=== PATIENT | female | born 1945 | race Caucasian/White ===

== ENCOUNTER 2016-04-21 12:55 | Emergency (ER) | payer MEDICARE, OTHER ==
[~2016-04-21] VITALS: Wt 78.0 kg
[~2016-04-21 12:55] MED LIST: ACET-2158 PO; AMIT25TA9 PO; ASPI-664 PO; ATEN50TA PO; CLON0.2T5 PO; DIPH1TAB25 PO; HYDR-3671 PO; INSU100I15 SC; LOSA50TA6 PO; NOVO3I SC
[2016-04-21] MEDS ORDERED: SODIUM CHLORIDE 0.9% 500 ML BAG IV* STA (13:30)
[2016-04-21] MEDS ORDERED: LANT3I SC (13:48)
[2016-04-21] MEDS ORDERED: CLON0.2T5 PO (13:50)
[2016-04-21] MEDS ORDERED: APR50 PO (13:53)
[2016-04-21 14:28] LABS: BASOPHILS % 0.3 % (0.0-2.0); EOSINOPHILS # 0.1 10^3/ul (0.0-0.5); EOSINOPHILS % 0.7 % (0.0-7.0); HEMATOCRIT 41.6 % (37.0-47.0); HEMOGLOBIN 13.9 g/dl (12.0-16.0); LYMPHOCYTES # 1.3 10^3/ul (0.8-2.9); LYMPHOCYTES % 16.9 % (15.0-51.0); MEAN CORPUSCULAR HGB CONC 33.5 g/dl (32.0-37.0); MEAN CORPUSCULAR VOLUME 101.4 fl (82.0-101.0); MEAN PLATELET VOLUME 9.3 fl (7.4-10.4); MONOCYTE # 0.7 10^3/ul (0.3-0.9); MONOCYTES % 8.8 % (0.0-11.0); NEUTROPHIL # 5.7 10^3/ul (1.6-7.5); NEUTROPHILS % 73.3 % (39.0-77.0); PLATELET COUNT 85 10^3/UL (140-440); RED CELL DISTRIBUTION WIDTH 14.1 % (11.5-14.5); UNCORRECTED WBC 7.8 10^3/ul (4.8-10.8); WHITE BLOOD COUNT 7.8 10^3/ul (4.8-10.8)
[2016-04-21 14:39] LABS: INR 1.11; PROTIME 14.3 Sec (12.2-14.2); PT RATIO 1.1
[2016-04-21 14:40] LABS: PARTIAL THROMBOPLASTIN TIME 31.3 Sec (25.0-35.0)
--- NOTE | 2016-04-21 14:40 | RADRPT ---
PROCEDURE: XR Chest. CLINICAL INDICATION: Chest pain. TECHNIQUE: Single frontal view. COMPARISON: 08/30/2015. FINDINGS: The lungs are clear. The heart size is normal. There is calcification in the aorta consistent with atherosclerosis. There is no pleural effusion or pneumothorax There are old healed right rib fractures. IMPRESSION: 1. Atherosclerosis. 2. Old healed right rib fractures. 3. Otherwise normal chest x-ray. RPTAT: QQ .Angel Cheng MD, MD Date Time Electronically viewed and signed by .Angel Cheng MD, MD on 04/21/2016 14:40 .R/
[2016-04-21 14:44] LABS: CONDITION 1; LH ANALYZER COMMENTS 1
[2016-04-21 14:47] LABS: POTASSIUM 4.1 mmol/L (3.5-5.1)
[2016-04-21 14:49] LABS: CREATININE 6.44 mg/dl (0.44-1.00)
[2016-04-21 14:51] LABS: CALCIUM 8.9 mg/dl (8.4-10.2)
--- NOTE | 2016-04-21 14:56 | RADRPT ---
PROCEDURE: CT head CLINICAL INDICATION: Fall with headache TECHNIQUE: Contiguous 2.5 mm axial images were obtained from the vertex to the skull base. No int ravenous contrast was administered. The calculated dose length product (DLP) = 720.23 mGy-cm. CTDl vol = 44.03 mGy. One or more of the following dose reduction techniques were used: Automated exposu re control, adjustment of the mA and or KV according to patient size, or use of iterative reconstruc tion technique. COMPARISON: 08/24/2015 FINDINGS: There is no evidence of acute intracranial hemorrhage or acute territorial infarct. No mass or mass effect is seen on this noncontrast study. There is age appropriate cortical and central atrophy. The ventricles and cisterns are normal in size and configuration for the degree of atrophy. Low att enuation areas in the periventricular white matter is consistent with minimal small-vessel ischemic change. There is mild chronic left sphenoid sinus mucosal thickening. Remaining paranasal sinuses a re clear. There is air within the left orbit bony calvarium is unremarkable. Mild to moderate bila teral carotid and left vertebral artery calcification is seen. IMPRESSION: 1. No acute intracranial hemorrhage or acute territorial infarct. 2. Age related atrophy and minimal involutional changes as described . 3. Minimal left sphenoid sinus mucosal thickening. 4. Stable cerebral arterial sclerosis 5. Air within the left globe RPTAT: HH .Saji Anne MD, MD Date Time Electronically viewed and signed by .Saji Anne MD, MD on 04/21/2016 14:56 .W/
[2016-04-21 14:59] LABS: TROPONIN-I 0.026 ng/ml (0.00-0.12)
--- NOTE | 2016-04-21 15:23 | ERD ---
ER Documentation Chief Complaint Date/Time DATE: 04/21/16 TIME: 15:19 Chief Complaint LOW BLOOD SUGAR IN DIALYSIS TODAY. BS IN TRIAGE IS 63, DIZZY AND FELL AT AM HPI This is a 70-year-old female presents to the emergency room for evaluation of dizziness and a ground-level fall this morning. According to the patient's caregiver this patient has had diarrhea over the past 4 days. She was rushing to get to the bathroom and she fell forward. She did hit her head. No loss of consciousness. The patient came to the ER for evaluation after going to dialysis center where she was sent to the emergency room because she had a low blood sugar. This patient did recently have surgery on her eye for a hemorrhage. The patient denies being on any blood thinners at this time. She also states that she fell on her left hip. Denies any pain in the hip and came to the ER ROS All systems reviewed and are negative except as per history of present illness. Medications Home Meds Reported Medications Hydralazine Hcl* (Hydralazine Hcl*) 50 Mg Tab, 50 MG PO TID Y for ELEVATED BLOOD PRESSURE, #120 TAB PT CLAIMS IT GIVES HER DIARRHEA AND MAKE HER DIZZY 04/21/16 Clonidine Hcl* (Clonidine Hcl*) 0.2 Mg Tablet, 0.2 MG PO TID Y for ELEVATED BLOOD PRESSURE, TAB PT STARTED ON 04-17-16 CLAIMS IT GAVE HER DIARRHEA AND MADE HER DIZZY 04/21/16 Insulin Glargine* (Lantus*) 100 Unit/Ml Soln, 10 UNIT SC QHS, #1 VIAL 04/21/16 Amitriptyline Hcl* (Amitriptyline Hcl*) 25 Mg Tablet, 25 MG PO QHS, #30 TAB 08/19/15 Aspirin* (Aspirin* (EC)) 81 Mg Tablet.dr, 81 MG PO DAILY, TAB 11/17/14 Clonidine Hcl* (Clonidine Hcl*) 0.2 Mg Tablet, 0.2 MG PO BID, TAB 11/17/14 Diphenoxylate Hcl-Atropine* (Lomotil*) 1 Tab Tab, 2 TAB PO DAILY Y for DIARRHEA , TAB 11/17/14 Insulin Aspart* (Novolog Insulin Pen*) 100 Unit/Ml Soln, 7 UNIT SC BID, EA 11/17/14 Losartan Potassium* (Losartan Potassium*) 50 Mg Tablet, 50 MG PO DAILY, TAB 2/6/15 Atenolol* (Atenolol*) 50 Mg Tablet, 50 MG PO BID 09/24/12 Acetaminophen (TYLENOL 325 MG TAB) 325 Mg Tab, 325 MG PO Y for PAIN 09/24/12 Discontinued Reported Medications Insulin Glargine,Hum.rec.anlog (Lantus Solostar) 100 Units/Ml Pen, 20 SC HS 11/17/14 Hydralazine Hcl* (Hydralazine Hcl*) 25 Mg Tab, 25 MG PO BID, TAB 09/16/13 Allergies Allergies: Coded Allergies: No Known Allergy (Unverified , 04/21/16) PMhx/Soc History of Surgery: Yes (CSECTION;GALL BLADDER, CYST TO BACK REMOVAL) Anesthesia Reaction: No Hx Neurological Disorder: Yes (NEUROPATHY) Hx Respiratory Disorders: No Hx Cardiac Disorders: Yes (HIGH BLOOD PRESSURE) Hx Psychiatric Problems: Yes (HX OF ANXIETY) Hx Miscellaneous Medical Probl: No Hx Alcohol Use: No Hx Substance Use: No Hx Tobacco Use: No Smoking Status: Never smoker Physical Exam Vitals Vital Signs Date Time Temp Pulse Resp B/P Pulse Ox O2 Delivery O2 Flow Rate FiO2 04/21/16 13:02 98.8 77 20 150/69 98 Physical Exam INITIAL VITAL SIGNS: Reviewed by me GENERAL: The patient is well developed and appropriate for usual state of health in no apparent distress HEENT: Ecchymosis over left eye, pupils equal, round, and reactive to light. EOMI. There is no scleral icterus. NECK: C-spine is soft and supple, there is no meningismus. There is no cervical lymphadenopathy. LUNGS: Clear to auscultation bilaterally. There are no rales, wheezes or rhonchi. HEART: Regular rate and rhythm, no murmurs, clicks, rubs or gallops. ABDOMEN: Soft, non-tender, non-distended. There are bowel sounds in all four quadrants. No rebound or guarding. EXTREMITIES: There is no peripheral cyanosis or edema. No focal swelling or erythema. NEUROLOGICAL: The patient moves all four extremities with 5/5 strength. Cranial nerves II - XII are intact. Normal gait. Alert and oriented SKIN: Superficial abrasion over the left hip, there is no apparent rash or petechiae. HEME/LYMPHATIC: There is no evidence of excessive bruising or lymphedema. PSYCHIATRIC: The patient does not appear anxious or depressed. Result Diagram: 04/21/16 1355 04/21/16 1355 Results 24 hrs Laboratory Tests Test 04/21/16 13:01 04/21/16 13:55 04/21/16 13:57 Bedside Glucose 65mg/dL 79mg/dL Activated Partial Thromboplast Time 31.3Sec Anion Gap 24 Basophils # Pending Basophils % Pending Blood Morphology Comment Blood Urea Nitrogen 75mg/dl Calcium Level 8.9mg/dl Carbon Dioxide Level 24mmol/L Chloride Level 97mmol/L Creatinine 6.44mg/dl Eosinophils # Pending Eosinophils % Pending Glucose Level 85mg/dl Hematocrit 41.6% Hemoglobin 13.9g/dl INR International Normalized Ratio 1.11 Lymphocytes # Pending Lymphocytes % Pending Mean Corpuscular Hemoglobin 34.0pg Mean Corpuscular Hemoglobin Concent 33.5g/dl Mean Corpuscular Volume 101.4fl Mean Platelet Volume 9.3fl Monocytes # Pending Monocytes % Pending Neutrophils # Pending Neutrophils % Pending Nucleated Red Blood Cells # Pending Nucleated Red Blood Cells % Pending Platelet Count 8510^3/UL Potassium Level 4.1mmol/L Prothrombin Time 14.3Sec Prothrombin Time Ratio 1.1 Red Blood Count 4.1010^6/ul Red Cell Distribution Width 14.1% Sodium Level 141mmol/L Troponin I 0.026ng/ml White Blood Count 7.810^3/ul Current Medications Medications (Trade) Dose Ordered Sig/Divina Route PRN Reason Start Time Stop Time Status Last Admin Dose Admin Sodium Chloride (NS) 250 ml ONCE STAT IV* 04/21/16 13:30 04/21/16 13:32 DC 04/21/16 13:59 Procedures/MDM Chest X-ray 1V Interpreted by me: Soft Tissue: No acute abnormalities Bones: Old healed rib fractures Mediastinum/Cardiac Silhouette/Lungs: [No acute abnormalities] CT head without: 1. No acute intracranial hemorrhage or acute territorial infarct. 2. Age related atrophy and minimal involutional changes as described . 3. Minimal left sphenoid sinus mucosal thickening. 4. Stable cerebral arterial sclerosis 5. Air within the left globe EKG: Rate/Rhythm: [Sinus bradycardia] QRS, ST, T-waves: [No changes consistent w/ acute ischemia] Impression: Sinus bradycardia with left bundle branch block This 70-year-old female presents to the emergency room for evaluation of a ground-level fall. This patient was supposed to go to dialysis today however she had a low blood sugar and came to the ER for evaluation. According to family members this patient has had diarrhea at home and fell today and hit her head. No loss of consciousness. This patient is alert and oriented to person place and time. I did obtain lab work including a troponin which is normal except for chronic renal insufficiency. Her EKG does show sinus bradycardia with a left bundle branch block. Troponin is normal. Chest x-ray does not reveal any fluid overload. She is hemodynamically stable and CT of the head does not reveal any intracranial hemorrhage. This patient has had 3. acute blood sugars with the last blood sugar being 100. She will be discharged at this time with instructions to follow-up with dialysis. Departure Diagnosis: Primary Impression: Fall from ground level Additional Impressions: Contusion of left hip Thrombocytopenia Chronic renal failure Condition: Stable KALINA GIBSON DO Apr 21, 2016 15:23
[2016-04-21 15:30] VITALS: BP 150/66; PULSE 78; RESP 20; TEMP 98.8
== END 2016-04-21 15:50 | disposition home or self-care (01) ==
LOC: E/R 12:55
DX: S70.02XA Contusion of left hip, initial encounter (principal); D69.6 Thrombocytopenia, unspecified; N18.9 Chronic kidney disease, unspecified; E11.9 Type 2 diabetes mellitus without complications; R07.9 Chest pain, unspecified; W18.39XA Other fall on same level, initial encounter; Y92.9 Unspecified place or not applicable; Z79.4 Long term (current) use of insulin; Z79.82 Long term (current) use of aspirin
CPT/HCPCS: 36415; 70450; 71010; 80048; 82962; 84484; 85025; 85610; 85730; 99285; J7040

== ENCOUNTER 2016-06-20 17:50 | Inpatient (IN) | payer MEDICARE, BC, OTHER ==
[~2016-06-20] VITALS: Ht 157.5 cm; Wt 69.0 kg
[~2016-06-20 17:50] MED LIST changes: -HYDR-3671 PO; +HYDR-3672 PO; -INSU100I15 SC; +LANT3I SC
[2016-06-20] MEDS ORDERED: SODIUM CHLORIDE 0.9% 1L BAG IV* STA (19:09)
[2016-06-20] MEDS ORDERED: CEFEPIME 2GM/50 ML (PMX) 50 ML IVPB STA (19:09)
[2016-06-20] MEDS ORDERED: ACETAMINOPHEN 325 MG TAB PO STA (19:09)
--- NOTE | 2016-06-20 19:29 | ERA ---
ER Documentation Chief Complaint Date/Time DATE: 06/20/16 TIME: 19:27 Chief Complaint WEAKNESS,COUGH,GEN BODY PAIN.POOR APPETITE.DIALYSIS Pt MWF HPI 71-year-old dialysis patient, Sunday, who presents emergency room with fever, generalized body aches, cough. The patient describes approximately 48 hours of symptoms. Last dialysis yesterday. The patient describes poor appetite. She also describes nonbloody nonbilious emesis. No abdominal pain. Fever noted prior to arrival. ROS All systems reviewed and are negative except as per history of present illness. Medications Home Meds Reported Medications Hydrocodone/Acetaminophen ([place] 5-325 Tablet) 1 Each Tablet, 1 EACH PO Q8H, TAB 06/20/16 Loratadine* (Loratadine*) 10 Mg Tablet, 10 MG PO DAILY, #30 TAB 06/20/16 Insulin Aspart (Novolog FlexPen) 100 Unit/1 Ml Insuln.pen, 0 SC SLIDING SCALE AC , EA 06/20/16 Insulin Glargine* (Lantus*) 100 Unit/Ml Soln, 12 UNIT SC QHS, #1 VIAL 04/21/16 Aspirin* (Aspirin* (EC)) 81 Mg Tablet.dr, 81 MG PO DAILY, TAB 11/17/14 Diphenoxylate Hcl-Atropine* (Lomotil*) 1 Tab Tab, 1 TAB PO Q6H Y for DIARRHEA, TAB 11/17/14 Losartan Potassium* (Losartan Potassium*) 50 Mg Tablet, 50 MG PO DAILY, TAB 04/10/14 Atenolol* (Atenolol*) 50 Mg Tablet, 50 MG PO BID 09/24/12 Discontinued Reported Medications Hydralazine Hcl* (Hydralazine Hcl*) 50 Mg Tab, 50 MG PO TID Y for ELEVATED BLOOD PRESSURE, #120 TAB PT CLAIMS IT GIVES HER DIARRHEA AND MAKE HER DIZZY 04/21/16 Clonidine Hcl* (Clonidine Hcl*) 0.2 Mg Tablet, 0.2 MG PO TID Y for ELEVATED BLOOD PRESSURE, TAB PT STARTED ON 04-17-16 CLAIMS IT GAVE HER DIARRHEA AND MADE HER DIZZY 04/21/16 Amitriptyline Hcl* (Amitriptyline Hcl*) 25 Mg Tablet, 25 MG PO QHS, #30 TAB 08/19/15 Clonidine Hcl* (Clonidine Hcl*) 0.2 Mg Tablet, 0.2 MG PO BID, TAB 11/17/14 Insulin Aspart* (Novolog Insulin Pen*) 100 Unit/Ml Soln, 7 UNIT SC BID, EA 11/17/14 Acetaminophen (TYLENOL 325 MG TAB) 325 Mg Tab, 325 MG PO Y for PAIN 09/24/12 Allergies Allergies: Coded Allergies: No Known Allergy (Unverified , 06/20/16) PMhx/Soc History of Surgery: Yes (CSECTION;GALL BLADDER, CYST TO BACK REMOVAL) Anesthesia Reaction: No Hx Neurological Disorder: Yes (NEUROPATHY) Hx Respiratory Disorders: No Hx Cardiac Disorders: Yes (HIGH BLOOD PRESSURE) Hx Psychiatric Problems: Yes (HX OF ANXIETY) Hx Miscellaneous Medical Probl: Yes (ESRD ON HD MWF) Hx Alcohol Use: No Hx Substance Use: No Hx Tobacco Use: No Smoking Status: Never smoker FmHx Family History: No diabetes Physical Exam Vitals Vital Signs Date Time Temp Pulse Resp B/P Pulse Ox O2 Delivery O2 Flow Rate FiO2 06/20/16 20:30 99.1 77 18 152/54 100 Room Air 06/20/16 19:15 Nasal Cannula 06/20/16 19:12 101.0 77 20 171/59 100 Room Air 06/20/16 17:58 100.5 80 20 192/74 98 Physical Exam General: Well developed, well nourished, no acute distress, pallor Head: Normocephalic, atraumatic. Eyes: Pupils equally reactive, EOM intact ENT: dry mucous membranes Neck: Supple, no lymphadenopathy Respiratory: Lungs clear bilaterally, no distress Cardiovascular: Slight tachycardia, no murmurs, rubs, or gallops Abdominal: Soft, non-tender, non-distended, no peritoneal signs : Deferred MSK: No edema, no unilateral swelling, 5/5 strength, left upper extremity AV fistula with good bruit and thrill Neurologic: Alert and oriented, moving all extremities, normal speech, no focal weakness, no cerebellar signs, no meningismus Skin: No rash Psych: Normal mood Result Diagram: 06/20/16193706/20/161937 Results 24 hrs Laboratory Tests Test 06/20/16 19:35 06/20/16 19:38 06/20/16 21:20 Lactic Acid Level 1.6mmol/L 1.0mmol/L White Blood Count 7.210^3/ul Red Blood Count 2.5110^6/ul Hemoglobin 8.2g/dl Hematocrit 26.0% Mean Corpuscular Volume 103.6fl Mean Corpuscular Hemoglobin 32.7pg Mean Corpuscular Hemoglobin Concent 31.5g/dl Red Cell Distribution Width 13.1% Platelet Count 8410^3/UL Mean Platelet Volume 10.6fl Neutrophils % 84.0% Band Neutrophils % 2.0% Lymphocytes % 8.0% Monocytes % 5.0% Eosinophils % 1.0% Neutrophils # 6.010^3/ul Lymphocytes # 0.610^3/ul Monocytes # 0.410^3/ul Eosinophils # 0.110^3/ul Platelet Estimate PLT APPEAR DECREASED Stomatocytes FEW Prothrombin Time 14.3Sec Prothrombin Time Ratio 1.1 INR International Normalized Ratio 1.11 Activated Partial Thromboplast Time 33.7Sec Sodium Level 140mmol/L Potassium Level 3.9mmol/L Chloride Level 97mmol/L Carbon Dioxide Level 29mmol/L Anion Gap 18 Blood Urea Nitrogen 41mg/dl Creatinine 5.52mg/dl Glucose Level 173mg/dl Calcium Level 8.7mg/dl Total Bilirubin 0.2mg/dl Direct Bilirubin 0.00mg/dl Indirect Bilirubin 0.2mg/dl Aspartate Amino Transf (AST/SGOT) 38IU/L Alanine Aminotransferase (ALT/SGPT) 31IU/L Alkaline Phosphatase 179IU/L Troponin I 0.018ng/ml Total Protein 7.8g/dl Albumin 3.9g/dl Globulin 3.90g/dl Albumin/Globulin Ratio 1.00 Current Medications Medications (Trade) Dose Ordered Sig/Divina Route PRN Reason Start Time Stop Time Status Last Admin Dose Admin Sodium Chloride (NS) 2,420 ml BOLUS OVER 2 HOURS STAT IV* 06/20/16 19:09 06/20/16 19:11 DC 06/20/16 19:43 Acetaminophen 650 mg 650 mg ONCE STAT PO 06/20/16 19:09 06/20/16 19:11 DC 06/20/16 19:42 Cefepime HCl 50 ml @ 100 mls/hr ONCE STAT IVPB 06/20/16 19:09 06/20/16 19:38 DC 06/20/16 19:43 Vancomycin HCl (Vancocin) 250 ml @ 125 mls/hr ONCE ONCE IVPB 06/20/16 19:30 06/20/16 21:29 DC 06/20/16 20:22 Oseltamivir Phosphate (Tamiflu) 75 mg ONCE ONCE PO 06/20/16 21:00 06/20/16 21:01 DC Ondansetron HCl (Zofran Inj) 4 mg BRIDGE ORDER PRN IV NAUSEA AND/OR VOMITING 06/20/16 22:30 06/21/16 22:29 Acetaminophen (Tylenol Tab) 650 mg ER BRIDGE PRN PO MILD PAIN/FEVER 06/20/16 22:30 06/21/16 22:29 Procedures/MDM EKG, MONITORS, & DIAGNOSTIC IMAGING: EKG: I reviewed and interpreted a 12-lead EKG. Rhythm: Normal sinus rhythm Ectopy: None Intervals: Left bundle branch block ST segments: No elevations or depressions T waves: No contiguous inversions Chest x-ray: I reviewed and interpreted a 1 view of the chest Mediastinum: No enlargement Cardiac silhouette: No cardiomegaly Airspace: Clear lung banks bilaterally without evidence of pneumothorax Bones: No evidence of fracture CT abdomen and pelvis: No acute process LAB INTERPRETATION: Influenza positive, no leukocytosis, normal lactic acid, chronic renal insufficiency MEDICAL DECISION MAKING: The patient presents with fever, cough, weakness. The patient is a dialysis patient. Broad differential including pneumonia, access sepsis, influenza, acute intra-abdominal process. The patient is high risk for sepsis therefore empiric antibiotics would be appropriate. ER COURSE: Initial gentle fluid bolus given given dialysis patient. The patient had blood cultures, empiric vancomycin and cefepime ordered. Influenza swab sent. Positive for influenza. Patient given Tamiflu. Inpatient hospitalization given high risk patient. I kept the patient and/or family informed of laboratory and diagnostic imaging results throughout the emergency room course. DISPOSITION PLAN: Medical surgical admission given no hyperkalemia CONSULTATION: Accepting care team and consultations: I discussed the current laboratory data, diagnostic imaging and emergency care provided. Admitting team: Dr. Patiño Admitting team indication: Insurance directed Departure Diagnosis: Primary Impression: Influenza Additional Impressions: End stage renal disease on dialysis Thrombocytopenia Condition: Stable DAYDAY UMANA MD Jun 20, 2016 19:29
[2016-06-20] MEDS ORDERED: VANCOMYCIN 1 GM (PMX) 250 ML IVPB ONE (19:30)
[2016-06-20] MEDS ORDERED: INSU100I22 SC (19:40)
[2016-06-20] MEDS ORDERED: LORA10TA3 PO (19:41)
[2016-06-20] MEDS ORDERED: HYDR-906 PO (19:41)
[2016-06-20 19:55] LABS: ADD SCAN DIFF NO
[2016-06-20 19:56] LABS: ABNORMAL IP MESSAGE 1; HEMOGLOBIN 8.2 g/dl (12.0-16.0); MEAN CORPUSCULAR HEMOGLOBIN 32.7 pg (29.0-33.0); MEAN CORPUSCULAR HGB CONC 31.5 g/dl (32.0-37.0); MEAN CORPUSCULAR VOLUME 103.6 fl (82.0-101.0); MEAN PLATELET VOLUME 10.6 fl (7.4-10.4); PLATELET COUNT 84 10^3/UL (140-415); RED BLOOD COUNT 2.51 10^6/ul (4.20-5.40); RED CELL DISTRIBUTION WIDTH 13.1 % (11.5-14.5); WHITE BLOOD COUNT 7.2 10^3/ul (4.8-10.8)
--- NOTE | 2016-06-20 20:04 | RADRPT ---
PROCEDURE: XR Chest. CLINICAL INDICATION: Possible sepsis. TECHNIQUE: Single frontal view of the chest. COMPARISON: 04/21/2016. FINDINGS: Cardiomegaly and atherosclerotic calcifications in the thoracic aorta. Mild pulmonary vascular conge stion. The lungs are otherwise clear. No signs of pleural fluid or pneumothorax are seen. The osseo us structures and soft tissues are unremarkable. IMPRESSION: Mild pulmonary vascular congestion. RPTAT: [facility] Physician Kourtney Date Time Electronically viewed and signed by Jim Brown Physician on 06/20/2016 20:03 RS/
[2016-06-20 20:06] LABS: ALBUMIN 3.9 g/dl (3.3-4.9)
[2016-06-20 20:07] LABS: INR 1.11; POTASSIUM 3.9 mmol/L (3.5-5.1); PROTIME 14.3 Sec (12.2-14.2); PT RATIO 1.1
[2016-06-20 20:08] LABS: PARTIAL THROMBOPLASTIN TIME 33.7 Sec (25.0-35.0)
[2016-06-20 20:09] LABS: BILIRUBIN,INDIRECT 0.2 mg/dl (0-1.1); BILIRUBIN,TOTAL 0.2 mg/dl (0.2-1.3); CREATININE 5.52 mg/dl (0.44-1.00); TOTAL PROTEIN 7.8 g/dl (6.1-8.1)
[2016-06-20 20:10] LABS: CALCIUM 8.7 mg/dl (8.4-10.2)
[2016-06-20 20:21] LABS: TROPONIN-I 0.018 ng/ml (0.00-0.12)
[2016-06-20] MEDS ORDERED: OSELTAMIVIR 75 MG CAP PO ONE (21:00)
[2016-06-20 21:15] LABS: EOSINOPHILS # 0.1 10^3/ul (0.0-0.5); LYMPHOCYTES # 0.6 10^3/ul (0.8-2.9); MONOCYTE # 0.4 10^3/ul (0.3-0.9)
[2016-06-20 21:16] LABS: STOMATOCYTES FEW
[2016-06-20 21:17] LABS: PLATELET ESTIMATE PLT APPEAR DECREASED
--- NOTE | 2016-06-20 21:55 | RADRPT ---
PROCEDURE: CT Abdomen and Pelvis without contrast. CLINICAL INDICATION: Possible sepsis TECHNIQUE: CT scan of the abdomen and pelvis without contrast was performed on a multidetector hig h-resolution CT scanner. The patient was scanned without intravenous contrast. Coronal and sagittal reformatted images were obtained from the axial source images. Images were reviewed on a high-resol [employer] PACS workstation. The total exam CTDI equals 11.25 mGy and the total exam DLP equals 591.97 mG y-cm. One or more the following dose reduction techniques were utilized: Automated exposure control, adjus tment of the mA/ or kV according to patient's size, or use of iterative reconstruction technique. COMPARISON: None. FINDINGS: CT abdomen: Appearance of the right diaphragmatic pleural calcifications. Linear atelectasis/fibrosis at lung b ases. The heart size is normal, without pericardial thickening or effusion. The liver is normal in size and density without focal mass or intrahepatic biliary dilatation. Vascular calcifications in t he spleen. The stomach is partially collapsed, but is grossly unremarkable. Pancreatic atrophy. N o gallbladder is seen. The adrenal glands are symmetric and normal. Vascular calcifications in the kidneys. The aorta is of normal caliber. Aortic vascular calcifications are present. Calcification in all b ranches of the abdominal aorta including iliac arteries. There is no retroperitoneal lymphadenopath y. The wai hepatis region is clear. Diverticula in sigmoid and ascending colon. There is no spe cific evidence of acute diverticulitis seen. CT pelvis: The small bowel loops situated within the pelvis are unremarkable. Vascular calcifications in uterus . The bladder is nearly empty. The pelvic sidewalls and inguinal regions are clear. The sigmoid c olon and rectum are remarkable for sigmoid diverticulosis. No mass, lymphadenopathy, or free fluid is seen. No acute inflammation is seen. There is an unremarkable appendix. The surrounding osseous structures are remarkable for degenerative spondylosis of the spine. Spinal stenosis in lumbar spine. There is diffuse osteopenia. Mild to moderate osteoarthrosis at hips. De generative changes at sacroiliac joints. IMPRESSION: Diffuse vascular atherosclerotic calcification. Pancreatic atrophy. Diverticula in sigmoid and asce nding colon. No specific evidence of acute diverticulitis seen. Please see above. RPTAT: HJES .David Espinoza MD, MD Date Time Electronically viewed and signed by .David Espinoza MD, on 06/20/2016 21:54 .S/
[2016-06-20] MEDS ORDERED: ONDANSETRON 4 MG INJ IV PRN (22:30)
[2016-06-20] MEDS ORDERED: ACETAMINOPHEN 325 MG TAB PO PRN (22:30)
[2016-06-21] VITALS (11 sets, daily range): BP systolic 133–187; BP diastolic 55–79; PULSE 60–76; RESP 16–20; TEMP 99.2; Ht 157.5 cm; Wt 69.0 kg
[2016-06-21] MEDS ORDERED: ONDANSETRON 4 MG INJ IV PRN (13:30)
[2016-06-21] MEDS ORDERED: DOCUSATE SODIUM 100 MG CAP PO PRN (13:30)
[2016-06-21] MEDS ORDERED: morphine 2 MG INJ IV PRN (13:30)
--- NOTE | 2016-06-21 14:23 | HP ---
DATE OF ADMISSION: 06/20/2016 CHIEF COMPLAINT: Generalized weakness, cough, and general body pain. HISTORY OF PRESENT ILLNESS: The patient is a 71-year-old female known to me from previous admission . The patient with history of end-stage renal disease on hemodialysis on Sunday, Sunday, and Sun, follows up with Dr. Rios. The patient with diabetes mellitus, hypertension. The patient presen cherelle to the emergency room with complaints of fever, generalized body ache, and cough. The patient a lso complains of poor appetite and nonbloody, nonbilious emesis. The patient had a fever of 101.0 o n admission. The patient underwent a chest x-ray which revealed mild pulmonary vascular congestion. The patient did have dialysis on Sunday. The patient also underwent a CT of the abdomen and pelvi s with impression of diffuse vascular atherosclerotic calcification, pancreatic atrophy, diverticula in sigmoid and ascending colon, no specific evidence of acute diverticulitis seen. Rapid influenza swab was positive for influenza B. The patient was started on Tamiflu and was given supplemental o xygen. Also, she was given broad spectrum antibiotics for possible underlying bronchitis. The leticia ent was also given Tylenol, and the patient will be admitted for further evaluation and management t o medical/surgical floor. PAST MEDICAL HISTORY: Per HPI. PAST SURGICAL HISTORY: The patient is status post left upper extremity AV fistula creation and subs equent removal of fistula by Dr. Sanchez a couple of months ago. The patient also had a left upper ex tremity IV fistula creation. The patient recently underwent left eye surgery with certified orthotist/pedorthist. The patient is status post many years ago, status post cholecystectomy, status post incis ion and drainage of perirectal abscess. FAMILY HISTORY: Noncontributory to the patient's condition. SOCIAL HISTORY: The patient lives at home. The patient denies any tobacco use, denies any alcohol use, denies any illicit drug use. ALLERGIES: NO KNOWN ALLERGIES. HOME MEDICATIONS: Includes 1. Loratadine. 2. NovoLog. 3. Lantus. 4. Aspirin. 5. Lomotil. 6. Cozaar 7. Atenolol. REVIEW OF SYSTEMS: A 12-point review of systems is negative unless mentioned in the HPI. The patient denies any chest pain, denies any bilateral lower extremity swelling. PHYSICAL EXAMINATION: GENERAL: Well-developed, well-nourished female who currently is awake, alert. VITAL SIGNS: Temperature is 99.2, pulse is 76, blood pressure 169/56, respiratory rate 19, oxygen s aturation 95% on 3 liters nasal cannula. HEENT: Head is atraumatic, normocephalic. Pupils equal, round, and reactive to light and accommoda tion. Oral mucosa is pink and moist. NECK: Supple, no cervical lymphadenopathy, no thyromegaly. LUNGS: Clear bilaterally. Slightly diminished at the bases. CARDIOVASCULAR: Normal S1, S2. No murmurs, gallops, clicks, or rubs noted. ABDOMEN: Round, soft, nondistended, nontender. Bowel sounds present. There is no guarding, no dhruv ound tenderness. EXTREMITIES: There is no edema, clubbing, cyanosis. Pulses equal bilaterally 2+. Left upper extre mity with AV fistula with palpable thrill and audible bruit. SKIN: There is no rash, petechiae. NEUROLOGIC: The patient is awake, alert, and oriented x4. No focal deficits noted. Motor strength 5/5 in all extremities. LABORATORY DATA: On admission, CBC shows white blood cells 7.2, hemoglobin 8.2, hematocrit 26.0, pl atelets 84. Chemistry: Sodium is 140, potassium 3.9, chloride 97, carbon dioxide 29, anion gap 18, BUN 41, creatinine 5.52, AST 38, ALT 31, alkaline phosphate is 179. PT is 14.3, INR is 1.1, PTT is 33.7. ASSESSMENT AND PLAN: 1. Influenza B. Continue patient on renally dosed Tamiflu. Continue broad spectrum antibiotics to cover for possible bacterial bronchitis. We will ask Dr. Salgado to see the patient in infectious d isease consultation. 2. End-stage renal disease. The patient is due for hemodialysis today. Dr. Rios will be following the patient in nephrology consultation. 3. Diabetes mellitus type 2. We will continue Lantus and NovoLog. 4. Hypertension. Continue atenolol and Cozaar. 5. We will continue heparin for deep venous thrombosis prophylaxis and Pepcid for peptic ulcer dise ase prophylaxis. Further recommendations based on clinical course. Plan of care discussed with Dr. Campbell. Dictated By: JOCELYN SWAIN HEAD SCORER for MICHAEL CAMPBELL MD SR/NTS Conf#: [id number] [facility]#: [id number]
[2016-06-21] MEDS ORDERED: GLUCAGON 1 MG INJ IM PRN (14:30)
[2016-06-21] MEDS ORDERED: GLUCOSE GEL 15 GRAM TUBE BUCCAL PRN (14:30)
[2016-06-21] MEDS ORDERED: GLUCOSE GEL 15 GRAM TUBE PO PRN ×2 (14:30)
[2016-06-21] MEDS ORDERED: DEXTROSE 50% 50 ML SYRINGE IV PRN ×2 (14:30)
--- NOTE | 2016-06-21 17:04 | CONS ---
DATE OF ADMISSION: 06/20/2016 DATE OF CONSULTATION: 06/21/2016 REASON FOR CONSULTATION: Antibiotic management. HISTORY OF PRESENT ILLNESS: Vani Pruett is a 71-year-old female who comes in with generalized weak ness, cough and generalized body pain. Her past problems include: 1. End-stage renal disease on hemodialysis on Sunday, Sunday and Sunday. Her mobile application architect is Dr Michael Rios. 2. Adult-onset diabetes mellitus. 3. Hypertension. 4. Fevers and generalized body ache and cough. The patient comes in complaining of poor appetite and nausea and vomiting. She had a fever of 101 o n admission. She underwent a chest x-ray which showed pulmonary vascular congestion. She did have dialysis on Sunday. The patient also underwent the CT scan of the abdomen and pelvis with impressio n of diffuse vascular atherosclerotic calcifications, pancreatic atrophy, diverticula in the sigmoid and ascending colon. No specific evidence of acute diverticulitis seen. Rapid influenza swab was positive for influenza B. The patient was started on Tamiflu, was given supplemental oxygen. The p atient was given broad spectrum antibiotics for underlying bronchitis. She was admitted for further evaluation and management to medical/surgical floor. PAST SURGICAL HISTORY: 1. Positive for left upper extremity AV fistula and subsequent removal by Dr. Sanchez a couple of mon s ago. 2. She has left upper extremity IV fistula creation. 3. Recent left eye surgery with government property inspector. 4. Status post many years ago. 5. Status post cholecystectomy. 6. Status post incision and drainage of a perirectal abscess. PAST MEDICAL HISTORY: Operations as outlined. FAMILY HISTORY: Noncontributory. SOCIAL HISTORY: She does not smoke, drink or abuse drugs. She lives at home. ALLERGIES: NONE TO PENICILLIN, SULFA OR FOODS. MEDICATIONS: Per chart. REVIEW OF SYSTEMS: Noncontributory. PHYSICAL EXAMINATION: GENERAL: The patient is a well-developed, well-nourished female who is alert, responsive, in no acu te distress. VITAL SIGNS: Stable. She is afebrile. SKIN: Without generalized rash. HEENT: Within normal limits. NECK: Supple. LYMPH NODES: None palpable. CHEST: Decreased breath sounds at the bases. HEART: Without murmur or gallop. ABDOMEN: Soft, nontender, without organosplenomegaly or masses. EXTREMITIES: Without cyanosis, clubbing or edema. Left upper extremity AV fistula with palpable th rill, audible bruit. RECTAL AND GENITAL: Deferred. NEUROLOGIC: No focal neurological abnormalities. ANCILLARY LABORATORY DATA: White count on admission was 7.2, H and H of 8.2 and 26, platelet count of 84,000. BUN and creatinine 41/5.52, AST 38, ALT 31, alkaline phosphatase 179. IMPRESSION AND PLAN: The patient comes in with bronchitis, fever, influenza B currently on Tamiflu. She also received vancomycin and cefepime, which we should continue. I will dictate my findings t o the hospitalists. Dictated By: AUDREY DELACRUZ MD, JD/BOBBI Conf#: [id number] DID#: [id number]
[2016-06-21] MEDS ORDERED: OSELTAMIVIR 30 MG CAP PO SCH (17:30)
--- NOTE | 2016-06-21 17:50 | CONS ---
Date/Time of Note Date/Time of Note DATE: 06/21/16 TIME: 17:50 Assessment/Plan Assessment/Plan Additional Assessment/Plan 1. Influenza B. 2. End-stage renal disease. 3. Diabetes mellitus type 2. 4. Hypertension. 5. 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 Nephrology consulted for management of ESRD On HD Constitutional: No requiring O2 Past Medical History Medical History: renal disease (ESRD) Past Surgical History Past Surgical Hx: cholecystectomy, other Family History Significant Family History: no pertinent family hx Social History Alcohol Use: none Smoking Status: Never smoker Drug Use: none Exam/Review of Systems Vital Signs Vitals Vital Signs Date Time Temp Pulse Resp B/P Pulse Ox O2 Delivery O2 Flow Rate FiO2 06/21/16 16:43 74 06/21/16 15:15 20 06/21/16 14:10 99.1 187/79 95 06/21/16 11:00 Nasal Cannula 3.0 Intake and Output 06/20/16 06/20/16 06/21/16 15:00 23:00 07:00 Intake Total 1300 ml Balance 1300 ml Exam Constitutional: alert, No distress Neck: No jvd Respiratory: No diminished breath sounds, No labored breathing Cardiovascular: edema, regular rate and rhythm Gastrointestinal: non-tender, soft Extremities: edema Neurological: RED LEADER II-XII intact, nl mental status, No confused, No lethargic Skin: No diaphoresis Results Result Diagram: 06/20/16193706/20/161937 Results 24 hrs Laboratory Tests Test 06/20/16 19:35 06/20/16 19:38 06/20/16 21:20 06/20/16 23:00 Lactic Acid Level 1.6 1.0 0.9 White Blood Count 7.2 Red Blood Count 2.51 #L Hemoglobin 8.2 #L Hematocrit 26.0 #L Mean Corpuscular Volume 103.6 H Mean Corpuscular Hemoglobin 32.7 Mean Corpuscular Hemoglobin Concent 31.5 L Red Cell Distribution Width 13.1 Platelet Count 84 L Mean Platelet Volume 10.6 H Neutrophils % 84.0 H Band Neutrophils % 2.0 Lymphocytes % 8.0 L Monocytes % 5.0 Eosinophils % 1.0 Neutrophils # 6.0 Lymphocytes # 0.6 L Monocytes # 0.4 Eosinophils # 0.1 Platelet Estimate PLT APPEAR DECREASED Stomatocytes FEW Prothrombin Time 14.3 H Prothrombin Time Ratio 1.1 INR International Normalized Ratio 1.11 Activated Partial Thromboplast Time 33.7 Sodium Level 140 Potassium Level 3.9 Chloride Level 97 Carbon Dioxide Level 29 Anion Gap 18 H Blood Urea Nitrogen 41 H Creatinine 5.52 H Glucose Level 173 Calcium Level 8.7 Total Bilirubin 0.2 Direct Bilirubin 0.00 Indirect Bilirubin 0.2 Aspartate Amino Transf (AST/SGOT) 38 Alanine Aminotransferase (ALT/SGPT) 31 Alkaline Phosphatase 179 H Troponin I 0.018 Total Protein 7.8 Albumin 3.9 Globulin 3.90 H Albumin/Globulin Ratio 1.00 Test 06/21/16 17:22 Bedside Glucose 185 Medications Medications Current Medications Ondansetron HCl (Zofran Inj) 4 mg Q6H PRN IV NAUSEA AND/OR VOMITING; Start at 13:30 Acetaminophen (Tylenol Tab) 650 mg Q6H PRN PO PAIN LEVEL 1-3 OR FEVER; Start at 13:30 Morphine Sulfate (morphine) 2 mg Q4H PRN IV SEVERE PAIN LEVEL 7-10; Start 06/21 at 13:30 Docusate Sodium (Colace) 100 mg Q12H PRN PO CONSTIPATION; Start 06/21/16 at 13: 30 Famotidine (Pepcid) 20 mg Q24H PO ; Start 06/21/16 at 21:00 Heparin Sodium (Porcine) (Heparin (5000 Units/0.5 ml)) 5,000 unit Q12 SC ; Start 06/21/16 at 21:00 Aspirin (Halfprin) 81 mg DAILY PO ; Start 06/22/16 at 09:00 Atenolol (Tenormin) 50 mg BID PO ; Start 06/21/16 at 21:00 Losartan Potassium (Cozaar) 50 mg DAILY PO ; Start 06/22/16 at 09:00 Insulin Glargine (Lantus) 12 unit DAILY@20 SC ; Start 06/21/16 at 20:00 Miscellaneous Information 1 ea NOTE XX ; Start 06/21/16 at 14:30 Glucose (Glutose) 15 gm Q15M PRN PO DECREASED GLUCOSE; Start 06/21/16 at 14:30 Glucose (Glutose) 22.5 gm Q15M PRN PO DECREASED GLUCOSE; Start 06/21/16 at 14: 30 Dextrose (D50w Syringe) 25 ml Q15M PRN IV DECREASED GLUCOSE; Start 06/21/16 at 14:30 Dextrose (D50w Syringe) 50 ml Q15M PRN IV DECREASED GLUCOSE; Start 06/21/16 at 14:30 Glucagon (Glucagen) 1 mg Q15M PRN IM DECREASED GLUCOSE; Start 06/21/16 at 14:30 Glucose (Glutose) 15 gm Q15M PRN BUCCAL DECREASED GLUCOSE; Start 06/21/16 at 14 :30 Procedures Procedures PROCEDURE: XR Chest. CLINICAL INDICATION: Possible sepsis. TECHNIQUE: Single frontal view of the chest. COMPARISON: 04/21/2016. FINDINGS: Cardiomegaly and atherosclerotic calcifications in the thoracic aorta. Mild pulmonary vascular congestion. The lungs are otherwise clear. No signs of pleural fluid or pneumothorax are seen. The osseous structures and soft tissues are unremarkable. IMPRESSION: Mild pulmonary vascular congestion. RPTAT: [facility] Physician Kourtney Date Time Electronically viewed and signed by Jim Brown Physician on 06/20/2016 20:03 IMPRESSION: Diffuse vascular atherosclerotic calcification. Pancreatic atrophy. Diverticula in sigmoid and ascending colon. No specific evidence of acute diverticulitis seen. Please see above. WARD WILSON MD Jun 21, 2016 17:50
[2016-06-21] MEDS ORDERED: INSULIN ASPART [NOVOLOG] 3 ML PEN SC SCH (18:00)
[2016-06-21] MEDS: FAMOTIDINE 20 MG TAB PO SCH (20:20)
[2016-06-21] MEDS: ATENOLOL 50 MG TAB PO SCH (20:21)
[2016-06-21] MEDS: HEPARIN 5,000 UNIT/0.5 ML VIAL SC SCH (20:31)
[2016-06-21] MEDS: INSULIN GLARGINE [LANtus] 3 ML PEN SC SCH (20:32)
[2016-06-21] MEDS: INSULIN ASPART [NOVOLOG] 3 ML PEN SC SCH (20:33)
[2016-06-22] MEDS: ACCU-CHEK XX SCH (02:00)
[2016-06-22 05:55] LABS: ADD SCAN DIFF NO
[2016-06-22 06:18] LABS: ABNORMAL IP MESSAGE 1; BASOPHILS % 0.2 % (0.0-2.0); EOSINOPHILS % 0.2 % (0.0-7.0); HEMATOCRIT 24.8 % (37.0-47.0); HEMOGLOBIN 7.7 g/dl (12.0-16.0); LYMPHOCYTES # 1.1 10^3/ul (0.8-2.9); LYMPHOCYTES % 17.5 % (15.0-51.0); MEAN CORPUSCULAR HEMOGLOBIN 32.4 pg (29.0-33.0); MEAN CORPUSCULAR VOLUME 104.2 fl (82.0-101.0); MEAN PLATELET VOLUME 11.1 fl (7.4-10.4); MONOCYTE # 0.8 10^3/ul (0.3-0.9); MONOCYTES % 13.1 % (0.0-11.0); NEUTROPHIL # 4.2 10^3/ul (1.6-7.5); NEUTROPHILS % 68.4 % (39.0-77.0); PLATELET COUNT 71 10^3/UL (140-415); RED BLOOD COUNT 2.38 10^6/ul (4.20-5.40); RED CELL DISTRIBUTION WIDTH 13.3 % (11.5-14.5); WHITE BLOOD COUNT 6.2 10^3/ul (4.8-10.8)
[2016-06-22 06:43] LABS: POTASSIUM 4.2 mmol/L (3.5-5.1)
[2016-06-22 06:46] LABS: CREATININE 4.39 mg/dl (0.44-1.00)
[2016-06-22] MEDS ORDERED: EPOETIN 10000 UNITS/1 ML INJ (ESRD) SC ONE (07:00)
[2016-06-22 08:08] VITALS: BP 145/63; RESP 16
[2016-06-22] MEDS: INSULIN ASPART [NOVOLOG] 3 ML PEN SC SCH ×4 (08:44→20:37)
[2016-06-22] MEDS: HEPARIN 5,000 UNIT/0.5 ML VIAL SC SCH ×2 (08:45→20:43)
[2016-06-22] MEDS: DIPHENOXYLATE/ATROPINE TAB PO PRN (08:58)
[2016-06-22] MEDS: LOSARTAN 50 MG TAB PO SCH (09:00)
[2016-06-22] MEDS: ATENOLOL 50 MG TAB PO SCH ×2 (09:00→20:39)
--- NOTE | 2016-06-22 12:00 | RADRPT ---
PROCEDURE: XR Chest. CLINICAL INDICATION: r/o PNA TECHNIQUE: PA and lateral views of the chest were obtained. COMPARISON: Chest x-ray from 06/20/2016. FINDINGS: There is stable mild cardiomegaly and mild pulmonary vascular congestion. The aortic arch is calcified. The lungs are clear. There is no significant pleural effusion or pneumothorax. Osseous and soft tissue structures are unremarkable. IMPRESSION: Stable mild cardiomegaly and pulmonary vascular congestion. Aortic atherosclerosis. No focal infiltrates or effusions. RPTAT: EE Physician Tip Date Time Electronically viewed and signed by Physician Tip on 06/22/2016 12:00 RA/
[2016-06-22] MEDS: ASPIRIN (EC) 81 MG TAB PO SCH (12:02)
--- NOTE | 2016-06-22 13:54 | PN ---
Date/Time of Note Date/Time of Note DATE: 06/22/16 TIME: 13:46 Assessment/Plan VTE Prophylaxis VTE Prophylaxis Intervention: other Lines/Catheters [facility] Saline Lock Assessment/Plan Assessment/Plan 1. Influenza B. - per Dr. Salgado in infectious disease consultation. - renally dosed Tamiflu. - broad spectrum antibiotics to cover for possible bacterial bronchitis. We will ask 2. Anemia- Epogen - To transfuse blood during hemodialysis per nephrology. Staff to call the entertainment production professional and check. 2. End-stage renal disease- hemodialysis dependent. - per Dr. Rios in nephrology consultation. 3. Diabetes mellitus type 2. We will continue Lantus and NovoLog. 4. Hypertension. Continue atenolol and Cozaar. 5. Heparin for deep venous thrombosis prophylaxis and Pepcid for peptic ulcer disease prophylaxis. Further recommendations based on clinical course. Plan of care discussed with Dr. Patiño /staff Subjective 24 Hr Interval Summary Free Text/Dictation . H&H is low today-. To check with [facility] for a blood transfusion during hemodialysis. Constitutional: requiring O2 Eyes: no complaints ENT: no complaints Respiratory: no complaints Cardiovascular: no complaints Gastrointestinal: no complaints Genitourinary: no complaints Musculoskeletal: no complaints Skin: no complaints Neurologic: no complaints Exam/Review of Systems Vital Signs Vitals Vital Signs Date Time Temp Pulse Resp B/P Pulse Ox O2 Delivery O2 Flow Rate FiO2 06/22/16 08:08 98.7 60 16 145/63 98 06/21/16 11:00 Nasal Cannula 3.0 Intake and Output 06/21/16 06/21/16 06/22/16 15:00 23:00 07:00 Intake Total 500 ml 680 ml Output Total 2500 ml Balance -2000 ml 680 ml Exam Constitutional: alert, oriented, well developed Psych: nl mood/affect Eyes: EOMI, nl sclera ENMT: nl external ears & nose Respiratory: clear to auscultation Cardiovascular: nl pulses Gastrointestinal: non-tender, soft Extremities: normal pulses Neurological: nl mental status, nl speech Results Result Diagram: 06/22/16 0510 06/22/16 0510 Results 24 hrs Laboratory Tests Test 06/21/16 17:22 06/21/16 20:14 06/22/16 02:15 06/22/16 05:10 Bedside Glucose 185 209 195 White Blood Count 6.2 Red Blood Count 2.38 L Hemoglobin 7.7 L Hematocrit 24.8 L Mean Corpuscular Volume 104.2 H Mean Corpuscular Hemoglobin 32.4 Mean Corpuscular Hemoglobin Concent 31.0 L Red Cell Distribution Width 13.3 Platelet Count 71 L Mean Platelet Volume 11.1 H Neutrophils % 68.4 Lymphocytes % 17.5 Monocytes % 13.1 H Eosinophils % 0.2 Basophils % 0.2 Nucleated Red Blood Cells % 0.0 Neutrophils # 4.2 Lymphocytes # 1.1 Monocytes # 0.8 Eosinophils # 0.0 Basophils # 0.0 Nucleated Red Blood Cells # 0.0 Sodium Level 135 Potassium Level 4.2 Chloride Level 95 L Carbon Dioxide Level 27 Anion Gap 17 H Blood Urea Nitrogen 39 H Creatinine 4.39 #H Glucose Level 246 H Calcium Level 8.0 L Test 06/22/16 08:07 06/22/16 12:00 Bedside Glucose 267 H 115 Medications Medications Current Medications Ondansetron HCl (Zofran Inj) 4 mg Q6H PRN IV NAUSEA AND/OR VOMITING; Start at 13:30 Acetaminophen (Tylenol Tab) 650 mg Q6H PRN PO PAIN LEVEL 1-3 OR FEVER; Start at 13:30 Morphine Sulfate (morphine) 2 mg Q4H PRN IV SEVERE PAIN LEVEL 7-10; Start 06/21 at 13:30 Docusate Sodium (Colace) 100 mg Q12H PRN PO CONSTIPATION; Start 06/21/16 at 13: 30 Famotidine (Pepcid) 20 mg Q24H PO Last administered on 06/21/16 20:20; Admin Dose 20 MG; Start 06/21/16 at 21:00 Heparin Sodium (Porcine) (Heparin (5000 Units/0.5 ml)) 5,000 unit Q12 SC Last administered on 06/22/16 08:45; Admin Dose 5,000 UNIT; Start 06/21/16 at 21:00 Aspirin (Halfprin) 81 mg DAILY PO Last administered on 06/22/16 12:02; Admin Dose 81 MG; Start 06/22/16 at 09:00 Atenolol (Tenormin) 50 mg BID PO Last administered on 06/21/16 20:21; Admin Dose 50 MG; Start 06/21/16 at 21:00 Losartan Potassium (Cozaar) 50 mg DAILY PO ; Start 06/22/16 at 09:00 Insulin Glargine (Lantus) 12 unit DAILY@20 SC Last administered on 06/21/16 20 :32; Admin Dose 12 UNIT; Start 06/21/16 at 20:00 Miscellaneous Information 1 ea NOTE XX ; Start 06/21/16 at 14:30 Glucose (Glutose) 15 gm Q15M PRN PO DECREASED GLUCOSE; Start 06/21/16 at 14:30 Glucose (Glutose) 22.5 gm Q15M PRN PO DECREASED GLUCOSE; Start 06/21/16 at 14: 30 Dextrose (D50w Syringe) 25 ml Q15M PRN IV DECREASED GLUCOSE; Start 06/21/16 at 14:30 Dextrose (D50w Syringe) 50 ml Q15M PRN IV DECREASED GLUCOSE; Start 06/21/16 at 14:30 Glucagon (Glucagen) 1 mg Q15M PRN IM DECREASED GLUCOSE; Start 06/21/16 at 14:30 Glucose (Glutose) 15 gm Q15M PRN BUCCAL DECREASED GLUCOSE; Start 06/21/16 at 14 :30 Diagnostic Test (Pha) (Accu-Chek) 1 ea 02 XX ; Start 06/22/16 at 02:00 Miscellaneous Information (* Miscellaneous Pharmacy Order) tamiflu per pharm... ONCE XX ; Start 06/21/16 at 19:30 Diphenoxylate HCl/ Atropine (Lomotil) 1 tab Q6H PRN PO DIARRHEA Last administered on 06/22/16 08:58; Admin Dose 1 TAB; Start 06/22/16 at 07:00 Epoetin Ishan (Epogen (Esrd)) 6,000 units MoWeFr@17 SC ; Start 06/23/16 at 17:00 KODAK YANG Jun 22, 2016 13:54
--- NOTE | 2016-06-22 15:06 | PN ---
DATE: 06/22/2016 SUBJECTIVE: Patient is alert, complaining of cough, looks comfortable, no fevers. WBC 6.2 with kelly trophils 68, no bands. INDWELLINGS: Left upper extremity AV fistula. ANTIMICROBIALS: The patient is on Tamiflu. DIAGNOSTICS: Chest x-ray this morning revealed stable cardiomegaly and pulmonary vascular congestio n. PHYSICAL EXAMINATION: GENERAL: Well-developed, elderly woman who is alert, in no distress. HEENT: Head atraumatic, normocephalic. Sclerae anicteric. Buccal mucosa dry. NECK: Supple. CHEST: Rise symmetrical. Breath sounds diminished. HEART: S1, S2. ABDOMEN: Soft. Bowel tones present. EXTREMITIES: Without cyanosis. ASSESSMENT: 1. Febrile illness secondary to influenza B virus, remains on Tamiflu. 2. Congestive heart failure. 3. End-stage renal disease on hemodialysis. 4. Diabetes. 5. Hypertension. PLAN: The patient remains stable. We will continue her on Tamiflu. Continue hemodialysis as per luna givens and sandy p.r.n. Dictated By: [place] KRAFT NUC[employer] WEAPONS MECHANICAL SPECIALIST for AUDREY ZURITA/NTS Conf#: [id number] DID#: [id number]
[2016-06-22 16:01] VITALS: BP 142/66; PULSE 61
[2016-06-22 20:27] VITALS: BP 158/67; RESP 17
[2016-06-22] MEDS: INSULIN GLARGINE [LANtus] 3 ML PEN SC SCH (20:36)
[2016-06-22] MEDS: FAMOTIDINE 20 MG TAB PO SCH (20:39)
[2016-06-23] VITALS (11 sets, daily range): BP systolic 140–180; BP diastolic 60–75; PULSE 60–66; RESP 18
[2016-06-23] MEDS: ACCU-CHEK XX SCH (02:46)
[2016-06-23 06:06] LABS: ADD SCAN DIFF NO
[2016-06-23 06:57] LABS: ABNORMAL IP MESSAGE 1; HEMATOCRIT 22.5 % (37.0-47.0); HEMOGLOBIN 7.2 g/dl (12.0-16.0); MEAN CORPUSCULAR HEMOGLOBIN 32.9 pg (29.0-33.0); MEAN CORPUSCULAR VOLUME 102.7 fl (82.0-101.0); MEAN PLATELET VOLUME 11.4 fl (7.4-10.4); PLATELET COUNT 70 10^3/UL (140-415); RED BLOOD COUNT 2.19 10^6/ul (4.20-5.40); RED CELL DISTRIBUTION WIDTH 13.2 % (11.5-14.5); WHITE BLOOD COUNT 4.1 10^3/ul (4.8-10.8)
--- NOTE | 2016-06-23 07:00 | CONS ---
Date/Time of Note Date/Time of Note DATE: 06/23/16 TIME: 07:00 Assessment/Plan Assessment/Plan Additional Assessment/Plan 1. Influenza B. 2. End-stage renal disease. 3. Diabetes mellitus type 2. 4. Hypertension. 5. Anemia, Chronic Disease HD today PRBC transfusion with HD Repeat H/HCt Cont current treatment and plan. Consultation Date/Type/Reason Admit Date/Time Jun 20, 2016 at 22:24 Initial Consult Date 06/21/16 Type of Consultation: Renal Referring Provider: MICHAEL CAMPBELL MD 24 HR Interval Summary Constitutional: No requiring O2 Exam/Review of Systems Vital Signs Vitals Vital Signs Date Time Temp Pulse Resp B/P Pulse Ox O2 Delivery O2 Flow Rate FiO2 06/22/16 20:27 98.7 61 17 158/67 97 06/21/16 11:00 Nasal Cannula 3.0 Intake and Output 06/22/16 06/22/16 06/23/16 15:00 23:00 07:00 Intake Total 1920 ml Balance 1920 ml Exam Constitutional: No distress ENMT: mucosa pink and moist Neck: No jvd Respiratory: wheezing, No diminished breath sounds, No labored breathing Cardiovascular: edema, regular rate and rhythm Results Result Diagram: 06/22/16 0510 06/22/16 0510 Results 24 hrs Laboratory Tests Test 06/22/16 08:07 06/22/16 12:00 06/22/16 16:46 06/22/16 20:33 Bedside Glucose 267 H 115 201 244 H Test 06/23/16 02:40 Bedside Glucose 193 Medications Medications Current Medications Ondansetron HCl (Zofran Inj) 4 mg Q6H PRN IV NAUSEA AND/OR VOMITING; Start at 13:30 Acetaminophen (Tylenol Tab) 650 mg Q6H PRN PO PAIN LEVEL 1-3 OR FEVER; Start at 13:30 Morphine Sulfate (morphine) 2 mg Q4H PRN IV SEVERE PAIN LEVEL 7-10; Start 06/21 at 13:30 Docusate Sodium (Colace) 100 mg Q12H PRN PO CONSTIPATION; Start 06/21/16 at 13: 30 Famotidine (Pepcid) 20 mg Q24H PO Last administered on 06/22/16t 20:39; Admin Dose 20 MG; Start 06/21/16 at 21:00 Heparin Sodium (Porcine) (Heparin (5000 Units/0.5 ml)) 5,000 unit Q12 SC Last administered on 06/22/16 20:43; Admin Dose 5,000 UNIT; Start 06/21/16 at 21:00 Aspirin (Halfprin) 81 mg DAILY PO Last administered on 06/22/16 12:02; Admin Dose 81 MG; Start 06/22/16 at 09:00 Atenolol (Tenormin) 50 mg BID PO Last administered on 06/22/16 20:39; Admin Dose 50 MG; Start 06/21/16 at 21:00 Losartan Potassium (Cozaar) 50 mg DAILY PO ; Start 06/22/16 at 09:00 Insulin Glargine (Lantus) 12 unit DAILY@20 SC Last administered on 06/22/16 20 :36; Admin Dose 12 UNIT; Start 06/21/16 at 20:00 Miscellaneous Information 1 ea NOTE XX ; Start 06/21/16 at 14:30 Glucose (Glutose) 15 gm Q15M PRN PO DECREASED GLUCOSE; Start 06/21/16 at 14:30 Glucose (Glutose) 22.5 gm Q15M PRN PO DECREASED GLUCOSE; Start 06/21/16 at 14: 30 Dextrose (D50w Syringe) 25 ml Q15M PRN IV DECREASED GLUCOSE; Start 06/21/16 at 14:30 Dextrose (D50w Syringe) 50 ml Q15M PRN IV DECREASED GLUCOSE; Start 06/21/16 at 14:30 Glucagon (Glucagen) 1 mg Q15M PRN IM DECREASED GLUCOSE; Start 06/21/16 at 14:30 Glucose (Glutose) 15 gm Q15M PRN BUCCAL DECREASED GLUCOSE; Start 06/21/16 at 14 :30 Diagnostic Test (Pha) (Accu-Chek) 1 ea 02 XX Last administered on 06/23/16 02: 46; Admin Dose 1 EA; Start 06/22/16 at 02:00 Miscellaneous Information (* Miscellaneous Pharmacy Order) tamiflu per pharm... ONCE XX ; Start 06/21/16 at 19:30 Diphenoxylate HCl/ Atropine (Lomotil) 1 tab Q6H PRN PO DIARRHEA Last administered on 06/22/16 08:58; Admin Dose 1 TAB; Start 06/22/16 at 07:00 Epoetin Ishan (Epogen (Esrd)) 6,000 units MoWeFr@17 SC ; Start 06/23/16 at 17:00 WARD WILSON MD Jun 23, 2016 07:00
[2016-06-23 07:01] LABS: CALCIUM 7.9 mg/dl (8.4-10.2); CREATININE 6.48 mg/dl (0.44-1.00)
[2016-06-23] MEDS: INSULIN ASPART [NOVOLOG] 3 ML PEN SC SCH ×3 (08:05→20:45)
[2016-06-23] MEDS: DIPHENOXYLATE/ATROPINE TAB PO PRN ×2 (08:10→15:59)
[2016-06-23 10:46] LABS: EOSINOPHILS # 0.1 10^3/ul (0.0-0.5); LYMPHOCYTES # 0.8 10^3/ul (0.8-2.9); MONOCYTE # 0.3 10^3/ul (0.3-0.9); NEUTROPHIL # 2.8 10^3/ul (1.6-7.5); PLATELET ESTIMATE PLT APPEAR DECREASED
[2016-06-23 10:47] LABS: ANISOCYTOSIS 1+; HYPOCHROMASIA 1+
--- NOTE | 2016-06-23 15:32 | CONS ---
Date/Time of Note Date/Time of Note DATE: 06/23/16 TIME: 15:31 Assessment/Plan Assessment/Plan Chief Complaint/Hosp Course SUBJECTIVE: Patient is alert, in HD, looks comfortable, no fevers. INDWELLINGS: Left upper extremity AV fistula. ANTIMICROBIALS: The patient is on Tamiflu. DIAGNOSTICS: Chest x-ray this morning revealed stable cardiomegaly and pulmonary vascular congestion. PHYSICAL EXAMINATION: GENERAL: Well-developed, elderly woman who is alert, in no distress. HEENT: Head atraumatic, normocephalic. Sclerae anicteric. Buccal mucosa dry. NECK: Supple. CHEST: Rise symmetrical. Breath sounds diminished. HEART: S1, S2. ABDOMEN: Soft. Bowel tones present. EXTREMITIES: Without cyanosis. ASSESSMENT: 1. Febrile illness secondary to influenza B virus, remains on Tamiflu. 2. Congestive heart failure. 3. End-stage renal disease on hemodialysis. 4. Diabetes. 5. Hypertension. PLAN: The patient remains stable. We will continue her on Tamiflu. Continue hemodialysis as per renal, [facility] staff Problems: Consultation Date/Type/Reason Admit Date/Time Jun 20, 2016 at 22:24 Initial Consult Date 06/21/16 Type of Consultation: ID Referring Provider: MICHAEL CAMPBELL MD Exam/Review of Systems Vital Signs Vitals Vital Signs Date Time Temp Pulse Resp B/P Pulse Ox O2 Delivery O2 Flow Rate FiO2 06/23/16 15:00 66 06/23/16 15:00 19 06/23/16 13:02 98.1 167/72 99 06/21/16 11:00 Nasal Cannula 3.0 Intake and Output 06/22/16 06/22/16 06/23/16 15:00 23:00 07:00 Intake Total 1920 ml Balance 1920 ml Results Result Diagram: 06/23/16 0455 06/23/16 0500 Results 24 hrs Laboratory Tests Test 06/22/16 16:46 06/22/16 20:33 06/23/16 02:40 06/23/16 04:55 Bedside Glucose 201 244 H 193 White Blood Count 4.1 #L Red Blood Count 2.19 L Hemoglobin 7.2 L Hematocrit 22.5 L Mean Corpuscular Volume 102.7 H Mean Corpuscular Hemoglobin 32.9 Mean Corpuscular Hemoglobin Concent 32.0 Red Cell Distribution Width 13.2 Platelet Count 70 L Mean Platelet Volume 11.4 H Neutrophils % 69.0 Lymphocytes % 20.0 Monocytes % 8.0 Eosinophils % 3.0 Neutrophils # 2.8 Lymphocytes # 0.8 Monocytes # 0.3 Eosinophils # 0.1 Differential Comment MANUAL DIFF Platelet Estimate PLT APPEAR DECREASED Large Platelets RARE Hypochromasia 1+ Anisocytosis 1+ Macrocytosis 1+ Test 06/23/16 05:00 06/23/16 08:00 Sodium Level 133 L Potassium Level 4.0 Chloride Level 97 Carbon Dioxide Level 26 Anion Gap 14 Blood Urea Nitrogen 61 H Creatinine 6.48 #H Glucose Level 187 Calcium Level 7.9 L Bedside Glucose 156 Medications Medications Current Medications Ondansetron HCl (Zofran Inj) 4 mg Q6H PRN IV NAUSEA AND/OR VOMITING; Start at 13:30 Acetaminophen (Tylenol Tab) 650 mg Q6H PRN PO PAIN LEVEL 1-3 OR FEVER; Start at 13:30 Morphine Sulfate (morphine) 2 mg Q4H PRN IV SEVERE PAIN LEVEL 7-10; Start 06/21 at 13:30 Docusate Sodium (Colace) 100 mg Q12H PRN PO CONSTIPATION; Start 06/21/16 at 13: 30 Famotidine (Pepcid) 20 mg Q24H PO Last administered on 06/22/16 20:39; Admin Dose 20 MG; Start 06/21/16 at 21:00 Heparin Sodium (Porcine) (Heparin (5000 Units/0.5 ml)) 5,000 unit Q12 SC Last administered on 06/22/16 20:43; Admin Dose 5,000 UNIT; Start 06/21/16 at 21:00 Aspirin (Halfprin) 81 mg DAILY PO Last administered on 06/22/16 12:02; Admin Dose 81 MG; Start 06/22/16 at 09:00 Atenolol (Tenormin) 50 mg BID PO Last administered on 06/22/16 20:39; Admin Dose 50 MG; Start 06/21/16 at 21:00 Losartan Potassium (Cozaar) 50 mg DAILY PO ; Start 06/22/16 at 09:00 Insulin Glargine (Lantus) 12 unit DAILY@20 SC Last administered on 06/22/16 20 :36; Admin Dose 12 UNIT; Start 06/21/16 at 20:00 Miscellaneous Information 1 ea NOTE XX ; Start 06/21/16 at 14:30 Glucose (Glutose) 15 gm Q15M PRN PO DECREASED GLUCOSE; Start 06/21/16 at 14:30 Glucose (Glutose) 22.5 gm Q15M PRN PO DECREASED GLUCOSE; Start 06/21/16 at 14: 30 Dextrose (D50w Syringe) 25 ml Q15M PRN IV DECREASED GLUCOSE; Start 06/21/16 at 14:30 Dextrose (D50w Syringe) 50 ml Q15M PRN IV DECREASED GLUCOSE; Start 06/21/16 at 14:30 Glucagon (Glucagen) 1 mg Q15M PRN IM DECREASED GLUCOSE; Start 06/21/16 at 14:30 Glucose (Glutose) 15 gm Q15M PRN BUCCAL DECREASED GLUCOSE; Start 06/21/16 at 14 :30 Diagnostic Test (Pha) (Accu-Chek) 1 ea 02 XX Last administered on 06/23/16 02: 46; Admin Dose 1 EA; Start 06/22/16 at 02:00 Miscellaneous Information (* Miscellaneous Pharmacy Order) tamiflu per pharm... ONCE XX ; Start 06/21/16 at 19:30 Diphenoxylate HCl/ Atropine (Lomotil) 1 tab Q6H PRN PO DIARRHEA Last administered on 06/23/16 08:10; Admin Dose 1 TAB; Start 06/22/16 at 07:00 Epoetin Ishan (Epogen (Esrd)) 6,000 units MoWeFr@17 SC ; Start 06/23/16 at 17:00 WELLINGTON KRAFT NP Jun 23, 2016 15:32
[2016-06-23] MEDS: ASPIRIN (EC) 81 MG TAB PO SCH (15:59)
[2016-06-23] MEDS: LOSARTAN 50 MG TAB PO SCH (15:59)
[2016-06-23] MEDS: ATENOLOL 50 MG TAB PO SCH ×2 (15:59→20:49)
[2016-06-23] MEDS: HEPARIN 5,000 UNIT/0.5 ML VIAL SC SCH ×2 (16:22→20:52)
--- NOTE | 2016-06-23 17:50 | PN ---
Date/Time of Note Date/Time of Note DATE: 06/23/16 TIME: 17:47 Assessment/Plan VTE Prophylaxis VTE Prophylaxis Intervention: SCD's Lines/Catheters [facility] Saline Lock Assessment/Plan Chief Complaint/Hosp Course ASSESSMENT AND PLAN: 1. Influenza B. Continue patient on renally dosed Tamiflu. Continue broad spectrum antibiotics to cover for possible bacterial bronchitis. Dr. Salgado is following in infectious disease consultation. 2. End-stage renal disease hemodialysis dependent. Continue hemodialysis per nephrology. Dr. Rios is following the patient in nephrology consultation. 3. Diabetes mellitus type 2. Continue Lantus and NovoLog. 4. Hypertension. Continue atenolol and Cozaar. Continue heparin for deep venous thrombosis prophylaxis and Pepcid for peptic ulcer disease prophylaxis. Further recommendations based on clinical course. Plan of care discussed with Dr. Patiño. Problems: Subjective 24 Hr Interval Summary Free Text/Dictation Patient continues to complaints of productive cough, or stated it decreased to compare to the day before yesterday, patient's complains of sore throat, denies nausea vomiting denies chest pain. Exam/Review of Systems Vital Signs Vitals Vital Signs Date Time Temp Pulse Resp B/P Pulse Ox O2 Delivery O2 Flow Rate FiO2 06/23/16 15:00 66 06/23/16 15:00 19 06/23/16 13:02 98.1 167/72 99 06/21/16 11:00 Nasal Cannula 3.0 Intake and Output 06/22/16 06/22/16 06/23/16 15:00 23:00 07:00 Intake Total 1920 ml Balance 1920 ml Exam PHYSICAL EXAMINATION: GENERAL: Well-developed, well-nourished female who currently is awake, alert. HEENT: Head is atraumatic, normocephalic. Pupils equal, round, and reactive to light and accommodation. Oral mucosa is pink and moist. NECK: Supple, no cervical lymphadenopathy, no thyromegaly. LUNGS: Clear bilaterally. Slightly diminished at the bases. CARDIOVASCULAR: Normal S1, S2. No murmurs, gallops, clicks, or rubs noted. ABDOMEN: Round, soft, nondistended, nontender. Bowel sounds present. There is no guarding, no rebound tenderness. EXTREMITIES: There is no edema, clubbing, cyanosis. Pulses equal bilaterally 2 +. Left upper extremity with AV fistula with palpable thrill and audible bruit. SKIN: There is no rash, petechiae. NEUROLOGIC: The patient is awake, alert, and oriented x4 Results Result Diagram: 06/23/16 0455 06/23/16 0500 Results 24 hrs Laboratory Tests Test 06/22/16 20:33 06/23/16 02:40 06/23/16 04:55 06/23/16 05:00 Bedside Glucose 244 H 193 White Blood Count 4.1 #L Red Blood Count 2.19 L Hemoglobin 7.2 L Hematocrit 22.5 L Mean Corpuscular Volume 102.7 H Mean Corpuscular Hemoglobin 32.9 Mean Corpuscular Hemoglobin Concent 32.0 Red Cell Distribution Width 13.2 Platelet Count 70 L Mean Platelet Volume 11.4 H Neutrophils % 69.0 Lymphocytes % 20.0 Monocytes % 8.0 Eosinophils % 3.0 Neutrophils # 2.8 Lymphocytes # 0.8 Monocytes # 0.3 Eosinophils # 0.1 Differential Comment MANUAL DIFF Platelet Estimate PLT APPEAR DECREASED Large Platelets RARE Hypochromasia 1+ Anisocytosis 1+ Macrocytosis 1+ Sodium Level 133 L Potassium Level 4.0 Chloride Level 97 Carbon Dioxide Level 26 Anion Gap 14 Blood Urea Nitrogen 61 H Creatinine 6.48 #H Glucose Level 187 Calcium Level 7.9 L Test 06/23/16 08:00 06/23/16 15:58 Bedside Glucose 156 150 Medications Medications Current Medications Ondansetron HCl (Zofran Inj) 4 mg Q6H PRN IV NAUSEA AND/OR VOMITING; Start at 13:30 Acetaminophen (Tylenol Tab) 650 mg Q6H PRN PO PAIN LEVEL 1-3 OR FEVER; Start at 13:30 Morphine Sulfate (morphine) 2 mg Q4H PRN IV SEVERE PAIN LEVEL 7-10; Start 06/21 at 13:30 Docusate Sodium (Colace) 100 mg Q12H PRN PO CONSTIPATION; Start 06/21/16 at 13: 30 Famotidine (Pepcid) 20 mg Q24H PO Last administered on 06/22/16 20:39; Admin Dose 20 MG; Start 06/21/16 at 21:00 Heparin Sodium (Porcine) (Heparin (5000 Units/0.5 ml)) 5,000 unit Q12 SC Last administered on 06/23/16 16:22; Admin Dose 5,000 UNIT; Start 06/21/16 at 21:00 Aspirin (Halfprin) 81 mg DAILY PO Last administered on 06/23/16 15:59; Admin Dose 81 MG; Start 06/22/16 at 09:00 Atenolol (Tenormin) 50 mg BID PO Last administered on 06/23/16 15:59; Admin Dose 50 MG; Start 06/21/16 at 21:00 Losartan Potassium (Cozaar) 50 mg DAILY PO Last administered on 06/23/16 15:59 ; Admin Dose 50 MG; Start 06/22/16 at 09:00 Insulin Glargine (Lantus) 12 unit DAILY@20 SC Last administered on 06/22/16 20 :36; Admin Dose 12 UNIT; Start 06/21/16 at 20:00 Miscellaneous Information 1 ea NOTE XX ; Start 06/21/16 at 14:30 Glucose (Glutose) 15 gm Q15M PRN PO DECREASED GLUCOSE; Start 06/21/16 at 14:30 Glucose (Glutose) 22.5 gm Q15M PRN PO DECREASED GLUCOSE; Start 06/21/16 at 14: 30 Dextrose (D50w Syringe) 25 ml Q15M PRN IV DECREASED GLUCOSE; Start 06/21/16 at 14:30 Dextrose (D50w Syringe) 50 ml Q15M PRN IV DECREASED GLUCOSE; Start 06/21/16 at 14:30 Glucagon (Glucagen) 1 mg Q15M PRN IM DECREASED GLUCOSE; Start 06/21/16 at 14:30 Glucose (Glutose) 15 gm Q15M PRN BUCCAL DECREASED GLUCOSE; Start 06/21/16 at 14 :30 Diagnostic Test (Pha) (Accu-Chek) 1 ea 02 XX Last administered on 06/23/16 02: 46; Admin Dose 1 EA; Start 06/22/16 at 02:00 Miscellaneous Information (* Miscellaneous Pharmacy Order) tamiflu per pharm... ONCE XX ; Start 06/21/16 at 19:30 Diphenoxylate HCl/ Atropine (Lomotil) 1 tab Q6H PRN PO DIARRHEA Last administered on 06/23/16 15:59; Admin Dose 1 TAB; Start 06/22/16 at 07:00 Epoetin Ishan (Epogen (Esrd)) 6,000 units MoWeFr@17 SC ; Start 06/23/16 at 17:00 JOCELYN SWAIN Jun 23, 2016 17:50
[2016-06-23] MEDS ORDERED: CEPASTAT LOZENGE MT PRN (18:00)
[2016-06-23] MEDS: EPOETIN 3000 UNITS/1 ML INJ (ESRD) SC SCH (18:51)
[2016-06-23] MEDS: FAMOTIDINE 20 MG TAB PO SCH (20:45)
[2016-06-23] MEDS: INSULIN GLARGINE [LANtus] 3 ML PEN SC SCH (20:50)
[2016-06-23] MEDS ORDERED: hydrALAzine 20 MG INJ IV PRN (23:16)
[2016-06-24 01:15] VITALS: BP 150/66; RESP 19
[2016-06-24] MEDS: ACCU-CHEK XX SCH (02:00)
[2016-06-24 06:27] LABS: ADD SCAN DIFF NO
[2016-06-24 06:34] LABS: ABNORMAL IP MESSAGE 1; HEMATOCRIT 30.2 % (37.0-47.0); HEMOGLOBIN 9.8 g/dl (12.0-16.0); MEAN CORPUSCULAR HEMOGLOBIN 31.9 pg (29.0-33.0); MEAN CORPUSCULAR HGB CONC 32.5 g/dl (32.0-37.0); MEAN CORPUSCULAR VOLUME 98.4 fl (82.0-101.0); MEAN PLATELET VOLUME 10.7 fl (7.4-10.4); PLATELET COUNT 69 10^3/UL (140-415); RED BLOOD COUNT 3.07 10^6/ul (4.20-5.40); RED CELL DISTRIBUTION WIDTH 14.6 % (11.5-14.5); WHITE BLOOD COUNT 3.7 10^3/ul (4.8-10.8)
[2016-06-24 06:59] LABS: CALCIUM 7.7 mg/dl (8.4-10.2); CREATININE 4.63 mg/dl (0.44-1.00); POTASSIUM 3.3 mmol/L (3.5-5.1)
[2016-06-24 07:25] VITALS: BP 168/70; RESP 18
[2016-06-24] MEDS: INSULIN ASPART [NOVOLOG] 3 ML PEN SC SCH ×4 (08:14→20:37)
[2016-06-24] MEDS: ASPIRIN (EC) 81 MG TAB PO SCH (08:17)
[2016-06-24] MEDS: LOSARTAN 50 MG TAB PO SCH (08:18)
[2016-06-24] MEDS: HEPARIN 5,000 UNIT/0.5 ML VIAL SC SCH ×2 (08:40→20:29)
[2016-06-24] MEDS: ATENOLOL 50 MG TAB PO SCH ×2 (08:40→20:27)
[2016-06-24 10:35] LABS: EOSINOPHILS # 0.1 10^3/ul (0.0-0.5); LYMPHOCYTES # 1.3 10^3/ul (0.8-2.9); MONOCYTE # 0.4 10^3/ul (0.3-0.9); NEUTROPHIL # 1.7 10^3/ul (1.6-7.5)
[2016-06-24 10:36] LABS: PLATELET ESTIMATE PLT APPEAR DECREASED
[2016-06-24] MEDS ORDERED: POTASSIUM CHLORIDE (SR) 20 MEQ TAB PO STA (13:40)
--- NOTE | 2016-06-24 13:43 | PN ---
Date/Time of Note Date/Time of Note DATE: 06/24/16 TIME: 12:08 Assessment/Plan VTE Prophylaxis VTE Prophylaxis Intervention: heparin Lines/Catheters [facility] Saline Lock Assessment/Plan Assessment/Plan - Electrolyte imbalance- Hypokalemia, hypocalcemia - replet K - am BMP - Influenza B. - per Dr. Salgado in infectious disease consultation. - on renally dosed Tamiflu. - broad spectrum antibiotics to cover for possible bacterial bronchitis. - End-stage renal disease hemodialysis dependent. Continue hemodialysis per nephrology. Dr. Rios is following the patient in nephrology consultation. - Diabetes mellitus type 2. Continue Lantus and NovoLog. - Hypertension. Continue atenolol and Cozaar. Continue heparin for deep venous thrombosis prophylaxis and Pepcid for peptic ulcer disease prophylaxis. Further recommendations based on clinical course. Plan of care discussed with Dr. Patiño. Exam/Review of Systems Vital Signs Vitals Vital Signs Date Time Temp Pulse Resp B/P Pulse Ox O2 Delivery O2 Flow Rate FiO2 06/24/16 07:25 98.8 55 18 168/70 94 06/23/16 23:20 Room Air 06/21/16 11:00 3.0 Intake and Output 06/23/16 06/23/16 06/24/16 15:00 23:00 07:00 Intake Total 1600 ml 360 ml Output Total 3000 ml Balance -1400 ml 360 ml Exam Constitutional: alert, well developed Psych: nl mood/affect Eyes: EOMI, nl sclera Neck: nuchal rigidity Results Result Diagram: 06/24/16 0610 06/24/16 0610 Results 24 hrs Laboratory Tests Test 06/23/16 15:58 06/23/16 20:40 06/24/16 06:10 06/24/16 07:53 Bedside Glucose 150 139 90 White Blood Count 3.7 L Red Blood Count 3.07 #L Hemoglobin 9.8 #L Hematocrit 30.2 #L Mean Corpuscular Volume 98.4 Mean Corpuscular Hemoglobin 31.9 Mean Corpuscular Hemoglobin Concent 32.5 Red Cell Distribution Width 14.6 H Platelet Count 69 L Mean Platelet Volume 10.7 H Neutrophils % 47.0 Band Neutrophils % 4.0 Lymphocytes % 34.0 Reactive Lymphocytes % 1.0 Monocytes % 12.0 H Eosinophils % 2.0 Neutrophils # 1.7 Lymphocytes # 1.3 Monocytes # 0.4 Eosinophils # 0.1 Platelet Estimate PLT APPEAR DECREASED Sodium Level 138 Potassium Level 3.3 L Chloride Level 98 Carbon Dioxide Level 32 H Anion Gap 11 Blood Urea Nitrogen 38 #H Creatinine 4.63 #H Glucose Level 94 # Calcium Level 7.7 L Medications Medications Current Medications Ondansetron HCl (Zofran Inj) 4 mg Q6H PRN IV NAUSEA AND/OR VOMITING; Start at 13:30 Acetaminophen (Tylenol Tab) 650 mg Q6H PRN PO PAIN LEVEL 1-3 OR FEVER; Start at 13:30 Morphine Sulfate (morphine) 2 mg Q4H PRN IV SEVERE PAIN LEVEL 7-10; Start 06/21 at 13:30 Docusate Sodium (Colace) 100 mg Q12H PRN PO CONSTIPATION; Start 06/21/16 at 13: 30 Famotidine (Pepcid) 20 mg Q24H PO Last administered on 06/23/16 20:45; Admin Dose 20 MG; Start 06/21/16 at 21:00 Heparin Sodium (Porcine) (Heparin (5000 Units/0.5 ml)) 5,000 unit Q12 SC Last administered on 06/24/16 08:40; Admin Dose 5,000 UNIT; Start 06/21/16 at 21:00 Aspirin (Halfprin) 81 mg DAILY PO Last administered on 06/24/16 08:17; Admin Dose 81 MG; Start 06/22/16 at 09:00 Atenolol (Tenormin) 50 mg BID PO Last administered on 06/23/16 20:49; Admin Dose 50 MG; Start 06/21/16 at 21:00 Losartan Potassium (Cozaar) 50 mg DAILY PO Last administered on 06/24/16 08:18 ; Admin Dose 50 MG; Start 06/22/16 at 09:00 Insulin Glargine (Lantus) 12 unit DAILY@20 SC Last administered on 06/23/16 20 :50; Admin Dose 12 UNIT; Start 06/21/16 at 20:00 Miscellaneous Information 1 ea NOTE XX ; Start 06/21/16 at 14:30 Glucose (Glutose) 15 gm Q15M PRN PO DECREASED GLUCOSE; Start 06/21/16 at 14:30 Glucose (Glutose) 22.5 gm Q15M PRN PO DECREASED GLUCOSE; Start 06/21/16 at 14: 30 Dextrose (D50w Syringe) 25 ml Q15M PRN IV DECREASED GLUCOSE; Start 06/21/16 at 14:30 Dextrose (D50w Syringe) 50 ml Q15M PRN IV DECREASED GLUCOSE; Start 06/21/16 at 14:30 Glucagon (Glucagen) 1 mg Q15M PRN IM DECREASED GLUCOSE; Start 06/21/16 at 14:30 Glucose (Glutose) 15 gm Q15M PRN BUCCAL DECREASED GLUCOSE; Start 06/21/16 at 14 :30 Diagnostic Test (Pha) (Accu-Chek) 1 ea 02 XX Last administered on 06/23/16 02: 46; Admin Dose 1 EA; Start 06/22/16 at 02:00 Miscellaneous Information (* Miscellaneous Pharmacy Order) tamiflu per pharm... ONCE XX ; Start 06/21/16 at 19:30 Diphenoxylate HCl/ Atropine (Lomotil) 1 tab Q6H PRN PO DIARRHEA Last administered on 06/23/16 15:59; Admin Dose 1 TAB; Start 06/22/16 at 07:00 Epoetin Ishan (Epogen (Esrd)) 6,000 units MoWeFr@17 SC Last administered on 06/23 18:51; Admin Dose 6,000 UNITS; Start 06/23/16 at 17:00 Phenol (Cepastat Lozenge) 1 lozenge Q1H PRN MT SORE THROAT; Start 06/23/16 at 18:00 Hydralazine HCl (Apresoline) 25 mg Q6H PRN PO ELEVATED BLOOD PRESSURE Last administered on 06/24/16 00:17; Admin Dose 25 MG; Start 06/24/16 at 00:30 Hydralazine HCl (Apresoline) 25 mg TID GTB ; Start 06/24/16 at 13:00 KODAK YANG Jun 24, 2016 12:22
[2016-06-24] MEDS ORDERED: CEPASTAT LOZENGE MT PRN (14:00)
[2016-06-24] MEDS ORDERED: GUAIFENESIN/DM 5ML CUP PO PRN (14:00)
[2016-06-24 15:00] VITALS: BP 154/70; PULSE 60
--- NOTE | 2016-06-24 16:35 | CONS ---
Date/Time of Note Date/Time of Note DATE: 06/24/16 TIME: 16:35 Assessment/Plan Assessment/Plan Additional Assessment/Plan 1. Influenza B. 2. End-stage renal disease. 3. Diabetes mellitus type 2. 4. Hypertension. 5. Anemia, Chronic Disease S/p HD Cont Maintenance HD 3x week HD MWF DC planning as per Primary Consultation Date/Type/Reason Admit Date/Time Jun 20, 2016 at 22:24 Initial Consult Date 06/21/16 Type of Consultation: renal Referring Provider: MICHAEL CAMPBELL MD 24 HR Interval Summary Constitutional: requiring O2 Exam/Review of Systems Vital Signs Vitals Vital Signs Date Time Temp Pulse Resp B/P Pulse Ox O2 Delivery O2 Flow Rate FiO2 06/24/16 15:00 60 154/70 06/24/16 07:25 98.8 18 94 06/23/16 23:20 Room Air 06/21/16 11:00 3.0 Intake and Output 06/23/16 06/23/16 06/24/16 15:00 23:00 07:00 Intake Total 1600 ml 360 ml Output Total 3000 ml Balance -1400 ml 360 ml Exam Constitutional: No distress ENMT: mucosa pink and moist Respiratory: crackles/rales, No diminished breath sounds, No labored breathing Cardiovascular: edema Gastrointestinal: non-tender, soft Results Result Diagram: 06/24/16 0610 06/24/16 0610 Results 24 hrs Laboratory Tests Test 06/23/16 20:40 06/24/16 06:10 06/24/16 07:53 06/24/16 12:18 Bedside Glucose 139 90 128 White Blood Count 3.7 L Red Blood Count 3.07 #L Hemoglobin 9.8 #L Hematocrit 30.2 #L Mean Corpuscular Volume 98.4 Mean Corpuscular Hemoglobin 31.9 Mean Corpuscular Hemoglobin Concent 32.5 Red Cell Distribution Width 14.6 H Platelet Count 69 L Mean Platelet Volume 10.7 H Neutrophils % 47.0 Band Neutrophils % 4.0 Lymphocytes % 34.0 Reactive Lymphocytes % 1.0 Monocytes % 12.0 H Eosinophils % 2.0 Neutrophils # 1.7 Lymphocytes # 1.3 Monocytes # 0.4 Eosinophils # 0.1 Platelet Estimate PLT APPEAR DECREASED Sodium Level 138 Potassium Level 3.3 L Chloride Level 98 Carbon Dioxide Level 32 H Anion Gap 11 Blood Urea Nitrogen 38 #H Creatinine 4.63 #H Glucose Level 94 # Calcium Level 7.7 L Medications Medications Current Medications Ondansetron HCl (Zofran Inj) 4 mg Q6H PRN IV NAUSEA AND/OR VOMITING; Start at 13:30 Acetaminophen (Tylenol Tab) 650 mg Q6H PRN PO PAIN LEVEL 1-3 OR FEVER; Start at 13:30 Morphine Sulfate (morphine) 2 mg Q4H PRN IV SEVERE PAIN LEVEL 7-10; Start 06/21 at 13:30 Docusate Sodium (Colace) 100 mg Q12H PRN PO CONSTIPATION; Start 06/21/16 at 13: 30 Famotidine (Pepcid) 20 mg Q24H PO Last administered on 06/23/16 20:45; Admin Dose 20 MG; Start 06/21/16 at 21:00 Heparin Sodium (Porcine) (Heparin (5000 Units/0.5 ml)) 5,000 unit Q12 SC Last administered on 06/24/16 08:40; Admin Dose 5,000 UNIT; Start 06/21/16 at 21:00 Aspirin (Halfprin) 81 mg DAILY PO Last administered on 06/24/16 08:17; Admin Dose 81 MG; Start 06/22/16 at 09:00 Atenolol (Tenormin) 50 mg BID PO Last administered on 06/23/16 20:49; Admin Dose 50 MG; Start 06/21/16 at 21:00 Losartan Potassium (Cozaar) 50 mg DAILY PO Last administered on 06/24/16 08:18 ; Admin Dose 50 MG; Start 06/22/16 at 09:00 Insulin Glargine (Lantus) 12 unit DAILY@20 SC Last administered on 06/23/16 20 :50; Admin Dose 12 UNIT; Start 06/21/16 at 20:00 Miscellaneous Information 1 ea NOTE XX ; Start 06/21/16 at 14:30 Glucose (Glutose) 15 gm Q15M PRN PO DECREASED GLUCOSE; Start 06/21/16 at 14:30 Glucose (Glutose) 22.5 gm Q15M PRN PO DECREASED GLUCOSE; Start 06/21/16 at 14: 30 Dextrose (D50w Syringe) 25 ml Q15M PRN IV DECREASED GLUCOSE; Start 06/21/16 at 14:30 Dextrose (D50w Syringe) 50 ml Q15M PRN IV DECREASED GLUCOSE; Start 06/21/16 at 14:30 Glucagon (Glucagen) 1 mg Q15M PRN IM DECREASED GLUCOSE; Start 06/21/16 at 14:30 Glucose (Glutose) 15 gm Q15M PRN BUCCAL DECREASED GLUCOSE; Start 06/21/16 at 14 :30 Diagnostic Test (Pha) (Accu-Chek) 1 ea 02 XX Last administered on 06/23/16 02: 46; Admin Dose 1 EA; Start 06/22/16 at 02:00 Miscellaneous Information (* Miscellaneous Pharmacy Order) tamiflu per pharm... ONCE XX ; Start 06/21/16 at 19:30 Diphenoxylate HCl/ Atropine (Lomotil) 1 tab Q6H PRN PO DIARRHEA Last administered on 06/23/16 15:59; Admin Dose 1 TAB; Start 06/22/16 at 07:00 Epoetin Ishan (Epogen (Esrd)) 6,000 units MoWeFr@17 SC Last administered on 06/23 18:51; Admin Dose 6,000 UNITS; Start 06/23/16 at 17:00 Phenol (Cepastat Lozenge) 1 lozenge Q1H PRN MT SORE THROAT; Start 06/23/16 at 18:00 Hydralazine HCl (Apresoline) 25 mg Q6H PRN PO ELEVATED BLOOD PRESSURE Last administered on 06/24/16 00:17; Admin Dose 25 MG; Start 06/24/16 at 00:30 Hydralazine HCl (Apresoline) 25 mg TID GTB Last administered on 06/24/16 12:23 ; Admin Dose 25 MG; Start 06/24/16 at 13:00 Phenol (Cepastat Lozenge) 1 lozenge Q3 PRN MT COUGH; Start 06/24/16 at 14:00 Guaifenesin/ Dextromethorphan (Robitussin Dm Liquid Cup) 5 ml Q4H PRN PO COUGH ; Start 06/24/16 at 14:00 WARD WILSON MD Jun 24, 2016 16:35
--- NOTE | 2016-06-24 16:49 | CONS ---
Date/Time of Note Date/Time of Note DATE: 06/24/16 TIME: 16:48 Assessment/Plan Assessment/Plan Chief Complaint/Hosp Course ID PROGRESS NOTE TOTAL ABX DAY # => Tamiflu 24H INTERVAL SUMMARY * Lethargic today, s/p HD yesterday, Afebrile today TMAx yesterday 99.7 * Chart reviewed -> BCx (-) PHYSICAL EXAMINATION: GENERAL: VSS,NAD, no fevers HEENT: Unremarkable NECK: Supple, trach-> midline CHEST: Equal chest rise bilaterally, without dyspnea on observation HEART: Pulse RRR ABDOMEN: Soft, benign EXTREMITIES: Warm, SKIN: Warm, dry ID ASSESSMENT: 71 yo F w/PMHx ESRD-HD via AFV admitted with: 1. Febrile illness secondary to influenza B virus, remains on Tamiflu. 2. Congestive heart failure. 3. End-stage renal disease on hemodialysis. 4. Diabetes. 5. Hypertension. ()MRSA NARES INVASIVES: * PIV,LUEXT AVF ABX ALLERGIES: KNDA CURRENT ABX: DAY # Tamiflu ID RECOMMENDATIONS: 1. Continue current plan of care, may DC when afebrile 48H when cleared by primary Problems: Consultation Date/Type/Reason Admit Date/Time Jun 20, 2016 at 22:24 Initial Consult Date 06/21/16 Type of Consultation: ID Referring Provider: MICHAEL CAMPBELL MD Exam/Review of Systems Vital Signs Vitals Vital Signs Date Time Temp Pulse Resp B/P Pulse Ox O2 Delivery O2 Flow Rate FiO2 06/24/16 15:00 60 154/70 06/24/16 07:25 98.8 18 94 06/23/16 23:20 Room Air 06/21/16 11:00 3.0 Intake and Output 06/23/16 06/23/16 06/24/16 15:00 23:00 07:00 Intake Total 1600 ml 360 ml Output Total 3000 ml Balance -1400 ml 360 ml Results Result Diagram: 06/24/16 0610 06/24/16 0610 Results 24 hrs Laboratory Tests Test 06/23/16 20:40 06/24/16 06:10 06/24/16 07:53 06/24/16 12:18 Bedside Glucose 139 90 128 White Blood Count 3.7 L Red Blood Count 3.07 #L Hemoglobin 9.8 #L Hematocrit 30.2 #L Mean Corpuscular Volume 98.4 Mean Corpuscular Hemoglobin 31.9 Mean Corpuscular Hemoglobin Concent 32.5 Red Cell Distribution Width 14.6 H Platelet Count 69 L Mean Platelet Volume 10.7 H Neutrophils % 47.0 Band Neutrophils % 4.0 Lymphocytes % 34.0 Reactive Lymphocytes % 1.0 Monocytes % 12.0 H Eosinophils % 2.0 Neutrophils # 1.7 Lymphocytes # 1.3 Monocytes # 0.4 Eosinophils # 0.1 Platelet Estimate PLT APPEAR DECREASED Sodium Level 138 Potassium Level 3.3 L Chloride Level 98 Carbon Dioxide Level 32 H Anion Gap 11 Blood Urea Nitrogen 38 #H Creatinine 4.63 #H Glucose Level 94 # Calcium Level 7.7 L Medications Medications Current Medications Ondansetron HCl (Zofran Inj) 4 mg Q6H PRN IV NAUSEA AND/OR VOMITING; Start at 13:30 Acetaminophen (Tylenol Tab) 650 mg Q6H PRN PO PAIN LEVEL 1-3 OR FEVER; Start at 13:30 Morphine Sulfate (morphine) 2 mg Q4H PRN IV SEVERE PAIN LEVEL 7-10; Start 06/21 at 13:30 Docusate Sodium (Colace) 100 mg Q12H PRN PO CONSTIPATION; Start 06/21/16 at 13: 30 Famotidine (Pepcid) 20 mg Q24H PO Last administered on 06/23/16 20:45; Admin Dose 20 MG; Start 06/21/16 at 21:00 Heparin Sodium (Porcine) (Heparin (5000 Units/0.5 ml)) 5,000 unit Q12 SC Last administered on 06/24/16 08:40; Admin Dose 5,000 UNIT; Start 06/21/16 at 21:00 Aspirin (Halfprin) 81 mg DAILY PO Last administered on 06/24/16 08:17; Admin Dose 81 MG; Start 06/22/16 at 09:00 Atenolol (Tenormin) 50 mg BID PO Last administered on 06/23/16 20:49; Admin Dose 50 MG; Start 06/21/16 at 21:00 Losartan Potassium (Cozaar) 50 mg DAILY PO Last administered on 06/24/16 08:18 ; Admin Dose 50 MG; Start 06/22/16 at 09:00 Insulin Glargine (Lantus) 12 unit DAILY@20 SC Last administered on 06/23/16 20 :50; Admin Dose 12 UNIT; Start 06/21/16 at 20:00 Miscellaneous Information 1 ea NOTE XX ; Start 06/21/16 at 14:30 Glucose (Glutose) 15 gm Q15M PRN PO DECREASED GLUCOSE; Start 06/21/16 at 14:30 Glucose (Glutose) 22.5 gm Q15M PRN PO DECREASED GLUCOSE; Start 06/21/16 at 14: 30 Dextrose (D50w Syringe) 25 ml Q15M PRN IV DECREASED GLUCOSE; Start 06/21/16 at 14:30 Dextrose (D50w Syringe) 50 ml Q15M PRN IV DECREASED GLUCOSE; Start 06/21/16 at 14:30 Glucagon (Glucagen) 1 mg Q15M PRN IM DECREASED GLUCOSE; Start 06/21/16 at 14:30 Glucose (Glutose) 15 gm Q15M PRN BUCCAL DECREASED GLUCOSE; Start 06/21/16 at 14 :30 Diagnostic Test (Pha) (Accu-Chek) 1 ea 02 XX Last administered on 06/23/16 02: 46; Admin Dose 1 EA; Start 06/22/16 at 02:00 Miscellaneous Information (* Miscellaneous Pharmacy Order) tamiflu per pharm... ONCE XX ; Start 06/21/16 at 19:30 Diphenoxylate HCl/ Atropine (Lomotil) 1 tab Q6H PRN PO DIARRHEA Last administered on 06/23/16 15:59; Admin Dose 1 TAB; Start 06/22/16 at 07:00 Epoetin Ishan (Epogen (Esrd)) 6,000 units MoWeFr@17 SC Last administered on 06/23 18:51; Admin Dose 6,000 UNITS; Start 06/23/16 at 17:00 Phenol (Cepastat Lozenge) 1 lozenge Q1H PRN MT SORE THROAT; Start 06/23/16 at 18:00 Hydralazine HCl (Apresoline) 25 mg Q6H PRN PO ELEVATED BLOOD PRESSURE Last administered on 06/24/16 00:17; Admin Dose 25 MG; Start 06/24/16 at 00:30 Hydralazine HCl (Apresoline) 25 mg TID GTB Last administered on 06/24/16 12:23 ; Admin Dose 25 MG; Start 06/24/16 at 13:00 Phenol (Cepastat Lozenge) 1 lozenge Q3 PRN MT COUGH; Start 06/24/16 at 14:00 Guaifenesin/ Dextromethorphan (Robitussin Dm Liquid Cup) 5 ml Q4H PRN PO COUGH ; Start 06/24/16 at 14:00 ALMAS NIXON NP Jun 24, 2016 16:48
[2016-06-24 20:00] VITALS: BP 176/74; RESP 20
[2016-06-24] MEDS: DIPHENOXYLATE/ATROPINE TAB PO PRN (20:26)
[2016-06-24] MEDS: FAMOTIDINE 20 MG TAB PO SCH (20:26)
[2016-06-24] MEDS: INSULIN GLARGINE [LANtus] 3 ML PEN SC SCH (20:37)
[2016-06-25] MEDS: ACCU-CHEK XX SCH (02:00)
[2016-06-25 06:38] LABS: ADD SCAN DIFF NO
[2016-06-25 06:40] LABS: CALCIUM 7.5 mg/dl (8.4-10.2); CREATININE 6.31 mg/dl (0.44-1.00); POTASSIUM 3.5 mmol/L (3.5-5.1)
[2016-06-25 07:16] LABS: ABNORMAL IP MESSAGE 1; HEMATOCRIT 28.2 % (37.0-47.0); MEAN CORPUSCULAR HEMOGLOBIN 31.7 pg (29.0-33.0); MEAN CORPUSCULAR HGB CONC 31.9 g/dl (32.0-37.0); MEAN CORPUSCULAR VOLUME 99.3 fl (82.0-101.0); MEAN PLATELET VOLUME 11.1 fl (7.4-10.4); PLATELET COUNT 65 10^3/UL (140-415); RED BLOOD COUNT 2.84 10^6/ul (4.20-5.40); RED CELL DISTRIBUTION WIDTH 14.4 % (11.5-14.5); WHITE BLOOD COUNT 3.5 10^3/ul (4.8-10.8)
[2016-06-25 07:35] VITALS: BP 164/68; RESP 18
[2016-06-25] MEDS: INSULIN ASPART [NOVOLOG] 3 ML PEN SC SCH ×4 (07:59→21:14)
[2016-06-25] MEDS: DIPHENOXYLATE/ATROPINE TAB PO PRN (08:05)
[2016-06-25] MEDS: LOSARTAN 50 MG TAB PO SCH (08:05)
[2016-06-25] MEDS: ASPIRIN (EC) 81 MG TAB PO SCH (08:06)
[2016-06-25] MEDS: HEPARIN 5,000 UNIT/0.5 ML VIAL SC SCH ×2 (08:11→21:14)
[2016-06-25] MEDS: ATENOLOL 50 MG TAB PO SCH ×2 (09:00→21:08)
--- NOTE | 2016-06-25 09:36 | CONS ---
Date/Time of Note Date/Time of Note DATE: 06/25/16 TIME: 09:36 Assessment/Plan Assessment/Plan Additional Assessment/Plan 1. Influenza B. 2. End-stage renal disease. 3. Diabetes mellitus type 2. 4. Hypertension. 5. Anemia, Chronic Disease Stable cont current Rx and plan. Consultation Date/Type/Reason Admit Date/Time Jun 20, 2016 at 22:24 Initial Consult Date 06/21/16 Type of Consultation: Renal Referring Provider: MICHAEL CAMPBELL MD 24 HR Interval Summary Constitutional: requiring O2 Exam/Review of Systems Vital Signs Vitals Vital Signs Date Time Temp Pulse Resp B/P Pulse Ox O2 Delivery O2 Flow Rate FiO2 06/25/16 07:35 97.9 54 18 164/68 97 06/23/16 23:20 Room Air 06/21/16 11:00 3.0 Intake and Output 06/24/16 06/24/16 06/25/16 15:00 23:00 07:00 Intake Total 400 ml Balance 400 ml Exam Constitutional: No distress ENMT: mucosa pink and moist Neck: No jvd Respiratory: crackles/rales, No diminished breath sounds, No labored breathing Cardiovascular: edema Gastrointestinal: non-tender, soft Results Result Diagram: 06/25/1651606/25/16 0517 Results 24 hrs Laboratory Tests Test 06/24/16 12:18 06/24/16 17:20 06/24/16 20:30 06/25/16 02:10 Bedside Glucose 128 229 H 214 193 Test 06/25/16 05:17 06/25/16 07:57 White Blood Count 3.5 L Red Blood Count 2.84 L Hemoglobin 9.0 L Hematocrit 28.2 L Mean Corpuscular Volume 99.3 Mean Corpuscular Hemoglobin 31.7 Mean Corpuscular Hemoglobin Concent 31.9 L Red Cell Distribution Width 14.4 Platelet Count 65 L Mean Platelet Volume 11.1 H Neutrophils % Lymphocytes % Monocytes % Neutrophils # Lymphocytes # Monocytes # Sodium Level 136 Potassium Level 3.5 Chloride Level 98 Carbon Dioxide Level 28 Anion Gap 14 Blood Urea Nitrogen 53 H Creatinine 6.31 H Glucose Level 159 Calcium Level 7.5 L Bedside Glucose 130 Medications Medications Current Medications Ondansetron HCl (Zofran Inj) 4 mg Q6H PRN IV NAUSEA AND/OR VOMITING; Start at 13:30 Acetaminophen (Tylenol Tab) 650 mg Q6H PRN PO PAIN LEVEL 1-3 OR FEVER; Start at 13:30 Morphine Sulfate (morphine) 2 mg Q4H PRN IV SEVERE PAIN LEVEL 7-10; Start 06/21 at 13:30 Docusate Sodium (Colace) 100 mg Q12H PRN PO CONSTIPATION; Start 06/21/16 at 13: 30 Famotidine (Pepcid) 20 mg Q24H PO Last administered on 06/24/16 20:26; Admin Dose 20 MG; Start 06/21/16 at 21:00 Heparin Sodium (Porcine) (Heparin (5000 Units/0.5 ml)) 5,000 unit Q12 SC Last administered on 06/25/16 08:11; Admin Dose 5,000 UNIT; Start 06/21/16 at 21:00 Aspirin (Halfprin) 81 mg DAILY PO Last administered on 06/25/16 08:06; Admin Dose 81 MG; Start 06/22/16 at 09:00 Atenolol (Tenormin) 50 mg BID PO Last administered on 06/24/16 20:27; Admin Dose 50 MG; Start 06/21/16 at 21:00 Losartan Potassium (Cozaar) 50 mg DAILY PO Last administered on 06/25/16 08:05 ; Admin Dose 50 MG; Start 06/22/16 at 09:00 Insulin Glargine (Lantus) 12 unit DAILY@20 SC Last administered on 06/24/16 20 :37; Admin Dose 12 UNIT; Start 06/21/16 at 20:00 Miscellaneous Information 1 ea NOTE XX ; Start 06/21/16 at 14:30 Glucose (Glutose) 15 gm Q15M PRN PO DECREASED GLUCOSE; Start 06/21/16 at 14:30 Glucose (Glutose) 22.5 gm Q15M PRN PO DECREASED GLUCOSE; Start 06/21/16 at 14: 30 Dextrose (D50w Syringe) 25 ml Q15M PRN IV DECREASED GLUCOSE; Start 06/21/16 at 14:30 Dextrose (D50w Syringe) 50 ml Q15M PRN IV DECREASED GLUCOSE; Start 06/21/16 at 14:30 Glucagon (Glucagen) 1 mg Q15M PRN IM DECREASED GLUCOSE; Start 06/21/16 at 14:30 Glucose (Glutose) 15 gm Q15M PRN BUCCAL DECREASED GLUCOSE; Start 06/21/16 at 14 :30 Diagnostic Test (Pha) (Accu-Chek) 1 ea 02 XX Last administered on 06/25/16 02: 00; Admin Dose 1 EA; Start 06/22/16 at 02:00 Miscellaneous Information (* Miscellaneous Pharmacy Order) tamiflu per pharm... ONCE XX ; Start 06/21/16 at 19:30 Diphenoxylate HCl/ Atropine (Lomotil) 1 tab Q6H PRN PO DIARRHEA Last administered on 06/25/16 08:05; Admin Dose 1 TAB; Start 06/22/16 at 07:00 Epoetin Ishan (Epogen (Esrd)) 6,000 units MoWeFr@17 SC Last administered on 06/23 18:51; Admin Dose 6,000 UNITS; Start 06/23/16 at 17:00 Phenol (Cepastat Lozenge) 1 lozenge Q1H PRN MT SORE THROAT; Start 06/23/16 at 18:00 Hydralazine HCl (Apresoline) 25 mg Q6H PRN PO ELEVATED BLOOD PRESSURE Last administered on 06/24/16 00:17; Admin Dose 25 MG; Start 06/24/16 at 00:30 Hydralazine HCl (Apresoline) 25 mg TID GTB Last administered on 06/25/16 08:06 ; Admin Dose 25 MG; Start 06/24/16 at 13:00 Phenol (Cepastat Lozenge) 1 lozenge Q3 PRN MT COUGH; Start 06/24/16 at 14:00 Guaifenesin/ Dextromethorphan (Robitussin Dm Liquid Cup) 5 ml Q4H PRN PO COUGH ; Start 06/24/16 at 14:00 WARD WILSON MD Jun 25, 2016 09:36
[2016-06-25 11:31] LABS: EOSINOPHILS # 0.1 10^3/ul (0.0-0.5); LYMPHOCYTES # 1.1 10^3/ul (0.8-2.9); MONOCYTE # 0.2 10^3/ul (0.3-0.9); NEUTROPHIL # 1.6 10^3/ul (1.6-7.5)
[2016-06-25 11:34] LABS: PLATELET ESTIMATE PLT APPEAR DECREASED
--- NOTE | 2016-06-25 13:13 | PN ---
Date/Time of Note Date/Time of Note DATE: 06/25/16 TIME: 13:10 Assessment/Plan VTE Prophylaxis VTE Prophylaxis Intervention: other Lines/Catheters IV [facility] Assessment/Plan Assessment/Plan - Electrolyte imbalance- Hypokalemia-resolved --hypocalcemia - Influenza B. - per Dr. Salgado in infectious disease consultation. - on renally dosed Tamiflu. - broad spectrum antibiotics to cover for possible bacterial bronchitis. - End-stage renal disease hemodialysis dependent. Continue hemodialysis per nephrology. Dr. Rios is following the patient in nephrology consultation. - Diabetes mellitus type 2. Continue Lantus and NovoLog. - Hypertension. Continue atenolol and Cozaar. Continue heparin for deep venous thrombosis prophylaxis and Pepcid for peptic ulcer disease prophylaxis. Further recommendations based on clinical course. Plan of care discussed with Dr. Patiño. Subjective 24 Hr Interval Summary Free Text/Dictation No acute distress, resting in bed states feels better cough is much improved than yesterday, afebrile. Discussed with the staff no new issues reported Constitutional: improved Eyes: no complaints ENT: no complaints Respiratory: no complaints Cardiovascular: no complaints Gastrointestinal: no complaints Exam/Review of Systems Vital Signs Vitals Vital Signs Date Time Temp Pulse Resp B/P Pulse Ox O2 Delivery O2 Flow Rate FiO2 06/25/16 07:35 97.9 54 18 164/68 97 06/23/16 23:20 Room Air 06/21/16 11:00 3.0 Intake and Output 06/24/16 06/24/16 06/25/16 15:00 23:00 07:00 Intake Total 400 ml Balance 400 ml Results Result Diagram: 06/25/16 0506/25/1617 Results 24 hrs Laboratory Tests Test 06/24/16 17:20 06/24/16 20:30 06/25/16 02:10 06/25/16 05:17 Bedside Glucose 229 H 214 193 White Blood Count 3.5 L Red Blood Count 2.84 L Hemoglobin 9.0 L Hematocrit 28.2 L Mean Corpuscular Volume 99.3 Mean Corpuscular Hemoglobin 31.7 Mean Corpuscular Hemoglobin Concent 31.9 L Red Cell Distribution Width 14.4 Platelet Count 65 L Mean Platelet Volume 11.1 H Neutrophils % 46.0 Band Neutrophils % 4.0 Lymphocytes % 32.0 Reactive Lymphocytes % 8.0 Monocytes % 6.0 Eosinophils % 4.0 Neutrophils # 1.6 Lymphocytes # 1.1 Monocytes # 0.2 L Eosinophils # 0.1 Platelet Estimate PLT APPEAR DECREASED Sodium Level 136 Potassium Level 3.5 Chloride Level 98 Carbon Dioxide Level 28 Anion Gap 14 Blood Urea Nitrogen 53 H Creatinine 6.31 H Glucose Level 159 Calcium Level 7.5 L Test 06/25/16 07:57 06/25/16 11:49 Bedside Glucose 130 167 Medications Medications Current Medications Ondansetron HCl (Zofran Inj) 4 mg Q6H PRN IV NAUSEA AND/OR VOMITING; Start at 13:30 Acetaminophen (Tylenol Tab) 650 mg Q6H PRN PO PAIN LEVEL 1-3 OR FEVER; Start at 13:30 Morphine Sulfate (morphine) 2 mg Q4H PRN IV SEVERE PAIN LEVEL 7-10; Start 06/21 at 13:30 Docusate Sodium (Colace) 100 mg Q12H PRN PO CONSTIPATION; Start 06/21/16 at 13: 30 Famotidine (Pepcid) 20 mg Q24H PO Last administered on 06/24/16 20:26; Admin Dose 20 MG; Start 06/21/16 at 21:00 Heparin Sodium (Porcine) (Heparin (5000 Units/0.5 ml)) 5,000 unit Q12 SC Last administered on 06/25/16 08:11; Admin Dose 5,000 UNIT; Start 06/21/16 at 21:00 Aspirin (Halfprin) 81 mg DAILY PO Last administered on 06/25/16 08:06; Admin Dose 81 MG; Start 06/22/16 at 09:00 Atenolol (Tenormin) 50 mg BID PO Last administered on 06/24/16 20:27; Admin Dose 50 MG; Start 06/21/16 at 21:00 Losartan Potassium (Cozaar) 50 mg DAILY PO Last administered on 06/25/16 08:05 ; Admin Dose 50 MG; Start 06/22/16 at 09:00 Insulin Glargine (Lantus) 12 unit DAILY@20 SC Last administered on 06/24/16 20 :37; Admin Dose 12 UNIT; Start 06/21/16 at 20:00 Miscellaneous Information 1 ea NOTE XX ; Start 06/21/16 at 14:30 Glucose (Glutose) 15 gm Q15M PRN PO DECREASED GLUCOSE; Start 06/21/16 at 14:30 Glucose (Glutose) 22.5 gm Q15M PRN PO DECREASED GLUCOSE; Start 06/21/16 at 14: 30 Dextrose (D50w Syringe) 25 ml Q15M PRN IV DECREASED GLUCOSE; Start 06/21/16 at 14:30 Dextrose (D50w Syringe) 50 ml Q15M PRN IV DECREASED GLUCOSE; Start 06/21/16 at 14:30 Glucagon (Glucagen) 1 mg Q15M PRN IM DECREASED GLUCOSE; Start 06/21/16 at 14:30 Glucose (Glutose) 15 gm Q15M PRN BUCCAL DECREASED GLUCOSE; Start 06/21/16 at 14 :30 Diagnostic Test (Pha) (Accu-Chek) 1 ea 02 XX Last administered on 06/25/16 02: 00; Admin Dose 1 EA; Start 06/22/16 at 02:00 Miscellaneous Information (* Miscellaneous Pharmacy Order) tamiflu per pharm... ONCE XX ; Start 06/21/16 at 19:30 Diphenoxylate HCl/ Atropine (Lomotil) 1 tab Q6H PRN PO DIARRHEA Last administered on 06/25/16 08:05; Admin Dose 1 TAB; Start 06/22/16 at 07:00 Epoetin Ishan (Epogen (Esrd)) 6,000 units MoWeFr@17 SC Last administered on 06/23 18:51; Admin Dose 6,000 UNITS; Start 06/23/16 at 17:00 Phenol (Cepastat Lozenge) 1 lozenge Q1H PRN MT SORE THROAT; Start 06/23/16 at 18:00 Hydralazine HCl (Apresoline) 25 mg Q6H PRN PO ELEVATED BLOOD PRESSURE Last administered on 06/24/16 00:17; Admin Dose 25 MG; Start 06/24/16 at 00:30 Hydralazine HCl (Apresoline) 25 mg TID GTB Last administered on 06/25/16 12:01 ; Admin Dose 25 MG; Start 06/24/16 at 13:00 Phenol (Cepastat Lozenge) 1 lozenge Q3 PRN MT COUGH; Start 06/24/16 at 14:00 Guaifenesin/ Dextromethorphan (Robitussin Dm Liquid Cup) 5 ml Q4H PRN PO COUGH ; Start 06/24/16 at 14:00 KODAK YANG Jun 25, 2016 13:13
[2016-06-25 20:25] VITALS: BP 167/69; RESP 18
[2016-06-25] MEDS: FAMOTIDINE 20 MG TAB PO SCH (21:07)
[2016-06-25] MEDS: INSULIN GLARGINE [LANtus] 3 ML PEN SC SCH (21:13)
--- NOTE | 2016-06-25 21:30 | CONS ---
Date/Time of Note Date/Time of Note DATE: 06/25/16 TIME: 21:27 Assessment/Plan Assessment/Plan Chief Complaint/Hosp Course ID PROGRESS NOTE TOTAL ABX DAY # => Tamiflu 06/21 - 06/27 24H INTERVAL SUMMARY * Resting comfortably with eyes closed, rounding late pm pt not disturbed * Per notes pt reported improvement, still w/cough, no fevers, BCx (-) PHYSICAL EXAMINATION: GENERAL: VSS,NAD, no fevers HEENT: Unremarkable NECK: Supple, trach-> midline CHEST: Equal chest rise bilaterally, without dyspnea on observation EXTREMITIES: Moves all extremities ID ASSESSMENT: 71 yo F w/PMHx ESRD-HD via AFV admitted with: 1. Febrile illness secondary to influenza B virus, remains on Tamiflu. 2. Congestive heart failure. 3. End-stage renal disease on hemodialysis. 4. Diabetes. 5. Hypertension. ()MRSA NARES INVASIVES: * PIV,LUEXT AVF ABX ALLERGIES: KNDA CURRENT ABX: => Tamiflu 06/21 - 06/27 ID RECOMMENDATIONS: 1. Continue current plan of care, may DC when afebrile 48H when cleared by primary 2. May continue => Tamiflu 06/21 - 06/27 Problems: Consultation Date/Type/Reason Admit Date/Time Jun 20, 2016 at 22:24 Initial Consult Date 06/21/16 Referring Provider: MICHAEL CAMPBELL MD Exam/Review of Systems Vital Signs Vitals Vital Signs Date Time Temp Pulse Resp B/P Pulse Ox O2 Delivery O2 Flow Rate FiO2 06/25/16 20:25 98.4 58 18 167/69 98 06/23/16 23:20 Room Air 06/21/16 11:00 3.0 Intake and Output 06/24/16 06/24/16 06/25/16 15:00 23:00 07:00 Intake Total 400 ml Balance 400 ml Results Result Diagram: 06/25/1651606/25/16516 Results 24 hrs Laboratory Tests Test 06/25/16 02:10 06/25/16 05:17 06/25/16 07:57 06/25/16 11:49 Bedside Glucose 193 130 167 White Blood Count 3.5 L Red Blood Count 2.84 L Hemoglobin 9.0 L Hematocrit 28.2 L Mean Corpuscular Volume 99.3 Mean Corpuscular Hemoglobin 31.7 Mean Corpuscular Hemoglobin Concent 31.9 L Red Cell Distribution Width 14.4 Platelet Count 65 L Mean Platelet Volume 11.1 H Neutrophils % 46.0 Band Neutrophils % 4.0 Lymphocytes % 32.0 Reactive Lymphocytes % 8.0 Monocytes % 6.0 Eosinophils % 4.0 Neutrophils # 1.6 Lymphocytes # 1.1 Monocytes # 0.2 L Eosinophils # 0.1 Platelet Estimate PLT APPEAR DECREASED Sodium Level 136 Potassium Level 3.5 Chloride Level 98 Carbon Dioxide Level 28 Anion Gap 14 Blood Urea Nitrogen 53 H Creatinine 6.31 H Glucose Level 159 Calcium Level 7.5 L Test 06/25/16 17:08 06/25/16 21:05 Bedside Glucose 197 239 H Medications Medications Current Medications Ondansetron HCl (Zofran Inj) 4 mg Q6H PRN IV NAUSEA AND/OR VOMITING; Start at 13:30 Acetaminophen (Tylenol Tab) 650 mg Q6H PRN PO PAIN LEVEL 1-3 OR FEVER; Start at 13:30 Morphine Sulfate (morphine) 2 mg Q4H PRN IV SEVERE PAIN LEVEL 7-10; Start 06/21 at 13:30 Docusate Sodium (Colace) 100 mg Q12H PRN PO CONSTIPATION; Start 06/21/16 at 13: 30 Famotidine (Pepcid) 20 mg Q24H PO Last administered on 06/25/16 21:07; Admin Dose 20 MG; Start 06/21/16 at 21:00 Heparin Sodium (Porcine) (Heparin (5000 Units/0.5 ml)) 5,000 unit Q12 SC Last administered on 06/25/16 21:14; Admin Dose 5,000 UNIT; Start 06/21/16 at 21:00 Aspirin (Halfprin) 81 mg DAILY PO Last administered on 06/25/16 08:06; Admin Dose 81 MG; Start 06/22/16 at 09:00 Atenolol (Tenormin) 50 mg BID PO Last administered on 06/25/16 21:08; Admin Dose 50 MG; Start 06/21/16 at 21:00 Losartan Potassium (Cozaar) 50 mg DAILY PO Last administered on 06/25/16 08:05 ; Admin Dose 50 MG; Start 06/22/16 at 09:00 Insulin Glargine (Lantus) 12 unit DAILY@20 SC Last administered on 06/25/16 21 :13; Admin Dose 12 UNIT; Start 06/21/16 at 20:00 Miscellaneous Information 1 ea NOTE XX ; Start 06/21/16 at 14:30 Glucose (Glutose) 15 gm Q15M PRN PO DECREASED GLUCOSE; Start 06/21/16 at 14:30 Glucose (Glutose) 22.5 gm Q15M PRN PO DECREASED GLUCOSE; Start 06/21/16 at 14: 30 Dextrose (D50w Syringe) 25 ml Q15M PRN IV DECREASED GLUCOSE; Start 06/21/16 at 14:30 Dextrose (D50w Syringe) 50 ml Q15M PRN IV DECREASED GLUCOSE; Start 06/21/16 at 14:30 Glucagon (Glucagen) 1 mg Q15M PRN IM DECREASED GLUCOSE; Start 06/21/16 at 14:30 Glucose (Glutose) 15 gm Q15M PRN BUCCAL DECREASED GLUCOSE; Start 06/21/16 at 14 :30 Diagnostic Test (Pha) (Accu-Chek) 1 ea 02 XX Last administered on 06/25/16 02: 00; Admin Dose 1 EA; Start 06/22/16 at 02:00 Miscellaneous Information (* Miscellaneous Pharmacy Order) tamiflu per pharm... ONCE XX ; Start 06/21/16 at 19:30 Diphenoxylate HCl/ Atropine (Lomotil) 1 tab Q6H PRN PO DIARRHEA Last administered on 06/25/16 08:05; Admin Dose 1 TAB; Start 06/22/16 at 07:00 Epoetin Ishan (Epogen (Esrd)) 6,000 units MoWeFr@17 SC Last administered on 06/23 18:51; Admin Dose 6,000 UNITS; Start 06/23/16 at 17:00 Phenol (Cepastat Lozenge) 1 lozenge Q1H PRN MT SORE THROAT; Start 06/23/16 at 18:00 Hydralazine HCl (Apresoline) 25 mg Q6H PRN PO ELEVATED BLOOD PRESSURE Last administered on 06/24/16 00:17; Admin Dose 25 MG; Start 06/24/16 at 00:30 Hydralazine HCl (Apresoline) 25 mg TID GTB Last administered on 06/25/16 21:08 ; Admin Dose 25 MG; Start 06/24/16 at 13:00 Phenol (Cepastat Lozenge) 1 lozenge Q3 PRN MT COUGH; Start 06/24/16 at 14:00 Guaifenesin/ Dextromethorphan (Robitussin Dm Liquid Cup) 5 ml Q4H PRN PO COUGH ; Start 06/24/16 at 14:00 ALMAS NIXON NP Jun 25, 2016 21:30
[2016-06-26] VITALS (11 sets, daily range): BP systolic 112–173; BP diastolic 53–74; PULSE 50–57; RESP 18–20
[2016-06-26] MEDS: ACCU-CHEK XX SCH (02:00)
[2016-06-26] MEDS: INSULIN ASPART [NOVOLOG] 3 ML PEN SC SCH ×4 (08:25→20:43)
[2016-06-26] MEDS: LOSARTAN 50 MG TAB PO SCH (08:34)
[2016-06-26] MEDS: NIFEdipine (XL) 30 MG TAB PO SCH ×2 (08:34→20:41)
[2016-06-26] MEDS: ASPIRIN (EC) 81 MG TAB PO SCH (08:34)
[2016-06-26] MEDS: DIPHENOXYLATE/ATROPINE TAB PO PRN (08:34)
[2016-06-26] MEDS: ATENOLOL 50 MG TAB PO SCH ×2 (08:35→20:40)
[2016-06-26] MEDS: HEPARIN 5,000 UNIT/0.5 ML VIAL SC SCH ×2 (08:42→20:44)
[2016-06-26] MEDS: EPOETIN 3000 UNITS/1 ML INJ (ESRD) SC SCH (17:20)
--- NOTE | 2016-06-26 18:54 | PN ---
Date/Time of Note Date/Time of Note DATE: 06/26/16 TIME: 18:52 Assessment/Plan VTE Prophylaxis VTE Prophylaxis Intervention: SCD's Lines/Catheters IV [facility]from [facility] Saline [facility] Assessment/Plan Chief Complaint/Hosp Course ASSESSMENT AND PLAN: 1. Influenza B. Continue patient on renally dosed Tamiflu. Continue broad spectrum antibiotics to cover for possible bacterial bronchitis. Dr. Salgado is following in infectious disease consultation. 2. End-stage renal disease hemodialysis dependent. Continue hemodialysis per nephrology. Dr. Rios is following the patient in nephrology consultation. 3. Diabetes mellitus type 2. Continue Lantus and NovoLog. 4. Hypertension. Continue atenolol and Cozaar. Continue heparin for deep venous thrombosis prophylaxis and Pepcid for peptic ulcer disease prophylaxis. Further recommendations based on clinical course. Plan of care discussed with Dr. Patiño. Problems: Subjective 24 Hr Interval Summary Free Text/Dictation Patient stated that she feels better, breathing comfortably on room air, complains of cough. Exam/Review of Systems Vital Signs Vitals Vital Signs Date Time Temp Pulse Resp B/P Pulse Ox O2 Delivery O2 Flow Rate FiO2 06/26/16 12:32 56 149/55 06/26/16 11:30 20 06/26/16 08:03 98.6 100 06/23/16 23:20 Room Air Intake and Output 06/25/16 06/25/16 06/26/16 15:00 23:00 07:00 Intake Total 480 ml Balance 480 ml Exam PHYSICAL EXAMINATION: GENERAL: Well-developed, well-nourished female who currently is awake, alert. HEENT: Head is atraumatic, normocephalic. Pupils equal, round, and reactive to light and accommodation. Oral mucosa is pink and moist. NECK: Supple, no cervical lymphadenopathy, no thyromegaly. LUNGS: Clear bilaterally. Slightly diminished at the bases. CARDIOVASCULAR: Normal S1, S2. No murmurs, gallops, clicks, or rubs noted. ABDOMEN: Round, soft, nondistended, nontender. Bowel sounds present. There is no guarding, no rebound tenderness. EXTREMITIES: There is no edema, clubbing, cyanosis. Pulses equal bilaterally 2 +. Left upper extremity with AV fistula with palpable thrill and audible bruit. SKIN: There is no rash, petechiae. NEUROLOGIC: The patient is awake, alert, and oriented x4 Results Result Diagram: 06/25/16 0517 06/25/16 0517 Results 24 hrs Laboratory Tests Test 06/25/16 21:05 06/26/16 02:09 06/26/16 07:54 06/26/16 12:09 Bedside Glucose 239 H 217 187 166 Test 06/26/16 17:18 Bedside Glucose 214 Medications Medications Current Medications Ondansetron HCl (Zofran Inj) 4 mg Q6H PRN IV NAUSEA AND/OR VOMITING; Start at 13:30 Acetaminophen (Tylenol Tab) 650 mg Q6H PRN PO PAIN LEVEL 1-3 OR FEVER; Start at 13:30 Morphine Sulfate (morphine) 2 mg Q4H PRN IV SEVERE PAIN LEVEL 7-10; Start 06/21 at 13:30 Docusate Sodium (Colace) 100 mg Q12H PRN PO CONSTIPATION; Start 06/21/16 at 13: 30 Famotidine (Pepcid) 20 mg Q24H PO Last administered on 06/25/16 21:07; Admin Dose 20 MG; Start 06/21/16 at 21:00 Heparin Sodium (Porcine) (Heparin (5000 Units/0.5 ml)) 5,000 unit Q12 SC Last administered on 06/26/16 08:42; Admin Dose 5,000 UNIT; Start 06/21/16 at 21:00 Aspirin (Halfprin) 81 mg DAILY PO Last administered on 06/26/16 08:34; Admin Dose 81 MG; Start 06/22/16 at 09:00 Atenolol (Tenormin) 50 mg BID PO Last administered on 06/25/16 21:08; Admin Dose 50 MG; Start 06/21/16 at 21:00 Losartan Potassium (Cozaar) 50 mg DAILY PO Last administered on 06/25/16 08:05 ; Admin Dose 50 MG; Start 06/22/16 at 09:00 Insulin Glargine (Lantus) 12 unit DAILY@20 SC Last administered on 06/25/16 21 :13; Admin Dose 12 UNIT; Start 06/21/16 at 20:00 Miscellaneous Information 1 ea NOTE XX ; Start 06/21/16 at 14:30 Glucose (Glutose) 15 gm Q15M PRN PO DECREASED GLUCOSE; Start 06/21/16 at 14:30 Glucose (Glutose) 22.5 gm Q15M PRN PO DECREASED GLUCOSE; Start 06/21/16 at 14: 30 Dextrose (D50w Syringe) 25 ml Q15M PRN IV DECREASED GLUCOSE; Start 06/21/16 at 14:30 Dextrose (D50w Syringe) 50 ml Q15M PRN IV DECREASED GLUCOSE; Start 06/21/16 at 14:30 Glucagon (Glucagen) 1 mg Q15M PRN IM DECREASED GLUCOSE; Start 06/21/16 at 14:30 Glucose (Glutose) 15 gm Q15M PRN BUCCAL DECREASED GLUCOSE; Start 06/21/16 at 14 :30 Diagnostic Test (Pha) (Accu-Chek) 1 ea 02 XX Last administered on 06/25/16 02: 00; Admin Dose 1 EA; Start 06/22/16 at 02:00 Miscellaneous Information (* Miscellaneous Pharmacy Order) tamiflu per pharm... ONCE XX ; Start 06/21/16 at 19:30 Diphenoxylate HCl/ Atropine (Lomotil) 1 tab Q6H PRN PO DIARRHEA Last administered on 06/26/16 08:34; Admin Dose 1 TAB; Start 06/22/16 at 07:00 Epoetin Ishan (Epogen (Esrd)) 6,000 units MoWeFr@17 SC Last administered on 06/26 17:20; Admin Dose 6,000 UNITS; Start 06/23/16 at 17:00 Phenol (Cepastat Lozenge) 1 lozenge Q1H PRN MT SORE THROAT; Start 06/23/16 at 18:00 Hydralazine HCl (Apresoline) 25 mg Q6H PRN PO ELEVATED BLOOD PRESSURE Last administered on 06/24/16 00:17; Admin Dose 25 MG; Start 06/24/16 at 00:30 Hydralazine HCl (Apresoline) 25 mg TID GTB Last administered on 06/26/16 12:30 ; Admin Dose 25 MG; Start 06/24/16 at 13:00 Phenol (Cepastat Lozenge) 1 lozenge Q3 PRN MT COUGH; Start 06/24/16 at 14:00 Guaifenesin/ Dextromethorphan (Robitussin Dm Liquid Cup) 5 ml Q4H PRN PO COUGH ; Start 06/24/16 at 14:00 Nifedipine (Procardia Xl) 30 mg BID PO Last administered on 06/26/16 08:34; Admin Dose 30 MG; Start 06/26/16 at 09:00 JOCELYN SWAIN Jun 26, 2016 18:54
--- NOTE | 2016-06-26 19:21 | CONS ---
Date/Time of Note Date/Time of Note DATE: 06/26/16 TIME: 19:16 Assessment/Plan Assessment/Plan Chief Complaint/Hosp Course ID PROGRESS NOTE TOTAL ABX DAY # => Tamiflu 06/21 - 06/27 s/p Vanco IV + Cefepime 06/20 x1 day 24H INTERVAL SUMMARY * Much improved, no F/C/N/V -- resolving cough * Afebrile x >72H, repeat CXR NO INFILTRATES PHYSICAL EXAMINATION: GENERAL: VSS,NAD, no fevers HEENT: Unremarkable NECK: Supple, trach-> midline CHEST: Equal chest rise bilaterally, without dyspnea on observation EXTREMITIES: Moves all extremities ID ASSESSMENT: 71 yo F w/PMHx ESRD-HD via AFV admitted with: 1. Febrile illness secondary to influenza B virus, remains on Tamiflu =. RESOLVED * CXR 06/22/16 revealed NO infiltrates 2. Congestive heart failure. 3. End-stage renal disease on hemodialysis. 4. Diabetes. 5. Hypertension. ()MRSA NARES INVASIVES: * PIV,LUEXT AVF ABX ALLERGIES: KNDA CURRENT ABX: => Tamiflu 06/21 - 06/27 s/p Vanco IV + Cefepime 06/20 x1 day ID RECOMMENDATIONS: 1. Complete course of Tamiflu == last day tomorrow 2. May DC home when cleared by primary - she is afebrile > 72H Problems: Consultation Date/Type/Reason Admit Date/Time Jun 20, 2016 at 22:24 Initial Consult Date 06/21/16 Referring Provider: MICHAEL CAMPBELL MD Exam/Review of Systems Vital Signs Vitals Vital Signs Date Time Temp Pulse Resp B/P Pulse Ox O2 Delivery O2 Flow Rate FiO2 06/26/16 12:32 56 149/55 06/26/16 11:30 20 06/26/16 08:03 98.6 100 06/23/16 23:20 Room Air Intake and Output 06/25/16 06/25/16 06/26/16 15:00 23:00 07:00 Intake Total 480 ml Balance 480 ml Results Result Diagram: 06/25/16 0517 06/25/16 0517 Results 24 hrs Laboratory Tests Test 06/25/16 21:05 06/26/16 02:09 06/26/16 07:54 06/26/16 12:09 Bedside Glucose 239 H 217 187 166 Test 06/26/16 17:18 Bedside Glucose 214 Medications Medications Current Medications Ondansetron HCl (Zofran Inj) 4 mg Q6H PRN IV NAUSEA AND/OR VOMITING; Start at 13:30 Acetaminophen (Tylenol Tab) 650 mg Q6H PRN PO PAIN LEVEL 1-3 OR FEVER; Start at 13:30 Morphine Sulfate (morphine) 2 mg Q4H PRN IV SEVERE PAIN LEVEL 7-10; Start 06/21 at 13:30 Docusate Sodium (Colace) 100 mg Q12H PRN PO CONSTIPATION; Start 06/21/16 at 13: 30 Famotidine (Pepcid) 20 mg Q24H PO Last administered on 06/25/16 21:07; Admin Dose 20 MG; Start 06/21/16 at 21:00 Heparin Sodium (Porcine) (Heparin (5000 Units/0.5 ml)) 5,000 unit Q12 SC Last administered on 06/26/16 08:42; Admin Dose 5,000 UNIT; Start 06/21/16 at 21:00 Aspirin (Halfprin) 81 mg DAILY PO Last administered on 06/26/16 08:34; Admin Dose 81 MG; Start 06/22/16 at 09:00 Atenolol (Tenormin) 50 mg BID PO Last administered on 06/25/16 21:08; Admin Dose 50 MG; Start 06/21/16 at 21:00 Losartan Potassium (Cozaar) 50 mg DAILY PO Last administered on 06/25/16 08:05 ; Admin Dose 50 MG; Start 06/22/16 at 09:00 Insulin Glargine (Lantus) 12 unit DAILY@20 SC Last administered on 06/25/16 21 :13; Admin Dose 12 UNIT; Start 06/21/16 at 20:00 Miscellaneous Information 1 ea NOTE XX ; Start 06/21/16 at 14:30 Glucose (Glutose) 15 gm Q15M PRN PO DECREASED GLUCOSE; Start 06/21/16 at 14:30 Glucose (Glutose) 22.5 gm Q15M PRN PO DECREASED GLUCOSE; Start 06/21/16 at 14: 30 Dextrose (D50w Syringe) 25 ml Q15M PRN IV DECREASED GLUCOSE; Start 06/21/16 at 14:30 Dextrose (D50w Syringe) 50 ml Q15M PRN IV DECREASED GLUCOSE; Start 06/21/16 at 14:30 Glucagon (Glucagen) 1 mg Q15M PRN IM DECREASED GLUCOSE; Start 06/21/16 at 14:30 Glucose (Glutose) 15 gm Q15M PRN BUCCAL DECREASED GLUCOSE; Start 06/21/16 at 14 :30 Diagnostic Test (Pha) (Accu-Chek) 1 ea 02 XX Last administered on 06/25/16 02: 00; Admin Dose 1 EA; Start 06/22/16 at 02:00 Miscellaneous Information (* Miscellaneous Pharmacy Order) tamiflu per pharm... ONCE XX ; Start 06/21/16 at 19:30 Diphenoxylate HCl/ Atropine (Lomotil) 1 tab Q6H PRN PO DIARRHEA Last administered on 06/26/16 08:34; Admin Dose 1 TAB; Start 06/22/16 at 07:00 Epoetin Ishan (Epogen (Esrd)) 6,000 units MoWeFr@17 SC Last administered on 06/26 17:20; Admin Dose 6,000 UNITS; Start 06/23/16 at 17:00 Phenol (Cepastat Lozenge) 1 lozenge Q1H PRN MT SORE THROAT; Start 06/23/16 at 18:00 Hydralazine HCl (Apresoline) 25 mg Q6H PRN PO ELEVATED BLOOD PRESSURE Last administered on 06/24/16 00:17; Admin Dose 25 MG; Start 06/24/16 at 00:30 Hydralazine HCl (Apresoline) 25 mg TID GTB Last administered on 06/26/16 12:30 ; Admin Dose 25 MG; Start 06/24/16 at 13:00 Phenol (Cepastat Lozenge) 1 lozenge Q3 PRN MT COUGH; Start 06/24/16 at 14:00 Guaifenesin/ Dextromethorphan (Robitussin Dm Liquid Cup) 5 ml Q4H PRN PO COUGH ; Start 06/24/16 at 14:00 Nifedipine (Procardia Xl) 30 mg BID PO Last administered on 06/26/16 08:34; Admin Dose 30 MG; Start 06/26/16 at 09:00 ALMAS NIXON NP Jun 26, 2016 19:21
[2016-06-26] MEDS: FAMOTIDINE 20 MG TAB PO SCH (20:41)
[2016-06-26] MEDS: INSULIN GLARGINE [LANtus] 3 ML PEN SC SCH (20:43)
[2016-06-26] MEDS: ACETAMINOPHEN 325 MG TAB PO PRN (20:44)
--- NOTE | 2016-06-26 22:11 | CONS ---
Date/Time of Note Date/Time of Note DATE: 06/26/16 TIME: 22:07 Assessment/Plan Assessment/Plan Chief Complaint/Hosp Course BP under control Pt dialyzed today without problem Further plans per PMD Problems: Consultation Date/Type/Reason Admit Date/Time Jun 20, 2016 at 22:24 Initial Consult Date 06/21/16 Type of Consultation: renal Referring Provider: MICHAEL CAMPBELL MD 24 HR Interval Summary Free Text/Dictation still c/o chest congestion Constitutional: improved Exam/Review of Systems Vital Signs Vitals Vital Signs Date Time Temp Pulse Resp B/P Pulse Ox O2 Delivery O2 Flow Rate FiO2 06/26/16 19:00 98.1 55 20 148/67 96 06/23/16 23:20 Room Air Intake and Output 06/25/16 06/25/16 06/26/16 15:00 23:00 07:00 Intake Total 480 ml Balance 480 ml Exam Constitutional: alert, oriented, well developed Psych: nl mood/affect, no complaints Head: atraumatic, normocephalic Eyes: EOMI, PERRL, nl conjunctiva, nl lids, nl sclera ENMT: nl external ears & nose, nl lips & teeth, nl nasal mucosa & septum Neck: non-tender, supple Respiratory: clear to auscultation, normal air movement Cardiovascular: nl pulses, regular rate and rhythm Gastrointestinal: nl liver, spleen, non-tender, soft Musculoskeletal: nl extremities to inspection, nl gait and stance Extremities: normal pulses, other (avf in place) Neurological: MICE RAISER II-XII intact, nl mental status, nl speech, nl strength Skin: nl turgor, No rash or lesions Lymph: nl lymph nodes Results Result Diagram: 06/25/1651606/25/16 0517 Results 24 hrs Laboratory Tests Test 06/26/16 02:09 06/26/16 07:54 06/26/16 12:09 06/26/16 17:18 Bedside Glucose 217 187 166 214 Test 06/26/16 20:36 Bedside Glucose 188 Medications Medications Current Medications Ondansetron HCl (Zofran Inj) 4 mg Q6H PRN IV NAUSEA AND/OR VOMITING; Start at 13:30 Acetaminophen (Tylenol Tab) 650 mg Q6H PRN PO PAIN LEVEL 1-3 OR FEVER Last administered on 06/26/16 20:44; Admin Dose 650 MG; Start 06/21/16 at 13:30 Morphine Sulfate (morphine) 2 mg Q4H PRN IV SEVERE PAIN LEVEL 7-10; Start 06/21 at 13:30 Docusate Sodium (Colace) 100 mg Q12H PRN PO CONSTIPATION; Start 06/21/16 at 13: 30 Famotidine (Pepcid) 20 mg Q24H PO Last administered on 06/26/16 20:41; Admin Dose 20 MG; Start 06/21/16 at 21:00 Heparin Sodium (Porcine) (Heparin (5000 Units/0.5 ml)) 5,000 unit Q12 SC Last administered on 06/26/16 20:44; Admin Dose 5,000 UNIT; Start 06/21/16 at 21:00 Aspirin (Halfprin) 81 mg DAILY PO Last administered on 06/26/16 08:34; Admin Dose 81 MG; Start 06/22/16 at 09:00 Atenolol (Tenormin) 50 mg BID PO Last administered on 06/26/16 20:40; Admin Dose 50 MG; Start 06/21/16 at 21:00 Losartan Potassium (Cozaar) 50 mg DAILY PO Last administered on 06/25/16 08:05 ; Admin Dose 50 MG; Start 06/22/16 at 09:00 Insulin Glargine (Lantus) 12 unit DAILY@20 SC Last administered on 06/26/16 20 :43; Admin Dose 12 UNIT; Start 06/21/16 at 20:00 Miscellaneous Information 1 ea NOTE XX ; Start 06/21/16 at 14:30 Glucose (Glutose) 15 gm Q15M PRN PO DECREASED GLUCOSE; Start 06/21/16 at 14:30 Glucose (Glutose) 22.5 gm Q15M PRN PO DECREASED GLUCOSE; Start 06/21/16 at 14: 30 Dextrose (D50w Syringe) 25 ml Q15M PRN IV DECREASED GLUCOSE; Start 06/21/16 at 14:30 Dextrose (D50w Syringe) 50 ml Q15M PRN IV DECREASED GLUCOSE; Start 06/21/16 at 14:30 Glucagon (Glucagen) 1 mg Q15M PRN IM DECREASED GLUCOSE; Start 06/21/16 at 14:30 Glucose (Glutose) 15 gm Q15M PRN BUCCAL DECREASED GLUCOSE; Start 06/21/16 at 14 :30 Diagnostic Test (Pha) (Accu-Chek) 1 ea 02 XX Last administered on 06/25/16 02: 00; Admin Dose 1 EA; Start 06/22/16 at 02:00 Miscellaneous Information (* Miscellaneous Pharmacy Order) tamiflu per pharm... ONCE XX ; Start 06/21/16 at 19:30 Diphenoxylate HCl/ Atropine (Lomotil) 1 tab Q6H PRN PO DIARRHEA Last administered on 06/26/16 08:34; Admin Dose 1 TAB; Start 06/22/16 at 07:00 Epoetin Ishan (Epogen (Esrd)) 6,000 units MoWeFr@17 SC Last administered on 06/26 17:20; Admin Dose 6,000 UNITS; Start 06/23/16 at 17:00 Phenol (Cepastat Lozenge) 1 lozenge Q1H PRN MT SORE THROAT; Start 06/23/16 at 18:00 Hydralazine HCl (Apresoline) 25 mg Q6H PRN PO ELEVATED BLOOD PRESSURE Last administered on 06/24/16 00:17; Admin Dose 25 MG; Start 06/24/16 at 00:30 Hydralazine HCl (Apresoline) 25 mg TID GTB Last administered on 06/26/16 20:41 ; Admin Dose 25 MG; Start 06/24/16 at 13:00 Phenol (Cepastat Lozenge) 1 lozenge Q3 PRN MT COUGH; Start 06/24/16 at 14:00 Guaifenesin/ Dextromethorphan (Robitussin Dm Liquid Cup) 5 ml Q4H PRN PO COUGH ; Start 06/24/16 at 14:00 Nifedipine (Procardia Xl) 30 mg BID PO Last administered on 06/26/16 20:41; Admin Dose 30 MG; Start 06/26/16 at 09:00 QUYNH DELGADILLO MD Jun 26, 2016 22:11
[2016-06-27] VITALS (10 sets, daily range): BP systolic 103–114; BP diastolic 49–55; PULSE 52–58; RESP 17–20
[2016-06-27] MEDS: ACCU-CHEK XX SCH (02:00)
[2016-06-27 05:46] LABS: ADD SCAN DIFF NO
[2016-06-27 06:18] LABS: POTASSIUM 3.6 mmol/L (3.5-5.1)
[2016-06-27 06:27] LABS: ABNORMAL IP MESSAGE 1; BASOPHILS % 0.2 % (0.0-2.0); EOSINOPHILS # 0.1 10^3/ul (0.0-0.5); EOSINOPHILS % 2.3 % (0.0-7.0); HEMATOCRIT 29.7 % (37.0-47.0); HEMOGLOBIN 9.6 g/dl (12.0-16.0); LYMPHOCYTES # 1.4 10^3/ul (0.8-2.9); LYMPHOCYTES % 29.6 % (15.0-51.0); MEAN CORPUSCULAR HEMOGLOBIN 32.1 pg (29.0-33.0); MEAN CORPUSCULAR HGB CONC 32.3 g/dl (32.0-37.0); MEAN CORPUSCULAR VOLUME 99.3 fl (82.0-101.0); MEAN PLATELET VOLUME 10.6 fl (7.4-10.4); MONOCYTE # 0.2 10^3/ul (0.3-0.9); MONOCYTES % 4.6 % (0.0-11.0); NEUTROPHILS % 62.2 % (39.0-77.0); PLATELET COUNT 72 10^3/UL (140-415); RED BLOOD COUNT 2.99 10^6/ul (4.20-5.40); RED CELL DISTRIBUTION WIDTH 14.2 % (11.5-14.5); WHITE BLOOD COUNT 4.8 10^3/ul (4.8-10.8)
[2016-06-27] MEDS: LOSARTAN 50 MG TAB PO SCH (07:53)
[2016-06-27] MEDS: INSULIN ASPART [NOVOLOG] 3 ML PEN SC SCH ×4 (07:53→20:36)
[2016-06-27] MEDS: ATENOLOL 50 MG TAB PO SCH (07:54)
[2016-06-27] MEDS: NIFEdipine (XL) 30 MG TAB PO SCH (07:54)
--- NOTE | 2016-06-27 08:19 | RADRPT ---
PROCEDURE: XR Chest 1 view. CLINICAL INDICATION: Shortness of breath, congestive heart failure. TECHNIQUE: AP views of the chest were obtained. COMPARISON: June 22, 2016 FINDINGS: The heart is large. Calcified atherosclerosis is noted in the aorta. Elevation right hemidiaphragm is noted. Scarring is noted at the lung apices. No consolidations are identified. No pneumothorax is seen. Osseous structures are intact. IMPRESSION: Cardiomegaly with calcified atherosclerosis in the aorta. Scarring at the lung apices. RPTAT: AA .Yoavni Costello MD, Date Time Electronically viewed and signed by .Yovani Costello MD, on 06/27/2016 08:19 .P/
[2016-06-27] MEDS ORDERED: DIPHENOXYLATE/ATROPINE TAB PO PRN (08:51)
[2016-06-27] MEDS: ASPIRIN (EC) 81 MG TAB PO SCH (08:57)
[2016-06-27] MEDS: HEPARIN 5,000 UNIT/0.5 ML VIAL SC SCH ×2 (09:04→20:36)
--- NOTE | 2016-06-27 11:27 | CONS ---
Date/Time of Note Date/Time of Note DATE: 06/27/16 TIME: 11:24 Assessment/Plan Assessment/Plan Chief Complaint/Hosp Course BP under control Pt dialyzed today without problem Further plans per PMD Problems: Additional Assessment/Plan Lab reviewed, Hct stable on epo Next HD in AM Renal alexandre stable Consultation Date/Type/Reason Admit Date/Time Jun 20, 2016 at 22:24 Initial Consult Date 06/21/16 Type of Consultation: renal Referring Provider: MICHAEL CAMPBELL MD 24 HR Interval Summary Free Text/Dictation incontinent of stools Constitutional: improved Exam/Review of Systems Vital Signs Vitals Vital Signs Date Time Temp Pulse Resp B/P Pulse Ox O2 Delivery O2 Flow Rate FiO2 06/27/16 09:48 53 06/27/16 09:47 97.7 18 105/51 94 Room Air Intake and Output 06/26/16 06/26/16 06/27/16 14:59 22:59 06:59 Intake Total 500 ml 720 ml 350 ml Output Total 2000 ml 0 ml Balance -1500 ml 720 ml 350 ml Exam Constitutional: alert, other (anxious) Psych: nl mood/affect, no complaints Head: atraumatic, normocephalic Eyes: EOMI, PERRL, nl conjunctiva, nl lids, nl sclera ENMT: nl external ears & nose, nl lips & teeth, nl nasal mucosa & septum Neck: non-tender, supple Respiratory: clear to auscultation, normal air movement Cardiovascular: nl pulses, regular rate and rhythm Gastrointestinal: nl liver, spleen, non-tender, soft Musculoskeletal: nl extremities to inspection, nl gait and stance Extremities: normal pulses, other (avf lt arm) Neurological: RECYCLE DRIVER II-XII intact, nl mental status, nl speech, nl strength Skin: nl turgor, No rash or lesions Lymph: nl lymph nodes Results Result Diagram: 06/27/16 0508 06/27/16 0508 Results 24 hrs Laboratory Tests Test 06/26/16 12:09 06/26/16 17:18 06/26/16 20:36 06/27/16 02:18 Bedside Glucose 166 214 188 197 Test 06/27/16 05:08 06/27/16 07:51 White Blood Count 4.8 # Red Blood Count 2.99 L Hemoglobin 9.6 L Hematocrit 29.7 L Mean Corpuscular Volume 99.3 Mean Corpuscular Hemoglobin 32.1 Mean Corpuscular Hemoglobin Concent 32.3 Red Cell Distribution Width 14.2 Platelet Count 72 L Mean Platelet Volume 10.6 H Neutrophils % 62.2 Lymphocytes % 29.6 Monocytes % 4.6 Eosinophils % 2.3 Basophils % 0.2 Nucleated Red Blood Cells % 0.0 Neutrophils # 3.0 Lymphocytes # 1.4 Monocytes # 0.2 L Eosinophils # 0.1 Basophils # 0.0 Nucleated Red Blood Cells # 0.0 Sodium Level 134 L Potassium Level 3.6 Chloride Level 96 L Carbon Dioxide Level 27 Anion Gap 15 Blood Urea Nitrogen 46 H Creatinine 6.00 H Glucose Level 226 H Calcium Level 8.0 L Bedside Glucose 98 Medications Medications Current Medications Ondansetron HCl (Zofran Inj) 4 mg Q6H PRN IV NAUSEA AND/OR VOMITING; Start at 13:30 Acetaminophen (Tylenol Tab) 650 mg Q6H PRN PO PAIN LEVEL 1-3 OR FEVER Last administered on 06/26/16 20:44; Admin Dose 650 MG; Start 06/21/16 at 13:30 Morphine Sulfate (morphine) 2 mg Q4H PRN IV SEVERE PAIN LEVEL 7-10; Start 06/21 at 13:30 Docusate Sodium (Colace) 100 mg Q12H PRN PO CONSTIPATION; Start 06/21/16 at 13: 30 Famotidine (Pepcid) 20 mg Q24H PO Last administered on 06/26/16 20:41; Admin Dose 20 MG; Start 06/21/16 at 21:00 Heparin Sodium (Porcine) (Heparin (5000 Units/0.5 ml)) 5,000 unit Q12 SC Last administered on 06/27/16 09:04; Admin Dose 5,000 UNIT; Start 06/21/16 at 21:00 Aspirin (Halfprin) 81 mg DAILY PO Last administered on 06/27/16 08:57; Admin Dose 81 MG; Start 06/22/16 at 09:00 Losartan Potassium (Cozaar) 50 mg DAILY PO Last administered on 06/25/16 08:05 ; Admin Dose 50 MG; Start 06/22/16 at 09:00 Insulin Glargine (Lantus) 12 unit DAILY@20 SC Last administered on 4/24/17at 20 :43; Admin Dose 12 UNIT; Start 06/21/16 at 20:00 Miscellaneous Information 1 ea NOTE XX ; Start 06/21/16 at 14:30 Glucose (Glutose) 15 gm Q15M PRN PO DECREASED GLUCOSE; Start 06/21/16 at 14:30 Glucose (Glutose) 22.5 gm Q15M PRN PO DECREASED GLUCOSE; Start 06/21/16 at 14: 30 Dextrose (D50w Syringe) 25 ml Q15M PRN IV DECREASED GLUCOSE; Start 06/21/16 at 14:30 Dextrose (D50w Syringe) 50 ml Q15M PRN IV DECREASED GLUCOSE; Start 06/21/16 at 14:30 Glucagon (Glucagen) 1 mg Q15M PRN IM DECREASED GLUCOSE; Start 06/21/16 at 14:30 Glucose (Glutose) 15 gm Q15M PRN BUCCAL DECREASED GLUCOSE; Start 06/21/16 at 14 :30 Diagnostic Test (Pha) (Accu-Chek) 1 ea 02 XX Last administered on 06/25/16 02: 00; Admin Dose 1 EA; Start 06/22/16 at 02:00 Miscellaneous Information (* Miscellaneous Pharmacy Order) tamiflu per pharm... ONCE XX ; Start 06/21/16 at 19:30 Epoetin Ishan (Epogen (Esrd)) 6,000 units MoWeFr@17 SC Last administered on 06/26 17:20; Admin Dose 6,000 UNITS; Start 06/23/16 at 17:00 Phenol (Cepastat Lozenge) 1 lozenge Q1H PRN MT SORE THROAT; Start 06/23/16 at 18:00 Hydralazine HCl (Apresoline) 25 mg TID GTB Last administered on 06/26/16 20:41 ; Admin Dose 25 MG; Start 06/24/16 at 13:00 Phenol (Cepastat Lozenge) 1 lozenge Q3 PRN MT COUGH; Start 06/24/16 at 14:00 Guaifenesin/ Dextromethorphan (Robitussin Dm Liquid Cup) 5 ml Q4H PRN PO COUGH Last administered on 06/27/16 02:21; Admin Dose 5 ML; Start 06/24/16 at 14:00 Diphenoxylate HCl/ Atropine (Lomotil) 2 tab Q6H PRN PO DIARRHEA Last administered on 06/27/16 08:57; Admin Dose 2 TAB; Start 06/27/16 at 08:51 Hydralazine HCl (Apresoline) 2 mg Q6H PRN PO ELEVATED BLOOD PRESSURE; Start at 12:30; Status UNV Nifedipine (Procardia Xl) 30 mg DAILY PO ; Start 06/28/16 at 09:00 QUYNH DELGADILLO MD Jun 27, 2016 11:27
--- NOTE | 2016-06-27 14:59 | CONS ---
Date/Time of Note Date/Time of Note DATE: 06/27/16 TIME: 14:56 Assessment/Plan Assessment/Plan Chief Complaint/Hosp Course ID PROGRESS NOTE TOTAL ABX DAY # => Tamiflu 06/21 - 06/27 = last day + Vanco PO s/p Vanco IV + Cefepime 06/20 x1 day 24H INTERVAL SUMMARY * Sleeping s/p HD today * Stool (+)C.Diff -> started on Vanco PO * Respiratory infection resolved == NO chest congestion, no cough, no fevers, * Afebrile x >96H, repeat CXR NO INFILTRATES PHYSICAL EXAMINATION: GENERAL: VSS,NAD, no fevers HEENT: Unremarkable NECK: Supple, trach-> midline CHEST: Equal chest rise bilaterally, without dyspnea on observation EXTREMITIES: Moves all extremities ID ASSESSMENT: 71 yo F w/PMHx ESRD-HD via AFV admitted with: 1. Febrile illness secondary to influenza B virus, remains on Tamiflu =. RESOLVED * CXR 06/22/16 revealed NO infiltrates 2. Congestive heart failure. 3. End-stage renal disease on hemodialysis. 4. Diabetes. 5. Hypertension. 6. Diarrhea=> (+)C.Diff ()MRSA NARES INVASIVES: * PIV,LUEXT AVF ABX ALLERGIES: KNDA CURRENT ABX: => Tamiflu 06/21 - 06/27 s/p Vanco IV + Cefepime 06/20 x1 day ID RECOMMENDATIONS: 1. Complete course of Tamiflu == last day TODAY 2. Vanco PO started for (+)C.Diff 2. May DC home when cleared by primary on ABX for C.Diff - she is afebrile > 96H . Problems: Consultation Date/Type/Reason Admit Date/Time Jun 20, 2016 at 22:24 Initial Consult Date 06/21/16 Type of Consultation: ID Referring Provider: MICHAEL CAMPBELL MD Exam/Review of Systems Vital Signs Vitals Vital Signs Date Time Temp Pulse Resp B/P Pulse Ox O2 Delivery O2 Flow Rate FiO2 06/27/16 12:14 52 06/27/16 12:09 98.1 20 109/51 95 06/27/16 09:47 Room Air Intake and Output 06/26/16 06/26/16 06/27/16 15:00 23:00 07:00 Intake Total 500 ml 720 ml 350 ml Output Total 2000 ml 0 ml Balance -1500 ml 720 ml 350 ml Results Result Diagram: 06/27/16 0508 06/27/16 0508 Results 24 hrs Laboratory Tests Test 06/26/16 17:18 06/26/16 20:36 06/27/16 02:18 06/27/16 05:08 Bedside Glucose 214 188 197 White Blood Count 4.8 # Red Blood Count 2.99 L Hemoglobin 9.6 L Hematocrit 29.7 L Mean Corpuscular Volume 99.3 Mean Corpuscular Hemoglobin 32.1 Mean Corpuscular Hemoglobin Concent 32.3 Red Cell Distribution Width 14.2 Platelet Count 72 L Mean Platelet Volume 10.6 H Neutrophils % 62.2 Lymphocytes % 29.6 Monocytes % 4.6 Eosinophils % 2.3 Basophils % 0.2 Nucleated Red Blood Cells % 0.0 Neutrophils # 3.0 Lymphocytes # 1.4 Monocytes # 0.2 L Eosinophils # 0.1 Basophils # 0.0 Nucleated Red Blood Cells # 0.0 Sodium Level 134 L Potassium Level 3.6 Chloride Level 96 L Carbon Dioxide Level 27 Anion Gap 15 Blood Urea Nitrogen 46 H Creatinine 6.00 H Glucose Level 226 H Calcium Level 8.0 L Test 06/27/16 07:51 06/27/16 11:45 Bedside Glucose 98 86 Medications Medications Current Medications Ondansetron HCl (Zofran Inj) 4 mg Q6H PRN IV NAUSEA AND/OR VOMITING; Start at 13:30 Acetaminophen (Tylenol Tab) 650 mg Q6H PRN PO PAIN LEVEL 1-3 OR FEVER Last administered on 06/26/16 20:44; Admin Dose 650 MG; Start 06/21/16 at 13:30 Morphine Sulfate (morphine) 2 mg Q4H PRN IV SEVERE PAIN LEVEL 7-10; Start 06/21 at 13:30 Docusate Sodium (Colace) 100 mg Q12H PRN PO CONSTIPATION; Start 06/21/16 at 13: 30 Famotidine (Pepcid) 20 mg Q24H PO Last administered on 06/26/16 20:41; Admin Dose 20 MG; Start 06/21/16 at 21:00 Heparin Sodium (Porcine) (Heparin (5000 Units/0.5 ml)) 5,000 unit Q12 SC Last administered on 4/25/17at 09:04; Admin Dose 5,000 UNIT; Start 06/21/16 at 21:00 Aspirin (Halfprin) 81 mg DAILY PO Last administered on 06/27/16 08:57; Admin Dose 81 MG; Start 06/22/16 at 09:00 Losartan Potassium (Cozaar) 50 mg DAILY PO Last administered on 06/25/16 08:05 ; Admin Dose 50 MG; Start 06/22/16 at 09:00 Insulin Glargine (Lantus) 12 unit DAILY@20 SC Last administered on 06/26/16 20 :43; Admin Dose 12 UNIT; Start 06/21/16 at 20:00 Miscellaneous Information 1 ea NOTE XX ; Start 06/21/16 at 14:30 Glucose (Glutose) 15 gm Q15M PRN PO DECREASED GLUCOSE; Start 06/21/16 at 14:30 Glucose (Glutose) 22.5 gm Q15M PRN PO DECREASED GLUCOSE; Start 06/21/16 at 14: 30 Dextrose (D50w Syringe) 25 ml Q15M PRN IV DECREASED GLUCOSE; Start 06/21/16 at 14:30 Dextrose (D50w Syringe) 50 ml Q15M PRN IV DECREASED GLUCOSE; Start 06/21/16 at 14:30 Glucagon (Glucagen) 1 mg Q15M PRN IM DECREASED GLUCOSE; Start 06/21/16 at 14:30 Glucose (Glutose) 15 gm Q15M PRN BUCCAL DECREASED GLUCOSE; Start 06/21/16 at 14 :30 Diagnostic Test (Pha) (Accu-Chek) 1 ea 02 XX Last administered on 06/25/16 02: 00; Admin Dose 1 EA; Start 06/22/16 at 02:00 Miscellaneous Information (* Miscellaneous Pharmacy Order) tamiflu per pharm... ONCE XX ; Start 06/21/16 at 19:30 Epoetin Ishan (Epogen (Esrd)) 6,000 units MoWeFr@17 SC Last administered on 06/26 17:20; Admin Dose 6,000 UNITS; Start 06/23/16 at 17:00 Phenol (Cepastat Lozenge) 1 lozenge Q1H PRN MT SORE THROAT; Start 06/23/16 at 18:00 Hydralazine HCl (Apresoline) 25 mg TID GTB Last administered on 06/26/16 20:41 ; Admin Dose 25 MG; Start 06/24/16 at 13:00 Phenol (Cepastat Lozenge) 1 lozenge Q3 PRN MT COUGH; Start 06/24/16 at 14:00 Guaifenesin/ Dextromethorphan (Robitussin Dm Liquid Cup) 5 ml Q4H PRN PO COUGH Last administered on 06/27/16 02:21; Admin Dose 5 ML; Start 06/24/16 at 14:00 Diphenoxylate HCl/ Atropine (Lomotil) 2 tab Q6H PRN PO DIARRHEA Last administered on 06/27/16 08:57; Admin Dose 2 TAB; Start 06/27/16 at 08:51 Hydralazine HCl (Apresoline) 2 mg Q6H PRN PO ELEVATED BLOOD PRESSURE; Start at 12:30; Status UNV Nifedipine (Procardia Xl) 30 mg DAILY PO ; Start 06/28/16 at 09:00 Vancomycin HCl (Vancomycin Oral Syringe) 250 mg Q6 PO ; Start 06/27/16 at 18:00 ALMAS NIXON NP Jun 27, 2016 14:59
--- NOTE | 2016-06-27 16:30 | PN ---
Date/Time of Note Date/Time of Note DATE: 06/27/16 TIME: 16:25 Assessment/Plan VTE Prophylaxis VTE Prophylaxis Intervention: SCD's Lines/Catheters [facility] Assessment/Plan Chief Complaint/Hosp Course ASSESSMENT AND PLAN: - Influenza B. Continue patient on renally dosed Tamiflu. Continue broad spectrum antibiotics to cover for possible bacterial bronchitis. Dr. Salgado is following in infectious disease consultation. - C. difficile colitis, continue p.o. Vanco. Contact isolation. - End-stage renal disease hemodialysis dependent. Continue hemodialysis per nephrology. Dr. Rios is following the patient in nephrology consultation. - Diabetes mellitus type 2. Continue Lantus and NovoLog. - Hypertension. Continue atenolol and Cozaar. - Anemia of chronic disease, continue on Epogen. Continue heparin for deep venous thrombosis prophylaxis and Pepcid for peptic ulcer disease prophylaxis. Further recommendations based on clinical course. Plan of care discussed with Dr. Patiño. Problems: Subjective 24 Hr Interval Summary Free Text/Dictation Patient's complains of generalized weakness and diarrhea, denies shortness of breath at rest. Exam/Review of Systems Vital Signs Vitals Vital Signs Date Time Temp Pulse Resp B/P Pulse Ox O2 Delivery O2 Flow Rate FiO2 06/27/16 16:21 55 06/27/16 15:49 98.0 20 103/50 96 06/27/16 09:47 Room Air Intake and Output 06/26/16 06/26/16 06/27/16 15:00 23:00 07:00 Intake Total 500 ml 720 ml 350 ml Output Total 2000 ml 0 ml Balance -1500 ml 720 ml 350 ml Exam PHYSICAL EXAMINATION: GENERAL: Well-developed, well-nourished female who currently is awake, alert. HEENT: Head is atraumatic, normocephalic. Pupils equal, round, and reactive to light and accommodation. Oral mucosa is pink and moist. NECK: Supple, no cervical lymphadenopathy, no thyromegaly. LUNGS: Clear bilaterally. Slightly diminished at the bases. CARDIOVASCULAR: Normal S1, S2. No murmurs, gallops, clicks, or rubs noted. ABDOMEN: Round, soft, nondistended, nontender. Bowel sounds present. There is no guarding, no rebound tenderness. EXTREMITIES: There is no edema, clubbing, cyanosis. Pulses equal bilaterally 2 +. Left upper extremity with AV fistula with palpable thrill and audible bruit. SKIN: There is no rash, petechiae. NEUROLOGIC: The patient is awake, alert, and oriented x4 Results Result Diagram: 06/27/16 0508 06/27/16 0508 Results 24 hrs Laboratory Tests Test 06/26/16 17:18 06/26/16 20:36 06/27/16 02:18 06/27/16 05:08 Bedside Glucose 214 188 197 White Blood Count 4.8 # Red Blood Count 2.99 L Hemoglobin 9.6 L Hematocrit 29.7 L Mean Corpuscular Volume 99.3 Mean Corpuscular Hemoglobin 32.1 Mean Corpuscular Hemoglobin Concent 32.3 Red Cell Distribution Width 14.2 Platelet Count 72 L Mean Platelet Volume 10.6 H Neutrophils % 62.2 Lymphocytes % 29.6 Monocytes % 4.6 Eosinophils % 2.3 Basophils % 0.2 Nucleated Red Blood Cells % 0.0 Neutrophils # 3.0 Lymphocytes # 1.4 Monocytes # 0.2 L Eosinophils # 0.1 Basophils # 0.0 Nucleated Red Blood Cells # 0.0 Sodium Level 134 L Potassium Level 3.6 Chloride Level 96 L Carbon Dioxide Level 27 Anion Gap 15 Blood Urea Nitrogen 46 H Creatinine 6.00 H Glucose Level 226 H Calcium Level 8.0 L Test 06/27/16 07:51 06/27/16 11:45 Bedside Glucose 98 86 Medications Medications Current Medications Ondansetron HCl (Zofran Inj) 4 mg Q6H PRN IV NAUSEA AND/OR VOMITING; Start at 13:30 Acetaminophen (Tylenol Tab) 650 mg Q6H PRN PO PAIN LEVEL 1-3 OR FEVER Last administered on 06/26/16 20:44; Admin Dose 650 MG; Start 06/21/16 at 13:30 Morphine Sulfate (morphine) 2 mg Q4H PRN IV SEVERE PAIN LEVEL 7-10; Start 06/21 at 13:30 Docusate Sodium (Colace) 100 mg Q12H PRN PO CONSTIPATION; Start 06/21/16 at 13: 30 Famotidine (Pepcid) 20 mg Q24H PO Last administered on 06/26/16 20:41; Admin Dose 20 MG; Start 06/21/16 at 21:00 Heparin Sodium (Porcine) (Heparin (5000 Units/0.5 ml)) 5,000 unit Q12 SC Last administered on 06/27/16 09:04; Admin Dose 5,000 UNIT; Start 06/21/16 at 21:00 Aspirin (Halfprin) 81 mg DAILY PO Last administered on 06/27/16 08:57; Admin Dose 81 MG; Start 06/22/16 at 09:00 Losartan Potassium (Cozaar) 50 mg DAILY PO Last administered on 06/25/16 08:05 ; Admin Dose 50 MG; Start 06/22/16 at 09:00 Insulin Glargine (Lantus) 12 unit DAILY@20 SC Last administered on 06/26/16 20 :43; Admin Dose 12 UNIT; Start 06/21/16 at 20:00 Miscellaneous Information 1 ea NOTE XX ; Start 06/21/16 at 14:30 Glucose (Glutose) 15 gm Q15M PRN PO DECREASED GLUCOSE; Start 06/21/16 at 14:30 Glucose (Glutose) 22.5 gm Q15M PRN PO DECREASED GLUCOSE; Start 06/21/16 at 14: 30 Dextrose (D50w Syringe) 25 ml Q15M PRN IV DECREASED GLUCOSE; Start 06/21/16 at 14:30 Dextrose (D50w Syringe) 50 ml Q15M PRN IV DECREASED GLUCOSE; Start 06/21/16 at 14:30 Glucagon (Glucagen) 1 mg Q15M PRN IM DECREASED GLUCOSE; Start 06/21/16 at 14:30 Glucose (Glutose) 15 gm Q15M PRN BUCCAL DECREASED GLUCOSE; Start 06/21/16 at 14 :30 Diagnostic Test (Pha) (Accu-Chek) 1 ea 02 XX Last administered on 06/25/16 02: 00; Admin Dose 1 EA; Start 06/22/16 at 02:00 Miscellaneous Information (* Miscellaneous Pharmacy Order) tamiflu per pharm... ONCE XX ; Start 06/21/16 at 19:30 Epoetin Ishan (Epogen (Esrd)) 6,000 units MoWeFr@17 SC Last administered on 06/26 17:20; Admin Dose 6,000 UNITS; Start 06/23/16 at 17:00 Phenol (Cepastat Lozenge) 1 lozenge Q1H PRN MT SORE THROAT; Start 06/23/16 at 18:00 Hydralazine HCl (Apresoline) 25 mg TID GTB Last administered on 06/26/16 20:41 ; Admin Dose 25 MG; Start 06/24/16 at 13:00 Phenol (Cepastat Lozenge) 1 lozenge Q3 PRN MT COUGH; Start 06/24/16 at 14:00 Guaifenesin/ Dextromethorphan (Robitussin Dm Liquid Cup) 5 ml Q4H PRN PO COUGH Last administered on 06/27/16 02:21; Admin Dose 5 ML; Start 06/24/16 at 14:00 Diphenoxylate HCl/ Atropine (Lomotil) 2 tab Q6H PRN PO DIARRHEA Last administered on 06/27/16 08:57; Admin Dose 2 TAB; Start 06/27/16 at 08:51 Hydralazine HCl (Apresoline) 2 mg Q6H PRN PO ELEVATED BLOOD PRESSURE; Start at 12:30; Status UNV Nifedipine (Procardia Xl) 30 mg DAILY PO ; Start 06/28/16 at 09:00 Vancomycin HCl (Vancomycin Oral Syringe) 250 mg Q6 PO ; Start 06/27/16 at 18:00 JOCELYN SWAIN Jun 27, 2016 16:30
[2016-06-27] MEDS: VANCOMYCIN HCL 250 MG/5ML POSYG PO SCH ×2 (17:23→23:19)
[2016-06-27] MEDS: INSULIN GLARGINE [LANtus] 3 ML PEN SC SCH (20:34)
[2016-06-27] MEDS: FAMOTIDINE 20 MG TAB PO SCH (20:35)
[2016-06-28] VITALS (19 sets, daily range): BP systolic 90–143; BP diastolic 41–63; PULSE 57–67; RESP 16–18
[2016-06-28] MEDS: ACCU-CHEK XX SCH (02:00)
[2016-06-28] MEDS: VANCOMYCIN HCL 250 MG/5ML POSYG PO SCH ×3 (05:30→17:30)
[2016-06-28 07:56] LABS: ADD SCAN DIFF NO
[2016-06-28] MEDS: INSULIN ASPART [NOVOLOG] 3 ML PEN SC SCH ×4 (08:00→21:00)
[2016-06-28 08:02] LABS: ABNORMAL IP MESSAGE 1; HEMATOCRIT 29.3 % (37.0-47.0); HEMOGLOBIN 9.3 g/dl (12.0-16.0); MEAN CORPUSCULAR HEMOGLOBIN 31.4 pg (29.0-33.0); MEAN CORPUSCULAR HGB CONC 31.7 g/dl (32.0-37.0); MEAN PLATELET VOLUME 10.5 fl (7.4-10.4); RED BLOOD COUNT 2.96 10^6/ul (4.20-5.40); RED CELL DISTRIBUTION WIDTH 14.5 % (11.5-14.5); WHITE BLOOD COUNT 7.5 10^3/ul (4.8-10.8)
[2016-06-28 08:27] LABS: CREATININE 7.68 mg/dl (0.44-1.00)
[2016-06-28 08:28] LABS: CALCIUM 8.1 mg/dl (8.4-10.2)
[2016-06-28] MEDS: LOSARTAN 50 MG TAB PO SCH (08:30)
[2016-06-28] MEDS: NIFEdipine (XL) 30 MG TAB PO SCH (08:30)
[2016-06-28] MEDS: ASPIRIN (EC) 81 MG TAB PO SCH (08:31)
[2016-06-28] MEDS: HEPARIN 5,000 UNIT/0.5 ML VIAL SC SCH ×2 (08:42→22:06)
[2016-06-28 10:53] LABS: BASOPHIL # 0.1 10^3/ul (0.0-0.1); BURR CELLS FEW; EOSINOPHILS # 0.1 10^3/ul (0.0-0.5); LYMPHOCYTES # 1.4 10^3/ul (0.8-2.9); MONOCYTE # 0.6 10^3/ul (0.3-0.9); NEUTROPHIL # 4.7 10^3/ul (1.6-7.5)
[2016-06-28 10:54] LABS: PLATELET COUNT 88 10^3/UL (140-415)
[2016-06-28] MEDS: EPOETIN 3000 UNITS/1 ML INJ (ESRD) SC SCH (17:35)
--- NOTE | 2016-06-28 18:04 | PN ---
Date/Time of Note Date/Time of Note DATE: 06/28/16 TIME: 18:01 Assessment/Plan VTE Prophylaxis VTE Prophylaxis Intervention: SCD's Lines/Catheters IV C[facility]ter Type (from [facility]): Saline Lock Urinary Cath still in place: No Assessment/Plan Chief Complaint/Hosp Course ASSESSMENT AND PLAN: - Influenza B. Completed Tamiflu. Dr. Salgado is following in infectious disease consultation. - C. difficile colitis, continue p.o. Vanco. Contact isolation. - End-stage renal disease hemodialysis dependent. Continue hemodialysis per nephrology. Dr. Rios is following the patient in nephrology consultation. - Diabetes mellitus type 2. Continue Lantus and NovoLog. - Hypertension. Continue atenolol and Cozaar. - Anemia of chronic disease, continue on Epogen. Continue heparin for deep venous thrombosis prophylaxis and Pepcid for peptic ulcer disease prophylaxis. Further recommendations based on clinical course. Plan of care discussed with Dr. Patiño. Problems: Subjective 24 Hr Interval Summary Free Text/Dictation Patient's complains of cough, continues to have diarrhea, denies shortness of breath at rest. Exam/Review of Systems Vital Signs Vitals Vital Signs Date Time Temp Pulse Resp B/P Pulse Ox O2 Delivery O2 Flow Rate FiO2 06/28/16 16:30 65 06/28/16 16:22 98.8 16 117/58 92 06/27/16 09:47 Room Air Intake and Output 06/27/16 06/27/16 06/28/16 15:00 23:00 07:00 Intake Total 850 ml 400 ml Balance 850 ml 400 ml Exam GENERAL: Well-developed, well-nourished female who currently is awake, alert. HEENT: Head is atraumatic, normocephalic. Pupils equal, round, and reactive to light and accommodation. Oral mucosa is pink and moist. NECK: Supple, no cervical lymphadenopathy, no thyromegaly. LUNGS: Clear bilaterally. Slightly diminished at the bases. CARDIOVASCULAR: Normal S1, S2. No murmurs, gallops, clicks, or rubs noted. ABDOMEN: Round, soft, nondistended, nontender. Bowel sounds present. There is no guarding, no rebound tenderness. EXTREMITIES: There is no edema, clubbing, cyanosis. Pulses equal bilaterally 2 +. Left upper extremity with AV fistula with palpable thrill and audible bruit. SKIN: There is no rash, petechiae. NEUROLOGIC: The patient is awake, alert, and oriented x4 Results Result Diagram: 06/28/16 0700 06/28/16 0700 Results 24 hrs Laboratory Tests Test 06/27/16 20:32 06/28/16 02:01 06/28/16 07:00 06/28/16 07:59 Bedside Glucose 115 135 84 White Blood Count 7.5 # Red Blood Count 2.96 L Hemoglobin 9.3 L Hematocrit 29.3 L Mean Corpuscular Volume 99.0 Mean Corpuscular Hemoglobin 31.4 Mean Corpuscular Hemoglobin Concent 31.7 L Red Cell Distribution Width 14.5 Platelet Count 88 #L Mean Platelet Volume 10.5 H Neutrophils % 62.0 Band Neutrophils % 10.0 H Lymphocytes % 18.0 Monocytes % 8.0 Eosinophils % 1.0 Basophils % 1.0 Nucleated Red Blood Cells % Neutrophils # 4.7 Lymphocytes # 1.4 Monocytes # 0.6 Eosinophils # 0.1 Basophils # 0.1 Nucleated Red Blood Cells # Differential Comment MANUAL DIFF Sodium Level 134 L Potassium Level 4.0 Chloride Level 95 L Carbon Dioxide Level 25 Anion Gap 18 H Blood Urea Nitrogen 57 H Creatinine 7.68 H Glucose Level 88 # Calcium Level 8.1 L Test 06/28/16 12:30 06/28/16 17:29 Bedside Glucose 121 117 Medications Medications Current Medications Ondansetron HCl (Zofran Inj) 4 mg Q6H PRN IV NAUSEA AND/OR VOMITING; Start at 13:30 Acetaminophen (Tylenol Tab) 650 mg Q6H PRN PO PAIN LEVEL 1-3 OR FEVER Last administered on 06/26/16 20:44; Admin Dose 650 MG; Start 06/21/16 at 13:30 Morphine Sulfate (morphine) 2 mg Q4H PRN IV SEVERE PAIN LEVEL 7-10; Start 06/21 at 13:30 Docusate Sodium (Colace) 100 mg Q12H PRN PO CONSTIPATION; Start 06/21/16 at 13: 30 Famotidine (Pepcid) 20 mg Q24H PO Last administered on 06/27/16 20:35; Admin Dose 20 MG; Start 06/21/16 at 21:00 Heparin Sodium (Porcine) (Heparin (5000 Units/0.5 ml)) 5,000 unit Q12 SC Last administered on 06/28/16 08:42; Admin Dose 5,000 UNIT; Start 06/21/16 at 21:00 Aspirin (Halfprin) 81 mg DAILY PO Last administered on 06/28/16 08:31; Admin Dose 81 MG; Start 06/22/16 at 09:00 Losartan Potassium (Cozaar) 50 mg DAILY PO Last administered on 06/25/16 08:05 ; Admin Dose 50 MG; Start 06/22/16 at 09:00 Insulin Glargine (Lantus) 12 unit DAILY@20 SC Last administered on 06/27/16 20 :34; Admin Dose 12 UNIT; Start 06/21/16 at 20:00 Miscellaneous Information 1 ea NOTE XX ; Start 06/21/16 at 14:30 Glucose (Glutose) 15 gm Q15M PRN PO DECREASED GLUCOSE; Start 06/21/16 at 14:30 Glucose (Glutose) 22.5 gm Q15M PRN PO DECREASED GLUCOSE; Start 06/21/16 at 14: 30 Dextrose (D50w Syringe) 25 ml Q15M PRN IV DECREASED GLUCOSE; Start 06/21/16 at 14:30 Dextrose (D50w Syringe) 50 ml Q15M PRN IV DECREASED GLUCOSE; Start 06/21/16 at 14:30 Glucagon (Glucagen) 1 mg Q15M PRN IM DECREASED GLUCOSE; Start 06/21/16 at 14:30 Glucose (Glutose) 15 gm Q15M PRN BUCCAL DECREASED GLUCOSE; Start 06/21/16 at 14 :30 Diagnostic Test (Pha) (Accu-Chek) 1 ea 02 XX Last administered on 06/25/16 02: 00; Admin Dose 1 EA; Start 06/22/16 at 02:00 Miscellaneous Information (* Miscellaneous Pharmacy Order) tamiflu per pharm... ONCE XX ; Start 06/21/16 at 19:30 Epoetin Ishan (Epogen (Esrd)) 6,000 units MoWeFr@17 SC Last administered on 06/28 17:35; Admin Dose 6,000 UNITS; Start 06/23/16 at 17:00 Hydralazine HCl (Apresoline) 25 mg TID GTB Last administered on 06/26/16 20:41 ; Admin Dose 25 MG; Start 06/24/16 at 13:00 Phenol (Cepastat Lozenge) 1 lozenge Q3 PRN MT COUGH; Start 06/24/16 at 14:00 Guaifenesin/ Dextromethorphan (Robitussin Dm Liquid Cup) 5 ml Q4H PRN PO COUGH Last administered on 06/27/16 02:21; Admin Dose 5 ML; Start 06/24/16 at 14:00 Diphenoxylate HCl/ Atropine (Lomotil) 2 tab Q6H PRN PO DIARRHEA Last administered on 06/27/16 08:57; Admin Dose 2 TAB; Start 06/27/16 at 08:51 Hydralazine HCl (Apresoline) 25 mg Q6H PRN PO SBP ABOVE 160; Start 06/27/16 at 12:30 Nifedipine (Procardia Xl) 30 mg DAILY PO ; Start 06/28/16 at 09:00 Vancomycin HCl (Vancomycin Oral Syringe) 250 mg Q6 PO Last administered on 06/28 17:30; Admin Dose 250 MG; Start 06/27/16 at 18:00 JOCELYN SWAIN Jun 28, 2016 18:04
--- NOTE | 2016-06-28 19:10 | CONS ---
Date/Time of Note Date/Time of Note DATE: 06/28/16 TIME: 19:07 Assessment/Plan Assessment/Plan Chief Complaint/Hosp Course ID PROGRESS NOTE TOTAL ABX DAY # Vanco PO #2 =>s/p Tamiflu 06/21 - 06/27 = last day s/p Vanco IV + Cefepime 06/20 x1 day 24H INTERVAL SUMMARY * 71 yo F overweight, resting comfortably in bed, mumbling and talking to herself, she tells me she is doing better, no fevers. (+)C.Diff colitis started on Vanco PO, appears weak, s/p HD yesterday PHYSICAL EXAMINATION: GENERAL: VSS,NAD, no fevers HEENT: Unremarkable NECK: Supple, trach-> midline CHEST: Equal chest rise bilaterally, without dyspnea on observation EXTREMITIES: Moves all extremities ID ASSESSMENT: 71 yo F w/PMHx ESRD-HD via AFV admitted with: 1. Febrile illness secondary to influenza B virus, remains on Tamiflu =. RESOLVED * CXR 06/22/16 revealed NO infiltrates 2. Congestive heart failure. 3. End-stage renal disease on hemodialysis. 4. Diabetes. 5. Hypertension. 6. Diarrhea=> (+)C.Diff ()MRSA NARES INVASIVES: * PIV,LUEXT AVF ABX ALLERGIES: KNDA CURRENT ABX: # Vanco PO #2 =>s/p Tamiflu 06/21 - 06/27 = last day s/p Vanco IV + Cefepime 06/20 x1 day ID RECOMMENDATIONS: 1. Started on Vanco PO for C.Diff colitis 2. VSS -> May DC on course of Vanco PO vs Flagyl for C.Diff when cleared by primary . 2. Vanco PO started for (+)C.Diff 2. May DC home when cleared by primary on ABX for C.Diff - she is afebrile > 96H . Problems: Consultation Date/Type/Reason Admit Date/Time Jun 20, 2016 at 22:24 Initial Consult Date 06/21/16 Type of Consultation: ID Referring Provider: MICHAEL CAMPBELL MD Exam/Review of Systems Vital Signs Vitals Vital Signs Date Time Temp Pulse Resp B/P Pulse Ox O2 Delivery O2 Flow Rate FiO2 06/28/16 16:30 65 06/28/16 16:22 98.8 16 117/58 92 06/27/16 09:47 Room Air Intake and Output 06/27/16 06/27/16 06/28/16 15:00 23:00 07:00 Intake Total 850 ml 400 ml Balance 850 ml 400 ml Results Result Diagram: 06/28/16 0700 06/28/16 0700 Results 24 hrs Laboratory Tests Test 06/27/16 20:32 06/28/16 02:01 06/28/16 07:00 06/28/16 07:59 Bedside Glucose 115 135 84 White Blood Count 7.5 # Red Blood Count 2.96 L Hemoglobin 9.3 L Hematocrit 29.3 L Mean Corpuscular Volume 99.0 Mean Corpuscular Hemoglobin 31.4 Mean Corpuscular Hemoglobin Concent 31.7 L Red Cell Distribution Width 14.5 Platelet Count 88 #L Mean Platelet Volume 10.5 H Neutrophils % 62.0 Band Neutrophils % 10.0 H Lymphocytes % 18.0 Monocytes % 8.0 Eosinophils % 1.0 Basophils % 1.0 Nucleated Red Blood Cells % Neutrophils # 4.7 Lymphocytes # 1.4 Monocytes # 0.6 Eosinophils # 0.1 Basophils # 0.1 Nucleated Red Blood Cells # Differential Comment MANUAL DIFF Sodium Level 134 L Potassium Level 4.0 Chloride Level 95 L Carbon Dioxide Level 25 Anion Gap 18 H Blood Urea Nitrogen 57 H Creatinine 7.68 H Glucose Level 88 # Calcium Level 8.1 L Test 06/28/16 12:30 06/28/16 17:29 Bedside Glucose 121 117 Medications Medications Current Medications Ondansetron HCl (Zofran Inj) 4 mg Q6H PRN IV NAUSEA AND/OR VOMITING; Start at 13:30 Acetaminophen (Tylenol Tab) 650 mg Q6H PRN PO PAIN LEVEL 1-3 OR FEVER Last administered on 06/26/16 20:44; Admin Dose 650 MG; Start 06/21/16 at 13:30 Morphine Sulfate (morphine) 2 mg Q4H PRN IV SEVERE PAIN LEVEL 7-10; Start 06/21 at 13:30 Docusate Sodium (Colace) 100 mg Q12H PRN PO CONSTIPATION; Start 06/21/16 at 13: 30 Famotidine (Pepcid) 20 mg Q24H PO Last administered on 06/27/16 20:35; Admin Dose 20 MG; Start 06/21/16 at 21:00 Heparin Sodium (Porcine) (Heparin (5000 Units/0.5 ml)) 5,000 unit Q12 SC Last administered on 06/28/16 08:42; Admin Dose 5,000 UNIT; Start 06/21/16 at 21:00 Aspirin (Halfprin) 81 mg DAILY PO Last administered on 06/28/16 08:31; Admin Dose 81 MG; Start 06/22/16 at 09:00 Losartan Potassium (Cozaar) 50 mg DAILY PO Last administered on 06/25/16 08:05 ; Admin Dose 50 MG; Start 06/22/16 at 09:00 Insulin Glargine (Lantus) 12 unit DAILY@20 SC Last administered on 06/27/16 20 :34; Admin Dose 12 UNIT; Start 06/21/16 at 20:00 Miscellaneous Information 1 ea NOTE XX ; Start 06/21/16 at 14:30 Glucose (Glutose) 15 gm Q15M PRN PO DECREASED GLUCOSE; Start 06/21/16 at 14:30 Glucose (Glutose) 22.5 gm Q15M PRN PO DECREASED GLUCOSE; Start 06/21/16 at 14: 30 Dextrose (D50w Syringe) 25 ml Q15M PRN IV DECREASED GLUCOSE; Start 06/21/16 at 14:30 Dextrose (D50w Syringe) 50 ml Q15M PRN IV DECREASED GLUCOSE; Start 06/21/16 at 14:30 Glucagon (Glucagen) 1 mg Q15M PRN IM DECREASED GLUCOSE; Start 06/21/16 at 14:30 Glucose (Glutose) 15 gm Q15M PRN BUCCAL DECREASED GLUCOSE; Start 06/21/16 at 14 :30 Diagnostic Test (Pha) (Accu-Chek) 1 ea 02 XX Last administered on 06/25/16 02: 00; Admin Dose 1 EA; Start 06/22/16 at 02:00 Miscellaneous Information (* Miscellaneous Pharmacy Order) tamiflu per pharm... ONCE XX ; Start 06/21/16 at 19:30 Epoetin Ishan (Epogen (Esrd)) 6,000 units MoWeFr@17 SC Last administered on 06/28 17:35; Admin Dose 6,000 UNITS; Start 06/23/16 at 17:00 Hydralazine HCl (Apresoline) 25 mg TID GTB Last administered on 06/26/16 20:41 ; Admin Dose 25 MG; Start 06/24/16 at 13:00 Phenol (Cepastat Lozenge) 1 lozenge Q3 PRN MT COUGH; Start 06/24/16 at 14:00 Guaifenesin/ Dextromethorphan (Robitussin Dm Liquid Cup) 5 ml Q4H PRN PO COUGH Last administered on 06/27/16 02:21; Admin Dose 5 ML; Start 06/24/16 at 14:00 Diphenoxylate HCl/ Atropine (Lomotil) 2 tab Q6H PRN PO DIARRHEA Last administered on 06/27/16 08:57; Admin Dose 2 TAB; Start 06/27/16 at 08:51 Hydralazine HCl (Apresoline) 25 mg Q6H PRN PO SBP ABOVE 160; Start 06/27/16 at 12:30 Nifedipine (Procardia Xl) 30 mg DAILY PO ; Start 06/28/16 at 09:00 Vancomycin HCl (Vancomycin Oral Syringe) 250 mg Q6 PO Last administered on 06/28 17:30; Admin Dose 250 MG; Start 06/27/16 at 18:00 ALMAS NIXON NP Jun 28, 2016 19:10
--- NOTE | 2016-06-28 21:40 | CONS ---
Date/Time of Note Date/Time of Note DATE: 06/28/16 TIME: 21:33 Assessment/Plan Assessment/Plan Chief Complaint/Hosp Course BP under control Pt dialyzed today without problem Further plans per PMD Problems: Additional Assessment/Plan change Hydralazine prn only while pt has diarrhoea Add Ambien Consultation Date/Type/Reason Admit Date/Time Jun 20, 2016 at 22:24 Initial Consult Date 06/21/16 Type of Consultation: renal Referring Provider: MICHAEL CAMPBELL MD 24 HR Interval Summary Free Text/Dictation c /olose stool Unable to sleep Constitutional: improved Exam/Review of Systems Vital Signs Vitals Vital Signs Date Time Temp Pulse Resp B/P Pulse Ox O2 Delivery O2 Flow Rate FiO2 06/28/16 20:00 98.6 70 17 143/63 92 06/27/16 09:47 Room Air Intake and Output 06/27/16 06/27/16 06/28/16 15:00 23:00 07:00 Intake Total 850 ml 400 ml Balance 850 ml 400 ml Exam anxious Constitutional: alert, oriented, well developed Psych: nl mood/affect, no complaints Head: atraumatic, normocephalic Eyes: EOMI, PERRL, nl conjunctiva, nl lids, nl sclera ENMT: nl external ears & nose, nl lips & teeth, nl nasal mucosa & septum Neck: non-tender, supple Respiratory: clear to auscultation, normal air movement Cardiovascular: nl pulses, regular rate and rhythm Gastrointestinal: nl liver, spleen, non-tender, soft Musculoskeletal: nl extremities to inspection, nl gait and stance Extremities: normal pulses Neurological: WIRE SAWYER II-XII intact, nl mental status, nl speech, nl strength Skin: nl turgor, No rash or lesions Lymph: nl lymph nodes Results WBC normal, Hct stable on EPO Pt had HD without problem Result Diagram: 06/28/16 0700 06/28/16 0700 Results 24 hrs Laboratory Tests Test 06/28/16 02:01 06/28/16 07:00 06/28/16 07:59 06/28/16 12:30 Bedside Glucose 135 84 121 White Blood Count 7.5 # Red Blood Count 2.96 L Hemoglobin 9.3 L Hematocrit 29.3 L Mean Corpuscular Volume 99.0 Mean Corpuscular Hemoglobin 31.4 Mean Corpuscular Hemoglobin Concent 31.7 L Red Cell Distribution Width 14.5 Platelet Count 88 #L Mean Platelet Volume 10.5 H Neutrophils % 62.0 Band Neutrophils % 10.0 H Lymphocytes % 18.0 Monocytes % 8.0 Eosinophils % 1.0 Basophils % 1.0 Nucleated Red Blood Cells % Neutrophils # 4.7 Lymphocytes # 1.4 Monocytes # 0.6 Eosinophils # 0.1 Basophils # 0.1 Nucleated Red Blood Cells # Differential Comment MANUAL DIFF Sodium Level 134 L Potassium Level 4.0 Chloride Level 95 L Carbon Dioxide Level 25 Anion Gap 18 H Blood Urea Nitrogen 57 H Creatinine 7.68 H Glucose Level 88 # Calcium Level 8.1 L Test 06/28/16 17:29 Bedside Glucose 117 Medications Medications Current Medications Ondansetron HCl (Zofran Inj) 4 mg Q6H PRN IV NAUSEA AND/OR VOMITING; Start at 13:30 Acetaminophen (Tylenol Tab) 650 mg Q6H PRN PO PAIN LEVEL 1-3 OR FEVER Last administered on 06/26/16 20:44; Admin Dose 650 MG; Start 06/21/16 at 13:30 Morphine Sulfate (morphine) 2 mg Q4H PRN IV SEVERE PAIN LEVEL 7-10; Start 06/21 at 13:30 Docusate Sodium (Colace) 100 mg Q12H PRN PO CONSTIPATION; Start 06/21/16 at 13: 30 Famotidine (Pepcid) 20 mg Q24H PO Last administered on 06/27/16 20:35; Admin Dose 20 MG; Start 06/21/16 at 21:00 Heparin Sodium (Porcine) (Heparin (5000 Units/0.5 ml)) 5,000 unit Q12 SC Last administered on 06/28/16 08:42; Admin Dose 5,000 UNIT; Start 06/21/16 at 21:00 Aspirin (Halfprin) 81 mg DAILY PO Last administered on 06/28/16 08:31; Admin Dose 81 MG; Start 06/22/16 at 09:00 Losartan Potassium (Cozaar) 50 mg DAILY PO Last administered on 06/25/16 08:05 ; Admin Dose 50 MG; Start 06/22/16 at 09:00 Insulin Glargine (Lantus) 12 unit DAILY@20 SC Last administered on 06/27/16 20 :34; Admin Dose 12 UNIT; Start 06/21/16 at 20:00 Miscellaneous Information 1 ea NOTE XX ; Start 06/21/16 at 14:30 Glucose (Glutose) 15 gm Q15M PRN PO DECREASED GLUCOSE; Start 06/21/16 at 14:30 Glucose (Glutose) 22.5 gm Q15M PRN PO DECREASED GLUCOSE; Start 06/21/16 at 14: 30 Dextrose (D50w Syringe) 25 ml Q15M PRN IV DECREASED GLUCOSE; Start 06/21/16 at 14:30 Dextrose (D50w Syringe) 50 ml Q15M PRN IV DECREASED GLUCOSE; Start 06/21/16 at 14:30 Glucagon (Glucagen) 1 mg Q15M PRN IM DECREASED GLUCOSE; Start 06/21/16 at 14:30 Glucose (Glutose) 15 gm Q15M PRN BUCCAL DECREASED GLUCOSE; Start 06/21/16 at 14 :30 Diagnostic Test (Pha) (Accu-Chek) 1 ea 02 XX Last administered on 06/25/16 02: 00; Admin Dose 1 EA; Start 06/22/16 at 02:00 Miscellaneous Information (* Miscellaneous Pharmacy Order) tamiflu per pharm... ONCE XX ; Start 06/21/16 at 19:30 Epoetin Ishan (Epogen (Esrd)) 6,000 units MoWeFr@17 SC Last administered on 06/28 17:35; Admin Dose 6,000 UNITS; Start 06/23/16 at 17:00 Hydralazine HCl (Apresoline) 25 mg TID GTB Last administered on 06/26/16 20:41 ; Admin Dose 25 MG; Start 06/24/16 at 13:00 Phenol (Cepastat Lozenge) 1 lozenge Q3 PRN MT COUGH; Start 06/24/16 at 14:00 Guaifenesin/ Dextromethorphan (Robitussin Dm Liquid Cup) 5 ml Q4H PRN PO COUGH Last administered on 06/27/16 02:21; Admin Dose 5 ML; Start 06/24/16 at 14:00 Diphenoxylate HCl/ Atropine (Lomotil) 2 tab Q6H PRN PO DIARRHEA Last administered on 06/27/16 08:57; Admin Dose 2 TAB; Start 06/27/16 at 08:51 Hydralazine HCl (Apresoline) 25 mg Q6H PRN PO SBP ABOVE 160; Start 06/27/16 at 12:30 Nifedipine (Procardia Xl) 30 mg DAILY PO ; Start 06/28/16 at 09:00 Vancomycin HCl (Vancomycin Oral Syringe) 250 mg Q6 PO Last administered on 06/28t 17:30; Admin Dose 250 MG; Start 06/27/16 at 18:00 QUYNH DELGADILLO MD Jun 28, 2016 21:40
[2016-06-28] MEDS: FAMOTIDINE 20 MG TAB PO SCH (21:51)
[2016-06-28] MEDS ORDERED: ZOLPIDEM 5 MG TAB PO SCH (21:55)
[2016-06-28] MEDS: INSULIN GLARGINE [LANtus] 3 ML PEN SC SCH (22:07)
[2016-06-29] VITALS (12 sets, daily range): BP systolic 98–135; BP diastolic 48–64; PULSE 58–66; RESP 16–18
[2016-06-29] MEDS: VANCOMYCIN HCL 250 MG/5ML POSYG PO SCH ×4 (01:23→17:30)
[2016-06-29] MEDS: ACCU-CHEK XX SCH (02:00)
[2016-06-29 07:58] LABS: ADD SCAN DIFF NO
[2016-06-29] MEDS: INSULIN ASPART [NOVOLOG] 3 ML PEN SC SCH ×4 (08:00→20:52)
[2016-06-29 08:05] LABS: ABNORMAL IP MESSAGE 1; HEMATOCRIT 30.1 % (37.0-47.0); HEMOGLOBIN 9.5 g/dl (12.0-16.0); MEAN CORPUSCULAR HEMOGLOBIN 31.6 pg (29.0-33.0); MEAN CORPUSCULAR HGB CONC 31.6 g/dl (32.0-37.0); MEAN PLATELET VOLUME 10.2 fl (7.4-10.4); PLATELET COUNT 99 10^3/UL (140-415); RED BLOOD COUNT 3.01 10^6/ul (4.20-5.40); RED CELL DISTRIBUTION WIDTH 14.6 % (11.5-14.5)
[2016-06-29] MEDS: ASPIRIN (EC) 81 MG TAB PO SCH (08:22)
[2016-06-29] MEDS: NIFEdipine (XL) 30 MG TAB PO SCH (08:22)
[2016-06-29] MEDS: LOSARTAN 50 MG TAB PO SCH (08:22)
[2016-06-29] MEDS: HEPARIN 5,000 UNIT/0.5 ML VIAL SC SCH ×2 (08:28→20:56)
[2016-06-29 08:33] LABS: POTASSIUM 3.9 mmol/L (3.5-5.1)
[2016-06-29 08:35] LABS: CREATININE 6.32 mg/dl (0.44-1.00)
[2016-06-29 08:36] LABS: CALCIUM 8.2 mg/dl (8.4-10.2)
[2016-06-29 12:20] LABS: EOSINOPHILS # 0.1 10^3/ul (0.0-0.5); LYMPHOCYTES # 1.5 10^3/ul (0.8-2.9); MONOCYTE # 0.2 10^3/ul (0.3-0.9); NEUTROPHIL # 2.2 10^3/ul (1.6-7.5)
[2016-06-29 12:21] LABS: POLYCHROMASIA 1+
--- NOTE | 2016-06-29 13:10 | CONS ---
Date/Time of Note Date/Time of Note DATE: 06/29/16 TIME: 13:09 Assessment/Plan Assessment/Plan Additional Assessment/Plan 1. Influenza B. 2. End-stage renal disease. 3. Diabetes mellitus type 2. 4. Hypertension. 5. Anemia, Chronic Disease 6. Cdiff S/p HD Cont Maintenance HD 3x week HD MWF DC planning as per Primary Consultation Date/Type/Reason Admit Date/Time Jun 20, 2016 at 22:24 Initial Consult Date 06/21/16 Type of Consultation: renal Referring Provider: MICHAEL CAMPBELL MD Exam/Review of Systems Vital Signs Vitals Vital Signs Date Time Temp Pulse Resp B/P Pulse Ox O2 Delivery O2 Flow Rate FiO2 06/29/16 12:15 62 06/29/16 11:59 98.6 18 135/62 94 06/27/16 09:47 Room Air Intake and Output 06/28/16 06/28/16 06/29/16 15:00 23:00 07:00 Intake Total 500 ml 500 ml 450 ml Output Total 1000 ml Balance -500 ml 500 ml 450 ml Exam Constitutional: No distress ENMT: mucosa pink and moist Neck: No jvd Respiratory: No crackles/rales, No diminished breath sounds, No labored breathing Cardiovascular: edema, regular rate and rhythm Gastrointestinal: non-tender, soft Results Result Diagram: 06/29/16 0715 06/29/16 0715 Results 24 hrs Laboratory Tests Test 06/28/16 17:29 06/28/16 21:50 06/29/16 07:15 06/29/16 08:20 Bedside Glucose 117 148 108 White Blood Count 6.0 Red Blood Count 3.01 L Hemoglobin 9.5 L Hematocrit 30.1 L Mean Corpuscular Volume 100.0 Mean Corpuscular Hemoglobin 31.6 Mean Corpuscular Hemoglobin Concent 31.6 L Red Cell Distribution Width 14.6 H Platelet Count 99 L Mean Platelet Volume 10.2 Neutrophils % 36.0 L Band Neutrophils % 25.0 H Lymphocytes % 25.0 Reactive Lymphocytes % 7.0 Monocytes % 3.0 Eosinophils % 2.0 Metamyelocytes % 1.0 H Promyelocytes % 1.0 H Neutrophils # 2.2 Lymphocytes # 1.5 Monocytes # 0.2 L Eosinophils # 0.1 Metamyelocytes # 0.1 Promyelocytes # 0.1 Large Platelets FEW Polychromasia 1+ Sodium Level 134 L Potassium Level 3.9 Chloride Level 96 L Carbon Dioxide Level 24 Anion Gap 18 H Blood Urea Nitrogen 39 #H Creatinine 6.32 H Glucose Level 105 Calcium Level 8.2 L Test 06/29/16 12:35 Bedside Glucose 92 Medications Medications Current Medications Ondansetron HCl (Zofran Inj) 4 mg Q6H PRN IV NAUSEA AND/OR VOMITING; Start at 13:30 Acetaminophen (Tylenol Tab) 650 mg Q6H PRN PO PAIN LEVEL 1-3 OR FEVER Last administered on 06/26/16 20:44; Admin Dose 650 MG; Start 06/21/16 at 13:30 Morphine Sulfate (morphine) 2 mg Q4H PRN IV SEVERE PAIN LEVEL 7-10 Last administered on 06/29/16 01:23; Admin Dose 2 MG; Start 06/21/16 at 13:30 Docusate Sodium (Colace) 100 mg Q12H PRN PO CONSTIPATION; Start 06/21/16 at 13: 30 Famotidine (Pepcid) 20 mg Q24H PO Last administered on 06/28/16 21:51; Admin Dose 20 MG; Start 06/21/16 at 21:00 Heparin Sodium (Porcine) (Heparin (5000 Units/0.5 ml)) 5,000 unit Q12 SC Last administered on 06/29/16 08:28; Admin Dose 5,000 UNIT; Start 06/21/16 at 21:00 Aspirin (Halfprin) 81 mg DAILY PO Last administered on 06/29/16 08:22; Admin Dose 81 MG; Start 06/22/16 at 09:00 Losartan Potassium (Cozaar) 50 mg DAILY PO Last administered on 06/29/16 08:22 ; Admin Dose 50 MG; Start 06/22/16 at 09:00 Insulin Glargine (Lantus) 12 unit DAILY@20 SC Last administered on 06/28/16 22 :07; Admin Dose 12 UNIT; Start 06/21/16 at 20:00 Miscellaneous Information 1 ea NOTE XX ; Start 06/21/16 at 14:30 Glucose (Glutose) 15 gm Q15M PRN PO DECREASED GLUCOSE; Start 06/21/16 at 14:30 Glucose (Glutose) 22.5 gm Q15M PRN PO DECREASED GLUCOSE; Start 06/21/16 at 14: 30 Dextrose (D50w Syringe) 25 ml Q15M PRN IV DECREASED GLUCOSE; Start 06/21/16 at 14:30 Dextrose (D50w Syringe) 50 ml Q15M PRN IV DECREASED GLUCOSE; Start 06/21/16 at 14:30 Glucagon (Glucagen) 1 mg Q15M PRN IM DECREASED GLUCOSE; Start 06/21/16 at 14:30 Glucose (Glutose) 15 gm Q15M PRN BUCCAL DECREASED GLUCOSE; Start 06/21/16 at 14 :30 Diagnostic Test (Pha) (Accu-Chek) 1 ea 02 XX Last administered on 06/25/16 02: 00; Admin Dose 1 EA; Start 06/22/16 at 02:00 Miscellaneous Information (* Miscellaneous Pharmacy Order) tamiflu per pharm... ONCE XX ; Start 06/21/16 at 19:30 Epoetin Ishan (Epogen (Esrd)) 6,000 units MoWeFr@17 SC Last administered on 06/28 17:35; Admin Dose 6,000 UNITS; Start 06/23/16 at 17:00 Phenol (Cepastat Lozenge) 1 lozenge Q3 PRN MT COUGH; Start 06/24/16 at 14:00 Guaifenesin/ Dextromethorphan (Robitussin Dm Liquid Cup) 5 ml Q4H PRN PO COUGH Last administered on 06/27/16 02:21; Admin Dose 5 ML; Start 06/24/16 at 14:00 Diphenoxylate HCl/ Atropine (Lomotil) 2 tab Q6H PRN PO DIARRHEA Last administered on 06/27/16 08:57; Admin Dose 2 TAB; Start 06/27/16 at 08:51 Hydralazine HCl (Apresoline) 25 mg Q6H PRN PO SBP ABOVE 160; Start 06/27/16 at 12:30 Nifedipine (Procardia Xl) 30 mg DAILY PO Last administered on 06/29/16 08:22; Admin Dose 30 MG; Start 06/28/16 at 09:00 Vancomycin HCl (Vancomycin Oral Syringe) 250 mg Q6 PO Last administered on 06/29 12:32; Admin Dose 250 MG; Start 06/27/16 at 18:00 WARD WILSON MD Jun 29, 2016 13:10
--- NOTE | 2016-06-29 16:34 | PN ---
Date/Time of Note Date/Time of Note DATE: 06/29/16 TIME: 16:33 Assessment/Plan VTE Prophylaxis VTE Prophylaxis Intervention: other Lines/Catheters IV [facility]ter Type [facility]from [facility] Saline Lock Urinary Cath still in place: No Assessment/Plan Assessment/Plan - Influenza B. Completed Tamiflu. - Dr. Salgado is following in infectious disease consultation. - C. difficile colitis, continue p.o. Vanco. Contact isolation. - End-stage renal disease hemodialysis dependent. Continue hemodialysis per nephrology. - Dr. Rios is following the patient in nephrology consultation. - Diabetes mellitus type 2. Continue Lantus and NovoLog. - Hypertension. Continue atenolol and Cozaar. - Anemia of chronic disease, continue on Epogen. Continue heparin for deep venous thrombosis prophylaxis and Pepcid for peptic ulcer disease prophylaxis. Further recommendations based on clinical course. Plan of care discussed with Dr. Patiño. Subjective 24 Hr Interval Summary Free Text/Dictation No acute distress, resting in bed, seems comfortable. States feels better. Afebrile denies any chest pain shortness of breath nausea vomiting discussed with staff Eyes: no complaints ENT: no complaints Respiratory: cough Cardiovascular: no complaints Gastrointestinal: no complaints Exam/Review of Systems Vital Signs Vitals Vital Signs Date Time Temp Pulse Resp B/P Pulse Ox O2 Delivery O2 Flow Rate FiO2 06/29/16 16:18 98.5 61 16 98/48 94 06/27/16 09:47 Room Air Intake and Output 06/28/16 06/28/16 06/29/16 14:59 22:59 06:59 Intake Total 500 ml 500 ml 450 ml Output Total 1000 ml Balance -500 ml 500 ml 450 ml Exam Constitutional: alert, well developed Psych: nl mood/affect Eyes: nl sclera ENMT: nl external ears & nose Neck: supple Respiratory: clear to auscultation Cardiovascular: nl pulses Gastrointestinal: non-tender, soft Musculoskeletal: nl extremities to inspection Neurological: nl speech, other Skin: other Lymph: nontender Results Result Diagram: 06/29/16 0715 06/29/16 0715 Results 24 hrs Laboratory Tests Test 06/28/16 17:29 06/28/16 21:50 06/29/16 07:15 06/29/16 08:20 Bedside Glucose 117 148 108 White Blood Count 6.0 Red Blood Count 3.01 L Hemoglobin 9.5 L Hematocrit 30.1 L Mean Corpuscular Volume 100.0 Mean Corpuscular Hemoglobin 31.6 Mean Corpuscular Hemoglobin Concent 31.6 L Red Cell Distribution Width 14.6 H Platelet Count 99 L Mean Platelet Volume 10.2 Neutrophils % 36.0 L Band Neutrophils % 25.0 H Lymphocytes % 25.0 Reactive Lymphocytes % 7.0 Monocytes % 3.0 Eosinophils % 2.0 Metamyelocytes % 1.0 H Promyelocytes % 1.0 H Neutrophils # 2.2 Lymphocytes # 1.5 Monocytes # 0.2 L Eosinophils # 0.1 Metamyelocytes # 0.1 Promyelocytes # 0.1 Large Platelets FEW Polychromasia 1+ Sodium Level 134 L Potassium Level 3.9 Chloride Level 96 L Carbon Dioxide Level 24 Anion Gap 18 H Blood Urea Nitrogen 39 #H Creatinine 6.32 H Glucose Level 105 Calcium Level 8.2 L Test 06/29/16 12:35 Bedside Glucose 92 Medications Medications Current Medications Ondansetron HCl (Zofran Inj) 4 mg Q6H PRN IV NAUSEA AND/OR VOMITING; Start at 13:30 Acetaminophen (Tylenol Tab) 650 mg Q6H PRN PO PAIN LEVEL 1-3 OR FEVER Last administered on 06/26/16 20:44; Admin Dose 650 MG; Start 06/21/16 at 13:30 Morphine Sulfate (morphine) 2 mg Q4H PRN IV SEVERE PAIN LEVEL 7-10 Last administered on 06/29/16 01:23; Admin Dose 2 MG; Start 06/21/16 at 13:30 Docusate Sodium (Colace) 100 mg Q12H PRN PO CONSTIPATION; Start 06/21/16 at 13: 30 Famotidine (Pepcid) 20 mg Q24H PO Last administered on 06/28/16 21:51; Admin Dose 20 MG; Start 06/21/16 at 21:00 Heparin Sodium (Porcine) (Heparin (5000 Units/0.5 ml)) 5,000 unit Q12 SC Last administered on 06/29/16 08:28; Admin Dose 5,000 UNIT; Start 06/21/16 at 21:00 Aspirin (Halfprin) 81 mg DAILY PO Last administered on 06/29/16 08:22; Admin Dose 81 MG; Start 06/22/16 at 09:00 Losartan Potassium (Cozaar) 50 mg DAILY PO Last administered on 06/29/16 08:22 ; Admin Dose 50 MG; Start 06/22/16 at 09:00 Insulin Glargine (Lantus) 12 unit DAILY@20 SC Last administered on 06/28/16 22 :07; Admin Dose 12 UNIT; Start 06/21/16 at 20:00 Miscellaneous Information 1 ea NOTE XX ; Start 06/21/16 at 14:30 Glucose (Glutose) 15 gm Q15M PRN PO DECREASED GLUCOSE; Start 06/21/16 at 14:30 Glucose (Glutose) 22.5 gm Q15M PRN PO DECREASED GLUCOSE; Start 06/21/16 at 14: 30 Dextrose (D50w Syringe) 25 ml Q15M PRN IV DECREASED GLUCOSE; Start 06/21/16 at 14:30 Dextrose (D50w Syringe) 50 ml Q15M PRN IV DECREASED GLUCOSE; Start 06/21/16 at 14:30 Glucagon (Glucagen) 1 mg Q15M PRN IM DECREASED GLUCOSE; Start 06/21/16 at 14:30 Glucose (Glutose) 15 gm Q15M PRN BUCCAL DECREASED GLUCOSE; Start 06/21/16 at 14 :30 Diagnostic Test (Pha) (Accu-Chek) 1 ea 02 XX Last administered on 06/25/16 02: 00; Admin Dose 1 EA; Start 06/22/16 at 02:00 Miscellaneous Information (* Miscellaneous Pharmacy Order) tamiflu per pharm... ONCE XX ; Start 06/21/16 at 19:30 Epoetin Ishan (Epogen (Esrd)) 6,000 units MoWeFr@17 SC Last administered on 06/28 17:35; Admin Dose 6,000 UNITS; Start 06/23/16 at 17:00 Phenol (Cepastat Lozenge) 1 lozenge Q3 PRN MT COUGH; Start 06/24/16 at 14:00 Guaifenesin/ Dextromethorphan (Robitussin Dm Liquid Cup) 5 ml Q4H PRN PO COUGH Last administered on 06/27/16 02:21; Admin Dose 5 ML; Start 06/24/16 at 14:00 Diphenoxylate HCl/ Atropine (Lomotil) 2 tab Q6H PRN PO DIARRHEA Last administered on 06/27/16 08:57; Admin Dose 2 TAB; Start 06/27/16 at 08:51 Hydralazine HCl (Apresoline) 25 mg Q6H PRN PO SBP ABOVE 160; Start 06/27/16 at 12:30 Nifedipine (Procardia Xl) 30 mg DAILY PO Last administered on 06/29/16 08:22; Admin Dose 30 MG; Start 06/28/16 at 09:00 Vancomycin HCl (Vancomycin Oral Syringe) 250 mg Q6 PO Last administered on 06/29 12:32; Admin Dose 250 MG; Start 06/27/16 at 18:00 KODAK YANG Jun 29, 2016 16:34
--- NOTE | 2016-06-29 20:26 | CONS ---
Date/Time of Note Date/Time of Note DATE: 06/29/16 TIME: 20:22 Assessment/Plan Assessment/Plan Chief Complaint/Hosp Course ID PROGRESS NOTE TOTAL ABX DAY # Vanco PO #3 =>s/p Tamiflu 06/21 - 06/27 = last day s/p Vanco IV + Cefepime 06/20 x1 day 24H INTERVAL SUMMARY * 11 BMs yesterday and so far 8 BMs today -- respiratory alexandre she has improved - DC plan held up per diarrhea PHYSICAL EXAMINATION: GENERAL: VSS,NAD, no fevers HEENT: Unremarkable NECK: Supple, trach-> midline CHEST: Equal chest rise bilaterally, without dyspnea on observation EXTREMITIES: Moves all extremities ID ASSESSMENT: 71 yo F w/PMHx ESRD-HD via AFV admitted with: 1. Febrile illness secondary to influenza B virus, remains on Tamiflu =. RESOLVED * CXR 06/22/16 revealed NO infiltrates 2. Congestive heart failure. 3. End-stage renal disease on hemodialysis. 4. Diabetes. 5. Hypertension. 6. Diarrhea=> (+)C.Diff ()MRSA NARES INVASIVES: * PIV,LUEXT AVF ABX ALLERGIES: KNDA CURRENT ABX: # Vanco PO #3 =>s/p Tamiflu 06/21 - 06/27 = last day s/p Vanco IV + Cefepime 06/20 x1 day ID RECOMMENDATIONS: 1. Started on Vanco PO for C.Diff colitis == 11 BMs yesterday and so far 8 BMs today -- respiratory alexandre she has improved - DC plan held up per diarrhea * Start 3-ABX Rx for severe diarrhea with addition Flagyl IV + RIfaximin po TID x # days 2. VSS -> May DC on course of Vanco PO vs Flagyl for C.Diff when cleared by primary . Problems: Consultation Date/Type/Reason Admit Date/Time Jun 20, 2016 at 22:24 Initial Consult Date 06/21/16 Type of Consultation: ID Referring Provider: MICHAEL CAMPBELL MD Exam/Review of Systems Vital Signs Vitals Vital Signs Date Time Temp Pulse Resp B/P Pulse Ox O2 Delivery O2 Flow Rate FiO2 06/29/16 20:09 98.6 63 18 104/49 91 06/27/16 09:47 Room Air Intake and Output 06/28/16 06/28/16 06/29/16 15:00 23:00 07:00 Intake Total 500 ml 500 ml 450 ml Output Total 1000 ml Balance -500 ml 500 ml 450 ml Results Result Diagram: 06/29/16 0715 06/29/16 0715 Results 24 hrs Laboratory Tests Test 06/28/16 21:50 06/29/16 07:15 06/29/16 08:20 06/29/16 12:35 Bedside Glucose 148 108 92 White Blood Count 6.0 Red Blood Count 3.01 L Hemoglobin 9.5 L Hematocrit 30.1 L Mean Corpuscular Volume 100.0 Mean Corpuscular Hemoglobin 31.6 Mean Corpuscular Hemoglobin Concent 31.6 L Red Cell Distribution Width 14.6 H Platelet Count 99 L Mean Platelet Volume 10.2 Neutrophils % 36.0 L Band Neutrophils % 25.0 H Lymphocytes % 25.0 Reactive Lymphocytes % 7.0 Monocytes % 3.0 Eosinophils % 2.0 Metamyelocytes % 1.0 H Promyelocytes % 1.0 H Neutrophils # 2.2 Lymphocytes # 1.5 Monocytes # 0.2 L Eosinophils # 0.1 Metamyelocytes # 0.1 Promyelocytes # 0.1 Large Platelets FEW Polychromasia 1+ Sodium Level 134 L Potassium Level 3.9 Chloride Level 96 L Carbon Dioxide Level 24 Anion Gap 18 H Blood Urea Nitrogen 39 #H Creatinine 6.32 H Glucose Level 105 Calcium Level 8.2 L Test 06/29/16 17:31 Bedside Glucose 148 Medications Medications Current Medications Ondansetron HCl (Zofran Inj) 4 mg Q6H PRN IV NAUSEA AND/OR VOMITING; Start at 13:30 Acetaminophen (Tylenol Tab) 650 mg Q6H PRN PO PAIN LEVEL 1-3 OR FEVER Last administered on 06/26/16 20:44; Admin Dose 650 MG; Start 06/21/16 at 13:30 Morphine Sulfate (morphine) 2 mg Q4H PRN IV SEVERE PAIN LEVEL 7-10 Last administered on 06/29/16 01:23; Admin Dose 2 MG; Start 06/21/16 at 13:30 Docusate Sodium (Colace) 100 mg Q12H PRN PO CONSTIPATION; Start 06/21/16 at 13: 30 Famotidine (Pepcid) 20 mg Q24H PO Last administered on 4/26/17at 21:51; Admin Dose 20 MG; Start 06/21/16 at 21:00 Heparin Sodium (Porcine) (Heparin (5000 Units/0.5 ml)) 5,000 unit Q12 SC Last administered on 06/29/16 08:28; Admin Dose 5,000 UNIT; Start 06/21/16 at 21:00 Aspirin (Halfprin) 81 mg DAILY PO Last administered on 06/29/16 08:22; Admin Dose 81 MG; Start 06/22/16 at 09:00 Losartan Potassium (Cozaar) 50 mg DAILY PO Last administered on 06/29/16 08:22 ; Admin Dose 50 MG; Start 06/22/16 at 09:00 Insulin Glargine (Lantus) 12 unit DAILY@20 SC Last administered on 06/28/16 22 :07; Admin Dose 12 UNIT; Start 06/21/16 at 20:00 Miscellaneous Information 1 ea NOTE XX ; Start 06/21/16 at 14:30 Glucose (Glutose) 15 gm Q15M PRN PO DECREASED GLUCOSE; Start 06/21/16 at 14:30 Glucose (Glutose) 22.5 gm Q15M PRN PO DECREASED GLUCOSE; Start 06/21/16 at 14: 30 Dextrose (D50w Syringe) 25 ml Q15M PRN IV DECREASED GLUCOSE; Start 06/21/16 at 14:30 Dextrose (D50w Syringe) 50 ml Q15M PRN IV DECREASED GLUCOSE; Start 06/21/16 at 14:30 Glucagon (Glucagen) 1 mg Q15M PRN IM DECREASED GLUCOSE; Start 06/21/16 at 14:30 Glucose (Glutose) 15 gm Q15M PRN BUCCAL DECREASED GLUCOSE; Start 06/21/16 at 14 :30 Diagnostic Test (Pha) (Accu-Chek) 1 ea 02 XX Last administered on 06/25/16 02: 00; Admin Dose 1 EA; Start 06/22/16 at 02:00 Miscellaneous Information (* Miscellaneous Pharmacy Order) tamiflu per pharm... ONCE XX ; Start 06/21/16 at 19:30 Epoetin Ishan (Epogen (Esrd)) 6,000 units MoWeFr@17 SC Last administered on 06/28 17:35; Admin Dose 6,000 UNITS; Start 06/23/16 at 17:00 Phenol (Cepastat Lozenge) 1 lozenge Q3 PRN MT COUGH; Start 06/24/16 at 14:00 Guaifenesin/ Dextromethorphan (Robitussin Dm Liquid Cup) 5 ml Q4H PRN PO COUGH Last administered on 06/27/16 02:21; Admin Dose 5 ML; Start 06/24/16 at 14:00 Diphenoxylate HCl/ Atropine (Lomotil) 2 tab Q6H PRN PO DIARRHEA Last administered on 06/27/16 08:57; Admin Dose 2 TAB; Start 06/27/16 at 08:51 Hydralazine HCl (Apresoline) 25 mg Q6H PRN PO SBP ABOVE 160; Start 06/27/16 at 12:30 Nifedipine (Procardia Xl) 30 mg DAILY PO Last administered on 06/29/16 08:22; Admin Dose 30 MG; Start 06/28/16 at 09:00 Vancomycin HCl (Vancomycin Oral Syringe) 250 mg Q6 PO Last administered on 06/29 17:30; Admin Dose 250 MG; Start 06/27/16 at 18:00 ALMAS NIXON NP Jun 29, 2016 20:26
[2016-06-29] MEDS: INSULIN GLARGINE [LANtus] 3 ML PEN SC SCH (20:55)
[2016-06-29] MEDS: FAMOTIDINE 20 MG TAB PO SCH (20:56)
[2016-06-29] MEDS: metroNIDAZOLE 500 MG/NS (PMX) 100 ML IVPB SCH (22:37)
[2016-06-29] MEDS: RIFAXIMIN 200 MG TAB PO SCH (22:37)
[2016-06-29] MEDS: ZOLPIDEM 5 MG TAB PO PRN (22:52)
[2016-06-30] VITALS (19 sets, daily range): BP systolic 100–142; BP diastolic 46–66; PULSE 55–66; RESP 16–20
[2016-06-30] MEDS: ACCU-CHEK XX SCH (02:00)
[2016-06-30] MEDS: VANCOMYCIN HCL 250 MG/5ML POSYG PO SCH ×5 (02:15→23:46)
[2016-06-30] MEDS: metroNIDAZOLE 500 MG/NS (PMX) 100 ML IVPB SCH ×5 (02:15→23:47)
[2016-06-30] MEDS: INSULIN ASPART [NOVOLOG] 3 ML PEN SC SCH ×4 (07:55→20:57)
--- NOTE | 2016-06-30 11:26 | CONS ---
Date/Time of Note Date/Time of Note DATE: 06/30/16 TIME: 11:23 Assessment/Plan Assessment/Plan Additional Assessment/Plan 1. Influenza B. 2. End-stage renal disease. 3. Diabetes mellitus type 2. 4. Hypertension. 5. Anemia, Chronic Disease 6. Cdiff ON HD Stable, Cont current Rx. Cont Maintenance HD 3x week HD MWF DC planning as per Primary Consultation Date/Type/Reason Admit Date/Time Jun 20, 2016 at 22:24 Initial Consult Date 06/21/16 Type of Consultation: Renal Referring Provider: MICHAEL CAMPBELL MD 24 HR Interval Summary Free Text/Dictation Seen and examined on HD, No new complaints Constitutional: requiring O2 Exam/Review of Systems Vital Signs Vitals Vital Signs Date Time Temp Pulse Resp B/P Pulse Ox O2 Delivery O2 Flow Rate FiO2 06/30/16 10:45 58 06/30/16 10:45 18 06/30/16 07:43 98.3 123/56 92 06/27/16 09:47 Room Air Intake and Output 06/29/16 06/29/16 06/30/16 15:00 23:00 07:00 Intake Total 300 ml 400 ml Balance 300 ml 400 ml Exam Constitutional: No distress ENMT: mucosa pink and moist Respiratory: crackles/rales, No labored breathing Cardiovascular: edema, regular rate and rhythm Gastrointestinal: non-tender, soft Neurological: COMPLIANCE PROFESSIONAL II-XII intact, No confused, No lethargic Results Result Diagram: 06/29/16 0715 06/29/16 0715 Results 24 hrs Laboratory Tests Test 06/29/16 12:35 06/29/16 17:31 06/29/16 20:50 06/30/16 07:54 Bedside Glucose 92 148 111 113 Medications Medications Current Medications Ondansetron HCl (Zofran Inj) 4 mg Q6H PRN IV NAUSEA AND/OR VOMITING; Start at 13:30 Acetaminophen (Tylenol Tab) 650 mg Q6H PRN PO PAIN LEVEL 1-3 OR FEVER Last administered on 06/26/16 20:44; Admin Dose 650 MG; Start 06/21/16 at 13:30 Morphine Sulfate (morphine) 2 mg Q4H PRN IV SEVERE PAIN LEVEL 7-10 Last administered on 06/29/16 01:23; Admin Dose 2 MG; Start 06/21/16 at 13:30 Docusate Sodium (Colace) 100 mg Q12H PRN PO CONSTIPATION; Start 06/21/16 at 13: 30 Famotidine (Pepcid) 20 mg Q24H PO Last administered on 06/29/16 20:56; Admin Dose 20 MG; Start 06/21/16 at 21:00 Heparin Sodium (Porcine) (Heparin (5000 Units/0.5 ml)) 5,000 unit Q12 SC Last administered on 06/29/16 20:56; Admin Dose 5,000 UNIT; Start 06/21/16 at 21:00 Aspirin (Halfprin) 81 mg DAILY PO Last administered on 06/29/16 08:22; Admin Dose 81 MG; Start 06/22/16 at 09:00 Losartan Potassium (Cozaar) 50 mg DAILY PO Last administered on 06/29/16 08:22 ; Admin Dose 50 MG; Start 06/22/16 at 09:00 Insulin Glargine (Lantus) 12 unit DAILY@20 SC Last administered on 06/29/16 20 :55; Admin Dose 12 UNIT; Start 06/21/16 at 20:00 Miscellaneous Information 1 ea NOTE XX ; Start 06/21/16 at 14:30 Glucose (Glutose) 15 gm Q15M PRN PO DECREASED GLUCOSE; Start 06/21/16 at 14:30 Glucose (Glutose) 22.5 gm Q15M PRN PO DECREASED GLUCOSE; Start 06/21/16 at 14: 30 Dextrose (D50w Syringe) 25 ml Q15M PRN IV DECREASED GLUCOSE; Start 06/21/16 at 14:30 Dextrose (D50w Syringe) 50 ml Q15M PRN IV DECREASED GLUCOSE; Start 06/21/16 at 14:30 Glucagon (Glucagen) 1 mg Q15M PRN IM DECREASED GLUCOSE; Start 06/21/16 at 14:30 Glucose (Glutose) 15 gm Q15M PRN BUCCAL DECREASED GLUCOSE; Start 06/21/16 at 14 :30 Diagnostic Test (Pha) (Accu-Chek) 1 ea 02 XX Last administered on 06/25/16 02: 00; Admin Dose 1 EA; Start 06/22/16 at 02:00 Epoetin Ishan (Epogen (Esrd)) 6,000 units MoWeFr@17 SC Last administered on 06/28 17:35; Admin Dose 6,000 UNITS; Start 06/23/16 at 17:00 Phenol (Cepastat Lozenge) 1 lozenge Q3 PRN MT COUGH; Start 06/24/16 at 14:00 Guaifenesin/ Dextromethorphan (Robitussin Dm Liquid Cup) 5 ml Q4H PRN PO COUGH Last administered on 06/27/16 02:21; Admin Dose 5 ML; Start 06/24/16 at 14:00 Diphenoxylate HCl/ Atropine (Lomotil) 2 tab Q6H PRN PO DIARRHEA Last administered on 06/27/16 08:57; Admin Dose 2 TAB; Start 06/27/16 at 08:51 Hydralazine HCl (Apresoline) 25 mg Q6H PRN PO SBP ABOVE 160; Start 06/27/16 at 12:30 Nifedipine (Procardia Xl) 30 mg DAILY PO Last administered on 06/29/16 08:22; Admin Dose 30 MG; Start 06/28/16 at 09:00 Vancomycin HCl 250 mg 250 mg Q6 PO Last administered on 06/30/16 05:36; Admin Dose 250 MG; Start 06/27/16 at 18:00 Metronidazole (Flagyl 500 Mg (Pmx)) 100 ml @ 100 mls/hr Q6 IVPB Last administered on 06/30/16 05:36; Admin Dose 100 MLS/HR; Start 06/29/16 at 21:30 Rifaximin (Xifaxan) 200 mg TID PO Last administered on 06/29/16 22:37; Admin Dose 200 MG; Start 06/29/16 at 21:30; Stop 07/02/16 at 21:29 WARD WILSON MD Jun 30, 2016 11:26
[2016-06-30] MEDS: ASPIRIN (EC) 81 MG TAB PO SCH (12:17)
[2016-06-30] MEDS: RIFAXIMIN 200 MG TAB PO SCH ×3 (12:17→20:53)
[2016-06-30] MEDS: NIFEdipine (XL) 30 MG TAB PO SCH (12:18)
[2016-06-30] MEDS: LOSARTAN 50 MG TAB PO SCH (12:18)
[2016-06-30] MEDS: HEPARIN 5,000 UNIT/0.5 ML VIAL SC SCH ×2 (12:19→20:53)
[2016-06-30] MEDS: EPOETIN 3000 UNITS/1 ML INJ (ESRD) SC SCH (17:33)
--- NOTE | 2016-06-30 18:46 | PN ---
Date/Time of Note Date/Time of Note DATE: 06/30/16 TIME: 18:43 Assessment/Plan VTE Prophylaxis VTE Prophylaxis Intervention: SCD's Lines/Catheters [facility] Peripheral IV Urinary Cath still in place: No Assessment/Plan Chief Complaint/Hosp Course ASSESSMENT AND PLAN: - Influenza B. Completed Tamiflu. Dr. Salgado is following in infectious disease consultation. - C. difficile colitis, continue p.o. Vanco. Contact isolation. - End-stage renal disease hemodialysis dependent. Continue hemodialysis per nephrology. Dr. Rios is following the patient in nephrology consultation. - Diabetes mellitus type 2. Continue Lantus and NovoLog. - Hypertension. Continue atenolol and Cozaar. - Anemia of chronic disease, continue on Epogen. Continue heparin for deep venous thrombosis prophylaxis and Pepcid for peptic ulcer disease prophylaxis. Further recommendations based on clinical course. Plan of care discussed with Dr. Patiño. Problems: Subjective 24 Hr Interval Summary Free Text/Dictation Patient's complains of generalized weakness and cough, patient with multiple episodes of diarrhea yesterday, improved today. Exam/Review of Systems Vital Signs Vitals Vital Signs Date Time Temp Pulse Resp B/P Pulse Ox O2 Delivery O2 Flow Rate FiO2 06/30/16 17:09 97.4 67 20 139/61 98 06/27/16 09:47 Room Air Intake and Output 06/29/16 06/29/16 06/30/16 15:00 23:00 07:00 Intake Total 300 ml 400 ml Balance 300 ml 400 ml Exam GENERAL: Well-developed, well-nourished female who currently is awake, alert. HEENT: Head is atraumatic, normocephalic. PERRLA. NECK: Supple, no cervical lymphadenopathy, no thyromegaly. LUNGS: Clear bilaterally. Slightly diminished at the bases. CARDIOVASCULAR: Normal S1, S2. No murmurs, gallops, clicks, or rubs noted. ABDOMEN: Round, soft, nondistended, nontender. Bowel sounds present. There is no guarding, no rebound tenderness. EXTREMITIES: There is no edema, clubbing, cyanosis. Pulses equal bilaterally 2 +. Left upper extremity with AV fistula with palpable thrill and audible bruit. SKIN: There is no rash, petechiae. NEUROLOGIC: The patient is awake, alert, and oriented x4 Results Result Diagram: 06/29/16 0715 06/29/16 0715 Results 24 hrs Laboratory Tests Test 06/29/16 20:50 06/30/16 07:54 06/30/16 12:11 06/30/16 17:23 Bedside Glucose 111 113 124 202 Medications Medications Current Medications Ondansetron HCl (Zofran Inj) 4 mg Q6H PRN IV NAUSEA AND/OR VOMITING; Start at 13:30 Acetaminophen (Tylenol Tab) 650 mg Q6H PRN PO PAIN LEVEL 1-3 OR FEVER Last administered on 06/26/16 20:44; Admin Dose 650 MG; Start 06/21/16 at 13:30 Morphine Sulfate (morphine) 2 mg Q4H PRN IV SEVERE PAIN LEVEL 7-10 Last administered on 06/29/16 01:23; Admin Dose 2 MG; Start 06/21/16 at 13:30 Docusate Sodium (Colace) 100 mg Q12H PRN PO CONSTIPATION; Start 06/21/16 at 13: 30 Famotidine (Pepcid) 20 mg Q24H PO Last administered on 06/29/16 20:56; Admin Dose 20 MG; Start 06/21/16 at 21:00 Heparin Sodium (Porcine) (Heparin (5000 Units/0.5 ml)) 5,000 unit Q12 SC Last administered on 06/30/16 12:19; Admin Dose 5,000 UNIT; Start 06/21/16 at 21:00 Aspirin (Halfprin) 81 mg DAILY PO Last administered on 06/30/16 12:17; Admin Dose 81 MG; Start 06/22/16 at 09:00 Losartan Potassium (Cozaar) 50 mg DAILY PO Last administered on 06/30/16 12:18 ; Admin Dose 50 MG; Start 06/22/16 at 09:00 Insulin Glargine (Lantus) 12 unit DAILY@20 SC Last administered on 06/29/16 20 :55; Admin Dose 12 UNIT; Start 06/21/16 at 20:00 Miscellaneous Information 1 ea NOTE XX ; Start 06/21/16 at 14:30 Glucose (Glutose) 15 gm Q15M PRN PO DECREASED GLUCOSE; Start 06/21/16 at 14:30 Glucose (Glutose) 22.5 gm Q15M PRN PO DECREASED GLUCOSE; Start 06/21/16 at 14: 30 Dextrose (D50w Syringe) 25 ml Q15M PRN IV DECREASED GLUCOSE; Start 06/21/16 at 14:30 Dextrose (D50w Syringe) 50 ml Q15M PRN IV DECREASED GLUCOSE; Start 06/21/16 at 14:30 Glucagon (Glucagen) 1 mg Q15M PRN IM DECREASED GLUCOSE; Start 06/21/16 at 14:30 Glucose (Glutose) 15 gm Q15M PRN BUCCAL DECREASED GLUCOSE; Start 06/21/16 at 14 :30 Diagnostic Test (Pha) (Accu-Chek) 1 ea 02 XX Last administered on 06/25/16 02: 00; Admin Dose 1 EA; Start 06/22/16 at 02:00 Epoetin Ishan (Epogen (Esrd)) 6,000 units MoWeFr@17 SC Last administered on 06/30 17:33; Admin Dose 6,000 UNITS; Start 06/23/16 at 17:00 Phenol (Cepastat Lozenge) 1 lozenge Q3 PRN MT COUGH; Start 06/24/16 at 14:00 Guaifenesin/ Dextromethorphan (Robitussin Dm Liquid Cup) 5 ml Q4H PRN PO COUGH Last administered on 06/27/16 02:21; Admin Dose 5 ML; Start 06/24/16 at 14:00 Diphenoxylate HCl/ Atropine (Lomotil) 2 tab Q6H PRN PO DIARRHEA Last administered on 06/27/16 08:57; Admin Dose 2 TAB; Start 06/27/16 at 08:51 Hydralazine HCl (Apresoline) 25 mg Q6H PRN PO SBP ABOVE 160; Start 06/27/16 at 12:30 Nifedipine (Procardia Xl) 30 mg DAILY PO Last administered on 06/30/16 12:18; Admin Dose 30 MG; Start 06/28/16 at 09:00 Vancomycin HCl 250 mg 250 mg Q6 PO Last administered on 06/30/16 17:28; Admin Dose 250 MG; Start 06/27/16 at 18:00 Metronidazole (Flagyl 500 Mg (Pmx)) 100 ml @ 100 mls/hr Q6 IVPB Last administered on 06/30/16 17:28; Admin Dose 100 MLS/HR; Start 06/29/16 at 21:30 Rifaximin (Xifaxan) 200 mg TID PO Last administered on 06/30/16t 12:17; Admin Dose 200 MG; Start 06/29/16 at 21:30; Stop 07/02/16 at 21:29 JOCELYN SWAIN Jun 30, 2016 18:46
--- NOTE | 2016-06-30 20:06 | CONS ---
Date/Time of Note Date/Time of Note DATE: 06/30/16 TIME: 20:03 Assessment/Plan Assessment/Plan Chief Complaint/Hosp Course ID PROGRESS NOTE TOTAL ABX DAY # Vanco PO #$ + Flagyl IV #2 + Rifaximin #2 =>s/p Tamiflu 06/21 - 06/27 = last day s/p Vanco IV + Cefepime 06/20 x1 day 24H INTERVAL SUMMARY * Lethargic, stable -- 4 BMs today after "3-ABX" coverage for C.Diff diarrhea - - yesterday 8 BMs, day before that 11 BMs * Respiratory alexandre she has improved - DC plan held up per diarrhea PHYSICAL EXAMINATION: GENERAL: VSS,NAD, no fevers HEENT: Unremarkable NECK: Supple, trach-> midline CHEST: Equal chest rise bilaterally, without dyspnea on observation EXTREMITIES: Moves all extremities ID ASSESSMENT: 71 yo F w/PMHx ESRD-HD via AFV admitted with: 1. Febrile illness secondary to influenza B virus, remains on Tamiflu =. RESOLVED * CXR 06/22/16 revealed NO infiltrates 2. Congestive heart failure. 3. End-stage renal disease on hemodialysis. 4. Diabetes. 5. Hypertension. 6. Diarrhea=> (+)C.Diff ()MRSA NARES INVASIVES: * PIV,LUEXT AVF ABX ALLERGIES: KNDA CURRENT ABX: # Vanco PO # $ + Flagyl IV #2 + Rifaximin #2 =>s/p Tamiflu 06/21 - 06/27 = last day s/p Vanco IV + Cefepime 06/20 x1 day ID RECOMMENDATIONS: 1. Started on 3-ABX Rx for severe diarrhea C.Diff with Vanco PO + Flagyl IV + RIfaximin po TID x # days 2. VSS -> May DC on course of Vanco PO vs Flagyl for C.Diff when cleared by primary . Problems: Consultation Date/Type/Reason Admit Date/Time Jun 20, 2016 at 22:24 Initial Consult Date 06/21/16 Type of Consultation: ID Referring Provider: MICHAEL CAMPBELL MD Exam/Review of Systems Vital Signs Vitals Vital Signs Date Time Temp Pulse Resp B/P Pulse Ox O2 Delivery O2 Flow Rate FiO2 06/30/16 17:09 97.4 67 20 139/61 98 06/27/16 09:47 Room Air Intake and Output 06/29/16 06/29/16 06/30/16 15:00 23:00 07:00 Intake Total 300 ml 400 ml Balance 300 ml 400 ml Results Result Diagram: 06/29/16 0715 06/29/16 0715 Results 24 hrs Laboratory Tests Test 06/29/16 20:50 06/30/16 07:54 06/30/16 12:11 06/30/16 17:23 Bedside Glucose 111 113 124 202 Medications Medications Current Medications Ondansetron HCl (Zofran Inj) 4 mg Q6H PRN IV NAUSEA AND/OR VOMITING; Start at 13:30 Acetaminophen (Tylenol Tab) 650 mg Q6H PRN PO PAIN LEVEL 1-3 OR FEVER Last administered on 06/26/16 20:44; Admin Dose 650 MG; Start 06/21/16 at 13:30 Morphine Sulfate (morphine) 2 mg Q4H PRN IV SEVERE PAIN LEVEL 7-10 Last administered on 06/29/16 01:23; Admin Dose 2 MG; Start 06/21/16 at 13:30 Docusate Sodium (Colace) 100 mg Q12H PRN PO CONSTIPATION; Start 06/21/16 at 13: 30 Famotidine (Pepcid) 20 mg Q24H PO Last administered on 06/29/16 20:56; Admin Dose 20 MG; Start 06/21/16 at 21:00 Heparin Sodium (Porcine) (Heparin (5000 Units/0.5 ml)) 5,000 unit Q12 SC Last administered on 06/30/16 12:19; Admin Dose 5,000 UNIT; Start 06/21/16 at 21:00 Aspirin (Halfprin) 81 mg DAILY PO Last administered on 06/30/16 12:17; Admin Dose 81 MG; Start 06/22/16 at 09:00 Losartan Potassium (Cozaar) 50 mg DAILY PO Last administered on 06/30/16 12:18 ; Admin Dose 50 MG; Start 06/22/16 at 09:00 Insulin Glargine (Lantus) 12 unit DAILY@20 SC Last administered on 06/29/16 20 :55; Admin Dose 12 UNIT; Start 06/21/16 at 20:00 Miscellaneous Information 1 ea NOTE XX ; Start 06/21/16 at 14:30 Glucose (Glutose) 15 gm Q15M PRN PO DECREASED GLUCOSE; Start 06/21/16 at 14:30 Glucose (Glutose) 22.5 gm Q15M PRN PO DECREASED GLUCOSE; Start 06/21/16 at 14: 30 Dextrose (D50w Syringe) 25 ml Q15M PRN IV DECREASED GLUCOSE; Start 06/21/16 at 14:30 Dextrose (D50w Syringe) 50 ml Q15M PRN IV DECREASED GLUCOSE; Start 06/21/16 at 14:30 Glucagon (Glucagen) 1 mg Q15M PRN IM DECREASED GLUCOSE; Start 06/21/16 at 14:30 Glucose (Glutose) 15 gm Q15M PRN BUCCAL DECREASED GLUCOSE; Start 06/21/16 at 14 :30 Diagnostic Test (Pha) (Accu-Chek) 1 ea 02 XX Last administered on 06/25/16 02: 00; Admin Dose 1 EA; Start 06/22/16 at 02:00 Epoetin Ishan (Epogen (Esrd)) 6,000 units MoWeFr@17 SC Last administered on 06/30 17:33; Admin Dose 6,000 UNITS; Start 06/23/16 at 17:00 Phenol (Cepastat Lozenge) 1 lozenge Q3 PRN MT COUGH; Start 06/24/16 at 14:00 Guaifenesin/ Dextromethorphan (Robitussin Dm Liquid Cup) 5 ml Q4H PRN PO COUGH Last administered on 06/27/16 02:21; Admin Dose 5 ML; Start 06/24/16 at 14:00 Diphenoxylate HCl/ Atropine (Lomotil) 2 tab Q6H PRN PO DIARRHEA Last administered on 06/27/16 08:57; Admin Dose 2 TAB; Start 06/27/16 at 08:51 Hydralazine HCl (Apresoline) 25 mg Q6H PRN PO SBP ABOVE 160; Start 06/27/16 at 12:30 Nifedipine (Procardia Xl) 30 mg DAILY PO Last administered on 06/30/16 12:18; Admin Dose 30 MG; Start 06/28/16 at 09:00 Vancomycin HCl 250 mg 250 mg Q6 PO Last administered on 06/30/16 17:28; Admin Dose 250 MG; Start 4/25/17 at 18:00 Metronidazole (Flagyl 500 Mg (Pmx)) 100 ml @ 100 mls/hr Q6 IVPB Last administered on 06/30/16 17:28; Admin Dose 100 MLS/HR; Start 06/29/16 at 21:30 Rifaximin (Xifaxan) 200 mg TID PO Last administered on 06/30/16 12:17; Admin Dose 200 MG; Start 06/29/16 at 21:30; Stop 07/02/16 at 21:29 ALMAS NIXON NP Jun 30, 2016 20:06
[2016-06-30] MEDS: INSULIN GLARGINE [LANtus] 3 ML PEN SC SCH (20:51)
[2016-06-30] MEDS: ZOLPIDEM 5 MG TAB PO PRN (20:53)
[2016-06-30] MEDS: FAMOTIDINE 20 MG TAB PO SCH (20:53)
[2016-07-01] VITALS (12 sets, daily range): BP systolic 134–158; BP diastolic 62–79; PULSE 62–70; RESP 16–20
[2016-07-01] MEDS: ACCU-CHEK XX SCH (01:54)
[2016-07-01] MEDS: VANCOMYCIN HCL 250 MG/5ML POSYG PO SCH ×4 (05:21→23:11)
[2016-07-01] MEDS: metroNIDAZOLE 500 MG/NS (PMX) 100 ML IVPB SCH ×4 (05:21→23:11)
[2016-07-01] MEDS: INSULIN ASPART [NOVOLOG] 3 ML PEN SC SCH ×4 (08:02→20:44)
[2016-07-01 08:14] LABS: ADD SCAN DIFF NO; HEMATOCRIT 28.7 % (37.0-47.0); HEMOGLOBIN 9.2 g/dl (12.0-16.0); MEAN CORPUSCULAR HEMOGLOBIN 32.2 pg (29.0-33.0); MEAN CORPUSCULAR HGB CONC 32.1 g/dl (32.0-37.0); MEAN CORPUSCULAR VOLUME 100.3 fl (82.0-101.0); MEAN PLATELET VOLUME 9.8 fl (7.4-10.4); PLATELET COUNT 124 10^3/UL (140-415); RED BLOOD COUNT 2.86 10^6/ul (4.20-5.40); RED CELL DISTRIBUTION WIDTH 15.1 % (11.5-14.5); WHITE BLOOD COUNT 6.2 10^3/ul (4.8-10.8)
[2016-07-01 08:20] LABS: EOSINOPHILS # 0.1 10^3/ul (0.0-0.5)
[2016-07-01] MEDS: RIFAXIMIN 200 MG TAB PO SCH ×3 (08:41→20:44)
[2016-07-01] MEDS: NIFEdipine (XL) 30 MG TAB PO SCH (08:42)
[2016-07-01] MEDS: ASPIRIN (EC) 81 MG TAB PO SCH (08:42)
[2016-07-01] MEDS: LOSARTAN 50 MG TAB PO SCH (08:42)
[2016-07-01] MEDS: HEPARIN 5,000 UNIT/0.5 ML VIAL SC SCH ×2 (08:43→20:44)
[2016-07-01 08:48] LABS: POTASSIUM 3.6 mmol/L (3.5-5.1)
[2016-07-01 08:51] LABS: CALCIUM 8.5 mg/dl (8.4-10.2); CREATININE 5.31 mg/dl (0.44-1.00)
[2016-07-01 11:30] LABS: MONOCYTE # 0.7 10^3/ul (0.3-0.9); NEUTROPHIL # 4.3 10^3/ul (1.6-7.5); PLATELET ESTIMATE PLT APPEAR DECREASED
--- NOTE | 2016-07-01 11:52 | PN ---
Date/Time of Note Date/Time of Note DATE: 07/01/16 TIME: 11:51 Assessment/Plan VTE Prophylaxis VTE Prophylaxis Intervention: other Lines/Catheters [facility] Saline Lock Urinary Cath still in place: No Assessment/Plan Chief Complaint/Hosp Course - Influenza B. Completed Tamiflu. Dr. Salgado is following in infectious disease consultation. - C. difficile colitis, continue p.o. Vanco. Contact isolation. - End-stage renal disease hemodialysis dependent. Continue hemodialysis per nephrology. Dr. Rios is following the patient in nephrology consultation. - Diabetes mellitus type 2. Continue Lantus and NovoLog. - Hypertension. Continue atenolol and Cozaar. - Anemia of chronic disease, continue on Epogen. Problems: Subjective 24 Hr Interval Summary Free Text/Dictation Patient has no complaints Exam/Review of Systems Vital Signs Vitals Vital Signs Date Time Temp Pulse Resp B/P Pulse Ox O2 Delivery O2 Flow Rate FiO2 07/01/16 11:35 97.9 67 19 134/63 100 06/27/16 09:47 Room Air Intake and Output 06/30/16 06/30/16 07/01/16 15:00 23:00 07:00 Intake Total 500 ml 300 ml 450 ml Output Total 3000 ml 0 ml Balance -2500 ml 300 ml 450 ml Exam Constitutional: well developed Head: atraumatic, normocephalic Neck: supple Respiratory: diminished breath sounds Cardiovascular: regular rate and rhythm Gastrointestinal: non-tender, soft Extremities: normal pulses Results Result Diagram: 07/01/16 0712 07/01/16 0712 Results 24 hrs Laboratory Tests Test 06/30/16 12:11 06/30/16 17:23 06/30/16 20:49 07/01/16 07:12 Bedside Glucose 124 202 137 White Blood Count 6.2 Red Blood Count 2.86 L Hemoglobin 9.2 L Hematocrit 28.7 L Mean Corpuscular Volume 100.3 Mean Corpuscular Hemoglobin 32.2 Mean Corpuscular Hemoglobin Concent 32.1 Red Cell Distribution Width 15.1 H Platelet Count 124 #L Mean Platelet Volume 9.8 Neutrophils % 69.0 Lymphocytes % 16.0 Reactive Lymphocytes % 1.0 Monocytes % 12.0 H Eosinophils % 2.0 Basophils % Nucleated Red Blood Cells % 0.0 Neutrophils # 4.3 Lymphocytes # 1.0 Monocytes # 0.7 Eosinophils # 0.1 Basophils # Nucleated Red Blood Cells # 0.0 Platelet Estimate PLT APPEAR DECREASED Sodium Level 141 Potassium Level 3.6 Chloride Level 103 Carbon Dioxide Level 23 Anion Gap 19 H Blood Urea Nitrogen 27 #H Creatinine 5.31 H Glucose Level 190 Calcium Level 8.5 Test 07/01/16 07:59 07/01/16 11:34 Bedside Glucose 163 154 Medications Medications Current Medications Ondansetron HCl (Zofran Inj) 4 mg Q6H PRN IV NAUSEA AND/OR VOMITING; Start at 13:30 Acetaminophen (Tylenol Tab) 650 mg Q6H PRN PO PAIN LEVEL 1-3 OR FEVER Last administered on 06/26/16 20:44; Admin Dose 650 MG; Start 06/21/16 at 13:30 Morphine Sulfate (morphine) 2 mg Q4H PRN IV SEVERE PAIN LEVEL 7-10 Last administered on 06/29/16 01:23; Admin Dose 2 MG; Start 06/21/16 at 13:30 Docusate Sodium (Colace) 100 mg Q12H PRN PO CONSTIPATION; Start 06/21/16 at 13: 30 Famotidine (Pepcid) 20 mg Q24H PO Last administered on 06/30/16 20:53; Admin Dose 20 MG; Start 06/21/16 at 21:00 Heparin Sodium (Porcine) (Heparin (5000 Units/0.5 ml)) 5,000 unit Q12 SC Last administered on 07/01/16 08:43; Admin Dose 5,000 UNIT; Start 06/21/16 at 21:00 Aspirin (Halfprin) 81 mg DAILY PO Last administered on 07/01/16 08:42; Admin Dose 81 MG; Start 06/22/16 at 09:00 Losartan Potassium (Cozaar) 50 mg DAILY PO Last administered on 07/01/16 08:42 ; Admin Dose 50 MG; Start 06/22/16 at 09:00 Insulin Glargine (Lantus) 12 unit DAILY@20 SC Last administered on 06/30/16 20 :51; Admin Dose 12 UNIT; Start 06/21/16 at 20:00 Miscellaneous Information 1 ea NOTE XX ; Start 06/21/16 at 14:30 Glucose (Glutose) 15 gm Q15M PRN PO DECREASED GLUCOSE; Start 06/21/16 at 14:30 Glucose (Glutose) 22.5 gm Q15M PRN PO DECREASED GLUCOSE; Start 06/21/16 at 14: 30 Dextrose (D50w Syringe) 25 ml Q15M PRN IV DECREASED GLUCOSE; Start 06/21/16 at 14:30 Dextrose (D50w Syringe) 50 ml Q15M PRN IV DECREASED GLUCOSE; Start 06/21/16 at 14:30 Glucagon (Glucagen) 1 mg Q15M PRN IM DECREASED GLUCOSE; Start 06/21/16 at 14:30 Glucose (Glutose) 15 gm Q15M PRN BUCCAL DECREASED GLUCOSE; Start 06/21/16 at 14 :30 Diagnostic Test (Pha) (Accu-Chek) 1 ea 02 XX Last administered on 06/25/16 02: 00; Admin Dose 1 EA; Start 06/22/16 at 02:00 Epoetin Ishan (Epogen (Esrd)) 6,000 units MoWeFr@17 SC Last administered on 06/30 17:33; Admin Dose 6,000 UNITS; Start 06/23/16 at 17:00 Phenol (Cepastat Lozenge) 1 lozenge Q3 PRN MT COUGH; Start 06/24/16 at 14:00 Guaifenesin/ Dextromethorphan (Robitussin Dm Liquid Cup) 5 ml Q4H PRN PO COUGH Last administered on 06/27/16 02:21; Admin Dose 5 ML; Start 06/24/16 at 14:00 Diphenoxylate HCl/ Atropine (Lomotil) 2 tab Q6H PRN PO DIARRHEA Last administered on 06/27/16 08:57; Admin Dose 2 TAB; Start 06/27/16 at 08:51 Hydralazine HCl (Apresoline) 25 mg Q6H PRN PO SBP ABOVE 160; Start 06/27/16 at 12:30 Nifedipine (Procardia Xl) 30 mg DAILY PO Last administered on 07/01/16 08:42; Admin Dose 30 MG; Start 06/28/16 at 09:00 Vancomycin HCl 250 mg 250 mg Q6 PO Last administered on 07/01/16 11:35; Admin Dose 250 MG; Start 06/27/16 at 18:00 Metronidazole (Flagyl 500 Mg (Pmx)) 100 ml @ 100 mls/hr Q6 IVPB Last administered on 07/01/16 11:35; Admin Dose 100 MLS/HR; Start 06/29/16 at 21:30 Rifaximin (Xifaxan) 200 mg TID PO Last administered on 07/01/16 08:41; Admin Dose 200 MG; Start 06/29/16 at 21:30; Stop 07/02/16 at 21:29 DIANA GARCIA Jul 01, 2016 11:51
[2016-07-01] MEDS: INSULIN GLARGINE [LANtus] 3 ML PEN SC SCH (20:43)
[2016-07-01] MEDS: FAMOTIDINE 20 MG TAB PO SCH (20:45)
--- NOTE | 2016-07-01 21:42 | CONS ---
Date/Time of Note Date/Time of Note DATE: 07/01/16 TIME: 21:38 Assessment/Plan Assessment/Plan Chief Complaint/Hosp Course ID PROGRESS NOTE TOTAL ABX DAY # Vanco PO #5 + Flagyl IV #3 + Rifaximin #3 =>s/p Tamiflu 06/21 - 06/27 = last day s/p Vanco IV + Cefepime 06/20 x1 day 24H INTERVAL SUMMARY * 3-ABX worked VERY WELL to control C.Diff diarrhea 11 BMs/day -> 8BMs/Day -> 4BMs/day -> Today 1 BM -- she is comfortable, alert, awake, feels much better, sitting up for the first time since I have seen her. * Respiratory alexandre she has improved - DC plan held up per diarrhea PHYSICAL EXAMINATION: GENERAL: VSS,NAD, no fevers HEENT: Unremarkable NECK: Supple, trach-> midline CHEST: Equal chest rise bilaterally, without dyspnea on observation EXTREMITIES: Moves all extremities ID ASSESSMENT: 71 yo F w/PMHx ESRD-HD via AFV admitted with: 1. Febrile illness secondary to influenza B virus, remains on Tamiflu =. RESOLVED * CXR 06/22/16 revealed NO infiltrates 2. Congestive heart failure. 3. End-stage renal disease on hemodialysis. 4. Diabetes. 5. Hypertension. 6. Diarrhea=> (+)C.Diff = MUCH IMPROVED ON 3-ABX REGIMEN ()MRSA NARES INVASIVES: * PIV,LUEXT AVF ABX ALLERGIES: KNDA CURRENT ABX: # Vanco PO #5 + Flagyl IV #3 + Rifaximin #3 =>s/p Tamiflu 06/21 - 06/27 = last day s/p Vanco IV + Cefepime 06/20 x1 day ID RECOMMENDATIONS: 3-ABX worked VERY WELL to control C.Diff diarrhea 11 BMs/day -> 8BMs/Day -> 4BMs /day -> Today 1 BM -- she is comfortable, alert, awake, feels much better, sitting up for the first time since I have seen her. * Respiratory alexandre she has improved - DC plan held up per diarrhea 1. Started on 3-ABX Rx for severe diarrhea C.Diff with Vanco PO + Flagyl IV + RIfaximin po TID x # days 2. VSS -> May DC on course of Vanco 125mg PO TID vs Flagyl 250 po TID x 7 days for C.Diff when cleared by primary . . Problems: Consultation Date/Type/Reason Admit Date/Time Jun 20, 2016 at 22:24 Initial Consult Date 06/21/16 Type of Consultation: ID Referring Provider: MICHAEL CAMPBELL MD Exam/Review of Systems Vital Signs Vitals Vital Signs Date Time Temp Pulse Resp B/P Pulse Ox O2 Delivery O2 Flow Rate FiO2 07/01/16 20:53 98.1 66 20 134/62 98 06/27/16 09:47 Room Air Intake and Output 06/30/16 06/30/16 07/01/16 14:59 22:59 06:59 Intake Total 500 ml 300 ml 450 ml Output Total 3000 ml 0 ml Balance -2500 ml 300 ml 450 ml Results Result Diagram: 07/01/16 0712 07/01/16 0712 Results 24 hrs Laboratory Tests Test 07/01/16 07:12 07/01/16 07:59 07/01/16 11:34 07/01/16 17:11 White Blood Count 6.2 Red Blood Count 2.86 L Hemoglobin 9.2 L Hematocrit 28.7 L Mean Corpuscular Volume 100.3 Mean Corpuscular Hemoglobin 32.2 Mean Corpuscular Hemoglobin Concent 32.1 Red Cell Distribution Width 15.1 H Platelet Count 124 #L Mean Platelet Volume 9.8 Neutrophils % 69.0 Lymphocytes % 16.0 Reactive Lymphocytes % 1.0 Monocytes % 12.0 H Eosinophils % 2.0 Basophils % Nucleated Red Blood Cells % 0.0 Neutrophils # 4.3 Lymphocytes # 1.0 Monocytes # 0.7 Eosinophils # 0.1 Basophils # Nucleated Red Blood Cells # 0.0 Platelet Estimate PLT APPEAR DECREASED Sodium Level 141 Potassium Level 3.6 Chloride Level 103 Carbon Dioxide Level 23 Anion Gap 19 H Blood Urea Nitrogen 27 #H Creatinine 5.31 H Glucose Level 190 Calcium Level 8.5 Bedside Glucose 163 154 146 Test 07/01/16 20:36 Bedside Glucose 163 Medications Medications Current Medications Ondansetron HCl (Zofran Inj) 4 mg Q6H PRN IV NAUSEA AND/OR VOMITING; Start at 13:30 Acetaminophen (Tylenol Tab) 650 mg Q6H PRN PO PAIN LEVEL 1-3 OR FEVER Last administered on 06/26/16t 20:44; Admin Dose 650 MG; Start 06/21/16 at 13:30 Morphine Sulfate (morphine) 2 mg Q4H PRN IV SEVERE PAIN LEVEL 7-10 Last administered on 06/29/16 01:23; Admin Dose 2 MG; Start 06/21/16 at 13:30 Docusate Sodium (Colace) 100 mg Q12H PRN PO CONSTIPATION; Start 06/21/16 at 13: 30 Famotidine (Pepcid) 20 mg Q24H PO Last administered on 07/01/16 20:45; Admin Dose 20 MG; Start 06/21/16 at 21:00 Heparin Sodium (Porcine) (Heparin (5000 Units/0.5 ml)) 5,000 unit Q12 SC Last administered on 07/01/16 20:44; Admin Dose 5,000 UNIT; Start 06/21/16 at 21:00 Aspirin (Halfprin) 81 mg DAILY PO Last administered on 07/01/16 08:42; Admin Dose 81 MG; Start 06/22/16 at 09:00 Losartan Potassium (Cozaar) 50 mg DAILY PO Last administered on 07/01/16 08:42 ; Admin Dose 50 MG; Start 06/22/16 at 09:00 Insulin Glargine (Lantus) 12 unit DAILY@20 SC Last administered on 07/01/16 20 :43; Admin Dose 12 UNIT; Start 06/21/16 at 20:00 Miscellaneous Information 1 ea NOTE XX ; Start 06/21/16 at 14:30 Glucose (Glutose) 15 gm Q15M PRN PO DECREASED GLUCOSE; Start 06/21/16 at 14:30 Glucose (Glutose) 22.5 gm Q15M PRN PO DECREASED GLUCOSE; Start 06/21/16 at 14: 30 Dextrose (D50w Syringe) 25 ml Q15M PRN IV DECREASED GLUCOSE; Start 06/21/16 at 14:30 Dextrose (D50w Syringe) 50 ml Q15M PRN IV DECREASED GLUCOSE; Start 06/21/16 at 14:30 Glucagon (Glucagen) 1 mg Q15M PRN IM DECREASED GLUCOSE; Start 06/21/16 at 14:30 Glucose (Glutose) 15 gm Q15M PRN BUCCAL DECREASED GLUCOSE; Start 06/21/16 at 14 :30 Diagnostic Test (Pha) (Accu-Chek) 1 ea 02 XX Last administered on 06/25/16 02: 00; Admin Dose 1 EA; Start 06/22/16 at 02:00 Epoetin Ishan (Epogen (Esrd)) 6,000 units MoWeFr@17 SC Last administered on 06/30 17:33; Admin Dose 6,000 UNITS; Start 06/23/16 at 17:00 Phenol (Cepastat Lozenge) 1 lozenge Q3 PRN MT COUGH; Start 06/24/16 at 14:00 Guaifenesin/ Dextromethorphan (Robitussin Dm Liquid Cup) 5 ml Q4H PRN PO COUGH Last administered on 06/27/16 02:21; Admin Dose 5 ML; Start 06/24/16 at 14:00 Diphenoxylate HCl/ Atropine (Lomotil) 2 tab Q6H PRN PO DIARRHEA Last administered on 06/27/16 08:57; Admin Dose 2 TAB; Start 06/27/16 at 08:51 Hydralazine HCl (Apresoline) 25 mg Q6H PRN PO SBP ABOVE 160; Start 06/27/16 at 12:30 Nifedipine (Procardia Xl) 30 mg DAILY PO Last administered on 07/01/16 08:42; Admin Dose 30 MG; Start 06/28/16 at 09:00 Vancomycin HCl 250 mg 250 mg Q6 PO Last administered on 07/01/16 17:11; Admin Dose 250 MG; Start 06/27/16 at 18:00 Metronidazole (Flagyl 500 Mg (Pmx)) 100 ml @ 100 mls/hr Q6 IVPB Last administered on 07/01/16 17:11; Admin Dose 100 MLS/HR; Start 06/29/16 at 21:30 Rifaximin (Xifaxan) 200 mg TID PO Last administered on 07/01/16 20:44; Admin Dose 200 MG; Start 06/29/16 at 21:30; Stop 07/02/16 at 21:29 ALMAS NIXON PLUSH DRESSER Jul 01, 2016 21:42
--- NOTE | 2016-07-01 22:39 | CONS ---
Date/Time of Note Date/Time of Note DATE: 07/01/16 TIME: 22:36 Assessment/Plan Assessment/Plan Chief Complaint/Hosp Course BP under control Lab work noted Problems: Additional Assessment/Plan Next HD on Sunday Will continue close F/U Consultation Date/Type/Reason Admit Date/Time Jun 20, 2016 at 22:24 Initial Consult Date 06/21/16 Type of Consultation: renal Referring Provider: MICHAEL CAMPBELL MD 24 HR Interval Summary Free Text/Dictation Pt now has C Diff Colitis & is on Rx for that per ID Exam/Review of Systems Vital Signs Vitals Vital Signs Date Time Temp Pulse Resp B/P Pulse Ox O2 Delivery O2 Flow Rate FiO2 07/01/16 20:53 98.1 66 20 134/62 98 06/27/16 09:47 Room Air Intake and Output 06/30/16 06/30/16 07/01/16 15:00 23:00 07:00 Intake Total 500 ml 300 ml 450 ml Output Total 3000 ml 0 ml Balance -2500 ml 300 ml 450 ml Exam still anxious Constitutional: alert, oriented, well developed Psych: nl mood/affect, no complaints Head: atraumatic, normocephalic Eyes: EOMI, PERRL, nl conjunctiva, nl lids, nl sclera ENMT: nl external ears & nose, nl lips & teeth, nl nasal mucosa & septum Neck: non-tender, supple Respiratory: clear to auscultation, normal air movement Cardiovascular: nl pulses, regular rate and rhythm Gastrointestinal: nl liver, spleen, non-tender, soft Musculoskeletal: nl extremities to inspection, nl gait and stance, other (AVF bruit present) Extremities: normal pulses 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, nl mental status, nl speech, nl strength Skin: nl turgor, No rash or lesions Lymph: nl lymph nodes Results Result Diagram: 07/01/1671107/01/16711 Results 24 hrs Laboratory Tests Test 07/01/16 07:12 07/01/16 07:59 07/01/16 11:34 07/01/16 17:11 White Blood Count 6.2 Red Blood Count 2.86 L Hemoglobin 9.2 L Hematocrit 28.7 L Mean Corpuscular Volume 100.3 Mean Corpuscular Hemoglobin 32.2 Mean Corpuscular Hemoglobin Concent 32.1 Red Cell Distribution Width 15.1 H Platelet Count 124 #L Mean Platelet Volume 9.8 Neutrophils % 69.0 Lymphocytes % 16.0 Reactive Lymphocytes % 1.0 Monocytes % 12.0 H Eosinophils % 2.0 Basophils % Nucleated Red Blood Cells % 0.0 Neutrophils # 4.3 Lymphocytes # 1.0 Monocytes # 0.7 Eosinophils # 0.1 Basophils # Nucleated Red Blood Cells # 0.0 Platelet Estimate PLT APPEAR DECREASED Sodium Level 141 Potassium Level 3.6 Chloride Level 103 Carbon Dioxide Level 23 Anion Gap 19 H Blood Urea Nitrogen 27 #H Creatinine 5.31 H Glucose Level 190 Calcium Level 8.5 Bedside Glucose 163 154 146 Test 07/01/16 20:36 Bedside Glucose 163 Medications Medications Current Medications Ondansetron HCl (Zofran Inj) 4 mg Q6H PRN IV NAUSEA AND/OR VOMITING; Start at 13:30 Acetaminophen (Tylenol Tab) 650 mg Q6H PRN PO PAIN LEVEL 1-3 OR FEVER Last administered on 06/26/16 20:44; Admin Dose 650 MG; Start 06/21/16 at 13:30 Morphine Sulfate (morphine) 2 mg Q4H PRN IV SEVERE PAIN LEVEL 7-10 Last administered on 06/29/16 01:23; Admin Dose 2 MG; Start 06/21/16 at 13:30 Docusate Sodium (Colace) 100 mg Q12H PRN PO CONSTIPATION; Start 06/21/16 at 13: 30 Famotidine (Pepcid) 20 mg Q24H PO Last administered on 07/01/16 20:45; Admin Dose 20 MG; Start 06/21/16 at 21:00 Heparin Sodium (Porcine) (Heparin (5000 Units/0.5 ml)) 5,000 unit Q12 SC Last administered on 07/01/16 20:44; Admin Dose 5,000 UNIT; Start 06/21/16 at 21:00 Aspirin (Halfprin) 81 mg DAILY PO Last administered on 07/01/16 08:42; Admin Dose 81 MG; Start 06/22/16 at 09:00 Losartan Potassium (Cozaar) 50 mg DAILY PO Last administered on 07/01/16 08:42 ; Admin Dose 50 MG; Start 06/22/16 at 09:00 Insulin Glargine (Lantus) 12 unit DAILY@20 SC Last administered on 07/01/16 20 :43; Admin Dose 12 UNIT; Start 06/21/16 at 20:00 Miscellaneous Information 1 ea NOTE XX ; Start 06/21/16 at 14:30 Glucose (Glutose) 15 gm Q15M PRN PO DECREASED GLUCOSE; Start 06/21/16 at 14:30 Glucose (Glutose) 22.5 gm Q15M PRN PO DECREASED GLUCOSE; Start 06/21/16 at 14: 30 Dextrose (D50w Syringe) 25 ml Q15M PRN IV DECREASED GLUCOSE; Start 06/21/16 at 14:30 Dextrose (D50w Syringe) 50 ml Q15M PRN IV DECREASED GLUCOSE; Start 06/21/16 at 14:30 Glucagon (Glucagen) 1 mg Q15M PRN IM DECREASED GLUCOSE; Start 06/21/16 at 14:30 Glucose (Glutose) 15 gm Q15M PRN BUCCAL DECREASED GLUCOSE; Start 06/21/16 at 14 :30 Diagnostic Test (Pha) (Accu-Chek) 1 ea 02 XX Last administered on 06/25/16 02: 00; Admin Dose 1 EA; Start 06/22/16 at 02:00 Epoetin Ishan (Epogen (Esrd)) 6,000 units MoWeFr@17 SC Last administered on 06/30 17:33; Admin Dose 6,000 UNITS; Start 06/23/16 at 17:00 Phenol (Cepastat Lozenge) 1 lozenge Q3 PRN MT COUGH; Start 06/24/16 at 14:00 Guaifenesin/ Dextromethorphan (Robitussin Dm Liquid Cup) 5 ml Q4H PRN PO COUGH Last administered on 06/27/16 02:21; Admin Dose 5 ML; Start 06/24/16 at 14:00 Diphenoxylate HCl/ Atropine (Lomotil) 2 tab Q6H PRN PO DIARRHEA Last administered on 06/27/16 08:57; Admin Dose 2 TAB; Start 06/27/16 at 08:51 Hydralazine HCl (Apresoline) 25 mg Q6H PRN PO SBP ABOVE 160; Start 06/27/16 at 12:30 Nifedipine (Procardia Xl) 30 mg DAILY PO Last administered on 07/01/16 08:42; Admin Dose 30 MG; Start 06/28/16 at 09:00 Vancomycin HCl 250 mg 250 mg Q6 PO Last administered on 07/01/16 17:11; Admin Dose 250 MG; Start 06/27/16 at 18:00 Metronidazole (Flagyl 500 Mg (Pmx)) 100 ml @ 100 mls/hr Q6 IVPB Last administered on 07/01/16 17:11; Admin Dose 100 MLS/HR; Start 06/29/16 at 21:30 Rifaximin (Xifaxan) 200 mg TID PO Last administered on 07/01/16 20:44; Admin Dose 200 MG; Start 06/29/16 at 21:30; Stop 07/02/16 at 21:29 QUYNH DELGADILLO MD Jul 01, 2016 22:39
[2016-07-02] VITALS (12 sets, daily range): BP systolic 116–154; BP diastolic 55–71; PULSE 66–77; RESP 17–22
[2016-07-02] MEDS: ZOLPIDEM 5 MG TAB PO PRN (00:47)
[2016-07-02] MEDS: ACCU-CHEK XX SCH (01:44)
[2016-07-02] MEDS: metroNIDAZOLE 500 MG/NS (PMX) 100 ML IVPB SCH ×4 (05:07→23:22)
[2016-07-02] MEDS: VANCOMYCIN HCL 250 MG/5ML POSYG PO SCH ×4 (05:07→23:22)
[2016-07-02] MEDS: INSULIN ASPART [NOVOLOG] 3 ML PEN SC SCH ×4 (07:54→20:35)
[2016-07-02] MEDS: RIFAXIMIN 200 MG TAB PO SCH ×3 (08:50→20:34)
[2016-07-02] MEDS: ASPIRIN (EC) 81 MG TAB PO SCH (08:50)
[2016-07-02] MEDS: LOSARTAN 50 MG TAB PO SCH (08:50)
[2016-07-02] MEDS: NIFEdipine (XL) 30 MG TAB PO SCH (08:50)
[2016-07-02] MEDS: HEPARIN 5,000 UNIT/0.5 ML VIAL SC SCH ×2 (08:53→20:34)
--- NOTE | 2016-07-02 11:57 | PN ---
Date/Time of Note Date/Time of Note DATE: 07/02/16 TIME: 11:57 Assessment/Plan VTE Prophylaxis VTE Prophylaxis Intervention: other Lines/Catheters IV [facility] Type [facility] Urinary Cath still in place: No Assessment/Plan Chief Complaint/Hosp Course - Influenza B. Completed Tamiflu. Dr. Salgado is following in infectious disease consultation. - C. difficile colitis, continue p.o. Vanco. Contact isolation. - End-stage renal disease hemodialysis dependent. Continue hemodialysis per nephrology. Dr. Rios is following the patient in nephrology consultation. - Diabetes mellitus type 2. Continue Lantus and NovoLog. - Hypertension. Continue atenolol and Cozaar. - Anemia of chronic disease, continue on Epogen. Problems: Subjective 24 Hr Interval Summary Free Text/Dictation Patient is feeling better Exam/Review of Systems Vital Signs Vitals Vital Signs Date Time Temp Pulse Resp B/P Pulse Ox O2 Delivery O2 Flow Rate FiO2 07/02/16 11:32 98.9 70 18 116/55 95 Intake and Output 07/01/16 07/01/16 07/02/16 15:00 23:00 07:00 Intake Total 100 ml 1000 ml 450 ml Output Total 1 ml Balance 100 ml 1000 ml 449 ml Exam Constitutional: well developed Head: atraumatic, normocephalic Neck: supple Respiratory: clear to auscultation Cardiovascular: regular rate and rhythm Gastrointestinal: non-tender, soft Extremities: normal pulses Results Result Diagram: 07/02/16 0613 07/01/16 0712 Results 24 hrs Laboratory Tests Test 07/01/16 17:11 07/01/16 20:36 07/02/16 01:42 07/02/16 06:13 Bedside Glucose 146 163 221 H Hemoglobin 9.6 L Test 07/02/16 07:51 07/02/16 11:31 Bedside Glucose 177 123 Medications Medications Current Medications Ondansetron HCl (Zofran Inj) 4 mg Q6H PRN IV NAUSEA AND/OR VOMITING; Start at 13:30 Acetaminophen (Tylenol Tab) 650 mg Q6H PRN PO PAIN LEVEL 1-3 OR FEVER Last administered on 06/26/16t 20:44; Admin Dose 650 MG; Start 06/21/16 at 13:30 Morphine Sulfate (morphine) 2 mg Q4H PRN IV SEVERE PAIN LEVEL 7-10 Last administered on 06/29/16 01:23; Admin Dose 2 MG; Start 06/21/16 at 13:30 Docusate Sodium (Colace) 100 mg Q12H PRN PO CONSTIPATION; Start 06/21/16 at 13: 30 Famotidine (Pepcid) 20 mg Q24H PO Last administered on 07/01/16 20:45; Admin Dose 20 MG; Start 06/21/16 at 21:00 Heparin Sodium (Porcine) (Heparin (5000 Units/0.5 ml)) 5,000 unit Q12 SC Last administered on 07/02/16 08:53; Admin Dose 5,000 UNIT; Start 06/21/16 at 21:00 Aspirin (Halfprin) 81 mg DAILY PO Last administered on 07/02/16 08:50; Admin Dose 81 MG; Start 06/22/16 at 09:00 Losartan Potassium (Cozaar) 50 mg DAILY PO Last administered on 07/02/16 08:50 ; Admin Dose 50 MG; Start 06/22/16 at 09:00 Insulin Glargine (Lantus) 12 unit DAILY@20 SC Last administered on 07/01/16 20 :43; Admin Dose 12 UNIT; Start 06/21/16 at 20:00 Miscellaneous Information 1 ea NOTE XX ; Start 06/21/16 at 14:30 Glucose (Glutose) 15 gm Q15M PRN PO DECREASED GLUCOSE; Start 06/21/16 at 14:30 Glucose (Glutose) 22.5 gm Q15M PRN PO DECREASED GLUCOSE; Start 06/21/16 at 14: 30 Dextrose (D50w Syringe) 25 ml Q15M PRN IV DECREASED GLUCOSE; Start 06/21/16 at 14:30 Dextrose (D50w Syringe) 50 ml Q15M PRN IV DECREASED GLUCOSE; Start 06/21/16 at 14:30 Glucagon (Glucagen) 1 mg Q15M PRN IM DECREASED GLUCOSE; Start 06/21/16 at 14:30 Glucose (Glutose) 15 gm Q15M PRN BUCCAL DECREASED GLUCOSE; Start 06/21/16 at 14 :30 Diagnostic Test (Pha) (Accu-Chek) 1 ea 02 XX Last administered on 06/25/16 02: 00; Admin Dose 1 EA; Start 06/22/16 at 02:00 Epoetin Ishan (Epogen (Esrd)) 6,000 units MoWeFr@17 SC Last administered on 06/30 17:33; Admin Dose 6,000 UNITS; Start 06/23/16 at 17:00 Phenol (Cepastat Lozenge) 1 lozenge Q3 PRN MT COUGH; Start 06/24/16 at 14:00 Guaifenesin/ Dextromethorphan (Robitussin Dm Liquid Cup) 5 ml Q4H PRN PO COUGH Last administered on 06/27/16 02:21; Admin Dose 5 ML; Start 06/24/16 at 14:00 Diphenoxylate HCl/ Atropine (Lomotil) 2 tab Q6H PRN PO DIARRHEA Last administered on 06/27/16 08:57; Admin Dose 2 TAB; Start 06/27/16 at 08:51 Hydralazine HCl (Apresoline) 25 mg Q6H PRN PO SBP ABOVE 160; Start 06/27/16 at 12:30 Nifedipine (Procardia Xl) 30 mg DAILY PO Last administered on 07/02/16 08:50; Admin Dose 30 MG; Start 06/28/16 at 09:00 Vancomycin HCl 250 mg 250 mg Q6 PO Last administered on 07/02/16 11:32; Admin Dose 250 MG; Start 06/27/16 at 18:00 Metronidazole (Flagyl 500 Mg (Pmx)) 100 ml @ 100 mls/hr Q6 IVPB Last administered on 07/02/16 11:32; Admin Dose 100 MLS/HR; Start 06/29/16 at 21:30 Rifaximin (Xifaxan) 200 mg TID PO Last administered on 07/02/16 08:50; Admin Dose 200 MG; Start 06/29/16 at 21:30; Stop 07/02/16 at 21:29 DIANA GARCIA Jul 02, 2016 11:57
--- NOTE | 2016-07-02 17:58 | CONS ---
Date/Time of Note Date/Time of Note DATE: 07/02/16 TIME: 17:56 Assessment/Plan Assessment/Plan Chief Complaint/Hosp Course ID PROGRESS NOTE TOTAL ABX DAY # Vanco PO #6 + Flagyl IV #4 + Rifaximin #4 =>s/p Tamiflu 06/21 - 06/27 = last day s/p Vanco IV + Cefepime 06/20 x1 day 24H INTERVAL SUMMARY * A/A.O -- back to baseline, more alert, feels better == Diarrhea resolved on 3- ABX worked VERY WELL to control C.Diff diarrhea 11 BMs/day -> 8BMs/Day -> 4BMs/ day -> Today 1 BM -- s * Respiratory sxs resolved -> DC plan held up per diarrhea PHYSICAL EXAMINATION: GENERAL: VSS,NAD, no fevers HEENT: Unremarkable NECK: Supple, trach-> midline CHEST: Equal chest rise bilaterally, without dyspnea on observation EXTREMITIES: Moves all extremities ID ASSESSMENT: 71 yo F w/PMHx ESRD-HD via AFV admitted with: 1. Febrile illness secondary to influenza B virus, remains on Tamiflu =. RESOLVED * CXR 06/22/16 revealed NO infiltrates 2. Congestive heart failure. 3. End-stage renal disease on hemodialysis. 4. Diabetes. 5. Hypertension. 6. Diarrhea=> (+)C.Diff = MUCH IMPROVED ON 3-ABX REGIMEN ()MRSA NARES INVASIVES: * PIV,LUEXT AVF ABX ALLERGIES: KNDA CURRENT ABX: # Vanco PO #5 + Flagyl IV #3 + Rifaximin #3 =>s/p Tamiflu 06/21 - 06/27 = last day s/p Vanco IV + Cefepime 06/20 x1 day ID RECOMMENDATIONS: 1. Started on 3-ABX Rx for severe diarrhea C.Diff with Vanco PO + Flagyl IV + RIfaximin po TID x # days = TODAY IS LAST DAY RIFAXIMIN 2. VSS -> May DC on course of Vanco 125mg PO TID vs Flagyl 250 po TID x 7 days for C.Diff when cleared by primary per insurance formulary . . Problems: Consultation Date/Type/Reason Admit Date/Time Jun 20, 2016 at 22:24 Initial Consult Date 06/21/16 Type of Consultation: ID Referring Provider: MICHAEL CAMPBELL MD Exam/Review of Systems Vital Signs Vitals Vital Signs Date Time Temp Pulse Resp B/P Pulse Ox O2 Delivery O2 Flow Rate FiO2 07/02/16 16:07 77 07/02/16 15:59 97.7 19 143/63 96 Intake and Output 07/01/16 07/01/16 07/02/16 15:00 23:00 07:00 Intake Total 100 ml 1000 ml 450 ml Output Total 1 ml Balance 100 ml 1000 ml 449 ml Results Result Diagram: 07/02/16 0613 07/01/16 0712 Results 24 hrs Laboratory Tests Test 07/01/16 20:36 07/02/16 01:42 07/02/16 06:13 07/02/16 07:51 Bedside Glucose 163 221 H 177 Hemoglobin 9.6 L Test 07/02/16 11:31 07/02/16 17:13 Bedside Glucose 123 153 Medications Medications Current Medications Ondansetron HCl (Zofran Inj) 4 mg Q6H PRN IV NAUSEA AND/OR VOMITING; Start at 13:30 Acetaminophen (Tylenol Tab) 650 mg Q6H PRN PO PAIN LEVEL 1-3 OR FEVER Last administered on 06/26/16 20:44; Admin Dose 650 MG; Start 06/21/16 at 13:30 Morphine Sulfate (morphine) 2 mg Q4H PRN IV SEVERE PAIN LEVEL 7-10 Last administered on 06/29/16 01:23; Admin Dose 2 MG; Start 06/21/16 at 13:30 Docusate Sodium (Colace) 100 mg Q12H PRN PO CONSTIPATION; Start 06/21/16 at 13: 30 Famotidine (Pepcid) 20 mg Q24H PO Last administered on 07/01/16 20:45; Admin Dose 20 MG; Start 06/21/16 at 21:00 Heparin Sodium (Porcine) (Heparin (5000 Units/0.5 ml)) 5,000 unit Q12 SC Last administered on 07/02/16 08:53; Admin Dose 5,000 UNIT; Start 06/21/16 at 21:00 Aspirin (Halfprin) 81 mg DAILY PO Last administered on 07/02/16 08:50; Admin Dose 81 MG; Start 06/22/16 at 09:00 Losartan Potassium (Cozaar) 50 mg DAILY PO Last administered on 07/02/16 08:50 ; Admin Dose 50 MG; Start 06/22/16 at 09:00 Insulin Glargine (Lantus) 12 unit DAILY@20 SC Last administered on 07/01/16 20 :43; Admin Dose 12 UNIT; Start 06/21/16 at 20:00 Miscellaneous Information 1 ea NOTE XX ; Start 06/21/16 at 14:30 Glucose (Glutose) 15 gm Q15M PRN PO DECREASED GLUCOSE; Start 06/21/16 at 14:30 Glucose (Glutose) 22.5 gm Q15M PRN PO DECREASED GLUCOSE; Start 06/21/16 at 14: 30 Dextrose (D50w Syringe) 25 ml Q15M PRN IV DECREASED GLUCOSE; Start 06/21/16 at 14:30 Dextrose (D50w Syringe) 50 ml Q15M PRN IV DECREASED GLUCOSE; Start 06/21/16 at 14:30 Glucagon (Glucagen) 1 mg Q15M PRN IM DECREASED GLUCOSE; Start 06/21/16 at 14:30 Glucose (Glutose) 15 gm Q15M PRN BUCCAL DECREASED GLUCOSE; Start 06/21/16 at 14 :30 Diagnostic Test (Pha) (Accu-Chek) 1 ea 02 XX Last administered on 06/25/16 02: 00; Admin Dose 1 EA; Start 06/22/16 at 02:00 Epoetin Ishan (Epogen (Esrd)) 6,000 units MoWeFr@17 SC Last administered on 06/30 17:33; Admin Dose 6,000 UNITS; Start 06/23/16 at 17:00 Phenol (Cepastat Lozenge) 1 lozenge Q3 PRN MT COUGH; Start 06/24/16 at 14:00 Guaifenesin/ Dextromethorphan (Robitussin Dm Liquid Cup) 5 ml Q4H PRN PO COUGH Last administered on 06/27/16 02:21; Admin Dose 5 ML; Start 06/24/16 at 14:00 Diphenoxylate HCl/ Atropine (Lomotil) 2 tab Q6H PRN PO DIARRHEA Last administered on 06/27/16 08:57; Admin Dose 2 TAB; Start 06/27/16 at 08:51 Hydralazine HCl (Apresoline) 25 mg Q6H PRN PO SBP ABOVE 160; Start 06/27/16 at 12:30 Nifedipine (Procardia Xl) 30 mg DAILY PO Last administered on 07/02/16 08:50; Admin Dose 30 MG; Start 06/28/16 at 09:00 Vancomycin HCl 250 mg 250 mg Q6 PO Last administered on 07/02/16 17:13; Admin Dose 250 MG; Start 06/27/16 at 18:00 Metronidazole (Flagyl 500 Mg (Pmx)) 100 ml @ 100 mls/hr Q6 IVPB Last administered on 07/02/16 17:13; Admin Dose 100 MLS/HR; Start 06/29/16 at 21:30 Rifaximin (Xifaxan) 200 mg TID PO Last administered on 07/02/16 13:37; Admin Dose 200 MG; Start 06/29/16 at 21:30; Stop 07/02/16 at 21:29 ALMAS NIXON NP Jul 02, 2016 17:57
--- NOTE | 2016-07-02 18:46 | CONS ---
Date/Time of Note Date/Time of Note DATE: 07/02/16 TIME: 18:44 Assessment/Plan Assessment/Plan Chief Complaint/Hosp Course BP under control Lab work noted Problems: Additional Assessment/Plan HD tomorrow Further plans per Dr Patiño Consultation Date/Type/Reason Admit Date/Time Jun 20, 2016 at 22:24 Initial Consult Date 06/21/16 Type of Consultation: renal Referring Provider: MICHAEL PATIÑO MD 24 HR Interval Summary Free Text/Dictation anxious to go home Constitutional: improved Exam/Review of Systems Vital Signs Vitals Vital Signs Date Time Temp Pulse Resp B/P Pulse Ox O2 Delivery O2 Flow Rate FiO2 07/02/16 16:07 77 07/02/16 15:59 97.7 19 143/63 96 Intake and Output 07/01/16 07/01/16 07/02/16 15:00 23:00 07:00 Intake Total 100 ml 1000 ml 450 ml Output Total 1 ml Balance 100 ml 1000 ml 449 ml Exam Constitutional: alert, oriented, well developed Psych: nl mood/affect, no complaints Head: atraumatic, normocephalic Eyes: EOMI, PERRL, nl conjunctiva, nl lids, nl sclera ENMT: nl external ears & nose, nl lips & teeth, nl nasal mucosa & septum Neck: non-tender, supple Respiratory: clear to auscultation, normal air movement Cardiovascular: nl pulses, regular rate and rhythm Gastrointestinal: nl liver, spleen, non-tender, soft Musculoskeletal: nl extremities to inspection, nl gait and stance Extremities: normal pulses, other (avf in place) Neurological: OIL LEASE BROKER II-XII intact, nl mental status, nl speech, nl strength Skin: nl turgor, No rash or lesions Lymph: nl lymph nodes Results Result Diagram: 07/02/16 0613 07/01/16 0712 Results 24 hrs Laboratory Tests Test 07/01/16 20:36 07/02/16 01:42 07/02/16 06:13 07/02/16 07:51 Bedside Glucose 163 221 H 177 Hemoglobin 9.6 L Test 07/02/16 11:31 07/02/16 17:13 Bedside Glucose 123 153 Medications Medications Current Medications Ondansetron HCl (Zofran Inj) 4 mg Q6H PRN IV NAUSEA AND/OR VOMITING; Start at 13:30 Acetaminophen (Tylenol Tab) 650 mg Q6H PRN PO PAIN LEVEL 1-3 OR FEVER Last administered on 06/26/16 20:44; Admin Dose 650 MG; Start 06/21/16 at 13:30 Morphine Sulfate (morphine) 2 mg Q4H PRN IV SEVERE PAIN LEVEL 7-10 Last administered on 06/29/16 01:23; Admin Dose 2 MG; Start 06/21/16 at 13:30 Docusate Sodium (Colace) 100 mg Q12H PRN PO CONSTIPATION; Start 06/21/16 at 13: 30 Famotidine (Pepcid) 20 mg Q24H PO Last administered on 07/01/16 20:45; Admin Dose 20 MG; Start 06/21/16 at 21:00 Heparin Sodium (Porcine) (Heparin (5000 Units/0.5 ml)) 5,000 unit Q12 SC Last administered on 07/02/16 08:53; Admin Dose 5,000 UNIT; Start 06/21/16 at 21:00 Aspirin (Halfprin) 81 mg DAILY PO Last administered on 07/02/16 08:50; Admin Dose 81 MG; Start 06/22/16 at 09:00 Losartan Potassium (Cozaar) 50 mg DAILY PO Last administered on 07/02/16 08:50 ; Admin Dose 50 MG; Start 06/22/16 at 09:00 Insulin Glargine (Lantus) 12 unit DAILY@20 SC Last administered on 07/01/16 20 :43; Admin Dose 12 UNIT; Start 06/21/16 at 20:00 Miscellaneous Information 1 ea NOTE XX ; Start 06/21/16 at 14:30 Glucose (Glutose) 15 gm Q15M PRN PO DECREASED GLUCOSE; Start 06/21/16 at 14:30 Glucose (Glutose) 22.5 gm Q15M PRN PO DECREASED GLUCOSE; Start 06/21/16 at 14: 30 Dextrose (D50w Syringe) 25 ml Q15M PRN IV DECREASED GLUCOSE; Start 06/21/16 at 14:30 Dextrose (D50w Syringe) 50 ml Q15M PRN IV DECREASED GLUCOSE; Start 06/21/16 at 14:30 Glucagon (Glucagen) 1 mg Q15M PRN IM DECREASED GLUCOSE; Start 06/21/16 at 14:30 Glucose (Glutose) 15 gm Q15M PRN BUCCAL DECREASED GLUCOSE; Start 06/21/16 at 14 :30 Diagnostic Test (Pha) (Accu-Chek) 1 ea 02 XX Last administered on 06/25/16 02: 00; Admin Dose 1 EA; Start 06/22/16 at 02:00 Epoetin Ishan (Epogen (Esrd)) 6,000 units MoWeFr@17 SC Last administered on 06/30 17:33; Admin Dose 6,000 UNITS; Start 06/23/16 at 17:00 Phenol (Cepastat Lozenge) 1 lozenge Q3 PRN MT COUGH; Start 06/24/16 at 14:00 Guaifenesin/ Dextromethorphan (Robitussin Dm Liquid Cup) 5 ml Q4H PRN PO COUGH Last administered on 06/27/16 02:21; Admin Dose 5 ML; Start 06/24/16 at 14:00 Diphenoxylate HCl/ Atropine (Lomotil) 2 tab Q6H PRN PO DIARRHEA Last administered on 06/27/16 08:57; Admin Dose 2 TAB; Start 06/27/16 at 08:51 Hydralazine HCl (Apresoline) 25 mg Q6H PRN PO SBP ABOVE 160; Start 06/27/16 at 12:30 Nifedipine (Procardia Xl) 30 mg DAILY PO Last administered on 07/02/16 08:50; Admin Dose 30 MG; Start 06/28/16 at 09:00 Vancomycin HCl 250 mg 250 mg Q6 PO Last administered on 07/02/16 17:13; Admin Dose 250 MG; Start 06/27/16 at 18:00 Metronidazole (Flagyl 500 Mg (Pmx)) 100 ml @ 100 mls/hr Q6 IVPB Last administered on 07/02/16 17:13; Admin Dose 100 MLS/HR; Start 06/29/16 at 21:30 Rifaximin (Xifaxan) 200 mg TID PO Last administered on 07/02/16 13:37; Admin Dose 200 MG; Start 06/29/16 at 21:30; Stop 07/02/16 at 21:29 QUYNH DELGADILLO MD Jul 02, 2016 18:46
[2016-07-02] MEDS: INSULIN GLARGINE [LANtus] 3 ML PEN SC SCH (20:33)
[2016-07-02] MEDS: FAMOTIDINE 20 MG TAB PO SCH (20:34)
[2016-07-03] VITALS (20 sets, daily range): BP systolic 120–169; BP diastolic 56–77; PULSE 60–69; RESP 18–19
[2016-07-03] MEDS: ACCU-CHEK XX SCH (01:41)
[2016-07-03] MEDS: VANCOMYCIN HCL 250 MG/5ML POSYG PO SCH ×4 (05:41→23:42)
[2016-07-03] MEDS: metroNIDAZOLE 500 MG/NS (PMX) 100 ML IVPB SCH ×2 (05:42→13:04)
[2016-07-03 07:59] LABS: ADD SCAN DIFF NO
[2016-07-03] MEDS: INSULIN ASPART [NOVOLOG] 3 ML PEN SC SCH ×4 (08:00→21:17)
[2016-07-03 08:02] LABS: BASOPHILS % 0.1 % (0.0-2.0); EOSINOPHILS # 0.1 10^3/ul (0.0-0.5); EOSINOPHILS % 1.5 % (0.0-7.0); HEMATOCRIT 30.6 % (37.0-47.0); HEMOGLOBIN 9.6 g/dl (12.0-16.0); LYMPHOCYTES # 1.4 10^3/ul (0.8-2.9); LYMPHOCYTES % 19.9 % (15.0-51.0); MEAN CORPUSCULAR HEMOGLOBIN 31.7 pg (29.0-33.0); MEAN CORPUSCULAR HGB CONC 31.4 g/dl (32.0-37.0); MEAN PLATELET VOLUME 9.9 fl (7.4-10.4); MONOCYTE # 0.8 10^3/ul (0.3-0.9); MONOCYTES % 10.5 % (0.0-11.0); NEUTROPHIL # 4.8 10^3/ul (1.6-7.5); NEUTROPHILS % 66.6 % (39.0-77.0); PLATELET COUNT 145 10^3/UL (140-415); RED BLOOD COUNT 3.03 10^6/ul (4.20-5.40); RED CELL DISTRIBUTION WIDTH 16.2 % (11.5-14.5); WHITE BLOOD COUNT 7.2 10^3/ul (4.8-10.8)
[2016-07-03 08:17] LABS: CALCIUM 8.3 mg/dl (8.4-10.2); CREATININE 7.7 mg/dl (0.44-1.00); POTASSIUM 3.8 mmol/L (3.5-5.1)
[2016-07-03] MEDS: NIFEdipine (XL) 30 MG TAB PO SCH (09:00)
[2016-07-03] MEDS: LOSARTAN 50 MG TAB PO SCH (09:00)
[2016-07-03] MEDS: ASPIRIN (EC) 81 MG TAB PO SCH (09:01)
[2016-07-03] MEDS: HEPARIN 5,000 UNIT/0.5 ML VIAL SC SCH ×2 (09:02→21:16)
[2016-07-03] MEDS ORDERED: Vancomycin Oral Syringe PO (12:42)
--- NOTE | 2016-07-03 14:30 | PN ---
Date/Time of Note Date/Time of Note DATE: 07/03/16 TIME: 14:29 Assessment/Plan VTE Prophylaxis VTE Prophylaxis Intervention: SCD's Lines/Catheters IV Catheter Type (from [facility]): Saline Lock Urinary Cath still in place: No Assessment/Plan Chief Complaint/Hosp Course ASSESSMENT AND PLAN: - Influenza B. Completed Tamiflu. Dr. Salgado is following in infectious disease consultation. - C. difficile colitis, continue p.o. Vanco. Contact isolation. - End-stage renal disease hemodialysis dependent. Continue hemodialysis per nephrology. Dr. Rios is following the patient in nephrology consultation. - Diabetes mellitus type 2. Continue Lantus and NovoLog. - Hypertension. Continue atenolol and Cozaar. - Anemia of chronic disease, continue on Epogen. Anticipate discharge home patient cleared by physical therapy Continue heparin for deep venous thrombosis prophylaxis and Pepcid for peptic ulcer disease prophylaxis. Further recommendations based on clinical course. Plan of care discussed with Dr. Patiño. Problems: Subjective 24 Hr Interval Summary Free Text/Dictation Patient status post hemodialysis today, wants to go home, denies any diarrhea. Exam/Review of Systems Vital Signs Vitals Vital Signs Date Time Temp Pulse Resp B/P Pulse Ox O2 Delivery O2 Flow Rate FiO2 07/03/16 12:22 60 07/03/16 12:13 16 07/03/16 11:30 98.0 120/56 95 Intake and Output 07/02/16 07/02/16 07/03/16 15:00 23:00 07:00 Intake Total 100 ml 900 ml 600 ml Balance 100 ml 900 ml 600 ml Exam GENERAL: Well-developed, well-nourished female who currently is awake, alert. HEENT: Head is atraumatic, normocephalic. PERRLA. NECK: Supple, no cervical lymphadenopathy, no thyromegaly. LUNGS: Clear bilaterally. Slightly diminished at the bases. CARDIOVASCULAR: Normal S1, S2. No murmurs, gallops, clicks, or rubs noted. ABDOMEN: Round, soft, nondistended, nontender. Bowel sounds present. There is no guarding, no rebound tenderness. EXTREMITIES: There is no edema, clubbing, cyanosis. Pulses equal bilaterally 2 +. Left upper extremity with AV fistula with palpable thrill and audible bruit. SKIN: There is no rash, petechiae. NEUROLOGIC: The patient is awake, alert, and oriented x4 Results Result Diagram: 07/03/16 0635 07/03/16 0635 Results 24 hrs Laboratory Tests Test 07/02/16 17:13 07/02/16 20:03 07/03/16 06:35 07/03/16 08:04 Bedside Glucose 153 143 76 White Blood Count 7.2 Red Blood Count 3.03 L Hemoglobin 9.6 L Hematocrit 30.6 L Mean Corpuscular Volume 101.0 Mean Corpuscular Hemoglobin 31.7 Mean Corpuscular Hemoglobin Concent 31.4 L Red Cell Distribution Width 16.2 H Platelet Count 145 Mean Platelet Volume 9.9 Neutrophils % 66.6 Lymphocytes % 19.9 Monocytes % 10.5 Eosinophils % 1.5 Basophils % 0.1 Nucleated Red Blood Cells % 0.0 Neutrophils # 4.8 Lymphocytes # 1.4 Monocytes # 0.8 Eosinophils # 0.1 Basophils # 0.0 Nucleated Red Blood Cells # 0.0 Sodium Level 137 Potassium Level 3.8 Chloride Level 105 Carbon Dioxide Level 20 L Anion Gap 16 Blood Urea Nitrogen 39 #H Creatinine 7.70 #H Glucose Level 81 # Calcium Level 8.3 L Test 07/03/16 12:20 Bedside Glucose 125 Medications Medications Current Medications Ondansetron HCl (Zofran Inj) 4 mg Q6H PRN IV NAUSEA AND/OR VOMITING; Start at 13:30 Acetaminophen (Tylenol Tab) 650 mg Q6H PRN PO PAIN LEVEL 1-3 OR FEVER Last administered on 06/26/16 20:44; Admin Dose 650 MG; Start 06/21/16 at 13:30 Morphine Sulfate (morphine) 2 mg Q4H PRN IV SEVERE PAIN LEVEL 7-10 Last administered on 06/29/16 01:23; Admin Dose 2 MG; Start 06/21/16 at 13:30 Docusate Sodium (Colace) 100 mg Q12H PRN PO CONSTIPATION; Start 06/21/16 at 13: 30 Famotidine (Pepcid) 20 mg Q24H PO Last administered on 07/02/16 20:34; Admin Dose 20 MG; Start 06/21/16 at 21:00 Heparin Sodium (Porcine) (Heparin (5000 Units/0.5 ml)) 5,000 unit Q12 SC Last administered on 07/03/16 09:02; Admin Dose 5,000 UNIT; Start 06/21/16 at 21:00 Aspirin (Halfprin) 81 mg DAILY PO Last administered on 07/03/16 09:01; Admin Dose 81 MG; Start 06/22/16 at 09:00 Losartan Potassium (Cozaar) 50 mg DAILY PO Last administered on 07/02/16 08:50 ; Admin Dose 50 MG; Start 06/22/16 at 09:00 Insulin Glargine (Lantus) 12 unit DAILY@20 SC Last administered on 07/02/16 20 :33; Admin Dose 12 UNIT; Start 06/21/16 at 20:00 Miscellaneous Information 1 ea NOTE XX ; Start 06/21/16 at 14:30 Glucose (Glutose) 15 gm Q15M PRN PO DECREASED GLUCOSE; Start 06/21/16 at 14:30 Glucose (Glutose) 22.5 gm Q15M PRN PO DECREASED GLUCOSE; Start 06/21/16 at 14: 30 Dextrose (D50w Syringe) 25 ml Q15M PRN IV DECREASED GLUCOSE; Start 06/21/16 at 14:30 Dextrose (D50w Syringe) 50 ml Q15M PRN IV DECREASED GLUCOSE; Start 06/21/16 at 14:30 Glucagon (Glucagen) 1 mg Q15M PRN IM DECREASED GLUCOSE; Start 06/21/16 at 14:30 Glucose (Glutose) 15 gm Q15M PRN BUCCAL DECREASED GLUCOSE; Start 06/21/16 at 14 :30 Diagnostic Test (Pha) (Accu-Chek) 1 ea 02 XX Last administered on 06/25/16 02: 00; Admin Dose 1 EA; Start 06/22/16 at 02:00 Epoetin Ishan (Epogen (Esrd)) 6,000 units MoWeFr@17 SC Last administered on 06/30 17:33; Admin Dose 6,000 UNITS; Start 06/23/16 at 17:00 Phenol (Cepastat Lozenge) 1 lozenge Q3 PRN MT COUGH; Start 06/24/16 at 14:00 Guaifenesin/ Dextromethorphan (Robitussin Dm Liquid Cup) 5 ml Q4H PRN PO COUGH Last administered on 06/27/16 02:21; Admin Dose 5 ML; Start 06/24/16 at 14:00 Diphenoxylate HCl/ Atropine (Lomotil) 2 tab Q6H PRN PO DIARRHEA Last administered on 06/27/16 08:57; Admin Dose 2 TAB; Start 06/27/16 at 08:51 Hydralazine HCl (Apresoline) 25 mg Q6H PRN PO SBP ABOVE 160; Start 06/27/16 at 12:30 Nifedipine (Procardia Xl) 30 mg DAILY PO Last administered on 07/02/16 08:50; Admin Dose 30 MG; Start 06/28/16 at 09:00 Vancomycin HCl (Vancomycin Oral Syringe) 250 mg Q6 PO Last administered on 05:41; Admin Dose 250 MG; Start 06/27/16 at 18:00 JOCELYN SWAIN July 03, 2016 14:30
--- NOTE | 2016-07-03 16:01 | PN ---
DATE: 07/03/2016 SUBJECTIVE: No acute changes. The patient is alert in hemodialysis. Denies pain, discomfort. Manohar es diarrhea. No fevers. INDWELLINGS: Left upper extremity AV fistula. PHYSICAL EXAMINATION: GENERAL: Well-developed, elderly woman who is alert, in no distress. HEENT: Head atraumatic, normocephalic. Sclerae anicteric. Buccal mucosa pink, dry. NECK: Supple. CHEST: Rise symmetrical. Breath sounds diminished to bases. HEART: S1, S2. ABDOMEN: Soft. Bowel tones present. ASSESSMENT: 1. Clostridium difficile colitis. 2. Status post influenza B virus.. 3. End-stage renal disease, hemodialysis dependent. 4. Diabetes. 5. Hypertension. PLAN: The patient remains stable. We are going to discontinue Flagyl, keep her on oral vancomycin, and anticipate discharging her on oral vancomycin to complete a 2 week course for C. difficile. Dictated By: WELLINGTON KRAFT YOUTH NUTRITIONAL MONITOR for AUDREY ZURITA/BOBBI Conf#: [id number] DID#: [id number]
[2016-07-03] MEDS: EPOETIN 3000 UNITS/1 ML INJ (ESRD) SC SCH (17:38)
--- NOTE | 2016-07-03 19:45 | CONS ---
Date/Time of Note Date/Time of Note DATE: 07/03/16 TIME: 19:42 Assessment/Plan Assessment/Plan Chief Complaint/Hosp Course BP under control Lab work noted Problems: Additional Assessment/Plan Pt had HD without problem today Consultation Date/Type/Reason Admit Date/Time Jun 20, 2016 at 22:24 Initial Consult Date 06/21/16 Type of Consultation: renal Referring Provider: MICHAEL CAMPBELL MD 24 HR Interval Summary Free Text/Dictation Clinically unchanged Exam/Review of Systems Vital Signs Vitals Vital Signs Date Time Temp Pulse Resp B/P Pulse Ox O2 Delivery O2 Flow Rate FiO2 07/03/16 16:22 69 07/03/16 15:48 98.9 18 169/74 95 Intake and Output 07/02/16 07/02/16 07/03/16 15:00 23:00 07:00 Intake Total 100 ml 900 ml 600 ml Balance 100 ml 900 ml 600 ml Exam Constitutional: alert, oriented, well developed Psych: nl mood/affect, no complaints Head: atraumatic, normocephalic Eyes: EOMI, PERRL, nl conjunctiva, nl lids, nl sclera ENMT: nl external ears & nose, nl lips & teeth, nl nasal mucosa & septum Neck: non-tender, supple Respiratory: clear to auscultation, normal air movement Cardiovascular: nl pulses, regular rate and rhythm Gastrointestinal: nl liver, spleen, non-tender, soft Musculoskeletal: nl extremities to inspection, nl gait and stance Extremities: normal pulses, other (AVF bruit present) Neurological: CARD LACER II-XII intact, nl mental status, nl speech, nl strength Skin: nl turgor, No rash or lesions Lymph: nl lymph nodes Results WBC remains nl, Cemistry, Hct stable Result Diagram: 07/03/16 0635 07/03/16 0635 Results 24 hrs Laboratory Tests Test 07/02/16 20:03 07/03/16 06:35 07/03/16 08:04 07/03/16 12:20 Bedside Glucose 143 76 125 White Blood Count 7.2 Red Blood Count 3.03 L Hemoglobin 9.6 L Hematocrit 30.6 L Mean Corpuscular Volume 101.0 Mean Corpuscular Hemoglobin 31.7 Mean Corpuscular Hemoglobin Concent 31.4 L Red Cell Distribution Width 16.2 H Platelet Count 145 Mean Platelet Volume 9.9 Neutrophils % 66.6 Lymphocytes % 19.9 Monocytes % 10.5 Eosinophils % 1.5 Basophils % 0.1 Nucleated Red Blood Cells % 0.0 Neutrophils # 4.8 Lymphocytes # 1.4 Monocytes # 0.8 Eosinophils # 0.1 Basophils # 0.0 Nucleated Red Blood Cells # 0.0 Sodium Level 137 Potassium Level 3.8 Chloride Level 105 Carbon Dioxide Level 20 L Anion Gap 16 Blood Urea Nitrogen 39 #H Creatinine 7.70 #H Glucose Level 81 # Calcium Level 8.3 L Test 07/03/16 16:59 Bedside Glucose 103 Medications Medications Current Medications Ondansetron HCl (Zofran Inj) 4 mg Q6H PRN IV NAUSEA AND/OR VOMITING; Start at 13:30 Acetaminophen (Tylenol Tab) 650 mg Q6H PRN PO PAIN LEVEL 1-3 OR FEVER Last administered on 06/26/16 20:44; Admin Dose 650 MG; Start 06/21/16 at 13:30 Morphine Sulfate (morphine) 2 mg Q4H PRN IV SEVERE PAIN LEVEL 7-10 Last administered on 06/29/16 01:23; Admin Dose 2 MG; Start 06/21/16 at 13:30 Docusate Sodium (Colace) 100 mg Q12H PRN PO CONSTIPATION; Start 06/21/16 at 13: 30 Famotidine (Pepcid) 20 mg Q24H PO Last administered on 07/02/16 20:34; Admin Dose 20 MG; Start 06/21/16 at 21:00 Heparin Sodium (Porcine) (Heparin (5000 Units/0.5 ml)) 5,000 unit Q12 SC Last administered on 07/03/16 09:02; Admin Dose 5,000 UNIT; Start 06/21/16 at 21:00 Aspirin (Halfprin) 81 mg DAILY PO Last administered on 07/03/16 09:01; Admin Dose 81 MG; Start 06/22/16 at 09:00 Losartan Potassium (Cozaar) 50 mg DAILY PO Last administered on 07/02/16 08:50 ; Admin Dose 50 MG; Start 06/22/16 at 09:00 Insulin Glargine (Lantus) 12 unit DAILY@20 SC Last administered on 07/02/16 20 :33; Admin Dose 12 UNIT; Start 06/21/16 at 20:00 Miscellaneous Information 1 ea NOTE XX ; Start 06/21/16 at 14:30 Glucose (Glutose) 15 gm Q15M PRN PO DECREASED GLUCOSE; Start 06/21/16 at 14:30 Glucose (Glutose) 22.5 gm Q15M PRN PO DECREASED GLUCOSE; Start 06/21/16 at 14: 30 Dextrose (D50w Syringe) 25 ml Q15M PRN IV DECREASED GLUCOSE; Start 06/21/16 at 14:30 Dextrose (D50w Syringe) 50 ml Q15M PRN IV DECREASED GLUCOSE; Start 06/21/16 at 14:30 Glucagon (Glucagen) 1 mg Q15M PRN IM DECREASED GLUCOSE; Start 06/21/16 at 14:30 Glucose (Glutose) 15 gm Q15M PRN BUCCAL DECREASED GLUCOSE; Start 06/21/16 at 14 :30 Diagnostic Test (Pha) (Accu-Chek) 1 ea 02 XX Last administered on 06/25/16 02: 00; Admin Dose 1 EA; Start 06/22/16 at 02:00 Epoetin Ishan (Epogen (Esrd)) 6,000 units MoWeFr@17 SC Last administered on 17:38; Admin Dose 6,000 UNITS; Start 06/23/16 at 17:00 Phenol (Cepastat Lozenge) 1 lozenge Q3 PRN MT COUGH; Start 06/24/16 at 14:00 Guaifenesin/ Dextromethorphan (Robitussin Dm Liquid Cup) 5 ml Q4H PRN PO COUGH Last administered on 06/27/16 02:21; Admin Dose 5 ML; Start 06/24/16 at 14:00 Diphenoxylate HCl/ Atropine (Lomotil) 2 tab Q6H PRN PO DIARRHEA Last administered on 06/27/16 08:57; Admin Dose 2 TAB; Start 06/27/16 at 08:51 Hydralazine HCl (Apresoline) 25 mg Q6H PRN PO SBP ABOVE 160; Start 06/27/16 at 12:30 Nifedipine (Procardia Xl) 30 mg DAILY PO Last administered on 07/02/16 08:50; Admin Dose 30 MG; Start 06/28/16 at 09:00 Vancomycin HCl (Vancomycin Oral Syringe) 250 mg Q6 PO Last administered on 5/1/ 17at 17:37; Admin Dose 250 MG; Start 06/27/16 at 18:00 QUYNH DELGADILLO MD July 03, 2016 19:45
[2016-07-03] MEDS: FAMOTIDINE 20 MG TAB PO SCH (21:14)
[2016-07-03] MEDS: INSULIN GLARGINE [LANtus] 3 ML PEN SC SCH (21:16)
[2016-07-03] MEDS: ACETAMINOPHEN 325 MG TAB PO PRN (21:28)
[2016-07-04] VITALS (7 sets, daily range): BP systolic 133–147; BP diastolic 58–63; PULSE 59–60; RESP 18–20
[2016-07-04] MEDS: ACCU-CHEK XX SCH (02:22)
[2016-07-04] MEDS: VANCOMYCIN HCL 250 MG/5ML POSYG PO SCH ×2 (06:21→12:34)
[2016-07-04] MEDS: INSULIN ASPART [NOVOLOG] 3 ML PEN SC SCH ×2 (07:57→12:39)
[2016-07-04] MEDS: NIFEdipine (XL) 30 MG TAB PO SCH (08:39)
[2016-07-04] MEDS: LOSARTAN 50 MG TAB PO SCH (08:39)
[2016-07-04] MEDS: ASPIRIN (EC) 81 MG TAB PO SCH (08:39)
[2016-07-04] MEDS: HEPARIN 5,000 UNIT/0.5 ML VIAL SC SCH (08:43)
--- NOTE | 2016-07-04 12:52 | PN ---
DATE: SUBJECTIVE: No acute changes. The patient is alert, feels good, looks comfortable, no fevers. No labs today. ANTIMICROBIALS: She remains on oral vancomycin. INDWELLINGS: Left upper extremity AV fistula. PHYSICAL EXAMINATION: GENERAL: Fragile, elderly woman who is alert, in no distress. HEENT: Head atraumatic, normocephalic. Sclerae anicteric. Buccal mucosa dry. NECK: Supple. CHEST: Rise symmetrical. Breath sounds clear. HEART: S1, S2. ABDOMEN: Soft, bowel tones present. EXTREMITIES: Without cyanosis. ASSESSMENT: 1. Clostridium difficile colitis. 2. Status post influenza B virus. 3. End-stage renal disease. 4. Diabetes. 5. Hypertension. PLAN: The patient remains stable. Continue present care. Anticipate discharge on oral vancomycin. Dictated By: WELLINGTON KRAFT TOWER ERECTOR HELPER for AUDREY ZURITA/BOBBI Conf#: [id number] DID#: [id number]
--- NOTE | 2016-07-04 14:07 | PN ---
Date/Time of Note Date/Time of Note DATE: 07/04/16 TIME: 14:06 Assessment/Plan VTE Prophylaxis VTE Prophylaxis Intervention: SCD's Lines/Catheters IV C[facility] Type [facility]from [facility] Saline Lock Urinary Cath still in place: No Assessment/Plan Chief Complaint/Hosp Course ASSESSMENT AND PLAN: - Influenza B. Completed Tamiflu. Dr. Salgado is following in infectious disease consultation. - C. difficile colitis, continue p.o. Vanco. Contact isolation. - End-stage renal disease hemodialysis dependent. Continue hemodialysis per nephrology. Dr. Rios is following the patient in nephrology consultation. - Diabetes mellitus type 2. Continue Lantus and NovoLog. - Hypertension. Continue atenolol and Cozaar. - Anemia of chronic disease, continue on Epogen. Anticipate discharge home patient cleared by physical therapy Continue heparin for deep venous thrombosis prophylaxis and Pepcid for peptic ulcer disease prophylaxis. Further recommendations based on clinical course. Plan of care discussed with Dr. Patiño. Problems: Exam/Review of Systems Vital Signs Vitals Vital Signs Date Time Temp Pulse Resp B/P Pulse Ox O2 Delivery O2 Flow Rate FiO2 07/04/16 12:25 98.2 71 18 133/63 100 Intake and Output 07/03/16 07/03/16 07/04/16 15:00 23:00 07:00 Intake Total 600 ml 470 ml Output Total 3000 ml Balance -2400 ml 470 ml Exam GENERAL: Well-developed, well-nourished female who currently is awake, alert. HEENT: Head is atraumatic, normocephalic. PERRLA. NECK: Supple, no cervical lymphadenopathy, no thyromegaly. LUNGS: Clear bilaterally. Slightly diminished at the bases. CARDIOVASCULAR: Normal S1, S2. No murmurs, gallops, clicks, or rubs noted. ABDOMEN: Round, soft, nondistended, nontender. Bowel sounds present. There is no guarding, no rebound tenderness. EXTREMITIES: There is no edema, clubbing, cyanosis. Pulses equal bilaterally 2 +. Left upper extremity with AV fistula with palpable thrill and audible bruit. SKIN: There is no rash, petechiae. NEUROLOGIC: The patient is awake, alert, and oriented x4 Results Result Diagram: 07/03/16 0635 07/03/16 0635 Results 24 hrs Laboratory Tests Test 07/03/16 16:59 07/03/16 21:12 07/04/16 02:22 07/04/16 07:55 Bedside Glucose 103 205 145 110 Test 07/04/16 12:32 Bedside Glucose 154 JOCELYN SWAIN July 04, 2016 14:07
--- NOTE | 2016-07-04 21:52 | CONS ---
Date/Time of Note Date/Time of Note DATE: 07/04/16 TIME: 21:50 Assessment/Plan Assessment/Plan Chief Complaint/Hosp Course BP under control Lab work noted Problems: Additional Assessment/Plan DC plans noted, pt will be closely followed at dialysis ctr Consultation Date/Type/Reason Admit Date/Time Jun 20, 2016 at 22:24 Initial Consult Date 06/21/16 Type of Consultation: renal Referring Provider: MICHAEL CAMPBELL MD 24 HR Interval Summary Free Text/Dictation Pt continues to do well Constitutional: improved, no complaints Exam/Review of Systems Vital Signs Vitals Vital Signs Date Time Temp Pulse Resp B/P Pulse Ox O2 Delivery O2 Flow Rate FiO2 07/04/16 12:25 98.2 71 18 133/63 100 Intake and Output 07/03/16 07/03/16 07/04/16 15:00 23:00 07:00 Intake Total 600 ml 470 ml Output Total 3000 ml Balance -2400 ml 470 ml Exam Constitutional: alert, oriented, well developed Psych: nl mood/affect, no complaints Head: atraumatic, normocephalic Eyes: EOMI, PERRL, nl conjunctiva, nl lids, nl sclera ENMT: nl external ears & nose, nl lips & teeth, nl nasal mucosa & septum Neck: non-tender, supple Respiratory: clear to auscultation, normal air movement Cardiovascular: nl pulses, regular rate and rhythm Gastrointestinal: nl liver, spleen, non-tender, soft Musculoskeletal: nl extremities to inspection, nl gait and stance Extremities: normal pulses, other (avf in place) Neurological: TEXTILE MACHINERY SALES REPRESENTATIVE II-XII intact, nl mental status, nl speech, nl strength Skin: nl turgor, No rash or lesions Lymph: nl lymph nodes Results Result Diagram: 07/03/16 0635 07/03/16 0635 Results 24 hrs Laboratory Tests Test 07/04/16 02:22 07/04/16 07:55 07/04/16 12:32 07/04/16 19:12 Bedside Glucose 145 110 154 Lab Scanned Report BLOOD TRANSFUSION QUYNH DELGADILLO MD July 04, 2016 21:52
== END 2016-07-04 13:51 | disposition home health service (06) | DRG 193 ==
LOC: E/R 17:50 → MS2 22:24 → MS4 06-27 09:23
PROVIDERS: ADMIT Internal Medicine; ATTEND Internal Medicine
PROC: 5A1D60Z (ICD-10-PCS; principal; 2016-06-21)
DX: J10.1 Influenza due to other identified influenza virus with other respiratory manifestations (principal); N18.6 End stage renal disease; I13.2 Hypertensive heart and chronic kidney disease with heart failure and with stage 5 chronic kidney disease, or end stage renal disease; A04.7 Enterocolitis due to Clostridium difficile; E11.22 Type 2 diabetes mellitus with diabetic chronic kidney disease; Z99.2 Dependence on renal dialysis; D63.8 Anemia in other chronic diseases classified elsewhere; E87.6 Hypokalemia; E83.51 Hypocalcemia; I50.9 Heart failure, unspecified
CPT/HCPCS: 36415; 36430; 71010; 71020; 74176; 80048; 80053; 82962; 83605; 84484; 85018; 85025; 85610; 85730; 86850; 86900; 86901; 86920; 87040; 87075; 87400; 90935; 93005; 96365; 96366; 96367; 97162; J0360; J0692; J0886; J1644; J1815; J2270; J3370; J7030; P9016

== ENCOUNTER 2018-01-12 11:45 | Inpatient (IN) | END 2018-01-17 18:15 | disposition home or self-care (01) | DRG 638 ==

== ENCOUNTER → 2018-02-12 | Outpatient (CLI) | END | disposition home or self-care (01) ==

== ENCOUNTER 2018-02-15 11:29 | Inpatient (IN) | payer MEDICARE, OTHER ==
[~2018-02-15] VITALS: Ht 157.5 cm; Wt 60.7 kg
[2018-02-15] VITALS (22 sets, daily range): BP systolic 97–140; BP diastolic 43–68; PULSE 54–88; RESP 12–26; Ht 157.5 cm; Wt 60.7 kg
[~2018-02-15 11:29] MED LIST changes: -ACET-2158 PO; -AMIT25TA9 PO; +ASPI-1046 PO; -ASPI-664 PO; -CLON0.2T5 PO; -HYDR-3672 PO; +INSU100I22 SC; +LEVO250T22 PO; -LOSA50TA6 PO; +NIFEdipine (XL) PO; -NOVO3I SC
[2018-02-15] MEDS ORDERED: ISM20 PO (13:27)
--- NOTE | 2018-02-15 13:50 | PREAC ---
Date/Time of Note Date/Time of Note DATE: 02/15/18 TIME: 13:44 Anesthesia Eval and Record Evaluation Time Pre-Procedure Interview DATE: 02/15/18 TIME: 13:44 Age 72 Sex female NPO: 8 hrs Preoperative diagnosis Severe right ankle Charcot deformity Planned procedure Application of external fixation right lower extremity with stabilization of Charcot Past Medical History Past Medical History: Includes Cardio: HTN, Dyslipidemia Endo: Diabetes Renal: ESRD on dialysis Heme: Anemia Surgery & Anesthesia Issues No known issue Meds Anticoagulation: No Beta Anais within 24 hr: Yes Active Scripts Levofloxacin* (Levaquin*) 250 Mg Tablet, 250 MG PO Q48H for 30 Days, TAB Prov:JOCELYN SWAIN 01/17/18 Diphenoxylate HCl/Atropine (Diphenoxylate-Atrop 2.5-0.025) 1 Each Tablet, 2 TAB PO QAM PRN for DIARRHEA, #30 TAB Prov:JOCELYN SWAIN 01/17/18 [NIFEdipine (XL)] 30 MG TABSR No Conflict Check, 30 MG PO BID for 30 Days Prov:JOCELYN SWAIN 01/17/18 Reported Medications Isosorbide Mononitrate* (Isosorbide Mononitrate*) 20 Mg Tablet, 20 MG PO DAILY, TAB 02/15/18 Insulin Aspart (Novolog FlexPen) 100 Unit/1 Ml Insuln.pen, 0 SC SLIDING SCALE AC, EA 06/20/16 Insulin Glargine* (Lantus*) 100 Unit/Ml Soln, 12 UNIT SC QHS, #1 VIAL 04/21/16 Aspirin* (Aspirin* (EC)) 81 Mg Tablet.dr, 81 MG PO DAILY, TAB 11/17/14 Atenolol* (Atenolol*) 50 Mg Tablet, 50 MG PO BID 09/24/12 Meds reviewed: Yes Allergies Coded Allergies: No Known Allergy (Unverified , 01/10/18) Allergies Reviewed: Yes Labs/Studies Labs Reviewed: Reviewed by anesthesiologist Result Diagram: 02/15/18 1245 Laboratory Tests 02/15/18 12:45 test: N/A Studies: ECG (RBBB), CXR (Negative) Pre-procedure Exam Last vitals Vital Signs Date Temp Pulse Resp B/P (MAP) Pulse Ox O2 O2 Flow FiO2 Time Delivery Rate 02/15/18 97.5 60 18 122/66 100 13:24 (84) Airway: Adequate mouth opening Mallampati: Mallampati I Teeth: Abnormal (Six teeth left) Lung: Normal Heart: Normal ASA Physical Status ASA physical status: 3 Emergency: None Planned Anesthetic General/MAC: ETT, LMA Planned Pain Management Single shot nerve block, Parenteral pain med Pre-operative Attestations Prior to commencing anesthesia and surgery, the patient was re-evaluated, there was verification of: *The patient's identity *The results of appropriate recent lab work and preoperative vital signs *The above evaluation not changing prior to induction *Anesthetic plan, risk benefits, alternative and complications discussed with patient/family; questions answered; patient/family understands, accepts and wishes to proceed. ELBERT MEJIA MD Feb 15, 2018 13:50
[2018-02-15] MEDS ORDERED: PROPOFOL 20 ML ONE (14:03)
[2018-02-15] MEDS ORDERED: CEFAZOLIN 1 GM INJ ONE (14:03)
[2018-02-15] MEDS ORDERED: LIDOCAINE 2% (SDV) 5 ML INJ ONE (14:03)
[2018-02-15] MEDS ORDERED: ROPIVACAINE 0.5 % 30 ML VIAL ONE (14:04)
[2018-02-15] MEDS ORDERED: MIDAZOLAM 1 MG/ML 2 ML INJ ONE (14:04)
[2018-02-15] MEDS ORDERED: METOCLOPRAMIDE 10 MG INJ ONE (14:04)
[2018-02-15] MEDS ORDERED: ONDANSETRON 4 MG INJ ONE (14:04)
[2018-02-15] MEDS ORDERED: BUPIVACAINE 0.5% (SDV) 30 ML INJ ONE (14:16)
[2018-02-15] MEDS ORDERED: ATROPINE 1 MG/10 ML SYRINGE ONE (15:18)
[2018-02-15] MEDS ORDERED: EPHEDrine SULFATE 50 MG/5 ML SYG ONE (15:18)
[2018-02-15] MEDS ORDERED: POLYMYXIN/BACITRACIN 1L IRRIG ONE (15:19)
[2018-02-15] MEDS ORDERED: ROCURONIUM 50 MG INJ ONE (16:34)
[2018-02-15] MEDS ORDERED: SUCCINYLCHOLINE CHLORIDE 100 MG/5 ML SYG IV ONE (16:34)
--- NOTE | 2018-02-15 16:34 | SIPON ---
Date/Time of Note Date/Time of Note DATE: 02/15/18 TIME: 16:33 Operative Report Preoperative Diagnosis Severe Charcot foot and ankle RIGHT Open chronic wound of the right foot Diabetes mellitus with peripheral neuropathy Right foot infection Postoperative Diagnosis Severe Charcot foot and ankle RIGHT Open chronic wound of the right foot Diabetes mellitus with peripheral neuropathy Right foot infection Operation/Procedure Performed Application of external fixation of the right lower extremity Debridement of open wound to bleeding bone Intra operative use and interpretation of fluoroscopy Surgeon see signature line visitor services information assistant None Anesthesia: general Estimated blood loss: 0 - 10 ml's Transfusion Required none Specimen None Grafts/Implants none Complications none RODRIGO ROTHMAN DPM Feb 15, 2018 16:34
--- NOTE | 2018-02-15 16:35 | OPR ---
Date/Time of Note Date/Time of Note DATE: 02/15/18 TIME: 16:35 Operative Report Procedure Date: Feb 15, 2018 Preoperative Diagnosis Right foot severe Charcot deformity Right ankle severe Charcot deformity Open chronic wound of the right foot Peripheral vascular disease Peripheral neuropathy Diabetes mellitus Possible osteomyelitis of the right foot and ankle Postoperative Diagnosis Right foot severe Charcot deformity Right ankle severe Charcot deformity Open chronic wound of the right foot Peripheral vascular disease Peripheral neuropathy Diabetes mellitus Possible osteomyelitis of the right foot and ankle Operation/Procedure Performed Stabilization of severe right foot and ankle Charcot deformities with application of external fixation devices Intraoperative use and interpretation of fluoroscopy Surgeon see signature line Archivist Political History None Anesthesia Type: general Estimated Blood Loss: 0 - 10 ml's Transfusion none Specimen None Grafts/Implants none Tubes/Drains None Complications none Pt Condition Post Procedure: stable Disposition: PACU Indications This is a pleasant 72-year-old female patient who has been suffering with severe right foot and ankle Charcot deformity with open wound, worsening for the past few months and hospitalized for the same problem more than once. She has been identified to have very unstable Charcot changes to her rear foot and ankle complex with destructive joint disease and bone destruction involving the talus, navicular and calcaneus, requiring stabilization with external fixation. Risks and complications of this type of surgery was discussed with patient in great detail. Risks and complications discussed include, but are not limited to, postoperative infection, postoperative pain, chronic pain and disability, hardware failure, malunion, nonunion, delayed union, failure of surgery to correct the problem, need for additional surgical procedures, toenail changes, onychomycosis, deep venous thrombosis, gait disturbance, problems with shoegear, limitation of activities, limb loss and loss of life. Patient understands the discussion and agrees to the procedure. An informed consent was obtained, signed and placed in the chart. No guarantee or warrantee was given or implied as to the outcome of the procedure either in verbal or written form. Procedure Description The patient was seen in the preoperative unit. The proposed surgery was discussed with patient in great detail. Risks and complications of this type of surgery was discussed with patient in great detail. Opportunity was given to patient to ask questions and all questions were answered. The patient acknowledges understanding of the discussion. An informed consent was then obtained, signed and placed in the chart. Patient was taken to the operating room and was placed on the operating table in the supine position. All bony prominences were padded properly. A timeout was called by the circulating nurse. Everyone in the operating room was agreeable to the timeout. The patient was then placed under [general anesthesia] by the anesthesiologist. The [right lower extremity] was scrubbed,l prepped, and draped in the usual aseptic manner. Intraoperative fluoroscopic pictures of the right leg, ankle and foot were obtained. A small incision was made over the anterior ankle using a #10 blade. The incision was deepened using blunt dissection into the ankle joint and there was significant amount of dark bloody drainage that was drained. Next, I started to proceed with the application of the external fixator. Proximal pins in the tibia were inserted followed by calcaneal pins. This provided primary application of the external fixation unit to the lower extremity. Next, the mid leg pins were inserted. All the wires were tensioned appropriately. Next, the forefoot wires were also inserted and tensioned accordingly. Using the external fixation device, I was able to reduce the Charcot deformity and stabilize the foot and ankle at a neutral position for both the ankle joint in the foot. Intraoperative fluoroscopic imaging was obtained and placement of pins were verified. Next, the right lower extremity was cleansed with sterile normal saline. All pin sites were covered with silver foam. The wound on the plantar aspect of the right foot was covered with Bactroban and sterile dressing. The patient received a right popliteal block prior to initiation of the case therefore no further block was necessary. Sterile dressing was applied over the external fixation device. Patient tolerated procedure and anesthesia well. She was transferred to the recovery with vital signs stable and vascular status intact to the right lower extremity. The patient will be observed for 24 hours and patient's primary physician was contacted. Patient will be followed in-house. RODRIGO ROTHMAN DPM Feb 15, 2018 16:35
--- NOTE | 2018-02-15 16:57 | PAC ---
Date/Time of Note Date/Time of Note DATE: 02/15/18 TIME: 16:57 Post-Anesthesia Notes Post-Anesthesia Note Last documented vital signs Vital Signs Date Temp Pulse Resp B/P (MAP) Pulse Ox O2 O2 Flow FiO2 Time Delivery Rate 02/15/18 97.5 60 18 122/66 100 13:24 (84) Activity: WNL Respiratory function: WNL Cardiovascular function: WNL Mental status: Baseline Pain reasonably controlled: Yes Hydration appropriate: Yes Nausea/Vomiting absent: Yes ELBERT MEJIA MD Feb 15, 2018 16:57
[2018-02-15] MEDS ORDERED: EPHEDrine SULFATE 50 MG/5 ML SYG IV PRN (17:00)
[2018-02-15] MEDS ORDERED: METOCLOPRAMIDE 10 MG INJ IV PRN (17:00)
[2018-02-15] MEDS ORDERED: LABETALOL HCL 20MG INJ IV PRN (17:00)
[2018-02-15] MEDS ORDERED: HYDROmorphONE 1 MG/5 ML IV SYRINGE IV PRN ×2 (17:00)
[2018-02-15] MEDS ORDERED: FENTAnyl 50 MCG/ML VIAL IV PRN ×2 (17:00)
[2018-02-15] MEDS ORDERED: MIDAZOLAM 1 MG/ML 2 ML INJ IV PRN (17:00)
[2018-02-15] MEDS ORDERED: DIPHENHYDRAMINE 50 MG INJ IV PRN (17:00)
[2018-02-15] MEDS ORDERED: ONDANSETRON 4 MG INJ IV PRN (17:00)
[2018-02-15] MEDS ORDERED: OXYCODONE/ACETAMINOPHEN (5/325) TAB PO PRN ×2 (17:00)
[2018-02-15] MEDS ORDERED: hydrALAzine 20 MG INJ IV PRN (17:00)
[2018-02-15] MEDS ORDERED: MEPERIDINE 25 MG INJ IV PRN (17:00)
[2018-02-15] MEDS ORDERED: GLUCOSE GEL 15 GRAM TUBE PO PRN ×2 (21:30)
[2018-02-15] MEDS ORDERED: GLUCAGON 1 MG INJ IM PRN (21:30)
[2018-02-15] MEDS ORDERED: DEXTROSE 50% 50 ML SYRINGE IV PRN ×2 (21:30)
[2018-02-15] MEDS: INSULIN ASPART [NOVOLOG] 3 ML PEN SC SCH (21:58)
[2018-02-15] MEDS: LORAZEPAM 0.5 MG TAB PO PRN (22:12)
[2018-02-16] MEDS ORDERED: DIPHENOXYLATE/ATROPINE TAB PO PRN
[2018-02-16] MEDS ORDERED: LEVOFLOXACIN 250 MG TAB PO SCH
[2018-02-16] MEDS ORDERED: LORAZEPAM 2 MG INJ IV ONE (00:30)
[2018-02-16] MEDS: ACCU-CHEK XX SCH (01:55)
--- NOTE | 2018-02-16 02:14 | HP ---
DATE OF ADMISSION: 02/15/2018 CHIEF COMPLAINT AND HISTORY OF PRESENT ILLNESS: The patient is a 72-year-old female with a history o f diabetes, hypertension, and end-stage renal disease on hemodialysis. The patient has a history of recurrent foot ulcer in the past and was recently admitted for right foot diabetic ulcer. The patien t is being followed by Dr. Rothman. The patient was seen by Dr. Rothman in his clinic on 02/12/2018. The patient also has severe Charcot joint. The patient's thorough examination revealed severe Ecorse t foot and ankle and right open chronic wound and infection. The patient was recommended to go to a shelter facility. The patient was admitted at [facility] recently and und erwent preoperative evaluation and admitted today for elective surgery by Dr. Rothman. The patient un derwent application of external fixation of the right lower extremity and debridement of the open wou nd. The patient is being admitted for further evaluation and management. The patient denied any his tory of chest pain or shortness of breath. The patient does have a history of chronic diarrhea for w hich she takes Lomotil. The patient has had extensive negative GI workup by Dr. Ruiz. The patient did not have any headache, dizziness, or syncope. No history of fever, chills, nausea, or vomiting. No history of abdominal pain. No history of leg edema. No history of any focal weakness. The pat ient does have generalized weakness. No history of seizure disorder. No history of CVA. The patien t does have postoperative pain. Rest of the review of systems was unremarkable. PAST MEDICAL HISTORY: As stated above. PAST SURGICAL HISTORY: The patient is status post left upper extremity AV fistula creation and subse quent removal of fistula by Dr. Sanchez a couple of months ago. The patient then subsequently had a ne w left upper extremity AV fistula creation. The patient also recently had left eye surgery, status p ost many years ago, status post cholecystectomy, status post I and D of perirectal abscess. FAMILY HISTORY: Noncontributory to patient's condition. SOCIAL HISTORY: The patient is currently a resident of [facility]/shelter facility. MEDICATION LIST: Reviewed. PHYSICAL EXAMINATION: GENERAL: The patient is awake, alert, fairly oriented. VITAL SIGNS: Temperature 98.1, pulse 58, respiration 20, blood pressure 100/48, O2 saturation 100% o n room air. HEENT: Atraumatic, normocephalic. Conjunctivae and lids normal. Oropharynx clear. NECK: Supple, no mass, no thyromegaly. CHEST: Fairly clear. CARDIOVASCULAR: S1, S2 normal, no murmur. ABDOMEN: Soft, nondistended, nontender. Bowel sounds plus. EXTREMITIES: No leg edema. NEUROLOGIC: The patient is awake, alert. Had generalized weakness. No gross focal deficit. Exam w as limited due to recent surgery. LABORATORY DATA: Recent labs: WBC 5, hemoglobin 9.8, platelet 115. Sodium 138, potassium 4.3, BUN ____, creatinine 4, glucose 145, calcium 9.6. IMPRESSION AND PLAN: 1. Chronic right foot wound. 2. Severe Charcot right foot and ankle. The patient will be continued on Levaquin as preoperatively she was getting it, which was prescribed by Dr. Rothman. The patient has no fever and has normal whi te count. 3. Diabetes. We will put patient on sliding scale insulin and we will continue Lantus. 4. Hypertension. The patient has sinus bradycardia; therefore, the patient was recently taken off b eta lien. We will continue Procardia. 5. Chronic diarrhea with negative gastrointestinal workup. Continue Lomotil on p.r.n. basis. 6. End-stage renal disease. Continue hemodialysis as per Dr. Jesus Zuñiga. 7. We will also obtain ID consultation with Dr. Salgado. 8. We will add Nephro-Yuko. Further recommendation will depend on patient's hospital course and recommendation from consultants. Dictated By: MICHAEL VILLAFANA/BOBBI Conf#: [id number] DID#: [id number] CC: RODRIGO ROTHMAN DPM;*EndCC*
[2018-02-16] MEDS: LEVOFLOXACIN 250 MG TAB PO SCH (05:30)
[2018-02-16 07:20] VITALS: BP 154/70; PULSE 68; RESP 16
[2018-02-16] MEDS: NIFEdipine (XL) 30 MG TAB PO SCH ×2 (08:41→21:16)
[2018-02-16] MEDS: ASPIRIN (EC) 81 MG TAB PO SCH (08:41)
[2018-02-16] MEDS: MULTIVIT/CA CARB/B CMPLX/FA TAB PO SCH (08:41)
[2018-02-16] MEDS: INSULIN ASPART [NOVOLOG] 3 ML PEN SC SCH ×4 (08:43→21:00)
[2018-02-16] MEDS: DIPHENOXYLATE/ATROPINE TAB PO PRN (08:48)
[2018-02-16] MEDS ORDERED: ISOSORBIDE MONONITRATE 20 MG TAB PO SCH (09:00)
[2018-02-16] MEDS ORDERED: ATENOLOL 50 MG TAB PO SCH (09:00)
--- NOTE | 2018-02-16 11:57 | PN ---
Date/Time of Note Date/Time of Note DATE: 02/16/18 TIME: 11:56 Assessment/Plan VTE Prophylaxis Risk score (from Ns)>0 risk: 3 [place] [facility] [place] contraindicated: other Pharmacological prophylaxis: LMWH Lines/Catheters IV [facility]ter Type [facility]from [facility] Saline Lock Urinary Cath still in place: No Assessment/Plan Hospital Course 1. Chronic right foot wound. 2. Severe Charcot right foot and ankle. The patient will be continued on Levaquin as preoperatively she was getting it, which was prescribed by Dr. Freitas. The patient has no fever and has normal white count. 3. Diabetes. We will put patient on sliding scale insulin and we will continue Lantus. 4. Hypertension. The patient has sinus bradycardia; therefore, the patient was recently taken off beta lien. We will continue Procardia. 5. Chronic diarrhea with negative gastrointestinal workup. Continue Lomotil on p.r.n. basis. 6. End-stage renal disease. Continue hemodialysis as per Dr. Jesus Zuñiga. 7. We will also obtain ID consultation with Dr. Salgado. 8. We will add Nephro-Yuko. Subjective 24 Hr Interval Summary Free Text/Dictation Patient has pain in foot Exam/Review of Systems Vital Signs Vitals Vital Signs Date Temp Pulse Resp B/P (MAP) Pulse Ox O2 O2 Flow FiO2 Time Delivery Rate 02/16/18 98.0 68 16 154/70 98 Room Air 07:20 (98) Intake and Output 02/15/18 02/15/18 02/16/18 1515:00 23:00 07:00 IntakeIntake Total 690 ml 200 ml OutputOutput Total 5 ml BalanceBalance 685 ml 200 ml Exam Constitutional: well developed Head: normocephalic, atraumatic Neck: supple Respiratory: clear to auscultation Cardiovascular: regular rate and rhythm Gastrointestinal: soft, non-tender Extremities: normal pulses Medications Medications Current Medications Diagnostic Test (Pha) (Accu-Chek) 1 ea 02 XX ; Start 02/16/18 at 02:00 Insulin Aspart (Novolog Insulin Pen) NOVOLOG *MILD* ALGORITHM WITH MEALS BEDTIME SC Last administered on 02/16/18at 08:43; Admin Dose 2 UNIT; Start 02/15/18 at 22:00 Miscellaneous Information 1 ea NOTE XX ; Start 02/15/18 at 21:30 Glucose (Glutose) 15 gm Q15M PRN PO DECREASED GLUCOSE; Start 02/15/18 at 21:30 Glucose (Glutose) 22.5 gm Q15M PRN PO DECREASED GLUCOSE; Start 02/15/18 at 21:30 Dextrose (D50w Syringe) 25 ml Q15M PRN IV DECREASED GLUCOSE; Start 02/15/18 at 21:30 Dextrose (D50w Syringe) 50 ml Q15M PRN IV DECREASED GLUCOSE; Start 02/15/18 at 21:30 Glucagon (Glucagen) 1 mg Q15M PRN IM DECREASED GLUCOSE; Start 02/15/18 at 21:30 Glucose (Glutose) 15 gm Q15M PRN BUCCAL DECREASED GLUCOSE; Start 02/15/18 at 21:30 Lorazepam (Ativan) 0.5 mg BID PRN PO ANXIETY Last administered on 02/15/18at 22:12; Admin Dose 0.5 MG; Start 02/15/18 at 22:00 Aspirin (Halfprin) 81 mg DAILY PO Last administered on 02/16/18at 08:41; Admin Dose 81 MG; Start 02/16/18 at 09:00 Insulin Glargine (Lantus) 12 units QHS SC ; Start 02/16/18 at 21:00 Nifedipine (Procardia Xl) 30 mg BID PO Last administered on 02/16/18at 08:41; Admin Dose 30 MG; Start 02/16/18 at 09:00 Diphenoxylate HCl/ Atropine (Lomotil) 1 tab Q6H PRN PO DIARRHEA Last administered on 02/16/18at 08:48; Admin Dose 1 TAB; Start 02/16/18 at 00:00 Multivit/Ca Carb/ B Cmplx/FA/Prenat (Aline-Yuko) 1 tab DAILY PO Last administered on 02/16/18at 08:41; Admin Dose 1 TAB; Start 02/16/18 at 09:00 Levofloxacin (Levaquin) 250 mg Q48H PO Last administered on 02/16/18at 05:30; Admin Dose 250 MG; Start 02/16/18 at 06:00 Results Result Diagram: 02/15/18 1245 Results 24 hrs Laboratory Tests Test 02/15/18 12:45 02/15/18 12:47 02/15/18 16:59 02/15/18 21:57 Potassium Level 4.5 Bedside Glucose 172 135 154 Test 02/16/18 08:06 Bedside Glucose 194 DIANA GARCIA Feb 16, 2018 11:57
[2018-02-16 13:53] VITALS: BP 179/76; PULSE 71; RESP 15
[2018-02-16 14:00] VITALS: BP 158/85; PULSE 78; RESP 17
[2018-02-16] MEDS ORDERED: VANCOMYCIN IV PER PHARMACY XX SCH (15:00)
[2018-02-16] MEDS ORDERED: VANCOMYCIN 1.25 GM in SOD CHLORIDE 0.9% 250 ML IVPB SCH (16:00)
--- NOTE | 2018-02-16 19:11 | CONS ---
DATE OF ADMISSION: 02/15/2018 DATE OF CONSULTATION: 02/16/2018 TYPE OF CONSULTATION: Infectious Disease. REASON FOR CONSULTATION: Antibiotic management. HISTORY OF PRESENT ILLNESS: Vani Pruett is a 72-year-old female patient of Dr. Patiño who comes i n now for right foot diabetic ulcer and is being seen for antibiotic management. Her past problems i nclude: 1. Adult-onset diabetes mellitus. 2. Hypertension. 3. End-stage renal disease on hemodialysis. 4. Recurrent foot ulcers in the past. The patient was recently admitted for right foot diabetic ulcer and is being followed by Dr. Rothman. She was seen in Dr. Rothman's clinic on 02/12/2018 and was noted to have severe Charcot joint with a right ankle open chronic wound with infection. Today, she was admitted for elective surgery by Dr. Leanna knapp. She underwent application of external fixator of the right lower extremity and debridement of the open wound. The patient is being admitted for further evaluation and management. She had no ch est pain or shortness of breath. She has a history of chronic diarrhea which she takes Lomotil. The re is no history of fever, chills, nausea or vomiting. No history of focal weakness or generalized w eakness. PAST SURGICAL HISTORY: She is status post left upper extremity AV fistula creation and subsequent re moval of the fistula by Dr. Sanchez a few months ago. She had a new left upper extremity AV fistula cr eated. The patient recently had left eye surgery. She is also status post many years ago, status post cholecystectomy, status post incision and drainage of a perirectal abscess. FAMILY HISTORY: Noncontributory. SOCIAL HISTORY: She lives in a snf facility. ALLERGIES: NONE TO PENICILLIN, SULFA OR FOODS. MEDICATIONS: Per chart. REVIEW OF SYSTEMS: Noncontributory. PHYSICAL EXAMINATION: GENERAL: The patient is awake, responsive, in no acute distress. VITAL SIGNS: Stable. She is afebrile. SKIN: Without generalized rash. HEENT: Within normal limits. NECK: Supple. LYMPH NODES: None palpable. CHEST: Decreased breath sounds at the bases. HEART: Without murmur or gallop. ABDOMEN: Soft, nontender, without organosplenomegaly or masses. EXTREMITIES: The patient has recent surgery and her right foot is bandaged. RECTAL AND GENITAL: Deferred. NEUROLOGIC: No focal neurological abnormality. With regards to the operation on 02/15/2018, she had aspiration application of external fixator as me ntioned to the right lower extremity, debridement of open wound to bleeding bone, intraoperative fuse and interpretation of fluoroscopy. At present, blood sugar is 175. Her ankle x-ray shows placement of external fixator. Her medication at this point only show Levaquin. I am going to add vancomycin to her regimen until we get our cultures back. I will dictate my findings to Dr. Patiño. Dictated By: AUDREY DELACRUZ MD, JD/BOBBI Conf#: [id number] DID#: [id number] CC: RODRIGO ROTHMAN DPM;*[facility]*
[2018-02-16 20:45] VITALS: BP 142/67; PULSE 72; RESP 18
[2018-02-16] MEDS: INSULIN GLARGINE [LANTus] (100 UNITS/ML) SYG SC SCH (21:16)
[2018-02-16] MEDS: LORAZEPAM 0.5 MG TAB PO PRN (21:16)
[2018-02-17] MEDS: ACCU-CHEK XX SCH (02:00)
[2018-02-17 02:29] VITALS: BP 142/63; PULSE 69; RESP 18
--- NOTE | 2018-02-17 07:37 | CONS ---
Date/Time of Note Date/Time of Note DATE: 02/17/18 TIME: 07:33 Assessment/Plan Assessment/Plan Problems: (1) Charcot's joint, right ankle and foot Status: Chronic (2) Pressure ulcer of left heel, stage 2 Status: Acute (3) Pressure ulcer of right heel, stage 2 Status: Acute (4) Controlled diabetes mellitus with chronic kidney disease on chronic dialysis Status: Chronic Qualifiers: (5) Controlled diabetes mellitus with hypoglycemia, with long-term current use of insulin Status: Resolved (6) End stage renal disease Status: Chronic (7) Essential (primary) hypertension Status: Chronic Consultation Date/Type/Reason Admit Date/Time Feb 15, 2018 at 11:29 Constitutional: no complaints Eyes: no complaints ENT: no complaints Respiratory: no complaints Cardiovascular: no complaints Gastrointestinal: no complaints Genitourinary: no complaints Skin: other Endocrine: no complaints Psychological: no complaints Immunologic: no complaints Past Medical History Medical History: diabetes, high cholesterol, hypertension, other Past Surgical History Past Surgical Hx: cholecystectomy, other Social History Alcohol Use: none Smoking Status: Never smoker Drug Use: none Exam/Review of Systems Vital Signs Vitals Vital Signs Date Temp Pulse Resp B/P (MAP) Pulse Ox O2 O2 Flow FiO2 Time Delivery Rate 02/17/18 98.3 69 18 142/63 95 02:29 (89) 02/16/18 Room Air 14:00 Intake and Output 02/16/18 02/16/18 02/17/18 1515:00 23:00 07:00 IntakeIntake Total 120 ml 510 ml BalanceBalance 120 ml 510 ml Exam Constitutional: alert, oriented, well developed Psych: no complaints, nl mood/affect Head: normocephalic, atraumatic Eyes: nl conjunctiva, EOMI, nl lids ENMT: nl external ears & nose Neck: supple, non-tender Respiratory: clear to auscultation, normal air movement Cardiovascular: regular rate and rhythm, nl pulses Gastrointestinal: soft, nl liver, spleen, non-tender Extremities: other Neurological: DIGITAL FIELD SERVICE TECHNICIAN II-XII intact, nl mental status Skin: other Medications Medications Current Medications Diagnostic Test (Pha) (Accu-Chek) 1 ea 02 XX ; Start 02/16/18 at 02:00 Insulin Aspart (Novolog Insulin Pen) NOVOLOG *MILD* ALGORITHM WITH MEALS BEDTIME SC Last administered on 02/16/18at 17:40; Admin Dose 2 UNIT; Start 02/15/18 at 22:00 Miscellaneous Information 1 ea NOTE XX ; Start 02/15/18 at 21:30 Glucose (Glutose) 15 gm Q15M PRN PO DECREASED GLUCOSE; Start 02/15/18 at 21:30 Glucose (Glutose) 22.5 gm Q15M PRN PO DECREASED GLUCOSE; Start 02/15/18 at 21:30 Dextrose (D50w Syringe) 25 ml Q15M PRN IV DECREASED GLUCOSE; Start 02/15/18 at 21:30 Dextrose (D50w Syringe) 50 ml Q15M PRN IV DECREASED GLUCOSE; Start 02/15/18 at 21:30 Glucagon (Glucagen) 1 mg Q15M PRN IM DECREASED GLUCOSE; Start 02/15/18 at 21:30 Glucose (Glutose) 15 gm Q15M PRN BUCCAL DECREASED GLUCOSE; Start 02/15/18 at 21:30 Lorazepam (Ativan) 0.5 mg BID PRN PO ANXIETY Last administered on 02/16/18 21:16; Admin Dose 0.5 MG; Start 02/15/18 at 22:00 Aspirin (Halfprin) 81 mg DAILY PO Last administered on 02/16/18 08:41; Admin Dose 81 MG; Start 02/16/18 at 09:00 Insulin Glargine (Lantus) 12 units QHS SC Last administered on 02/16/18 21:16; Admin Dose 12 UNITS; Start 02/16/18 at 21:00 Nifedipine (Procardia Xl) 30 mg BID PO Last administered on 02/16/18 21:16; Admin Dose 30 MG; Start 02/16/18 at 09:00 Diphenoxylate HCl/ Atropine (Lomotil) 1 tab Q6H PRN PO DIARRHEA Last administered on 02/16/18 08:48; Admin Dose 1 TAB; Start 02/16/18 at 00:00 Multivit/Ca Carb/ B Cmplx/FA/Prenat (Aline-Yuko) 1 tab DAILY PO Last admin istered on 02/16/18 08:41; Admin Dose 1 TAB; Start 02/16/18 at 09:00 Levofloxacin (Levaquin) 250 mg Q48H PO Last administered on 02/16/18 05:30; Admin Dose 250 MG; Start 02/16/18 at 06:00 Vancomycin HCl (Vanco Iv Per Pharmacy) VANCOMYCIN PER PHARMACY PER PROTOCOL XX ; Start 02/16/18 at 15:00 Results Result Diagram: 02/15/18 1245 Results 24 hrs Laboratory Tests Test 02/16/18 08:06 02/16/18 12:12 02/16/18 17:37 02/16/18 21:09 Bedside Glucose 194 175 211 177 KIA GOMES MD Feb 17, 2018 07:37
[2018-02-17] MEDS: INSULIN ASPART [NOVOLOG] 3 ML PEN SC SCH ×4 (07:50→21:00)
[2018-02-17 08:08] VITALS: BP 120/54; PULSE 64; RESP 18
[2018-02-17] MEDS: NIFEdipine (XL) 30 MG TAB PO SCH ×2 (08:38→20:43)
[2018-02-17] MEDS: ASPIRIN (EC) 81 MG TAB PO SCH (08:38)
[2018-02-17] MEDS: DIPHENOXYLATE/ATROPINE TAB PO PRN (08:41)
[2018-02-17] MEDS: MULTIVIT/CA CARB/B CMPLX/FA TAB PO SCH ×2 (09:00→11:42)
[2018-02-17] MEDS: ACETAMINOPHEN 325 MG TAB PO PRN ×2 (11:42→17:30)
--- NOTE | 2018-02-17 11:49 | PN ---
Date/Time of Note Date/Time of Note DATE: 02/17/18 TIME: 11:48 Assessment/Plan VTE Prophylaxis Risk score (from Ns)>0 risk: 4 SCD applied (from Ns): Yes SCD contraindicated: other Pharmacological prophylaxis: LMWH Lines/Catheters IV [facility]from [facility] Saline Lock Urinary Cath still in place: No Assessment/Plan Hospital Course 1. Chronic right foot wound. 2. Severe Charcot right foot and ankle. The patient will be continued on Levaquin as preoperatively she was getting it, which was prescribed by Dr. Freitas. The patient has no fever and has normal white count. 3. Diabetes. We will put patient on sliding scale insulin and we will continue Lantus. 4. Hypertension. The patient has sinus bradycardia; therefore, the patient was recently taken off beta lien. We will continue Procardia. 5. Chronic diarrhea with negative gastrointestinal workup. Continue Lomotil on p.r.n. basis. 6. End-stage renal disease. Continue hemodialysis as per Dr. Jesus Zuñiga. 7. We will also obtain ID consultation with Dr. Salgado. 8. We will add Nephro-Yuko. Subjective 24 Hr Interval Summary Free Text/Dictation Patient is depressed and complains of generalized pain related to the foot and her inability to move because of the foot Exam/Review of Systems Vital Signs Vitals Vital Signs Date Temp Pulse Resp B/P (MAP) Pulse Ox O2 O2 Flow FiO2 Time Delivery Rate 02/17/18 98.0 64 18 120/54 98 Room Air 08:08 (76) Intake and Output 02/16/18 02/16/18 02/17/18 1515:00 23:00 07:00 IntakeIntake Total 120 ml 510 ml BalanceBalance 120 ml 510 ml Exam Constitutional: well developed Head: normocephalic, atraumatic Neck: supple Respiratory: diminished breath sounds Cardiovascular: regular rate and rhythm Gastrointestinal: soft, non-tender Extremities: normal pulses Medications Medications Current Medications Diagnostic Test (Pha) (Accu-Chek) 1 ea 02 XX ; Start 02/16/18 at 02:00 Insulin Aspart (Novolog Insulin Pen) NOVOLOG *MILD* ALGORITHM WITH MEALS BEDTIME SC Last administered on 02/16/18at 17:40; Admin Dose 2 UNIT; Start 02/15/18 at 22:00 Miscellaneous Information 1 ea NOTE XX ; Start 02/15/18 at 21:30 Glucose (Glutose) 15 gm Q15M PRN PO DECREASED GLUCOSE; Start 02/15/18 at 21:30 Glucose (Glutose) 22.5 gm Q15M PRN PO DECREASED GLUCOSE; Start 02/15/18 at 21: 30 Dextrose (D50w Syringe) 25 ml Q15M PRN IV DECREASED GLUCOSE; Start 02/15/18 at 21:30 Dextrose (D50w Syringe) 50 ml Q15M PRN IV DECREASED GLUCOSE; Start 02/15/18 at 21:30 Glucagon (Glucagen) 1 mg Q15M PRN IM DECREASED GLUCOSE; Start 02/15/18 at 21:30 Glucose (Glutose) 15 gm Q15M PRN BUCCAL DECREASED GLUCOSE; Start 02/15/18 at 21:30 Lorazepam (Ativan) 0.5 mg BID PRN PO ANXIETY Last administered on 02/16/18at 21:16; Admin Dose 0.5 MG; Start 02/15/18 at 22:00 Aspirin (Halfprin) 81 mg DAILY PO Last administered on 02/17/18at 08:38; Admin Dose 81 MG; Start 02/16/18 at 09:00 Insulin Glargine (Lantus) 12 units QHS SC Last administered on 02/16/18at 21:16; Admin Dose 12 UNITS; Start 02/16/18 at 21:00 Nifedipine (Procardia Xl) 30 mg BID PO Last administered on 02/17/18at 08:38; Admin Dose 30 MG; Start 02/16/18 at 09:00 Diphenoxylate HCl/ Atropine (Lomotil) 1 tab Q6H PRN PO DIARRHEA Last administered on 02/17/18at 08:41; Admin Dose 1 TAB; Start 02/16/18 at 00:00 Multivit/Ca Carb/ B Cmplx/FA/Prenat (Aline-Yuko) 1 tab DAILY PO Last administered on 02/17/18at 11:42; Admin Dose 1 TAB; Start 02/16/18 at 09:00 Levofloxacin (Levaquin) 250 mg Q48H PO Last administered on 02/16/18at 05:30; Admin Dose 250 MG; Start 02/16/18 at 06:00 Vancomycin HCl (Vanco Iv Per Pharmacy) VANCOMYCIN PER PHARMACY PER PROTOCOL XX ; Start 02/16/18 at 15:00 Acetaminophen (Tylenol Tab) 650 mg Q6H PRN PO MILD PAIN(1-3)OR ELEVATED TEMP Last administered on 02/17/18at 11:42; Admin Dose 650 MG; Start 02/17/18 at 09:00 Miscellaneous Information (*Rx Drug Level Order Reminder*) RANDOM VANCOMYCIN LEVEL ... ONCE ONCE XX ; Start 02/18/18 at 05:00; Stop 02/18/18 at 05:01 Results Result Diagram: 02/15/18 1245 Results 24 hrs Laboratory Tests Test 02/16/18 12:12 02/16/18 17:37 02/16/18 21:09 02/17/18 08:14 Bedside Glucose 175 211 177 111 DIANA GARCIA Feb 17, 2018 11:49
[2018-02-17 14:27] VITALS: BP 127/60; PULSE 65; RESP 18
[2018-02-17 20:25] VITALS: BP 126/61; PULSE 67; RESP 19
[2018-02-17] MEDS: LORAZEPAM 0.5 MG TAB PO PRN (20:41)
[2018-02-17] MEDS: INSULIN GLARGINE [LANTus] (100 UNITS/ML) SYG SC SCH (20:45)
--- NOTE | 2018-02-17 21:13 | CONS ---
Date/Time of Note Date/Time of Note DATE: 02/17/18 TIME: 21:13 Assessment/Plan Assessment/Plan Chief Complaint/Hosp Course No acute changes overnight patient is sleeping, no fevers Microbiology: Wound culture back in January grew Pseudomonas coag negative staph species and alpha hemolytic strep species Antimicrobials: Patient is on oral Levaquin and Vanco Indwelling: Left upper extremity AV fistula Physical examination: Well-developed elderly woman who is awake in no distress. Head atraumatic normocephalic sclera nonicteric neck is supple chest rise symmetrical breath sounds diminished bases. Heart: S1-S2. Abdomen soft bowel sounds present. Extremities: Right lower extremity with external fixation Assessment: 1. Right foot Charcot deformity with open chronic wound, status post debridement 02/15/18 2. Diabetes with diabetic neuropathy 3. End-stage renal disease, hemodialysis dependent 4. Hypertension and anemia Plan: Patient remains stable, continue present care and antibiotics, follow podi atry recommendations Consultation Date/Type/Reason Admit Date/Time Feb 15, 2018 at 11:29 Initial Consult Date Type of Consult ID Exam/Review of Systems Vital Signs Vitals Vital Signs Date Temp Pulse Resp B/P (MAP) Pulse Ox O2 O2 Flow FiO2 Time Delivery Rate 02/17/18 97.8 67 19 126/61 96 20:25 (82) 02/17/18 Room Air 14:27 Intake and Output 02/16/18 02/16/18 02/17/18 1515:00 23:00 07:00 IntakeIntake Total 120 ml 510 ml BalanceBalance 120 ml 510 ml Medications Medications Current Medications Diagnostic Test (Pha) (Accu-Chek) 1 ea 02 XX ; Start 02/16/18 at 02:00 Insulin Aspart (Novolog Insulin Pen) NOVOLOG *MILD* ALGORITHM WITH MEALS BEDTIME SC Last administered on 02/16/18at 17:40; Admin Dose 2 UNIT; Start 02/15/18 at 22:00 Miscellaneous Information 1 ea NOTE XX ; Start 02/15/18 at 21:30 Glucose (Glutose) 15 gm Q15M PRN PO DECREASED GLUCOSE; Start 02/15/18 at 21:30 Glucose (Glutose) 22.5 gm Q15M PRN PO DECREASED GLUCOSE; Start 02/15/18 at 21:30 Dextrose (D50w Syringe) 25 ml Q15M PRN IV DECREASED GLUCOSE; Start 02/15/18 at 21:30 Dextrose (D50w Syringe) 50 ml Q15M PRN IV DECREASED GLUCOSE; Start 02/15/18 at 21:30 Glucagon (Glucagen) 1 mg Q15M PRN IM DECREASED GLUCOSE; Start 02/15/18 at 21:30 Glucose (Glutose) 15 gm Q15M PRN BUCCAL DECREASED GLUCOSE; Start 02/15/18 at 21:30 Lorazepam (Ativan) 0.5 mg BID PRN PO ANXIETY Last administered on 02/17/18at 20:41; Admin Dose 0.5 MG; Start 02/15/18 at 22:00 Aspirin (Halfprin) 81 mg DAILY PO Last administered on 02/17/18 08:38; Admin Dose 81 MG; Start 02/16/18 at 09:00 Insulin Glargine (Lantus) 12 units QHS SC Last administered on 02/17/18 20:45; Admin Dose 12 UNITS; Start 02/16/18 at 21:00 Nifedipine (Procardia Xl) 30 mg BID PO Last administered on 02/17/18at 20:43; Admin Dose 30 MG; Start 02/16/18 at 09:00 Diphenoxylate HCl/ Atropine (Lomotil) 1 tab Q6H PRN PO DIARRHEA Last administered on 02/17/18 08:41; Admin Dose 1 TAB; Start 02/16/18 at 00:00 Multivit/Ca Carb/ B Cmplx/FA/Prenat (Aline-Yuko) 1 tab DAILY PO Last administered on 02/17/18at 11:42; Admin Dose 1 TAB; Start 02/16/18 at 09:00 Levofloxacin (Levaquin) 250 mg Q48H PO Last administered on 02/16/18at 05:30; Admin Dose 250 MG; Start 02/16/18 at 06:00 Vancomycin HCl (Vanco Iv Per Pharmacy) VANCOMYCIN PER PHARMACY PER PROTOCOL XX ; Start 02/16/18 at 15:00 Acetaminophen (Tylenol Tab) 650 mg Q6H PRN PO MILD PAIN(1-3)OR ELEVATED TEMP Last administered on 02/17/18at 17:30; Admin Dose 650 MG; Start 02/17/18 at 09:00 Miscellaneous Information (*Rx Drug Level Order Reminder*) RANDOM VANCOMYCIN LEVEL ... ONCE ONCE XX ; Start 02/18/18 at 05:00; Stop 02/18/18 at 05:01 Results Result Diagram: 02/15/18 1245 Results 24 hrs Laboratory Tests Test 02/17/18 08:14 02/17/18 12:32 02/17/18 17:23 02/17/18 20:42 Bedside Glucose 111 155 162 176 WELLINGTON KRAFT NP Feb 17, 2018 21:13
[2018-02-18] MEDS ORDERED: LORAZEPAM 2 MG INJ IV ONE (02:00)
[2018-02-18] MEDS: ACCU-CHEK XX SCH (02:00)
[2018-02-18 02:11] VITALS: BP 142/65; PULSE 70; RESP 18
[2018-02-18] MEDS: ACETAMINOPHEN 325 MG TAB PO PRN ×2 (05:17→22:55)
[2018-02-18] MEDS: LEVOFLOXACIN 250 MG TAB PO SCH (05:17)
[2018-02-18 07:42] VITALS: BP 131/68; PULSE 67; RESP 19
[2018-02-18] MEDS: INSULIN ASPART [NOVOLOG] 3 ML PEN SC SCH ×4 (07:50→20:51)
[2018-02-18] MEDS: ASPIRIN (EC) 81 MG TAB PO SCH (08:38)
[2018-02-18] MEDS: DIPHENOXYLATE/ATROPINE TAB PO PRN (08:38)
[2018-02-18] MEDS: MULTIVIT/CA CARB/B CMPLX/FA TAB PO SCH (08:38)
[2018-02-18] MEDS: NIFEdipine (XL) 30 MG TAB PO SCH ×2 (08:39→20:46)
[2018-02-18] MEDS ORDERED: VANCOMYCIN 1 GM 250 ML IVPB SCH (14:00)
--- NOTE | 2018-02-18 14:49 | CONS ---
Date/Time of Note Date/Time of Note DATE: 02/18/18 TIME: 14:49 Assessment/Plan Assessment/Plan Chief Complaint/Hosp Course Patient is awake laying comfortably in bed no fevers overnight no labs this morning Microbiology: Wound culture back in January grew Pseudomonas coag negative staph species and alpha hemolytic strep species Antimicrobials: Patient is on oral Levaquin and Vanco Indwelling: Left upper extremity AV fistula Physical examination: Well-developed elderly woman who is awake in no distress. Head atraumatic normocephalic sclera nonicteric neck is supple chest rise symmetrical breath sounds diminished bases. Heart: S1-S2. Abdomen soft bowel sounds present. Extremities: Right lower extremity with external fixation Assessment: 1. Right foot Charcot deformity with open chronic wound, status post debridement 02/15/18 2. Diabetes with diabetic neuropathy 3. End-stage renal disease, hemodialysis dependent 4. Hypertension and anemia Plan: Patient remains stable, continue present care and antibiotics, follow podiatry recommendations Consultation Date/Type/Reason Admit Date/Time Feb 18, 2018 at 12:09 Initial Consult Date Type of Consult ID Exam/Review of Systems Vital Signs Vitals Vital Signs Date Temp Pulse Resp B/P (MAP) Pulse Ox O2 O2 Flow FiO2 Time Delivery Rate 02/18/18 98.2 67 19 131/68 98 07:42 (89) 02/17/18 Room Air 14:27 Intake and Output 02/17/18 02/17/18 02/18/18 1515:00 23:00 07:00 IntakeIntake Total 400 ml 300 ml BalanceBalance 400 ml 300 ml Medications Medications Current Medications Diagnostic Test (Pha) (Accu-Chek) 1 ea 02 XX ; Start 02/16/18 at 02:00 Insulin Aspart (Novolog Insulin Pen) NOVOLOG *MILD* ALGORITHM WITH MEALS BEDTIME SC Last administered on 02/18/18at 12:35; Admin Dose 1 UNIT; Start 02/15/18 at 22:00 Miscellaneous Information 1 ea NOTE XX ; Start 02/15/18 at 21:30 Glucose (Glutose) 15 gm Q15M PRN PO DECREASED GLUCOSE; Start 02/15/18 at 21:30 Glucose (Glutose) 22.5 gm Q15M PRN PO DECREASED GLUCOSE; Start 02/15/18 at 21:30 Dextrose (D50w Syringe) 25 ml Q15M PRN IV DECREASED GLUCOSE; Start 02/15/18 at 21:30 Dextrose (D50w Syringe) 50 ml Q15M PRN IV DECREASED GLUCOSE; Start 02/15/18 at 21:30 Glucagon (Glucagen) 1 mg Q15M PRN IM DECREASED GLUCOSE; Start 02/15/18 at 21:30 Glucose (Glutose) 15 gm Q15M PRN BUCCAL DECREASED GLUCOSE; Start 02/15/18 at 21:30 Lorazepam (Ativan) 0.5 mg BID PRN PO ANXIETY Last administered on 02/17/18at 20:41; Admin Dose 0.5 MG; Start 02/15/18 at 22:00 Aspirin (Halfprin) 81 mg DAILY PO Last administered on 02/18/18at 08:38; Admin Dose 81 MG; Start 02/16/18 at 09:00 Insulin Glargine (Lantus) 12 units QHS SC Last administered on 02/17/18at 20:45; Admin Dose 12 UNITS; Start 02/16/18 at 21:00 Nifedipine (Procardia Xl) 30 mg BID PO Last administered on 02/18/18at 08:39; Admin Dose 30 MG; Start 02/16/18 at 09:00 Diphenoxylate HCl/ Atropine (Lomotil) 1 tab Q6H PRN PO DIARRHEA Last administered on 02/18/18at 08:38; Admin Dose 1 TAB; Start 02/16/18 at 00:00 Multivit/Ca Carb/ B Cmplx/FA/Prenat (Aline-Yuko) 1 tab DAILY PO Last admi nistered on 02/18/18at 08:38; Admin Dose 1 TAB; Start 02/16/18 at 09:00 Levofloxacin (Levaquin) 250 mg Q48H PO Last administered on 02/18/18at 05:17; Admin Dose 250 MG; Start 02/16/18 at 06:00 Vancomycin HCl (Vanco Iv Per Pharmacy) VANCOMYCIN PER PHARMACY PER PROTOCOL XX ; Start 02/16/18 at 15:00 Acetaminophen (Tylenol Tab) 650 mg Q6H PRN PO MILD PAIN(1-3)OR ELEVATED TEMP Last administered on 02/18/18at 05:17; Admin Dose 650 MG; Start 02/17/18 at 09:00 Vancomycin HCl 250 ml @ 125 mls/hr ONCE IVPB ; Start 02/18/18 at 14:00; Stop 02/18/18 at 23:59 Results Result Diagram: 02/18/18 0428 Results 24 hrs Laboratory Tests Test 02/17/18 17:23 02/17/18 20:42 02/18/18 04:28 02/18/18 08:30 Bedside Glucose 162 176 106 Blood Urea 89 H Nitrogen Creatinine 7.36 H Random 11.8 Vancomycin Level Test 02/18/18 12:31 Bedside Glucose 142 WELLINGTON KRAFT NP Feb 18, 2018 14:49
[2018-02-18 15:31] VITALS: BP 129/62; PULSE 72; RESP 18
--- NOTE | 2018-02-18 15:48 | CONS ---
Date/Time of Note Date/Time of Note DATE: 02/18/18 TIME: 15:45 Assessment/Plan Assessment/Plan Additional Assessment/Plan 1) Charcot's joint, right ankle and foot Status: Chronic (2) Pressure ulcer of left heel, stage 2 Status: Acute (3) Pressure ulcer of right heel, stage 2 Status: Acute (4) Controlled diabetes mellitus with chronic kidney disease on chronic dialysis Status: Chronic Qualifiers: (5) Controlled diabetes mellitus with hypoglycemia, with long-term current use of insulin Status: Resolved (6) End stage renal disease Status: Chronic (7) Essential (primary) hypertension Status: Chronic S/p Surgery HD MWF HD plan for Today UF up to 2L Cont current Rx and plan. Consultation Date/Type/Reason Admit Date/Time Feb 18, 2018 at 12:09 Initial Consult Date Reason for Consultation ESRD 24 HR Interval Summary Free Text/Dictation S/p Surgery, Pending HD today Pain 4/10 Constitutional: No requiring O2 Exam/Review of Systems Vital Signs Vitals Vital Signs Date Temp Pulse Resp B/P (MAP) Pulse Ox O2 O2 Flow FiO2 Time Delivery Rate 02/18/18 98.1 72 18 129/62 99 15:31 (84) 02/17/18 Room Air 14:27 Intake and Output 02/17/18 02/17/18 02/18/18 1515:00 23:00 07:00 IntakeIntake Total 400 ml 300 ml BalanceBalance 400 ml 300 ml Exam Constitutional: No distress ENMT: mucosa pink and moist Neck: No jvd Respiratory: No crackles/rales Cardiovascular: regular rate and rhythm; No edema Gastrointestinal: soft; No distended, No rebound or guarding Neurological: 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 intact, nl mental status; No confused Skin: nl turgor; No diaphoresis Medications Medications Current Medications Diagnostic Test (Pha) (Accu-Chek) 1 ea 02 XX ; Start 02/16/18 at 02:00 Insulin Aspart (Novolog Insulin Pen) NOVOLOG *MILD* ALGORITHM WITH MEALS BEDTIME SC Last administered on 02/18/18at 12:35; Admin Dose 1 UNIT; Start 02/15/18 at 22:00 Miscellaneous Information 1 ea NOTE XX ; Start 02/15/18 at 21:30 Glucose (Glutose) 15 gm Q15M PRN PO DECREASED GLUCOSE; Start 02/15/18 at 21:30 Glucose (Glutose) 22.5 gm Q15M PRN PO DECREASED GLUCOSE; Start 02/15/18 at 21:30 Dextrose (D50w Syringe) 25 ml Q15M PRN IV DECREASED GLUCOSE; Start 02/15/18 at 21:30 Dextrose (D50w Syringe) 50 ml Q15M PRN IV DECREASED GLUCOSE; Start 02/15/18 at 21:30 Glucagon (Glucagen) 1 mg Q15M PRN IM DECREASED GLUCOSE; Start 02/15/18 at 21:30 Glucose (Glutose) 15 gm Q15M PRN BUCCAL DECREASED GLUCOSE; Start 02/15/18 at 21:30 Lorazepam (Ativan) 0.5 mg BID PRN PO ANXIETY Last administered on 02/17/18at 20:41; Admin Dose 0.5 MG; Start 02/15/18 at 22:00 Aspirin (Halfprin) 81 mg DAILY PO Last administered on 02/18/18at 08:38; Admin Dose 81 MG; Start 02/16/18 at 09:00 Insulin Glargine (Lantus) 12 units QHS SC Last administered on 02/17/18at 20:45; Admin Dose 12 UNITS; Start 02/16/18 at 21:00 Nifedipine (Procardia Xl) 30 mg BID PO Last administered on 02/18/18at 08:39; Admin Dose 30 MG; Start 02/16/18 at 09:00 Diphenoxylate HCl/ Atropine (Lomotil) 1 tab Q6H PRN PO DIARRHEA Last administered on 02/18/18at 08:38; Admin Dose 1 TAB; Start 02/16/18 at 00:00 Multivit/Ca Carb/ B Cmplx/FA/Prenat (Aline-Yuko) 1 tab DAILY PO Last administered on 02/18/18at 08:38; Admin Dose 1 TAB; Start 02/16/18 at 09:00 Levofloxacin (Levaquin) 250 mg Q48H PO Last administered on 02/18/18at 05:17; Admin Dose 250 MG; Start 02/16/18 at 06:00 Vancomycin HCl (Vanco Iv Per Pharmacy) VANCOMYCIN PER PHARMACY PER PROTOCOL XX ; Start 02/16/18 at 15:00 Acetaminophen (Tylenol Tab) 650 mg Q6H PRN PO MILD PAIN(1-3)OR ELEVATED TEMP Last administered on 02/18/18at 05:17; Admin Dose 650 MG; Start 02/17/18 at 09:00 Vancomycin HCl 250 ml @ 125 mls/hr ONCE IVPB ; Start 02/18/18 at 14:00; Stop 02/18/18 at 23:59 Results Result Diagram: 02/18/18 0428 Results 24 hrs Laboratory Tests Test 02/17/18 17:23 02/17/18 20:42 02/18/18 04:28 02/18/18 08:30 Bedside Glucose 162 176 106 Blood Urea 89 H Nitrogen Creatinine 7.36 H Random 11.8 Vancomycin Level Test 02/18/18 12:31 Bedside Glucose 142 WARD WILSON MD Feb 18, 2018 15:48
--- NOTE | 2018-02-18 17:43 | PN ---
Date/Time of Note Date/Time of Note DATE: 02/18/18 TIME: 17:43 Assessment/Plan VTE Prophylaxis Risk score (from Ns)>0 risk: 11 SCD applied (from Ns): Yes Pharmacological prophylaxis: other Lines/Catheters IV C[facility]ter Type (from [facility] Saline Lock Urinary Cath still in place: No Assessment/Plan Assessment/Plan 1. Chronic right foot wound. 2. Severe Charcot right foot and ankle. The patient will be continued on Levaquin as preoperatively she was getting it, which was prescribed by Dr. Freitas. The patient has no fever and has normal white count. 3. Diabetes. We will put patient on sliding scale insulin and we will continue Lantus. 4. Hypertension. The patient has sinus bradycardia; therefore, the patient was recently taken off beta lien. We will continue Procardia. 5. Chronic diarrhea with negative gastrointestinal workup. Continue Lomotil on p.r.n. basis. 6. End-stage renal disease. Continue hemodialysis as per Dr. Jesus Zuñiga. 7. We will also obtain ID consultation with Dr. Salgado. 8. We will add Nephro-Yuko. Exam/Review of Systems Vital Signs Vitals Vital Signs Date Temp Pulse Resp B/P (MAP) Pulse Ox O2 O2 Flow FiO2 Time Delivery Rate 02/18/18 98.1 72 18 129/62 99 15:31 (84) 02/17/18 Room Air 14:27 Intake and Output 02/17/18 02/17/18 02/18/18 1515:00 23:00 07:00 IntakeIntake Total 400 ml 300 ml BalanceBalance 400 ml 300 ml Medications Medications Current Medications Diagnostic Test (Pha) (Accu-Chek) 1 ea 02 XX ; Start 02/16/18 at 02:00 Insulin Aspart (Novolog Insulin Pen) NOVOLOG *MILD* ALGORITHM WITH MEALS BEDTIME SC Last administered on 02/18/18at 12:35; Admin Dose 1 UNIT; Start 02/15/18 at 22:00 Miscellaneous Information 1 ea NOTE XX ; Start 02/15/18 at 21:30 Glucose (Glutose) 15 gm Q15M PRN PO DECREASED GLUCOSE; Start 02/15/18 at 21:30 Glucose (Glutose) 22.5 gm Q15M PRN PO DECREASED GLUCOSE; Start 02/15/18 at 21:30 Dextrose (D50w Syringe) 25 ml Q15M PRN IV DECREASED GLUCOSE; Start 02/15/18 at 21:30 Dextrose (D50w Syringe) 50 ml Q15M PRN IV DECREASED GLUCOSE; Start 02/15/18 at 21:30 Glucagon (Glucagen) 1 mg Q15M PRN IM DECREASED GLUCOSE; Start 02/15/18 at 21:30 Glucose (Glutose) 15 gm Q15M PRN BUCCAL DECREASED GLUCOSE; Start 02/15/18 at 21:30 Lorazepam (Ativan) 0.5 mg BID PRN PO ANXIETY Last administered on 02/17/18at 20:41; Admin Dose 0.5 MG; Start 02/15/18 at 22:00 Aspirin (Halfprin) 81 mg DAILY PO Last administered on 02/18/18at 08:38; Admin Dose 81 MG; Start 02/16/18 at 09:00 Insulin Glargine (Lantus) 12 units QHS SC Last administered on 02/17/18at 20:45; Admin Dose 12 UNITS; Start 02/16/18 at 21:00 Nifedipine (Procardia Xl) 30 mg BID PO Last administered on 02/18/18at 08:39; Admin Dose 30 MG; Start 02/16/18 at 09:00 Diphenoxylate HCl/ Atropine (Lomotil) 1 tab Q6H PRN PO DIARRHEA Last administered on 02/18/18at 08:38; Admin Dose 1 TAB; Start 02/16/18 at 00:00 Multivit/Ca Carb/ B Cmplx/FA/Prenat (Aline-Yuko) 1 tab DAILY PO Last administered on 02/18/18at 08:38; Admin Dose 1 TAB; Start 02/16/18 at 09:00 Levofloxacin (Levaquin) 250 mg Q48H PO Last administered on 02/18/18at 05:17; Admin Dose 250 MG; Start 02/16/18 at 06:00 Vancomycin HCl (Vanco Iv Per Pharmacy) VANCOMYCIN PER PHARMACY PER PROTOCOL XX ; Start 02/16/18 at 15:00 Acetaminophen (Tylenol Tab) 650 mg Q6H PRN PO MILD PAIN(1-3)OR ELEVATED TEMP Last administered on 02/18/18at 05:17; Admin Dose 650 MG; Start 02/17/18 at 09:00 Vancomycin HCl 250 ml @ 125 mls/hr ONCE IVPB ; Start 02/18/18 at 14:00; Stop 02/18/18 at 23:59 Results Result Diagram: 02/18/18 0428 Results 24 hrs Laboratory Tests Test 02/17/18 20:42 02/18/18 04:28 02/18/18 08:30 02/18/18 12:31 Bedside Glucose 176 106 142 Blood Urea 89 H Nitrogen Creatinine 7.36 H Random 11.8 Vancomycin Level KODAK YANG Feb 18, 2018 17:43
[2018-02-18 20:28] VITALS: BP 183/78; PULSE 66; RESP 19
[2018-02-18] MEDS: INSULIN GLARGINE [LANTus] (100 UNITS/ML) SYG SC SCH (20:52)
[2018-02-18] MEDS: LORAZEPAM 0.5 MG TAB PO PRN (21:13)
--- NOTE | 2018-02-18 23:29 | PN ---
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 Remain nonweightbearing on the right lower extremity. Patient will be followed at the [facility] in 1 week after discharge. Subjective 24 Hr Interval Summary Patient is status post stabilization of severe right foot and ankle Charcot deformity on 02/15/2018. She reports minimal pain and denies fever and chills. Denies chest pain or shortness of breath. Reports no other problems. Constitutional: no complaints Pain Control: well controlled Exam/Review of Systems Vital Signs Vitals Exam Free Text/Dictation Patient has external fixation on the right lower extremity. No pin site ble eding noted. Edema continues. Open wound present on the plantar aspect of the right foot. Labs reviewed and imaging reviewed. RODRIGO ROTHMAN DPM Feb 18, 2018 23:29
[2018-02-18] MEDS: BALSAM PERU/CASTOR OIL 60 GM TUBE TOP SCH (23:48)
[2018-02-18 23:52] VITALS: BP 160/70; PULSE 65; RESP 18
[2018-02-19] VITALS (16 sets, daily range): BP systolic 99–141; BP diastolic 52–83; PULSE 61–76; RESP 16–19
[2018-02-19] MEDS: ACCU-CHEK XX SCH (02:56)
[2018-02-19] MEDS: ACETAMINOPHEN 325 MG TAB PO PRN ×2 (05:11→12:38)
[2018-02-19] MEDS: DIPHENOXYLATE/ATROPINE TAB PO PRN ×2 (05:12→12:38)
[2018-02-19] MEDS: LORAZEPAM 2 MG INJ IV PRN (06:45)
[2018-02-19] MEDS: INSULIN ASPART [NOVOLOG] 3 ML PEN SC SCH ×4 (07:50→21:00)
[2018-02-19] MEDS: MULTIVIT/CA CARB/B CMPLX/FA TAB PO SCH (08:44)
[2018-02-19] MEDS: ASPIRIN (EC) 81 MG TAB PO SCH (08:44)
[2018-02-19] MEDS: BALSAM PERU/CASTOR OIL 60 GM TUBE TOP SCH ×2 (08:45→22:41)
[2018-02-19] MEDS: NIFEdipine (XL) 30 MG TAB PO SCH ×2 (08:45→22:40)
--- NOTE | 2018-02-19 12:26 | CONS ---
Date/Time of Note Date/Time of Note DATE: 02/19/18 TIME: 12:25 Assessment/Plan Assessment/Plan Chief Complaint/Hosp Course No acute changes overnight patient is awake, looks comfortable, no fevers Microbiology: Wound culture back in January grew Pseudomonas coag negative staph species and alpha hemolytic strep species Antimicrobials: Patient is on oral Levaquin and Vanco Indwelling: Left upper extremity AV fistula Physical examination: Well-developed elderly woman who is awake in no distress. Head atraumatic normocephalic sclera nonicteric neck is supple chest rise symmetrical breath sounds diminished bases. Heart: S1-S2. Abdomen soft bowel sounds present. Extremities: Right lower extremity with external fixation Assessment: 1. Right foot Charcot deformity with open chronic wound, status post debr idement 02/15/18 2. Diabetes with diabetic neuropathy 3. End-stage renal disease, hemodialysis dependent 4. Hypertension and anemia Plan: Patient remains stable, continue present care and antibiotics, wound care per podiatry recommendations Consultation Date/Type/Reason Admit Date/Time Feb 18, 2018 at 12:09 Initial Consult Date Type of Consult ID Exam/Review of Systems Vital Signs Vitals Vital Signs Date Temp Pulse Resp B/P (MAP) Pulse Ox O2 O2 Flow FiO2 Time Delivery Rate 02/19/18 98.2 71 19 118/56 98 07:33 (76) 02/19/18 Room Air 00:55 Intake and Output 02/18/18 02/18/18 02/19/18 1414:59 22:59 06:59 IntakeIntake Total 480 ml 200 ml 250 ml OutputOutput Total 200 ml 2400 ml BalanceBalance 480 ml 0 ml -2150 ml Medications Medications Current Medications Diagnostic Test (Pha) (Accu-Chek) 1 ea 02 XX Last administered on 02/19/18at 02:56; Admin Dose 1 EA; Start 02/16/18 at 02:00 Insulin Aspart (Novolog Insulin Pen) NOVOLOG *MILD* ALGORITHM WITH MEALS BEDTIME SC Last administered on 02/18/18at 20:51; Admin Dose 1 UNIT; Start 02/15/18 at 22:00 Miscellaneous Information 1 ea NOTE XX ; Start 02/15/18 at 21:30 Glucose (Glutose) 15 gm Q15M PRN PO DECREASED GLUCOSE; Start 02/15/18 at 21:30 Glucose (Glutose) 22.5 gm Q15M PRN PO DECREASED GLUCOSE; Start 02/15/18 at 21:30 Dextrose (D50w Syringe) 25 ml Q15M PRN IV DECREASED GLUCOSE; Start 02/15/18 at 21:30 Dextrose (D50w Syringe) 50 ml Q15M PRN IV DECREASED GLUCOSE; Start 02/15/18 at 21:30 Glucagon (Glucagen) 1 mg Q15M PRN IM DECREASED GLUCOSE; Start 02/15/18 at 21:30 Glucose (Glutose) 15 gm Q15M PRN BUCCAL DECREASED GLUCOSE; Start 02/15/18 at 21:30 Lorazepam (Ativan) 0.5 mg BID PRN PO ANXIETY Last administered on 02/18/18at 21:13; Admin Dose 0.5 MG; Start 02/15/18 at 22:00 Aspirin (Halfprin) 81 mg DAILY PO Last administered on 02/19/18 08:44; Admin Dose 81 MG; Start 02/16/18 at 09:00 Insulin Glargine (Lantus) 12 units QHS SC Last administered on 02/18/18at 20:52; Admin Dose 12 UNITS; Start 02/16/18 at 21:00 Nifedipine (Procardia Xl) 30 mg BID PO Last administered on 02/19/18at 08:45; Admin Dose 30 MG; Start 02/16/18 at 09:00 Diphenoxylate HCl/ Atropine (Lomotil) 1 tab Q6H PRN PO DIARRHEA Last administered on 02/19/18at 05:12; Admin Dose 1 TAB; Start 02/16/18 at 00:00 Multivit/Ca Carb/ B Cmplx/FA/Prenat (Aline-Yuko) 1 tab DAILY PO Last administe red on 02/19/18at 08:44; Admin Dose 1 TAB; Start 02/16/18 at 09:00 Levofloxacin (Levaquin) 250 mg Q48H PO Last administered on 02/18/18 05:17; Admin Dose 250 MG; Start 02/16/18 at 06:00 Vancomycin HCl (Vanco Iv Per Pharmacy) VANCOMYCIN PER PHARMACY PER PROTOCOL XX ; Start 02/16/18 at 15:00 Acetaminophen (Tylenol Tab) 650 mg Q6H PRN PO MILD PAIN(1-3)OR ELEVATED TEMP Last administered on 02/19/18at 05:11; Admin Dose 650 MG; Start 02/17/18 at 09:00 Ondansetron HCl (Zofran Inj) 4 mg Q4H PRN IV NAUSEA AND/OR VOMITING; Start 02/19/18 at 02:30 Lorazepam (Ativan) 0.5 mg Q6H PRN IV ANXIETY Last administered on 02/19/18at 06:45; Admin Dose 0.5 MG; Start 02/19/18 at 02:30 Results Result Diagram: 02/19/18 0437 02/19/18 0437 Results 24 hrs Laboratory Tests Test 02/18/18 12:31 02/18/18 17:56 02/18/18 20:49 02/18/18 21:18 Bedside Glucose 142 154 205 White Blood 4.7 L Count Red Blood Count 2.95 L Hemoglobin 9.0 L Hematocrit 29.2 L Mean Corpuscular 99.0 Volume Mean Corpuscular 30.5 Hemoglobin Mean Corpuscular 30.8 L Hemoglobin Idalmis nt Red Cell 14.9 H Distribution Width Platelet Count 143 # Mean Platelet 9.5 Volume Immature 0.600 H Granulocytes % Neutrophils % 71.1 Lymphocytes % 14.8 L Monocytes % 9.9 Eosinophils % 3.2 Basophils % 0.4 Nucleated Red 0.0 Blood Cells % Immature 0.030 Granulocytes # Neutrophils # 3.4 Lymphocytes # 0.7 L Monocytes # 0.5 Eosinophils # 0.2 Basophils # 0.0 Nucleated Red 0.0 Blood Cells # Sodium Level 135 Potassium Level 6.1 *H Chloride Level 98 Carbon Dioxide 21 Level Anion Gap 16 H Blood Urea 97 H Nitrogen Creatinine 8.04 H Est Glomerular Filtrat Rate mL/min Glucose Level 203 Calcium Level 8.6 Hepatitis B NEGATIVE Surface Antigen Test 02/19/18 02:52 02/19/18 04:37 02/19/18 08:43 Bedside Glucose 137 121 White Blood 5.5 Count Red Blood Count 2.79 L Hemoglobin 8.6 L Hematocrit 27.2 L Mean Corpuscular 97.5 Volume Mean Corpuscular 30.8 Hemoglobin Mean Corpuscular 31.6 L Hemoglobin Idalmis nt Red Cell 15.0 H Distribution Width Platelet Count 141 Mean Platelet 9.5 Volume Immature 0.700 H Granulocytes % Neutrophils % 76.8 Lymphocytes % 11.2 L Monocytes % 9.1 Eosinophils % 1.8 Basophils % 0.4 Nucleated Red 0.0 Blood Cells % Immature 0.040 H Granulocytes # Neutrophils # 4.2 Lymphocytes # 0.6 L Monocytes # 0.5 Eosinophils # 0.1 Basophils # 0.0 Nucleated Red 0.0 Blood Cells # Sodium Level 139 Potassium Level 3.6 # Chloride Level 98 Carbon Dioxide 26 Level Anion Gap 15 H Blood Urea 36 #H Nitrogen Creatinine 3.76 #H Est Glomerular Filtrat Rate mL/min Glucose Level 127 # Calcium Level 8.6 WELLINGTON KRAFT NP Feb 19, 2018 12:26
--- NOTE | 2018-02-19 12:46 | CONS ---
Date/Time of Note Date/Time of Note DATE: 02/19/18 TIME: 12:46 Assessment/Plan Assessment/Plan Additional Assessment/Plan (1) Charcot's joint, right ankle and foot Status: Chronic (2) Pressure ulcer of left heel, stage 2 Status: Acute (3) Pressure ulcer of right heel, stage 2 Status: Acute (4) Controlled diabetes mellitus with chronic kidney disease on chronic dialysis Status: Chronic Qualifiers: (5) Controlled diabetes mellitus with hypoglycemia, with long-term current use of insulin Status: Resolved (6) End stage renal disease Status: Chronic (7) Essential (primary) hypertension Status: Chronic HD Plan MWF Consultation Date/Type/Reason Admit Date/Time Feb 18, 2018 at 12:09 Initial Consult Date 24 HR Interval Summary Free Text/Dictation No new complaints Exam/Review of Systems Vital Signs Vitals Vital Signs Date Temp Pulse Resp B/P (MAP) Pulse Ox O2 O2 Flow FiO2 Time Delivery Rate 02/19/18 98.2 71 19 118/56 98 07:33 (76) 02/19/18 Room Air 00:55 Intake and Output 02/18/18 02/18/18 02/19/18 1515:00 23:00 07:00 IntakeIntake Total 480 ml 450 ml OutputOutput Total 200 ml 2400 ml BalanceBalance 480 ml 250 ml -2400 ml Exam Constitutional: No distress ENMT: mucosa pink and moist Neck: No jvd Respiratory: normal air movement; No crackles/rales Cardiovascular: regular rate and rhythm, edema Gastrointestinal: soft Extremities: edema Neurological: nl mental status; No confused Medications Medications Current Medications Diagnostic Test (Pha) (Accu-Chek) 1 ea 02 XX Last administered on 02/19/18at 02:56; Admin Dose 1 EA; Start 02/16/18 at 02:00 Insulin Aspart (Novolog Insulin Pen) NOVOLOG *MILD* ALGORITHM WITH MEALS BEDTIME SC Last administered on 02/18/18at 20:51; Admin Dose 1 UNIT; Start 02/15/18 at 22:00 Miscellaneous Information 1 ea NOTE XX ; Start 02/15/18 at 21:30 Glucose (Glutose) 15 gm Q15M PRN PO DECREASED GLUCOSE; Start 02/15/18 at 21:30 Glucose (Glutose) 22.5 gm Q15M PRN PO DECREASED GLUCOSE; Start 02/15/18 at 21:30 Dextrose (D50w Syringe) 25 ml Q15M PRN IV DECREASED GLUCOSE; Start 02/15/18 at 21:30 Dextrose (D50w Syringe) 50 ml Q15M PRN IV DECREASED GLUCOSE; Start 02/15/18 at 21:30 Glucagon (Glucagen) 1 mg Q15M PRN IM DECREASED GLUCOSE; Start 02/15/18 at 21:30 Glucose (Glutose) 15 gm Q15M PRN BUCCAL DECREASED GLUCOSE; Start 02/15/18 at 21:30 Lorazepam (Ativan) 0.5 mg BID PRN PO ANXIETY Last administered on 02/18/18at 21:13; Admin Dose 0.5 MG; Start 02/15/18 at 22:00 Aspirin (Halfprin) 81 mg DAILY PO Last administered on 02/19/18 08:44; Admin Dose 81 MG; Start 02/16/18 at 09:00 Insulin Glargine (Lantus) 12 units QHS SC Last administered on 02/18/18 20:52; Admin Dose 12 UNITS; Start 02/16/18 at 21:00 Nifedipine (Procardia Xl) 30 mg BID PO Last administered on 02/19/18 08:45; Admin Dose 30 MG; Start 02/16/18 at 09:00 Diphenoxylate HCl/ Atropine (Lomotil) 1 tab Q6H PRN PO DIARRHEA Last administered on 02/19/18 12:38; Admin Dose 1 TAB; Start 02/16/18 at 00:00 Multivit/Ca Carb/ B Cmplx/FA/Prenat (Aline-Yuko) 1 tab DAILY PO Last administered on 02/19/18at 08:44; Admin Dose 1 TAB; Start 02/16/18 at 09:00 Levofloxacin (Levaquin) 250 mg Q48H PO Last administered on 02/18/18 05:17; Admin Dose 250 MG; Start 02/16/18 at 06:00 Vancomycin HCl (Vanco Iv Per Pharmacy) VANCOMYCIN PER PHARMACY PER PROTOCOL XX ; Start 02/16/18 at 15:00 Acetaminophen (Tylenol Tab) 650 mg Q6H PRN PO MILD PAIN(1-3)OR ELEVATED TEMP Last administered on 02/19/18at 12:38; Admin Dose 650 MG; Start 02/17/18 at 09:00 Ondansetron HCl (Zofran Inj) 4 mg Q4H PRN IV NAUSEA AND/OR VOMITING; Start 02/19/18 at 02:30 Lorazepam (Ativan) 0.5 mg Q6H PRN IV ANXIETY Last administered on 02/19/18at 06:45; Admin Dose 0.5 MG; Start 02/19/18 at 02:30 Results Result Diagram: 02/19/18 0437 02/19/18 0437 Results 24 hrs Laboratory Tests Test 02/18/18 17:56 02/18/18 20:49 02/18/18 21:18 02/19/18 02:52 Bedside Glucose 154 205 137 White Blood 4.7 L Count Red Blood Count 2.95 L Hemoglobin 9.0 L Hematocrit 29.2 L Mean Corpuscular 99.0 Volume Mean Corpuscular 30.5 Hemoglobin Mean Corpuscular 30.8 L Hemoglobin Idalmis nt Red Cell 14.9 H Distribution Width Platelet Count 143 # Mean Platelet 9.5 Volume Immature 0.600 H Granulocytes % Neutrophils % 71.1 Lymphocytes % 14.8 L Monocytes % 9.9 Eosinophils % 3.2 Basophils % 0.4 Nucleated Red 0.0 Blood Cells % Immature 0.030 Granulocytes # Neutrophils # 3.4 Lymphocytes # 0.7 L Monocytes # 0.5 Eosinophils # 0.2 Basophils # 0.0 Nucleated Red 0.0 Blood Cells # Sodium Level 135 Potassium Level 6.1 *H Chloride Level 98 Carbon Dioxide 21 Level Anion Gap 16 H Blood Urea 97 H Nitrogen Creatinine 8.04 H Est Glomerular Filtrat Rate mL/min Glucose Level 203 Calcium Level 8.6 Hepatitis B NEGATIVE Surface Antigen Test 02/19/18 04:37 02/19/18 08:43 02/19/18 12:33 White Blood 5.5 Count Red Blood Count 2.79 L Hemoglobin 8.6 L Hematocrit 27.2 L Mean Corpuscular 97.5 Volume Mean Corpuscular 30.8 Hemoglobin Mean Corpuscular 31.6 L Hemoglobin Idalmis nt Red Cell 15.0 H Distribution Width Platelet Count 141 Mean Platelet 9.5 Volume Immature 0.700 H Granulocytes % Neutrophils % 76.8 Lymphocytes % 11.2 L Monocytes % 9.1 Eosinophils % 1.8 Basophils % 0.4 Nucleated Red 0.0 Blood Cells % Immature 0.040 H Granulocytes # Neutrophils # 4.2 Lymphocytes # 0.6 L Monocytes # 0.5 Eosinophils # 0.1 Basophils # 0.0 Nucleated Red 0.0 Blood Cells # Sodium Level 139 Potassium Level 3.6 # Chloride Level 98 Carbon Dioxide 26 Level Anion Gap 15 H Blood Urea 36 #H Nitrogen Creatinine 3.76 #H Est Glomerular Filtrat Rate mL/min Glucose Level 127 # Calcium Level 8.6 Bedside Glucose 121 135 WARD WILSON MD Feb 19, 2018 12:46
[2018-02-19] MEDS: LORAZEPAM 0.5 MG TAB PO PRN (17:51)
--- NOTE | 2018-02-19 19:38 | PN ---
Date/Time of Note Date/Time of Note DATE: 02/19/18 TIME: 19:38 Assessment/Plan VTE Prophylaxis Risk score (from N[place])>0 risk: 10 [place] [facility] [place] contraindicated: other Pharmacological prophylaxis: other Pharm contraindication: other Lines/Catheters [facility] Saline Lock Urinary Cath still in place: No Assessment/Plan Assessment/Plan 1. Chronic right foot wound. 2. Severe Charcot right foot and ankle. The patient will be continued on Levaquin as preoperatively she was getting it, which was prescribed by Dr. Freitas. The patient has no fever and has normal white count. 3. Diabetes. We will put patient on sliding scale insulin and we will continue Lantus. 4. Hypertension. The patient has sinus bradycardia; therefore, the patient was recently taken off beta lien. We will continue Procardia. 5. Chronic diarrhea with negative gastrointestinal workup. Continue Lomotil on p.r.n. basis. 6. End-stage renal disease. Continue hemodialysis as per Dr. Jesus Zuñiga. 7. We will also obtain ID consultation with Dr. Salgado. 8. We will add Nephro-Yuko. Exam/Review of Systems Vital Signs Vitals Vital Signs Date Temp Pulse Resp B/P (MAP) Pulse Ox O2 O2 Flow FiO2 Time Delivery Rate 02/19/18 98.3 61 16 139/66 100 Room Air 19:21 (90) Intake and Output 02/18/18 02/18/18 02/19/18 1414:59 22:59 06:59 IntakeIntake Total 480 ml 200 ml 250 ml OutputOutput Total 200 ml 2400 ml BalanceBalance 480 ml 0 ml -2150 ml KODAK YANG Feb 19, 2018 19:38
[2018-02-19] MEDS: INSULIN GLARGINE [LANTus] (100 UNITS/ML) SYG SC SCH (22:41)
[2018-02-20] VITALS (17 sets, daily range): BP systolic 101–156; BP diastolic 45–71; PULSE 62–69; RESP 16–20
[2018-02-20] MEDS: ACCU-CHEK XX SCH (01:49)
[2018-02-20] MEDS: LEVOFLOXACIN 250 MG TAB PO SCH (06:47)
[2018-02-20] MEDS: INSULIN ASPART [NOVOLOG] 3 ML PEN SC SCH ×4 (08:40→20:27)
[2018-02-20] MEDS: ASPIRIN (EC) 81 MG TAB PO SCH (08:43)
[2018-02-20] MEDS: MULTIVIT/CA CARB/B CMPLX/FA TAB PO SCH (08:44)
[2018-02-20] MEDS: NIFEdipine (XL) 30 MG TAB PO SCH ×2 (08:44→20:24)
[2018-02-20] MEDS ORDERED: LOPERAMIDE 2 MG CAP ONE (08:50)
[2018-02-20] MEDS: DIPHENOXYLATE/ATROPINE TAB PO PRN ×2 (08:55→18:19)
[2018-02-20] MEDS: BALSAM PERU/CASTOR OIL 60 GM TUBE TOP SCH ×2 (08:56→20:25)
--- NOTE | 2018-02-20 13:27 | CONS ---
Date/Time of Note Date/Time of Note DATE: 02/20/18 TIME: 13:26 Assessment/Plan Assessment/Plan Chief Complaint/Hosp Course No acute changes overnight, awake, looks comfortable, no fevers Microbiology: Wound culture back in January grew Pseudomonas coag negative staph species and alpha hemolytic strep species Antimicrobials: oral Levaquin and Vanco Indwelling: Left upper extremity AV fistula Physical examination: Well-developed elderly woman who is awake in no distress. Head atraumatic normocephalic sclera nonicteric neck is supple chest rise symme trical breath sounds diminished bases. Heart: S1-S2. Abdomen soft bowel sounds present. Extremities: Right lower extremity with external fixation Assessment: 1. Right foot Charcot deformity with open chronic wound, status post debridement 02/15/18 2. Diabetes with diabetic neuropathy 3. End-stage renal disease, hemodialysis dependent 4. Hypertension and anemia Plan: Patient remains stable, continue present care, wound care per podiatry recommendations, continue antibiotics for [address] Freitas Consultation Date/Type/Reason Admit Date/Time Feb 18, 2018 at 12:09 Initial Consult Date Type of Consult ID Exam/Review of Systems Vital Signs Vitals Vital Signs Date Temp Pulse Resp B/P (MAP) Pulse Ox O2 O2 Flow FiO2 Time Delivery Rate 02/20/18 98.5 07:45 02/20/18 65 18 156/70 99 07:21 (98) 02/20/18 Room Air 01:11 Intake and Output 02/19/18 02/19/18 02/20/18 1414:59 22:59 06:59 IntakeIntake Total 480 ml OutputOutput Total 2 ml BalanceBalance 478 ml WELLINGTON KRAFT NP Feb 20, 2018 13:27
--- NOTE | 2018-02-20 15:35 | CONS ---
Date/Time of Note Date/Time of Note DATE: 02/20/18 TIME: 15:35 Assessment/Plan Assessment/Plan Additional Assessment/Plan 1. Chronic right foot wound. 2. Severe Charcot right foot and ankle. The patient will be continued on Levaquin as preoperatively she was getting it, which was prescribed by Dr. Leanna knapp. The patient has no fever and has normal white count. 3. Diabetes. We will put patient on sliding scale insulin and we will continue Lantus. 4. Hypertension. The patient has sinus bradycardia; therefore, the patient was recently taken off beta lien. We will continue Procardia. 5. Chronic diarrhea with negative gastrointestinal workup. Continue Lomotil on p.r.n. basis. 6. End-stage renal disease. Continue hemodialysis as per Dr. Jesus Zuñiga. 7. We will also obtain ID consultation with Dr. Salgado. 8. We will add Nephro-Yuko. Recommendations based on clinical course. Plan of care discussed with Dr.K Celaya Consultation Date/Type/Reason Admit Date/Time Feb 18, 2018 at 12:09 Initial Consult Date Type of Consult nephrology Reason for Consultation ESRD Detailed Summary ENT: no complaints Respiratory: no complaints Cardiovascular: no complaints Gastrointestinal: no complaints Exam/Review of Systems Vital Signs Vitals Vital Signs Date Temp Pulse Resp B/P (MAP) Pulse Ox O2 O2 Flow FiO2 Time Delivery Rate 02/20/18 Nasal 2.0 09:30 Cannula 02/20/18 98.5 07:45 02/20/18 65 18 156/70 99 07:21 (98) Intake and Output 02/19/18 02/19/18 02/20/18 1515:00 23:00 07:00 IntakeIntake Total 480 ml OutputOutput Total 2 ml BalanceBalance 478 ml Exam Constitutional: well developed Psych: nl mood/affect Eyes: nl lids, nl sclera Neck: supple Respiratory: diminished breath sounds (at bases bilaterally) Cardiovascular: nl pulses, other (S1S2) Gastrointestinal: soft, non-tender Musculoskeletal: nl extremities to inspection Extremities: normal pulses Neurological: confused Lymph: nl lymph nodes KODAK YANG Feb 20, 2018 15:35
[2018-02-20] MEDS: ESCITALOPRAM 10 MG TAB PO SCH (16:10)
--- NOTE | 2018-02-20 16:53 | PSY ---
Date/Time of Note Date/Time of Note DATE: 02/20/18 TIME: 16:51 Psychiatric Subjective Eval Consent Pt consented to telemedicine: No Subjective Evaluation Patient location: inpatient History of present illness The patient is a 72-year-old female with a history of diabetes, hypertension,end-stage renal disease on hemodialysis and right foot diabetic ulcer currently at [facility]. [id number] evaluation patient is tearful, she reports feeling hopeless, reports feeling depressed ,s tates she is overwhelmed with a lot of issues ranging from health issues, limited resources to financial issues. Patient states her primary caregiver had a stroke, which is her [id number] and she is also worried about her constant diarrhea which has not been resolved for the past 2 years. She has body image disturbance states she is not able to go out to functions because of the same problem. 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 (2) Cellulitis Status: Resolved (3) Charcot's joint, right ankle and foot Status: Chronic (4) Chronic renal failure Status: Acute (5) Controlled diabetes mellitus with chronic kidney disease on chronic dialysis Status: Chronic (6) Controlled diabetes mellitus with hypoglycemia, with long-term current use of insulin Status: Resolved (7) Contusion of left hip Status: Acute (8) Diabetic foot ulcer Status: Acute (9) Encounter for wound re-check Status: Acute (10) End stage renal disease Status: Chronic (11) End stage renal disease on dialysis Status: Acute (12) Essential (primary) hypertension Status: Chronic (13) Fall from ground level Status: Acute (14) Fall with no significant injury Status: Resolved (15) Hyperglycemia Status: Resolved (16) Influenza Status: Acute (17) Pneumonia Status: Resolved (18) Pressure ulcer of left heel, stage 2 Status: Acute (19) Pressure ulcer of right heel, stage 2 Status: Acute (20) Pulmonary nodule, right Status: Acute (21) Thrombocytopenia Status: Acute (22) Thrombocytopenia Status: Acute Allergies: Coded Allergies: No Known Allergy (Unverified , 01/10/18) Substance Abuse Substance abuse history: No Prior substance abuse treatmen: No Social History Marital status: other () DPA/Conservatorship: No Psychiatric Objective Eval Review of Systems: Review of Systems: Not Applicable Physical Examination: Physical Examination: Not Applicable Appetite: Decreased Energy: Decreased Interest: Decreased Mental Status Examination: Appearance: Groomed Eye Contact: Fair Psychomotor Activity: Slow Behavior: Cooperative Speech: Clear, Soft AFFECT: Flat Mood: Depressed Though Process: Linear Thought Content: Normal Orientation: x4 Cognition: Alert Insight: Intact Judgement: Intact Attention Span: Intact Laboratory Results Laboratory Tests Test 02/18/18 17:56 02/18/18 20:49 02/18/18 21:18 02/19/18 02:52 Bedside Glucose 154 mg/dL 205 mg/dL 137 mg/dL White Blood 4.7 10^3/ul Count Red Blood Count 2.95 10^6/ul Hemoglobin 9.0 g/dl Hematocrit 29.2 % Mean Corpuscular 99.0 fl Volume Mean Corpuscular 30.5 pg Hemoglobin Mean Corpuscular 30.8 g/dl Hemoglobin Idalmis nt Red Cell 14.9 % Distribution Width Platelet Count 143 10^3/UL Mean Platelet 9.5 fl Volume Immature 0.600 % Granulocytes % Neutrophils % 71.1 % Lymphocytes % 14.8 % Monocytes % 9.9 % Eosinophils % 3.2 % Basophils % 0.4 % Nucleated Red 0.0 /100WBC Blood Cells % Immature 0.030 10^3/ul Granulocytes # Neutrophils # 3.4 10^3/ul Lymphocytes # 0.7 10^3/ul Monocytes # 0.5 10^3/ul Eosinophils # 0.2 10^3/ul Basophils # 0.0 10^3/ul Nucleated Red 0.0 10^3/ul Blood Cells # Sodium Level 135 mmol/L Potassium Level 6.1 mmol/L Chloride Level 98 mmol/L Carbon Dioxide 21 mmol/L Level Anion Gap 16 Blood Urea 97 mg/dl Nitrogen Creatinine 8.04 mg/dl Est Glomerular mL/min Filtrat Rate mL/min Glucose Level 203 mg/dl Calcium Level 8.6 mg/dl Hepatitis B NEGATIVE Surface Antigen Test 02/19/18 04:37 02/19/18 08:43 02/19/18 12:33 02/19/18 17:48 White Blood 5.5 10^3/ul Count Red Blood Count 2.79 10^6/ul Hemoglobin 8.6 g/dl Hematocrit 27.2 % Mean Corpuscular 97.5 fl Volume Mean Corpuscular 30.8 pg Hemoglobin Mean Corpuscular 31.6 g/dl Hemoglobin Idalmis nt Red Cell 15.0 % Distribution Width Platelet Count 141 10^3/UL Mean Platelet 9.5 fl Volume Immature 0.700 % Granulocytes % Neutrophils % 76.8 % Lymphocytes % 11.2 % Monocytes % 9.1 % Eosinophils % 1.8 % Basophils % 0.4 % Nucleated Red 0.0 /100WBC Blood Cells % Immature 0.040 10^3/ul Granulocytes # Neutrophils # 4.2 10^3/ul Lymphocytes # 0.6 10^3/ul Monocytes # 0.5 10^3/ul Eosinophils # 0.1 10^3/ul Basophils # 0.0 10^3/ul Nucleated Red 0.0 10^3/ul Blood Cells # Sodium Level 139 mmol/L Potassium Level 3.6 mmol/L Chloride Level 98 mmol/L Carbon Dioxide 26 mmol/L Level Anion Gap 15 Blood Urea 36 mg/dl Nitrogen Creatinine 3.76 mg/dl Est Glomerular mL/min Filtrat Rate mL/min Glucose Level 127 mg/dl Calcium Level 8.6 mg/dl Bedside Glucose 121 mg/dL 135 mg/dL 105 mg/dL Test 02/19/18 22:37 02/20/18 08:42 02/20/18 13:10 Bedside Glucose 150 mg/dL 75 mg/dL 105 mg/dL Assessment and Plan Assessment/Diagnosis Diagnosis 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
--- NOTE | 2018-02-20 17:40 | CONS ---
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 Status: Chronic Comment: Continue HD Fridays Qualifiers: Diabetes mellitus type: type 2 Diabetes mellitus jail insulin use: with jail use Qualified Codes: E11.22 - Type 2 diabetes mellitus with diabetic chronic kidney disease; N18.6 - End stage renal disease; Z79.4 - long term care social worker (current) use of insulin; Z99.2 - Dependence on renal dialysis (5) Pressure ulcer of right heel, stage 2 Status: Resolved Comment: Pt has had chronic problems Pt is s/p foot Sx on AB Rx (6) Depression Status: Chronic Comment: Pt already on antidepressants Additional Assessment/Plan Pt had HD today, will continue Schedule. Further plans per PMD, V Sx & Podiatry Consultation Date/Type/Reason Admit Date/Time Feb 18, 2018 at 12:09 Initial Consult Date Type of Consult renal Reason for Consultation ESRD, HD Requesting Provider: MICHAEL CAMPBELL MD 24 HR Interval Summary Free Text/Dictation c/o recurrent diarrhoea Lomotil not helping Constitutional: improved Exam/Review of Systems Vital Signs Vitals Vital Signs Date Temp Pulse Resp B/P (MAP) Pulse Ox O2 O2 Flow FiO2 Time Delivery Rate 02/20/18 97.6 69 18 138/63 99 Room Air 15:39 (88) 02/20/18 2.0 09:30 Intake and Output 02/19/18 02/19/18 02/20/18 1515:00 23:00 07:00 IntakeIntake Total 480 ml OutputOutput Total 2 ml BalanceBalance 478 ml Exam c/o lose stool, C Diff Neg Constitutional: alert, oriented Psych: anxiety, depression Eyes: nl lids, PERRL, other (pale conj) ENMT: nl external ears & nose, nl lips & teeth, mucosa pink and moist Neck: supple, non-tender Respiratory: clear to auscultation, normal air movement Cardiovascular: regular rate and rhythm, nl pulses Gastrointestinal: soft, nl liver, spleen, non-tender Musculoskeletal: nl extremities to inspection, other Extremities: normal pulses, other (Rt foot in a maetalic brace) Neurological: DISPATCHER RELAY II-XII intact, nl mental status, nl speech Skin: nl QUYNH Farfan MD Feb 20, 2018 17:40
[2018-02-20] MEDS: LORAZEPAM 0.5 MG TAB PO PRN (17:48)
[2018-02-20] MEDS ORDERED: DIPHENOXYLATE/ATROPINE TAB ONE (18:16)
[2018-02-20] MEDS: ONDANSETRON 4 MG INJ IV PRN ×2 (19:11→23:33)
[2018-02-20] MEDS: LORAZEPAM 2 MG INJ IV PRN (19:31)
[2018-02-20] MEDS: INSULIN GLARGINE [LANTus] (100 UNITS/ML) SYG SC SCH (20:27)
[2018-02-21] MEDS: ACCU-CHEK XX SCH (02:00)
[2018-02-21 07:42] VITALS: BP 142/63; PULSE 66; RESP 20
[2018-02-21] MEDS ORDERED: ESCITALOPRAM 10 MG TAB PO SCH (09:00)
[2018-02-21] MEDS: MULTIVIT/CA CARB/B CMPLX/FA TAB PO SCH (09:00)
[2018-02-21] MEDS: INSULIN ASPART [NOVOLOG] 3 ML PEN SC SCH ×4 (09:02→21:00)
[2018-02-21] MEDS: ESCITALOPRAM 10 MG TAB PO SCH (09:03)
[2018-02-21] MEDS: NIFEdipine (XL) 30 MG TAB PO SCH ×2 (09:03→21:08)
[2018-02-21] MEDS: DIPHENOXYLATE/ATROPINE TAB PO PRN (09:06)
[2018-02-21] MEDS: PANTOPRAZOLE 40 MG INJ IV SCH ×2 (10:07→17:36)
[2018-02-21] MEDS: DEXTROSE 5%-0.45% NACL 1,000 ML IV SCH (10:07)
--- NOTE | 2018-02-21 12:04 | CONS ---
Date/Time of Note Date/Time of Note DATE: 02/21/18 TIME: 12:03 Assessment/Plan Assessment/Plan Chief Complaint/Hosp Course No acute changes overnight, sleeping, getting blood transfusion, no fevers Microbiology: Wound culture back in January grew Pseudomonas coag negative staph species and alpha hemolytic strep species Antimicrobials: oral Levaquin and Vanco Indwelling: Left upper extremity AV fistula Physical examination: Well-developed elderly woman who is awake in no distress. Head atraumatic normocephalic sclera nonicteric neck is supple chest rise symmetrical breath sounds diminished bases. Heart: S1-S2. Abdomen soft bowel sounds present. Extremities: Right lower extremity with external fixation Assessment: 1. Right foot Charcot deformity with open chronic wound, status post debridement 02/15/18 2. Diabetes with diabetic neuropathy 3. End-stage renal disease, hemodialysis dependent 4. Hypertension 5. Acute on chronic anemia Plan: Patient remains stable, continue present care, wound care per podiatry recommendations, antibiotics for 6 more weeks DW RN Consultation Date/Type/Reason Admit Date/Time Feb 18, 2018 at 12:09 Initial Consult Date Type of Consult ID Exam/Review of Systems Vital Signs Vitals Vital Signs Date Temp Pulse Resp B/P (MAP) Pulse Ox O2 O2 Flow FiO2 Time Delivery Rate 02/21/18 98.7 66 20 142/63 95 Room Air 07:42 (89) 02/20/18 2.0 09:30 Intake and Output 02/20/18 02/20/18 02/21/18 1515:00 23:00 07:00 IntakeIntake Total 400 ml OutputOutput Total 3300 ml BalanceBalance -2900 ml WELLINGTON KRAFT NP Feb 21, 2018 12:04
--- NOTE | 2018-02-21 12:56 | CONS ---
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 will contiinue Schedule. Consultation Date/Type/Reason Admit Date/Time Feb 18, 2018 at 12:09 Initial Consult Date Reason for Consultation ESRD 24 HR Interval Summary Free Text/Dictation PT with dark black stool, H gb Drop, PRBC x 1 this afternoon. HD yesterday, NO SOB or cough. Constitutional: No requiring O2 Exam/Review of Systems Vital Signs Vitals Vital Signs Date Temp Pulse Resp B/P (MAP) Pulse Ox O2 O2 Flow FiO2 Time Delivery Rate 02/21/18 98.7 66 20 142/63 95 Room Air 07:42 (89) 02/20/18 2.0 09:30 Intake and Output 02/20/18 02/20/18 02/21/18 1515:00 23:00 07:00 IntakeIntake Total 400 ml OutputOutput Total 3300 ml BalanceBalance -2900 ml Exam Constitutional: alert, oriented ENMT: mucosa pink and moist Neck: No jvd Respiratory: clear to auscultation; No crackles/rales, No diminished breath sounds, No labored breathing Cardiovascular: regular rate and rhythm, edema (LUE AVF) Gastrointestinal: soft; No distended, No rebound or guarding Extremities: edema Neurological: OPTICIAN APPRENTICE DISPENSING II-XII intact, nl mental status Skin: No diaphoresis WARD WILSON MD Feb 21, 2018 12:56
[2018-02-21 14:23] VITALS: BP 157/68; PULSE 63; RESP 18
[2018-02-21] MEDS: BALSAM PERU/CASTOR OIL 60 GM TUBE TOP SCH ×2 (15:40→21:09)
[2018-02-21] MEDS: COLLAGENASE 5 GM (UD JAR) TOP SCH (15:41)
--- NOTE | 2018-02-21 17:20 | CONS ---
DATE OF ADMISSION: 02/18/2018 DATE OF CONSULTATION: TYPE OF CONSULTATION: Gastroenterology. Dear Dr. Campbell: Thank you for asking me to see Mrs. Pruett in GI consultation. HISTORY OF PRESENT ILLNESS: As you know, patient is a 72-year-old female, is admitted to [facility] because of her right ankle problems which is being managed by Dr. Dru Rothman. From the GI standpoint, consultation is requested because of anemia and history of melenic stools. She says t hat she has been nauseated. She has vomited a couple of times but no significant abdominal pain, no bloody diarrhea. She has got history of chronic diarrhea. She did have some GI workup in the past w [facility] patient does not recall what the findings of the workup. The medications at home: Include: 1. Levaquin. 2. Isosorbide. 3. Aspirin. 4. Atropine. 5. Insulin Lantus. 6. Nifedipine. SOCIAL HISTORY: She used to drink alcohol heavily until the age of 38. REVIEW OF SYSTEM: History of diabetes and arthritis problems with chronic right foot wound, severe C harcot right foot and ankle, hypertension, end-stage renal disease. PHYSICAL EXAMINATION: GENERAL: The patient is a 72-year-old female who at this time is alert, she is well built. VITAL SIGNS: She is afebrile, temperature 98.6, blood pressure is 157/68. CARDIOVASCULAR: Normal heart sounds. RESPIRATORY: Normal breath sounds. ABDOMEN: Showed a soft abdomen with no palpable masses, no tenderness, no distention. RECTAL: Showed dark stools. LABORATORY WORKUP: Hemoglobin is low of 7.9. She got transfused. WBC is 5300, platelet count 152,0 00. The BUN is 27, creatinine 3.50, potassium 4.2. CLINICAL IMPRESSION: From the GI standpoint, she has got severe anemia with history of passing melen ic stool. Certainly, peptic ulcer disease, gastritis, arteriovenous malformation of the upper gastro intestinal tract should be ruled out. She has chronic renal failure, diabetes, Charcot joint of the right ankle diabetes and hypertension. PLAN: At this time, recommend upper endoscopy. Eventually, she needs a colonoscopy as well. Once again, Dr. Campbell, thank you for this consultation. Dictated By: CHANO DURAN/BOBBI Conf#: [id number] [facility]#: [id number] CC: MICHAEL CAMPBELL MD; DRU ROTHMAN DPM;*[facility]*
[2018-02-21 19:20] VITALS: BP 138/65; PULSE 68; RESP 20
[2018-02-21] MEDS: INSULIN GLARGINE [LANTus] (100 UNITS/ML) SYG SC SCH (21:10)
[2018-02-21] MEDS ORDERED: VANCOMYCIN 750 MG in SOD CHLORIDE 0.9% 150 ML IVPB SCH (22:00)
[2018-02-22] VITALS (22 sets, daily range): BP systolic 107–166; BP diastolic 26–74; PULSE 58–85; RESP 14–20
[2018-02-22] MEDS: ACCU-CHEK XX SCH (02:00)
[2018-02-22] MEDS: LEVOFLOXACIN 250 MG TAB PO SCH (06:00)
[2018-02-22] MEDS: PANTOPRAZOLE 40 MG INJ IV SCH ×2 (06:00→16:52)
[2018-02-22] MEDS: INSULIN ASPART [NOVOLOG] 3 ML PEN SC SCH ×4 (07:50→21:00)
[2018-02-22] MEDS ORDERED: ALBUMIN HUMAN 25% 100 ML IV PRN (08:30)
[2018-02-22] MEDS: MULTIVIT/CA CARB/B CMPLX/FA TAB PO SCH (09:00)
[2018-02-22] MEDS: ESCITALOPRAM 10 MG TAB PO SCH (09:00)
[2018-02-22] MEDS: NIFEdipine (XL) 30 MG TAB PO SCH ×2 (09:00→21:55)
[2018-02-22] MEDS: DEXTROSE 5%-0.45% NACL 1,000 ML IV SCH (12:00)
[2018-02-22] MEDS ORDERED: PROPOFOL 20 ML ONE (12:39)
[2018-02-22] MEDS ORDERED: LIDOCAINE 100 MG SYRINGE ONE (12:39)
[2018-02-22] MEDS ORDERED: FENTAnyl 50 MCG/ML VIAL ONE (12:40)
--- NOTE | 2018-02-22 13:07 | CONS ---
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 Will contiinue Schedule. Consultation Date/Type/Reason Admit Date/Time Feb 18, 2018 at 12:09 Initial Consult Date Requesting Provider: MICHAEL CAMPBELL MD 24 HR Interval Summary Free Text/Dictation S/p HD this am no complication, Plan GI lab. Exam/Review of Systems Vital Signs Vitals Vital Signs Date Temp Pulse Resp B/P (MAP) Pulse Ox O2 O2 Flow FiO2 Time Delivery Rate 02/22/18 60 10:28 02/22/18 98.1 16 143/57 98 07:39 (85) 02/22/18 Room Air 07:27 02/20/18 2.0 09:30 Intake and Output 02/21/18 02/21/18 02/22/18 1515:00 23:00 07:00 IntakeIntake Total 700 ml 270 ml BalanceBalance 700 ml 270 ml Exam Constitutional: frail; No distress ENMT: mucosa pink and moist Respiratory: clear to auscultation; No labored breathing Cardiovascular: regular rate and rhythm; No edema Gastrointestinal: soft Neurological: lethargic Additional Comments IMPRESSION: No sonographic evidence for left upper extremity venous thrombosis. Patent left brachial artery to cephalic vein fistula. RPTAT:AAJJ Physician Hemanth Date Time Electronically viewed and signed by Shereen Lucero Physician on 02/21/2018 14:38 WARD WILSON MD Feb 22, 2018 13:07
[2018-02-22] MEDS: COLLAGENASE 5 GM (UD JAR) TOP SCH (14:00)
[2018-02-22] MEDS: BALSAM PERU/CASTOR OIL 60 GM TUBE TOP SCH ×2 (14:00→22:28)
--- NOTE | 2018-02-22 14:15 | PN ---
Date/Time of Note Date/Time of Note DATE: 02/22/18 TIME: 14:15 Assessment/Plan VTE [place] [facility] [place]: 8 [place] [facility] [place] Yes SCD contraindicated: other Pharmacological prophylaxis: other Pharm contraindication: other Lines/Catheters [facility] Type (from [facility]): Peripheral IV Urinary Cath still in place: No Subjective 24 Hr Interval Summary Free Text/Dictation 02/21 Exam/Review of Systems Vital Signs Vitals Vital Signs Date Temp Pulse Resp B/P (MAP) Pulse Ox O2 O2 Flow FiO2 Time Delivery Rate 02/22/18 75 17 156/70 100 Room Air 14:05 (98) 02/22/18 98.0 12:59 02/22/18 15 12:51 Intake and Output 02/21/18 02/21/18 02/22/18 1515:00 23:00 07:00 IntakeIntake Total 700 ml 270 ml BalanceBalance 700 ml 270 ml KODAK YANG Feb 22, 2018 14:15
--- NOTE | 2018-02-22 14:17 | PN ---
Date/Time of Note Date/Time of Note DATE: 02/22/18 TIME: 14:15 Assessment/Plan VTE Prophylaxis [place] [facility] [place] risk: 8 [place]CD applied [place] [facility] [place] Yes SCD contraindicated: other Pharmacological prophylaxis: other Pharm contraindication: other Lines/Catheters IV Catheter Type (from [facility]): Peripheral IV Urinary Cath still in place: No Subjective 24 Hr Interval Summary Free Text/Dictation sp EGD Exam/Review of Systems Vital Signs Vitals Vital Signs Date Temp Pulse Resp B/P (MAP) Pulse Ox O2 O2 Flow FiO2 Time Delivery Rate 02/22/18 75 17 156/70 100 Room Air 14:05 (98) 02/22/18 98.0 12:59 02/22/18 15 12:51 Intake and Output 02/21/18 02/21/18 02/22/18 1515:00 23:00 07:00 IntakeIntake Total 700 ml 270 ml BalanceBalance 700 ml 270 ml KODAK YANG Feb 22, 2018 14:17
[2018-02-22] MEDS ORDERED: SOD CHLORIDE 0.9% 500 ML ONE (15:25)
[2018-02-22] MEDS ORDERED: HEPARIN 1000 UNITS/ML 10 ML INJ ONE (15:25)
[2018-02-22] MEDS ORDERED: LIDOCAINE 1% (MDV) 20 ML INJ ONE (15:25)
[2018-02-22] MEDS ORDERED: IODIXANOL LOCM 100 ML BTL ONE (15:25)
[2018-02-22] MEDS ORDERED: LORAZEPAM 4 MG/ML VIAL IV PRN (15:30)
--- NOTE | 2018-02-22 15:48 | SIPON ---
Date/Time of Note Date/Time of Note DATE: 02/22/18 TIME: 15:47 Operative Report Preoperative Diagnosis L arm swelling Postoperative Diagnosis same Operation/Procedure Performed L arm AV fistulagram, PTV subclavian vein occlusion, 10x40 to 14 kelin, no residual Surgeon see signature line export sales assistant none Anesthesia: other Estimated blood loss: minimal Transfusion Required none Specimen none Grafts/Implants none Complications none LISSA MARTINEZ MD Feb 22, 2018 15:48
--- NOTE | 2018-02-22 16:45 | CONS ---
Date/Time of Note Date/Time of Note DATE: 02/22/18 TIME: 16:44 Assessment/Plan Assessment/Plan Chief Complaint/Hosp Course No acute changes overnight Microbiology: Wound culture back in January grew Pseudomonas coag negative staph species and alpha hemolytic strep species Antimicrobials: oral Levaquin and Vanco Indwelling: Left upper extremity AV fistula Physical examination: Well-developed elderly woman who is awake in no distress. Head atraumatic normocephalic sclera nonicteric neck is supple chest rise symmetrical breath sounds diminished bases. Heart: S1-S2. Abdomen soft bowel sounds present. Extremities: Right lower extremity with external fixation Assessment: 1. Right foot Charcot deformity with open chronic wound, status post debridement 02/15/18 2. Diabetes with diabetic neuropathy 3. End-stage renal disease, hemodialysis dependent 4. Hypertension 5. Acute on chronic anemia Plan: Patient remains stable, continue antibiotics for 6 more weeks, vascular surgery rec-s GALILEA RN Consultation Date/Type/Reason Admit Date/Time Feb 18, 2018 at 12:09 Initial Consult Date Type of Consult ID Requesting Provider: MICHAEL CAMPBELL MD Exam/Review of Systems Vital Signs Vitals Vital Signs Date Temp Pulse Resp B/P (MAP) Pulse Ox O2 O2 Flow FiO2 Time Delivery Rate 02/22/18 85 20 157/64 97 Room Air 16:32 (95) 02/22/18 97.8 15:01 02/22/18 15 12:51 Intake and Output 02/21/18 02/21/18 02/22/18 1515:00 23:00 07:00 IntakeIntake Total 700 ml 270 ml BalanceBalance 700 ml 270 ml WELLINGTON KRAFT NP Feb 22, 2018 16:45
[2018-02-22] MEDS ORDERED: EPOETIN 4000 UNITS/1 ML INJ (ESRD) SC SCH (17:00)
[2018-02-22] MEDS: INSULIN GLARGINE [LANTus] (100 UNITS/ML) SYG SC SCH (21:56)
[2018-02-23] MEDS: DEXTROSE 5%-0.45% NACL 1,000 ML IV SCH (00:30)
[2018-02-23] MEDS: ACCU-CHEK XX SCH (02:00)
[2018-02-23] MEDS: LORAZEPAM 0.5 MG TAB PO PRN (02:35)
[2018-02-23] MEDS: PANTOPRAZOLE 40 MG INJ IV SCH ×2 (06:00→17:30)
[2018-02-23] MEDS: INSULIN ASPART [NOVOLOG] 3 ML PEN SC SCH ×4 (07:50→21:00)
[2018-02-23 07:56] VITALS: BP 153/70; PULSE 67; RESP 16
[2018-02-23] MEDS: DIPHENOXYLATE/ATROPINE TAB PO PRN (08:31)
[2018-02-23] MEDS: ESCITALOPRAM 10 MG TAB PO SCH (08:31)
[2018-02-23] MEDS: NIFEdipine (XL) 30 MG TAB PO SCH ×2 (08:31→21:00)
[2018-02-23] MEDS: COLLAGENASE 5 GM (UD JAR) TOP SCH (08:32)
[2018-02-23] MEDS: BALSAM PERU/CASTOR OIL 60 GM TUBE TOP SCH ×2 (09:00→21:31)
--- NOTE | 2018-02-23 11:08 | OPR ---
DATE OF OPERATION: 02/22/2018 PREOPERATIVE DIAGNOSIS: Left arm swelling. POSTOPERATIVE DIAGNOSIS: Left arm swelling. PROCEDURE PERFORMED: Left arm arteriovenous fistulogram with percutaneous venoplasty of subclavian v ein occlusion. SURGEON: Lissa Sanchez MD. ANESTHESIA: Local anesthesia. ESTIMATED BLOOD LOSS: Minimal. COMPLICATIONS: No intraprocedural complications. INDICATIONS: This is a 72-year-old diabetic, hypertensive woman with end-stage renal disease. She h as a left arm AV fistula. 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 She has noted left arm swelling several days ago. I brought her in for a fistulogram and intervention. DESCRIPTION OF PROCEDURE: The patient was brought to the laboratory apparatus glass grinder, placed on the table in supine pos ition. Left arm was prepped and draped in the usual sterile fashion. I infiltrated over the fistula just above the elbow using about 10 mL of 1% Xylocaine. Using micropuncture needle to enter the vei n under manual guidance, I advanced an 0.018 wire through the needle into vein, and a micropuncture s beltran was advanced over the wire into the vein, then did an AV fistulogram that showed the arterial a nastomosis was patent. The fistula itself is widely patent. The subclavian vein was occluded just a t the clavicle. I can see filling of the superior vena cava through collaterals. I then advanced an 0.035 Glidewire through the micropuncture sheath and exchanged the micropuncture sheath for a 6-Fren ch sheath over the wire. I then used a Kumpe catheter and the Glidewire to traverse the occluded seg ment of the subclavian vein. I then angioplastied the subclavian vein with a 10 mm x 6 cm balloon to 14 atmospheres with no residual stenosis after venoplasty, no extravasation. There was a good thril l. There is brisk flow through that area that had been occluded. I then removed all the catheter sh eaths and wires and used a 4-0 Monocryl pursestring suture to close the puncture site and sterile evelyn ssing was applied. She was transferred back to her room in stable condition. She tolerated the proc edure well without any complications. Dictated By: LISSA SAMAYOA/BOBBI Conf#: [id number] DID#: [id number] CC: RODRIGO ROTHMAN DPM; CHANO BARKER MD; NADIA MEJIA MD; WARD WILSON MD;*End*
--- NOTE | 2018-02-23 11:59 | PN ---
Date/Time of Note Date/Time of Note DATE: 02/23/18 TIME: 11:59 Assessment/Plan VTE Prophylaxis Risk score (from [facility])>0 risk: 7 SCD applied (from [facility]): Yes Pharmacological prophylaxis: LMWH Lines/Catheters IV Catheter Type (from [facility]): Peripheral IV Urinary Cath still in place: No Assessment/Plan Hospital Course 1. Chronic right foot wound. 2. Severe Charcot right foot and ankle. The patient will be continued on Levaquin as preoperatively she was getting it, which was prescribed by Dr. Freitas. The patient has no fever and has normal white count. 3. Diabetes. We will put patient on sliding scale insulin and we will continue Lantus. 4. Hypertension. The patient has sinus bradycardia; therefore, the patient was recently taken off beta lien. We will continue Procardia. 5. Chronic diarrhea with negative gastrointestinal workup. Continue Lomotil on p.r.n. basis. 6. End-stage renal disease. Continue hemodialysis as per Dr. Jesus Zuñiga. 7. We will also obtain ID consultation with Dr. Salgado. 8. We will add Nephro-Yuko. Subjective 24 Hr Interval Summary Free Text/Dictation Patient has some pain in leg Exam/Review of Systems Vital Signs Vitals Vital Signs Date Temp Pulse Resp B/P (MAP) Pulse Ox O2 O2 Flow FiO2 Time Delivery Rate 02/23/18 97.8 67 16 153/70 97 07:56 (97) 02/22/18 Room Air 19:15 02/22/18 15 12:51 Intake and Output 02/22/18 02/22/18 02/23/18 1515:00 23:00 07:00 IntakeIntake Total 200 ml 120 ml OutputOutput Total 2200 ml BalanceBalance -2000 ml 120 ml Exam Constitutional: well developed Head: normocephalic, atraumatic Neck: supple Respiratory: clear to auscultation Cardiovascular: regular rate and rhythm Gastrointestinal: soft, non-tender Extremities: normal pulses DIANA GARCIA Feb 23, 2018 11:59
[2018-02-23] MEDS: MULTIVIT/CA CARB/B CMPLX/FA TAB PO SCH (13:04)
[2018-02-23 15:21] VITALS: BP 125/60; PULSE 59; RESP 18
--- NOTE | 2018-02-23 16:41 | CONS ---
Date/Time of Note Date/Time of Note DATE: 02/23/18 TIME: 16:40 Assessment/Plan Assessment/Plan Chief Complaint/Hosp Course 1130 No acute changes, sleeping, looks comfortable Microbiology: Wound culture back in January grew Pseudomonas coag negative staph species and alpha hemolytic strep species Antimicrobials: oral Levaquin and Vanco Indwelling: Left upper extremity AV fistula Physical examination: Well-developed elderly woman who is awake in no distress. Head atraumatic normocephalic sclera nonicteric neck is supple chest rise symmetrical breath sounds diminished bases. Heart: S1-S2. Abdomen soft bowel sounds present. Extremities: Right lower extremity with external fixation Assessment: 1. Right foot Charcot deformity with open chronic wound, status post debridement 02/15/18 2. Diabetes with diabetic neuropathy 3. End-stage renal disease, hemodialysis dependent 4. Hypertension 5. Acute on chronic anemia Plan: Patient remains stable, continue antibiotics for 6 more weeks, f/u vascular/podiatry rec-s GALILEA RN Consultation Date/Type/Reason Admit Date/Time Feb 18, 2018 at 12:09 Initial Consult Date Type of Consult ID Requesting Provider: MICHAEL CAMPBELL MD Exam/Review of Systems Vital Signs Vitals Vital Signs Date Temp Pulse Resp B/P (MAP) Pulse Ox O2 O2 Flow FiO2 Time Delivery Rate 02/23/18 97.8 59 18 125/60 100 15:21 (81) 02/22/18 Room Air 19:15 02/22/18 15 12:51 Intake and Output 02/22/18 02/22/18 02/23/18 1515:00 23:00 07:00 IntakeIntake Total 200 ml 120 ml OutputOutput Total 2200 ml BalanceBalance -2000 ml 120 ml WELLINGTON KRAFT NP Feb 23, 2018 16:41
--- NOTE | 2018-02-23 19:04 | CONS ---
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 Consultation Date/Type/Reason Admit Date/Time Feb 18, 2018 at 12:09 Initial Consult Date Requesting Provider: MICHAEL CAMPBELL MD Exam/Review of Systems Vital Signs Vitals Vital Signs Date Temp Pulse Resp B/P (MAP) Pulse Ox O2 O2 Flow FiO2 Time Delivery Rate 02/23/18 97.8 59 18 125/60 100 15:21 (81) 02/22/18 Room Air 19:15 02/22/18 15 12:51 Intake and Output 02/22/18 02/22/18 02/23/18 1515:00 23:00 07:00 IntakeIntake Total 200 ml 120 ml OutputOutput Total 2200 ml BalanceBalance -2000 ml 120 ml Exam Constitutional: No distress ENMT: mucosa pink and moist Neck: No jvd Respiratory: crackles/rales Cardiovascular: regular rate and rhythm, edema Gastrointestinal: soft Neurological: No lethargic Skin: No diaphoresis WARD WILSON MD Feb 23, 2018 19:04
[2018-02-23 19:10] VITALS: BP 134/69; PULSE 60; RESP 20
[2018-02-23] MEDS: INSULIN GLARGINE [LANTus] (100 UNITS/ML) SYG SC SCH (21:28)
[2018-02-24] VITALS (19 sets, daily range): BP systolic 150–173; BP diastolic 48–74; PULSE 53–66; RESP 18–20
[2018-02-24] MEDS: ACCU-CHEK XX SCH (02:00)
[2018-02-24] MEDS: LORAZEPAM 0.5 MG TAB PO PRN ×2 (03:32→19:27)
[2018-02-24] MEDS: PANTOPRAZOLE 40 MG INJ IV SCH ×2 (06:00→17:45)
[2018-02-24] MEDS: LEVOFLOXACIN 250 MG TAB PO SCH (06:00)
[2018-02-24] MEDS: INSULIN ASPART [NOVOLOG] 3 ML PEN SC SCH ×4 (07:50→19:49)
[2018-02-24] MEDS: COLLAGENASE 5 GM (UD JAR) TOP SCH (08:19)
[2018-02-24] MEDS: ESCITALOPRAM 10 MG TAB PO SCH (08:19)
[2018-02-24] MEDS: NIFEdipine (XL) 30 MG TAB PO SCH ×2 (08:19→19:44)
[2018-02-24] MEDS: MULTIVIT/CA CARB/B CMPLX/FA TAB PO SCH (08:19)
[2018-02-24] MEDS: BALSAM PERU/CASTOR OIL 60 GM TUBE TOP SCH ×2 (08:20→22:44)
[2018-02-24] MEDS: DIPHENOXYLATE/ATROPINE TAB PO PRN (08:31)
--- NOTE | 2018-02-24 08:42 | CONS ---
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 Consultation Date/Type/Reason Admit Date/Time Feb 18, 2018 at 12:09 Initial Consult Date Requesting Provider: MICHAEL CAMPBELL MD 24 HR Interval Summary Constitutional: No requiring O2 Exam/Review of Systems Vital Signs Vitals Vital Signs Date Temp Pulse Resp B/P (MAP) Pulse Ox O2 O2 Flow FiO2 Time Delivery Rate 02/24/18 98.8 65 18 150/65 96 Room Air 07:06 (93) 02/22/18 15 12:51 Intake and Output 02/23/18 02/23/18 02/24/18 1515:00 23:00 07:00 IntakeIntake Total 400 ml BalanceBalance 400 ml Exam Constitutional: frail; No distress ENMT: mucosa pink and moist Neck: No jvd Respiratory: clear to auscultation Cardiovascular: regular rate and rhythm; No edema Gastrointestinal: soft Extremities: No edema Neurological: lethargic WARD WILSON MD Feb 24, 2018 08:42
--- NOTE | 2018-02-24 11:28 | DS ---
Date/Time of Note Date/Time of Note DATE: 02/24/18 TIME: 11:26 Discharge Summary Admission/Discharge Info Admit Date/Time Feb 18, 2018 at 12:09 Discharge Date/Time 02/24/18 Discharge Diagnosis 1. Chronic right foot wound. 2. Severe Charcot right foot and ankle. The patient will be continued on Levaquin as preoperatively she was getting it, which was prescribed by Dr. Freitas. The patient has no fever and has normal white count. 3. Diabetes. We will put patient on sliding scale insulin and we will continue Lantus. 4. Hypertension. The patient has sinus bradycardia; therefore, the patient was recently taken off beta lien. We will continue Procardia. 5. Chronic diarrhea with negative gastrointestinal workup. Continue Lomotil on p.r.n. basis. 6. End-stage renal disease. Continue hemodialysis as per Dr. Jesus Zuñiga. 7. We will also obtain ID consultation with Dr. Salgado. 8. We will add Nephro-Yuko. Patient Condition: Fair Consults surgery nephrology infectious disease Procedures surgery for right foot Hx of Present Illness Patient with diabetes, renal failure comes in with pain related to wound in right foot. Hospital Course Patient with diabetes, renal failure comes in with pain related to wound in right foot. Patien underwent surgery and was given antibiotics. Patient has right foot set with pins. Patient was felt to be stable with continued antibiotics and so the patient will be transferred to SNF. 1. Chronic right foot wound. 2. Severe Charcot right foot and ankle. The patient will be continued on Levaquin as preoperatively she was getting it, which was prescribed by Dr. Freitas. The patient has no fever and has normal white count. 3. Diabetes. We will put patient on sliding scale insulin and we will continue Lantus. 4. Hypertension. The patient has sinus bradycardia; therefore, the patient was recently taken off beta lien. We will continue Procardia. 5. Chronic diarrhea with negative gastrointestinal workup. Continue Lomotil on p.r.n. basis. 6. End-stage renal disease. Continue hemodialysis as per Dr. Jesus Zuñiga. 7. We will also obtain ID consultation with Dr. Salgado. 8. We will add Nephro-Yuko. Home Meds Active Scripts Levofloxacin* (Levaquin*) 250 Mg Tablet, 250 MG PO Q48H for 30 Days, TAB Prov:JOCELYN WSAIN 01/17/18 Diphenoxylate HCl/Atropine (Diphenoxylate-Atrop 2.5-0.025) 1 Each Tablet, 2 TAB PO QAM PRN for DIARRHEA, #30 TAB Prov:JOCELYN SWAIN 01/17/18 [NIFEdipine (XL)] 30 MG TABSR No Conflict Check, 30 MG PO BID for 30 Days Prov:JOCELYN SWAIN 01/17/18 Reported Medications Isosorbide Mononitrate* (Isosorbide Mononitrate*) 20 Mg Tablet, 20 MG PO DAILY, TAB 02/15/18 Insulin Aspart (Novolog FlexPen) 100 Unit/1 Ml Insuln.pen, 0 SC SLIDING SCALE AC, EA 06/20/16 Insulin Glargine* (Lantus*) 100 Unit/Ml Soln, 12 UNIT SC QHS, #1 VIAL 04/21/16 Aspirin* (Aspirin* (EC)) 81 Mg Tablet.dr, 81 MG PO DAILY, TAB 11/17/14 Atenolol* (Atenolol*) 50 Mg Tablet, 50 MG PO BID 09/24/12 Primary Care Provider Markus Patiño MD Pending Labs Laboratory Tests Test 02/23/18 13:05 02/23/18 17:37 02/23/18 21:26 02/24/18 08:18 Bedside 119 82 153 89 Glucose mg/dL (70-220) mg/dL (70-220) mg/dL (70-220) mg/dL (70-220) DIANA GARCIA Feb 24, 2018 11:28
--- NOTE | 2018-02-24 14:10 | CONS ---
Date/Time of Note Date/Time of Note DATE: 02/24/18 TIME: 14:09 Assessment/Plan Assessment/Plan Chief Complaint/Hosp Course Subjective: Patient is awake and looks comfortable, no fevers overnight Microbiology: Wound culture back in January grew Pseudomonas coag negative staph species and alpha hemolytic strep species Antimicrobials: oral Levaquin and Vanco Indwelling: Left upper extremity AV fistula Physical examination: Well-developed elderly woman who is awake in no distress. Head atraumatic normocephalic sclera nonicteric neck is supple chest rise symmetrical breath sounds diminished bases. Heart: S1-S2. Abdomen soft bowel sounds present. Extremities: Right lower extremity with external fixation Assessment: 1. Right foot Charcot deformity with open chronic wound, status post debridement 02/15/18 2. Diabetes with diabetic neuropathy 3. End-stage renal disease, hemodialysis dependent 4. Hypertension 5. Acute on chronic anemia Plan: Patient remains stable, continue antibiotics to complete 6 more weeks, f/u vascular/podiatry rec-s GALILEA RN Consultation Date/Type/Reason Admit Date/Time Feb 18, 2018 at 12:09 Initial Consult Date Type of Consult ID Requesting Provider: MICHAEL CAMPBELL MD Exam/Review of Systems Vital Signs Vitals Vital Signs Date Temp Pulse Resp B/P (MAP) Pulse Ox O2 O2 Flow FiO2 Time Delivery Rate 02/24/18 98.8 65 18 150/65 96 Room Air 07:06 (93) 02/22/18 15 12:51 Intake and Output 02/23/18 02/23/18 02/24/18 1515:00 23:00 07:00 IntakeIntake Total 400 ml BalanceBalance 400 ml WELLINGTON KRAFT NP Feb 24, 2018 14:10
[2018-02-24] MEDS: INSULIN GLARGINE [LANTus] (100 UNITS/ML) SYG SC SCH (19:50)
[2018-02-25] VITALS (10 sets, daily range): BP systolic 98–177; BP diastolic 49–77; PULSE 62–68; RESP 17–18
[2018-02-25] MEDS: ACCU-CHEK XX SCH (02:00)
[2018-02-25] MEDS: PANTOPRAZOLE 40 MG INJ IV SCH (06:00)
[2018-02-25] MEDS: GLUCOSE GEL 15 GRAM TUBE BUCCAL PRN ×2 (07:23→08:09)
[2018-02-25] MEDS: INSULIN ASPART [NOVOLOG] 3 ML PEN SC SCH ×2 (07:50→13:03)
[2018-02-25] MEDS: ESCITALOPRAM 10 MG TAB PO SCH (08:11)
[2018-02-25] MEDS: MULTIVIT/CA CARB/B CMPLX/FA TAB PO SCH (08:11)
[2018-02-25] MEDS: NIFEdipine (XL) 30 MG TAB PO SCH ×2 (08:13→08:20)
[2018-02-25] MEDS: BALSAM PERU/CASTOR OIL 60 GM TUBE TOP SCH (08:13)
--- NOTE | 2018-02-25 08:34 | CONS ---
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 Will increase epo & check Iron sat Additional Assessment/Plan Will need close observation. Cont'd Hospitalization Reason: DC plans to SNF under way per PMD Consultation Date/Type/Reason Admit Date/Time Feb 18, 2018 at 12:09 Initial Consult Date Type of Consult renal Reason for Consultation ESRD, HD Requesting Provider: MICHAEL CAMPBELL MD 24 HR Interval Summary Free Text/Dictation Pt is very disturbed about her medical condition Exam/Review of Systems Vital Signs Vitals Vital Signs Date Temp Pulse Resp B/P (MAP) Pulse Ox O2 O2 Flow FiO2 Time Delivery Rate 02/25/18 98.9 62 17 141/65 92 08:18 (90) 02/25/18 Room Air 07:37 02/22/18 15 12:51 Intake and Output 02/24/18 02/24/18 02/25/18 1515:00 23:00 07:00 IntakeIntake Total 120 ml OutputOutput Total 200 ml 2000 ml BalanceBalance -200 ml -1880 ml Exam Seems depressed Constitutional: alert, oriented, well developed Psych: no complaints, nl mood/affect Head: normocephalic, atraumatic Eyes: nl conjunctiva, EOMI, nl lids, nl sclera, PERRL ENMT: nl external ears & nose, nl lips & teeth, nl nasal mucosa & septum, other (Pale conj) Neck: supple, non-tender Respiratory: clear to auscultation, normal air movement Cardiovascular: regular rate and rhythm, nl pulses Gastrointestinal: soft, nl liver, spleen, non-tender, other (wearing diapers) Musculoskeletal: nl extremities to inspection, nl gait and stance Extremities: normal pulses, other (rt foot dressing & brace in place. 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
--- NOTE | 2018-02-25 11:38 | PN ---
Date/Time of Note Date/Time of Note DATE: 02/25/18 TIME: 11:37 Assessment/Plan VTE Prophylaxis Risk score (from Nsg)>0 risk: 6 SCD applied (from Nsg): Yes Pharmacological prophylaxis: LMWH Lines/Catheters IV Catheter Type (from Nrsg): Peripheral IV Urinary Cath still in place: No Assessment/Plan Hospital Course Patient with diabetes, renal failure comes in with pain related to wound in right foot. Patien underwent surgery and was given antibiotics. Patient has right foot set with pins. Patient was felt to be stable with continued antibiotics and so the patient will be transferred to SNF. 1. Chronic right foot wound. 2. Severe Charcot right foot and ankle. The patient will be continued on Levaquin as preoperatively she was getting it, which was prescribed by Dr. Freitas. The patient has no fever and has normal white count. 3. Diabetes. We will put patient on sliding scale insulin and we will continue Lantus. 4. Hypertension. The patient has sinus bradycardia; therefore, the patient was recently taken off beta lien. We will continue Procardia. 5. Chronic diarrhea with negative gastrointestinal workup. Continue Lomotil on p.r.n. basis. 6. End-stage renal disease. Continue hemodialysis as per Dr. Jesus Zuñiga. 7. We will also obtain ID consultation with Dr. Salgado. 8. We will add Nephro-Yuko. Subjective 24 Hr Interval Summary Free Text/Dictation Patient was to be transferred to SNF but she became anxious and had uncontrolled hypertension so the discharge had to be held. Will attempt today Exam/Review of Systems Vital Signs Vitals Vital Signs Date Temp Pulse Resp B/P (MAP) Pulse Ox O2 O2 Flow FiO2 Time Delivery Rate 02/25/18 98.1 67 18 162/74 93 11:27 (103) 02/25/18 Room Air 07:37 02/22/18 15 12:51 Intake and Output 02/24/18 02/24/18 02/25/18 1515:00 23:00 07:00 IntakeIntake Total 120 ml OutputOutput Total 200 ml 2000 ml BalanceBalance -200 ml -1880 ml Exam Constitutional: well developed Head: normocephalic, atraumatic Neck: supple Respiratory: clear to auscultation Cardiovascular: regular rate and rhythm Gastrointestinal: soft, non-tender Extremities: normal pulses DIANA GARCIA Feb 25, 2018 11:38
[2018-02-25] MEDS: COLLAGENASE 5 GM (UD JAR) TOP SCH (14:15)
--- NOTE | 2018-02-25 15:14 | CONS ---
Date/Time of Note Date/Time of Note DATE: 02/25/18 TIME: 15:14 Assessment/Plan Assessment/Plan Chief Complaint/Hosp Course Subjective: No acute events overnight patient is sleeping, looks comfortable, no fevers Microbiology: Wound culture back in January grew Pseudomonas coag negative staph species and alpha hemolytic strep species Antimicrobials: oral Levaquin and Vanco Indwelling: Left upper extremity AV fistula Physical examination: Well-developed elderly woman who is awake in no distress. Head atraumatic normocephalic sclera nonicteric neck is supple chest rise symmetrical breath sounds diminished bases. Heart: S1-S2. Abdomen soft bowel sounds present. Extremities: Right lower extremity with external fixation Assessment: 1. Right foot Charcot deformity with open chronic wound, status post debridement 02/15/18 2. Diabetes with diabetic neuropathy 3. End-stage renal disease, hemodialysis dependent 4. Hypertension 5. Acute on chronic anemia Plan: Patient remains stable, continue antibiotics to complete 6 more weeks, hemodialysis per renal DW RN Consultation Date/Type/Reason Admit Date/Time Feb 18, 2018 at 12:09 Initial Consult Date Type of Consult ID Requesting Provider: MICHAEL CAMPBELL MD Exam/Review of Systems Vital Signs Vitals Vital Signs Date Temp Pulse Resp B/P (MAP) Pulse Ox O2 O2 Flow FiO2 Time Delivery Rate 02/25/18 68 146/67 15:09 (93) 02/25/18 98.1 18 93 11:27 02/25/18 Room Air 07:37 02/22/18 15 12:51 Intake and Output 02/24/18 02/24/18 02/25/18 1515:00 23:00 07:00 IntakeIntake Total 120 ml OutputOutput Total 200 ml 2000 ml BalanceBalance -200 ml -1880 ml Medications Medications Current Medications Diagnostic Test (Pha) (Accu-Chek) 1 ea 02 XX Last administered on 02/19/18at 02:56; Admin Dose 1 EA; Start 02/16/18 at 02:00 Insulin Aspart (Novolog Insulin Pen) NOVOLOG *MILD* ALGORITHM WITH MEALS BEDTIME SC Last administered on 02/25/18at 13:03; Admin Dose 2 UNIT; Start 02/15/18 at 22:00 Miscellaneous Information 1 ea NOTE XX ; Start 02/15/18 at 21:30 Glucose (Glutose) 15 gm Q15M PRN PO DECREASED GLUCOSE; Start 02/15/18 at 21:30 Glucose (Glutose) 22.5 gm Q15M PRN PO DECREASED GLUCOSE; Start 02/15/18 at 21:30 Dextrose (D50w Syringe) 25 ml Q15M PRN IV DECREASED GLUCOSE; Start 02/15/18 at 21:30 Dextrose (D50w Syringe) 50 ml Q15M PRN IV DECREASED GLUCOSE; Start 02/15/18 at 21:30 Glucagon (Glucagen) 1 mg Q15M PRN IM DECREASED GLUCOSE; Start 02/15/18 at 21:30 Glucose (Glutose) 15 gm Q15M PRN BUCCAL DECREASED GLUCOSE Last administered on 02/25/18at 08:09; Admin Dose 15 GM; Start 02/15/18 at 21:30 Lorazepam (Ativan) 0.5 mg BID PRN PO ANXIETY Last administered on 02/24/18at 19:27; Admin Dose 0.5 MG; Start 02/15/18 at 22:00 Insulin Glargine (Lantus) 12 units QHS SC Last administered on 02/24/18at 19:50; Admin Dose 12 UNITS; Start 02/16/18 at 21:00 Nifedipine (Procardia Xl) 30 mg BID PO Last administered on 02/25/18at 08:20; Admin Dose 30 MG; Start 02/16/18 at 09:00 Multivit/Ca Carb/ B Cmplx/FA/Prenat (Aline-Yuko) 1 tab DAILY PO Last administered on 02/25/18at 08:11; Admin Dose 1 TAB; Start 02/16/18 at 09:00 Levofloxacin (Levaquin) 250 mg Q48H PO Last administered on 02/20/18at 06:47; Admin Dose 250 MG; Start 02/16/18 at 06:00 Vancomycin HCl (Vanco Iv Per Pharmacy) VANCOMYCIN PER PHARMACY PER PROTOCOL XX ; Start 02/16/18 at 15:00 Acetaminophen (Tylenol Tab) 650 mg Q6H PRN PO MILD PAIN(1-3)OR ELEVATED TEMP Last administered on 02/19/18at 12:38; Admin Dose 650 MG; Start 02/17/18 at 09:00 Ondansetron HCl (Zofran Inj) 4 mg Q4H PRN IV NAUSEA AND/OR VOMITING Last administered on 02/20/18 23:33; Admin Dose 4 MG; Start 02/19/18 at 02:30 Escitalopram Oxalate (Lexapro) 10 mg DAILY PO Last administered on 02/25/18 08:11; Admin Dose 10 MG; Start 02/20/18 at 16:00 Diphenoxylate HCl/ Atropine (Lomotil) 2 tab Q4H PRN PO DIARRHEA Last administ ered on 02/24/18 08:31; Admin Dose 2 TAB; Start 02/20/18 at 20:00 Pantoprazole (Protonix Iv) 40 mg BID@06,18 IV Last administered on 02/23/18 17:30; Admin Dose 40 MG; Start 02/21/18 at 08:30 Collagenase (Santyl) 1 applic DAILY TOP Last administered on 02/25/18 14:15; Admin Dose 1 APPLIC; Start 02/21/18 at 13:30 Vancomycin HCl 750 mg/Sodium Chloride 150 ml @ 75 mls/hr Q96H IVPB Last administered on 02/21/18 21:09; Admin Dose 75 MLS/HR; Start 02/21/18 at 22:00 Lorazepam (Ativan) 0.5 mg Q6H PRN IV ANXIETY; Start 02/22/18 at 15:30 Clonidine (Catapres) 0.1 mg Q6H PRN PO ELEVATED BLOOD PRESSURE Last administered on 02/25/18 14:14; Admin Dose 0.1 MG; Start 02/24/18 at 21:00 Hydralazine HCl (Apresoline) 25 mg Q6H PRN PO ELEVATED BLOOD PRESSURE Last administered on 02/25/18 11:41; Admin Dose 25 MG; Start 02/25/18 at 00:30 Epoetin Ishan (Epogen (Esrd)) 10,000 units MoWeFr@17 SC ; Start 02/25/18 at 17:00 WELLINGTON KRAFT NP Feb 25, 2018 15:14
[2018-02-25] MEDS: ACETAMINOPHEN 325 MG TAB PO PRN (15:28)
[2018-02-25] MEDS: DIPHENOXYLATE/ATROPINE TAB PO PRN (15:28)
[2018-02-25] MEDS ORDERED: EPOETIN 10000 UNITS/1 ML INJ (ESRD) SC SCH (17:00)
== END 2018-02-25 17:30 | DRG 981 ==
LOC: REC 11:29 → INTOOBSV 11:29 → REC 20:04 → MS1 20:04 → OBSVTOIN 02-18 12:09
PROVIDERS: ADMIT Podiatrist Foot & Ankle Surgery; ATTEND Podiatrist Foot & Ankle Surgery
PROC: 0QSN35Z Reposition Right Metatarsal with External Fixation Device, Percutaneous Approach (ICD-10-PCS; 2018-02-15)
PROC: 0QSG35Z Reposition Right Tibia with External Fixation Device, Percutaneous Approach (ICD-10-PCS; principal; 2018-02-15 14:00)
PROC: 5A1D70Z Performance of Urinary Filtration, Intermittent, Less than 6 Hours Per Day (ICD-10-PCS; 2018-02-19)
PROC: 05763ZZ Dilation of Left Subclavian Vein, Percutaneous Approach (ICD-10-PCS; 2018-02-22)
PROC: B51WYZZ Fluoroscopy of Dialysis Shunt/Fistula using Other Contrast (ICD-10-PCS; 2018-02-22)
PROC: 0DB68ZX Excision of Stomach, Via Natural or Artificial Opening Endoscopic, Diagnostic (ICD-10-PCS; 2018-02-22)
DX: E11.610 Type 2 diabetes mellitus with diabetic neuropathic arthropathy (principal); N18.6 End stage renal disease; I12.0 Hypertensive chronic kidney disease with stage 5 chronic kidney disease or end stage renal disease; D62 Acute posthemorrhagic anemia; I82.B12 Acute embolism and thrombosis of left subclavian vein; E11.621 Type 2 diabetes mellitus with foot ulcer; L97.519 Non-pressure chronic ulcer of other part of right foot with unspecified severity; E11.22 Type 2 diabetes mellitus with diabetic chronic kidney disease; Z99.2 Dependence on renal dialysis; Z79.4 Long term (current) use of insulin; K52.9 Noninfective gastroenteritis and colitis, unspecified; E11.42 Type 2 diabetes mellitus with diabetic polyneuropathy; E11.649 Type 2 diabetes mellitus with hypoglycemia without coma; F32.9 Major depressive disorder, single episode, unspecified; K20.9 Esophagitis, unspecified; K29.60 Other gastritis without bleeding
CPT/HCPCS: 36430; 36901; 36907; 73630; 80048; 80202; 82565; 82962; 84132; 84520; 85014; 85018; 85025; 86850; 86900; 86901; 86920; 87340; 88305; 88312; 88313; 90935; 93971; 99217; C1725; C1887; C1894; C9113; G0378; J0461; J0690; J1644; J1815; J2001; J2060; J2250; J2405; J2765; J2795; J3010; J3370; J7040; J7042; J7050; P9016; Q4081; Q9967

== ENCOUNTER → 2018-05-07 | Outpatient (CLI) | payer MEDICARE, OTHER ==
[~2018-05-07] MED LIST changes: +ISM20 PO
== END | disposition home or self-care (01) ==
LOC: RAD 16:30
PROVIDERS: ATTEND Podiatrist Foot & Ankle Surgery
DX: M14.671 Charcot's joint, right ankle and foot (principal)
CPT/HCPCS: 73590; 73630